=== PATIENT | male | born 1950 | race Caucasian/White ===

== ENCOUNTER → 2016-09-13 | Outpatient (CLI) | payer BC, OTHER ==
[~2016-09-13] MED LIST: AMLO10TA2 PO; ASPI-461 PO; HMLI SC; HYDR25TA4 PO; INSUINJ12 SQ; LEVO88TA PO; LISI20TA3 PO; OXYC-57 PO; PRAV10TA39 PO; VALA500T60 PO
[2016-09-13 13:59] LABS: ESTIMATED AVERAGE GLUCOSE 206 mg/dl; HA1C FLAG Normal (Normal)
== END | disposition home or self-care (01) ==
LOC: C.LABMFLN 07:28
PROVIDERS: ATTEND Nurse Practitioner Adult Health
DX: E10.9 Type 1 diabetes mellitus without complications (principal)

== ENCOUNTER 2024-08-29 11:37 | Inpatient (IN) ==
--- NOTE | 2024-08-29 11:53 | Emergency Department Note ---
Impression & Plan Atrial fibrillation with RVR, Chest pain ED Provider Note NAME: CHRISTINA MENDEZ AGE: 74 SEX: M : 1950 ARRIVES VIA: Ambulance INFORMANT: Patient ED PROVIDER(S): Francisco Barnett DO CHIEF COMPLAINT: Bilateral arm pain, chest and back tightness HPI: Patient is a 74-year-old male with a past medical history of syncope who presents to the ER as he was at the PCPs office and started having tightness in his arms chest and back. Denies any headache or change in vision. No belly pain. Does have some shortness of breath. No dysuria, urgency, or frequency. Did receive aspirin prior to arrival. No history of A-fib. Does have a history of several previous strokes. ADDITIONAL HISTORY OBTAINED: Per HPI Chronic Medical/Social Conditions Affecting Care: Per HPI PAST MEDICAL HISTORY:See Below PAST SURGICAL HISTORY:See Below FAMILY HISTORY:See Below SOCIAL HISTORY:See Below HOME MEDICATIONS:See Below ALLERGIES:See Below VITALS:See Below PHYSICAL EXAMINATION: GENERAL: Sitting up in bed, alert, well appearing, well nourished, no distress, non-toxic EYE EXAM: normal conjunctiva. OROPHARYNX: mucous membranes are moist NECK: supple, no nuchal rigidity, no adenopathy, non-tender LUNGS: Clear to auscultation. Normal chest wall mechanics HEART: no murmurs, S1 normal and S2 normal ABDOMEN: abdomen soft, non-tender, normo-active bowel sounds, no masses, no rebound or guarding. BACK: Back is symmetrical on inspection and there is no deformity, no midline tenderness, no CVA tenderness. UPPER EXTREMITIES: upper extremities are grossly normal. Radial pulses are equal bilaterally LOWER EXTREMITIES: No pitting edema. Calves are equal bilaterally NEURO EXAM: Normal sensorium, cranial nerves II-XII grossly intact, normal speech, no gross weakness of arms, no gross weakness of legs. MEDICAL DECISION MAKING: Patient is a 74-year-old male who presents ER for the below stated complaint. IV was established and blood work was obtained. Upon arrival he is found to be in A-fib with RVR. Labs show no significant leukocytosis or anemia. BMP with mild hyponatremia at 132. Glucose was elevated at 375. He was given 5 units of insulin. Troponin was negative. Lipase normal. CT angio of the chest for dissection was negative. He was given bolus of IV Cardizem and placed on Cardizem drip. Drip was titrated up to 10. Heart rate was controlled from 140s down to 100. Patient was discussed with the hospitalist for further evaluation management treatment. Consults/Care Managements Discussions: Per [facility] Triage Nursing notes reviewed. Limited review of prior medical records performed Vital Signs: reviewed and remarkable for no significant abnormalities Differential diagnosis: Cardiac ischemia, aortic dissection, pulmonary embolism, pneumothorax, pneumonia, pericarditis, myocarditis, esophageal rupture, GERD, cholecystitis, pancreatitis, musculoskeletal, as well as other pathologies. ER treatment provided: See below Diagnostics interpreted by me include EKG and cardiac monitoring as listed below: -Cardiac Monitoring: An order was placed for continuous cardiac monitoring. The monitor shows a rate of 140 with AFIB rhythm. -ECG: A-fib RVR rate of 137 Normal axis No PVCs QTc 465 -Laboratory studies:Interpreted by me as stated above in MDM and shown below. Imaging studies: Xrays: As interpreted by me: Portable AP upright 1 view of the chest shows no focal infiltrate CTs show: CT angio of the chest was negative per radiology Procedures:none Critical Care: None Past Med/Surg History Problem List Atrial fibrillation with RVR Syncope Chest pain (Acute) Herpes zoster (Acute) Social History Smoking Status: Former smoker Preferred Language: Pakistani Feels Safe at Home: Yes Allergies Allergies Allergy/AdvReac Type Severity Reaction Status Date / Time oyster extract Allergy Severe ANAPHYLAXIS Verified 08/29/24 14:11 Penicillins Allergy Mild Hives Verified 08/29/24 14:11 Home Meds Home Medications Medication Instructions Recorded Confirmed aspirin 81 mg tablet,delayed 81 mg PO DAILY ##0 12/23/14 08/29/24 release levothyroxine 88 mcg tablet 88 mcg PO DAILY #0 tabs 12/23/14 08/29/24 atorvastatin 80 mg tablet 80 mg PO DAILY 08/29/24 08/29/24 cholecalciferol (vitamin D3) 25 25 mcg PO DAILY 08/29/24 08/29/24 mcg (1,000 unit) tablet (Vitamin D3) clopidogrel 75 mg tablet 75 mg PO DAILY 08/29/24 08/29/24 ezetimibe 10 mg tablet 5 mg PO DAILY 08/29/24 08/29/24 insulin aspart U-100 100 unit/mL 1 sliding scale dose subcut 08/29/24 08/29/24 (3 mL) subcutaneous pen (Novolog USEASDIRECTD FlexPen U-100 Insulin aspart) insulin glargine U-300 conc 300 9 unit subcut QPM 08/29/24 08/29/24 unit/mL (1.5 mL) subcutaneous pen (Toujeo SoloStar U-300 Insulin) losartan 50 mg tablet 50 mg PO DAILY 08/29/24 08/29/24 vit C 250 mg-vit E 90 mg-zinc 40 1 tab PO BID 08/29/24 08/29/24 mg-copper 1 [id number] capsule (PreserVision AREDS-2) vitamin B complex 1 tab PO DAILY 08/29/24 08/29/24 Results & Data (ED) Vital Signs Vital Signs - 24 hr 08/29/24 11:35 08/29/24 11:50 08/29/24 11:57 Temperature 36.3 C L Temperature Source Oral Pulse Rate 132 H Pulse Rate [Apical] Respiratory Rate 18 Respiratory Effort / Characteristics Non-Labored Spontaneous Respiratory Depth Normal Respiratory Pattern Regular Blood Pressure 140/97 Blood Pressure [Left Arm] Blood Pressure Mean 111 Blood Pressure Mean [Left Arm] Pulse Oximetry 99 99 100 Oxygen Delivery Method Room Air Room Air Room Air Sepsis Recent Fever Within 48 Hours No Sepsis New/Unexplained Change in Mental Status N/A Sepsis Action Taken by Nursing No Action Required 08/29/24 12:02 08/29/24 12:24 08/29/24 13:00 Temperature Temperature Source Pulse Rate 123 H Pulse Rate [Apical] 95 H 115 H Respiratory Rate 18 18 Respiratory Effort / Characteristics Non-Labored Spontaneous Non-Labored Spontaneous Respiratory Depth Normal Normal Respiratory Pattern Regular Regular Blood Pressure Blood Pressure [Left Arm] 106/65 118/72 Blood Pressure Mean Blood Pressure Mean [Left Arm] 78 87 Pulse Oximetry 99 99 Oxygen Delivery Method Room Air Room Air Sepsis Recent Fever Within 48 Hours Sepsis New/Unexplained Change in Mental Status Sepsis Action Taken by Nursing 08/29/24 13:45 08/29/24 14:00 08/29/24 15:03 Temperature Temperature Source Pulse Rate 86 Pulse Rate [Apical] 114 H 93 H Respiratory Rate 18 18 16 Respiratory Effort / Characteristics Non-Labored Spontaneous Non-Labored Spontaneous Respiratory Depth Normal Normal Respiratory Pattern Regular Regular Blood Pressure Blood Pressure [Left Arm] 135/71 122/76 Blood Pressure Mean Blood Pressure Mean [Left Arm] 92 91 Pulse Oximetry 99 100 97 Oxygen Delivery Method Room Air Room Air Room Air Sepsis Recent Fever Within 48 Hours Sepsis New/Unexplained Change in Mental Status Sepsis Action Taken by Nursing 08/29/24 15:03 Temperature Temperature Source Pulse Rate Pulse Rate [Apical] 75 Respiratory Rate 16 Respiratory Effort / Characteristics Respiratory Depth Respiratory Pattern Blood Pressure Blood Pressure [Left Arm] 113/61 Blood Pressure Mean Blood Pressure Mean [Left Arm] 78 Pulse Oximetry 97 Oxygen Delivery Method Room Air Sepsis Recent Fever Within 48 Hours Sepsis New/Unexplained Change in Mental Status Sepsis Action Taken by Nursing Laboratory Data 08/29/24 11:51 08/29/24 11:51 Lab Results 08/29/24 Range/Units 11:51 WBC 5.61 (4.8-10.8) K/ul RBC 4.64 L (4.70-6.10) M/uL Hgb 14.1 (14.0-18.0) g/dl Hct 42.1 (42.0-52.0) % MCV 90.7 (80.0-100.0) fL MCH 30.4 (25.0-34.0) pg MCHC 33.5 (32.0-36.0) g/dL RDW Std Deviation 44.1 (36.4-46.3) fL RDW Coeff of Landy 13.2 (11.5-14.5) % Plt Count 213 (130-400) K/uL MPV 12.1 (9.4-12.4) fL Immature Gran % (Auto) 0.4 % Neut % (Auto) 72.6 % Lymph % (Auto) 16.0 % [place] % (Auto) 6.1 % Eos % (Auto) 3.7 % Baso % (Auto) 1.2 % Neut # (Auto) 4.07 (1.40-6.50) K/uL Lymph # (Auto) 0.90 L (1.20-3.40) K/uL [place] # (Auto) 0.34 (0.11-0.59) K/uL Eos # (Auto) 0.21 (0.00-0.50) K/uL Baso # (Auto) 0.07 (0.00-0.20) K/uL Immature Gran # (Auto) 0.02 (0.01-0.20) K/uL Sodium 132 L (136-145) mmol/L Potassium 5.0 (3.5-5.1) mmol/L Chloride 98 (98-107) mmol/L Carbon Dioxide 23 (21-32) mmol/L Anion Gap 11 (3-11) BUN 25 H (6-23) mg/dl Creatinine 1.07 (0.6-1.4) mg/dl Est Cr Clr Drug Dosing 50.7 ml/min eGFR 72.37 BUN/Creatinine Ratio 23.4 H (10-20) Glucose 375 H* (70-99(Fasting)) mg/dl Calcium 9.1 (8.6-10.3) mg/dl Total Bilirubin 1.1 H (0.2-1.0) mg/dl AST 25 (13-39) U/L ALT 39 (7-52) U/L Alkaline Phosphatase 79 (34-104) U/L Troponin I High Sens 6.8 (0-20) pg/ml Total Protein 6.9 (6.0-8.3) gm/dl Albumin 4.1 (3.4-5.0) gm/dl Globulin 2.8 (2.5-4.0) gm/dl Albumin/Globulin Ratio 1.5 (0.9-2) Lipase 9 L (11-82) U/L Administered Medications Diltiazem HCl 125 mg/ Dextrose 125 mls @ 10 mls/hr IV .[id number] FOR[facility]LY [facility], [facility]; Protocol Stop: 09/28/24 11:59 Last Titration: 08/29/24 12:43 Dose: 10 mg/hr, 10 mls/hr Documented By: GREGORY Co-signed By: KHADAR Admin: 08/29/24 12:23 Dose: 5 mg/hr, 5 mls/hr Documented By: KHADAR Co-signed By: GREGORY Discontinued Medications Diltiazem HCl (Diltiazem Hcl 5 Mg/Ml 5 Ml Vial) 10 mg IV NOW STA Stop: 08/29/24 11:54 Last Admin: 08/29/24 12:04 Dose: 10 mg Documented By: KHADAR Co-signed By: GREGORY Insulin Human Regular (Novolin-R Insulin Per Unit Charge) 5 units IV NOW STA Stop: 08/29/24 13:52 Last Admin: 08/29/24 14:07 Dose: 5 units Documented By: KHADAR Co-signed By: BRIANNA Ioversol (Optiray 320 125ml) 120 ml IV ONCE ONE Stop: 08/29/24 13:33 Last Admin: 08/29/24 13:32 Dose: 120 ml Documented By: LETI Miscellaneous (Stat Iv Infusion Titration Per Protocol) 1 each N/A NOW STA Stop: 08/29/24 11:54 Last Admin: 08/29/24 12:54 Dose: 1 each Documented By: GREGORY Imaging Data Radiologist's Impression: Chest X-Ray 08/29/24 11:51 XR chest 1V portable CLINICAL HISTORY: Chest pain, nonspecific COMPARISON STUDY: None FINDINGS: Heart size and pulmonary vasculature are normal. Lungs are hyperexpanded. No effusion, consolidation, or pneumothorax. IMPRESSION: No acute findings. ACT 112: Negative or not required by law. Electronically signed by: Salomón Leonard M.D. 08/29/2024 12:17 PM Chest CTA 08/29/24 12:22 CT angio chest dissec wo/w con CT DOSE: 837.6 mGy.cm HISTORY: 74 years-old Male with cp/back pain. Acute chest and mid back pain TECHNIQUE: Multiple CTA images of the chest were obtained with and without the intravenous administration of 120 ml Optiray. Coronal and sagittal MIPS were obtained from the axial data set and were submitted for review. All measurements were obtained according to NASCET criteria. A dose lowering technique was utilized adhering to the principles of ALARA. COMPARISON: Chest radiograph of same day FINDINGS: CTA: Heart is upper limits of normal in size. No pericardial effusion. Extensive coronary artery calcifications. Atherosclerosis of the aorta without aneurysm or dissection. Ascending thoracic aorta measures 3.7 cm transversely. Noncontrast study demonstrates no intramural or mediastinal hematoma. Unremarkable pulmonary artery. CT CHEST: No thyroid nodule or lymphadenopathy. Trace pleural effusions. No pneumothorax. Moderate emphysema with bronchial wall thickening suggestive of bronchitis. No suspicious pulmonary nodules or masses. Central airways are generally patent. Prominent atherosclerotic plaque of the upper abdominal aorta and branch vessels. Mild generalized body wall edema. Paraspinal tissues are within normal limits. Mild diffuse wall thickening of the esophagus. 6 mm right tracheoesophageal recess lymph node on image 48 series 7 is within normal limits in size. No acute fracture. IMPRESSION: 1. Atherosclerosis of the thoracic aorta without aneurysm or dissection. 2. No pulmonary emboli. 3. Emphysema without acute process of the chest. 4. Mild nonspecific diffuse esophageal wall thickening should be correlated clinically to exclude a nonspecific esophagitis. ACT 112: Negative or not required by law. The above report was generated using voice recognition software. It may contain grammatical, syntax or spelling errors. Electronically signed by: Dez Christian M.D. 08/29/2024 2:03 PM Discharge Plan Visit Data Chief Complaint: Cardiac Assessment Stated Complaint: HEAVINESS IN ARM & BACK ED Provider: Francisco Barnett Discharge Problem: Atrial fibrillation with RVR, Chest pain Forms Stand Alone Forms: [facility] [employer] Prescriptions Prescriptions: No Action aspirin 81 mg Tablet,Delayed Release (Dr/Ec) 81 mg PO DAILY Qty: 0 levothyroxine 88 mcg Tablet 88 mcg PO DAILY Qty: 0 losartan 50 mg Tablet 50 mg PO DAILY atorvastatin 80 mg Tablet 80 mg PO DAILY clopidogrel 75 mg Tablet 75 mg PO DAILY vitamin B complex Tablet 1 tab PO DAILY ezetimibe 10 mg Tablet 5 mg PO DAILY insulin aspart U-100 [Novolog FlexPen U-100 Insulin] 100 unit/mL (3 mL) Insulin Pen 1 sliding scale dose SUBCUT USEASDIRECTD Rx Instructions: Inject 1 unit per 8 gram of carb at breakfast and 1 unit per 9 gram of carb for all other meals + 1 additional unit for every 50 above 180. cholecalciferol (vitamin D3) [Vitamin D3] 25 mcg (1,000 unit) Tablet 25 mcg PO DAILY PreserVision AREDS-2 250-90-40-1 mg Capsule 1 tab PO BID insulin glargine U-300 conc [Toujeo SoloStar U-300 Insulin] 300 unit/mL (1.5 mL) Insulin Pen 9 unit subcut QPM Rx Instructions: With supper Referrals Referrals: Apollo Gutiérrez [employer] [Primary Care Provider] - Discharge Problem: Chest pain Qualifiers: Chest pain type: unspecified Qualified Code(s): R07.9 - Chest pain, unspecified
[2024-08-29] MEDS: dilTIAZem HCl 5 MG/ML 5 ML VIAL IV STA (12:04)
--- NOTE | 2024-08-29 12:18 | XRay Report ---
XR chest 1V portable CLINICAL HISTORY: Chest pain, nonspecific COMPARISON STUDY: None FINDINGS: Heart size and pulmonary vasculature are normal. Lungs are hyperexpanded. No effusion, cons olidation, or pneumothorax. IMPRESSION: No acute findings. ACT 112: Negative or not required by law. Electronically signed by: Salomón Leonard M.D. 08/29/2024 12:17 PM
[2024-08-29 12:22] LABS: Basophils # (auto) 0.07 K/uL (0.00-0.20); Basophils % (auto) 1.2 %; Eosinophils # (auto) 0.21 K/uL (0.00-0.50); Eosinophils % (auto) 3.7 %; Hematocrit (blood only) 42.1 % (42.0-52.0); Hemoglobin 14.1 g/dl (14.0-18.0); Immature Granulocytes # (auto) 0.02 K/uL (0.01-0.20); Immature Granulocytes % (auto) 0.4 %; Mean Corpuscular Hemoglobin 30.4 pg (25.0-34.0); Mean Corpuscular Hgb Conc 33.5 g/dL (32.0-36.0); Mean Corpuscular Volume 90.7 fL (80.0-100.0); Mean Platelet Volume 12.1 fL (9.4-12.4); Monocytes # (auto) 0.34 K/uL (0.11-0.59); Monocytes % (auto) 6.1 %; Neutrophils # (auto) 4.07 K/uL (1.40-6.50); Neutrophils % (auto) 72.6 %; Platelet Count 213 K/uL (130-400); RDW Coefficient of Variation 13.2 % (11.5-14.5); RDW Standard Deviation 44.1 fL (36.4-46.3); Red Blood Count 4.64 M/uL (4.70-6.10); White Blood Count 5.61 K/ul (4.8-10.8)
[2024-08-29] MEDS: dilTIAZem HCL 125 MG in DEXTROSE 5% 100 ML IV SCH (12:23)
[2024-08-29 12:40] LABS: Albumin Globulin Ratio 1.5 (0.9-2); Albumin Level 4.1 gm/dl (3.4-5.0); BUN Creatinine Ratio 23.4 (10-20); Bilirubin,Total 1.1 mg/dl (0.2-1.0); Calcium 9.1 mg/dl (8.6-10.3); Creatinine Clr Calc Pharmacy 50.7 ml/min; Globulin 2.8 gm/dl (2.5-4.0); Total Protein 6.9 gm/dl (6.0-8.3)
[2024-08-29 12:45] LABS: Troponin I High Sensitivity 6.8 pg/ml (0-20)
[2024-08-29] MEDS: STAT IV Infusion **Titration per Protocol STA (12:54)
[2024-08-29] MEDS: OPTIRAY 320 125ml IV ONE (13:32)
--- NOTE | 2024-08-29 14:06 | CT Scan Report ---
CT angio chest dissec wo/w con CT DOSE: 837.6 mGy.cm HISTORY: 74 years-old Male with cp/back pain. Acute chest and mid back pain TECHNIQUE: Multiple CTA images of the chest were obtained with and without the intravenous administra tion of 120 ml Optiray. Coronal and sagittal MIPS were obtained from the axial data set and were sub mitted for review. All measurements were obtained according to NASCET criteria. A dose lowering tech nique was utilized adhering to the principles of ALARA. COMPARISON: Chest radiograph of same day FINDINGS: CTA: Heart is upper limits of normal in size. No pericardial effusion. Extensive coronary artery calcifica tions. Atherosclerosis of the aorta without aneurysm or dissection. Ascending thoracic aorta measures 3.7 cm transversely. Noncontrast study demonstrates no intramural or mediastinal hematoma. Unremarka ble pulmonary artery. CT CHEST: No thyroid nodule or lymphadenopathy. Trace pleural effusions. No pneumothorax. Moderate emphysema wi th bronchial wall thickening suggestive of bronchitis. No suspicious pulmonary nodules or masses. Radha tral airways are generally patent. Prominent atherosclerotic plaque of the upper abdominal aorta and branch vessels. Mild generalized anisa dy wall edema. Paraspinal tissues are within normal limits. Mild diffuse wall thickening of the esoph lesli. 6 mm right tracheoesophageal recess lymph node on image 48 series 7 is within normal limits in size. No acute fracture. IMPRESSION: 1. Atherosclerosis of the thoracic aorta without aneurysm or dissection. 2. No pulmonary emboli. 3. Emphysema without acute process of the chest. 4. Mild nonspecific diffuse esophageal wall thickening should be correlated clinically to exclude a n onspecific esophagitis. ACT 112: Negative or not required by law. The above report was generated using voice recognition software. It may contain grammatical, syntax o r spelling errors. Electronically signed by: Dez Christian M.D. 08/29/2024 2:03 PM
[2024-08-29] MEDS: NovoLIN-R INSULIN PER UNIT CHARGE IV STA (14:07)
[2024-08-29] MEDS ORDERED: GLUCAGON FOR INJ 1 MG VIAL SQ PRN (14:55)
[2024-08-29] MEDS ORDERED: GLUCOSE 40% GEL 15 GM TUBE PO PRN (14:55)
[2024-08-29] MEDS ORDERED: DEXTROSE 50% 50 ML SYRINGE IV PRN (14:55)
[2024-08-29] MEDS ORDERED: ALUMINUM/MAGNESIUM SUSP 30 ML UDC PO PRN (14:55)
[2024-08-29] MEDS ORDERED: GLUCOSE 10 TAB/TUBE PO PRN (14:55)
[2024-08-29] MEDS ORDERED: ACETAMINOPHEN 325 MG TAB PO PRN (14:55)
[2024-08-29] MEDS ORDERED: PHARMACY GLYCEMIC MGMT CONSULT PRN (14:55)
[2024-08-29] MEDS ORDERED: MAGNESIUM HYDROXIDE SUSP 30 ML UDC PO PRN (14:55)
[2024-08-29] MEDS ORDERED: NITROGLYCERIN SL 0.4 MG/TAB TAB SL PRN (14:55)
--- NOTE | 2024-08-29 14:56 | Electrocardiogram Report ---
Test Reason : Blood Pressure : */* mmHG Vent. Rate : 137 BPM Atrial Rate : * BPM P-R Int : * ms QRS Dur : 90 ms QT Int : 308 ms P-R-T Axes : * 81 -41 degrees QTcB Int : 465 ms Atrial fibrillation with rapid ventricular response Abnormal ECG When compared with ECG of 23-Dec-2014 11:57, Atrial fibrillation now present HR has increased by 70 bpm Confirmed by Galo Cameron ([id number]) on 08/29/2024 2:55:56 PM Referred By: Confirmed By: Galo Cameron
--- NOTE | 2024-08-29 14:57 | History & Physical Report ---
Date of Service August 29, 2024 Assessment & Plan (1) Atrial fibrillation with RVR: Plan Atrial fibrillation with RVR, New onset Patient presented with tightness/pain of his both arms/upper back/shoulders associated with nausea/vomiting/pressure at the back of his head. Patient noted to be in A-fib with RVR at presentation, EKG reviewed. Patient denies history of A-fib, get TSH. Admitting troponin 6.8, trend troponins. Get echo, telemetry monitoring Monitor and replete electrolytes Patient started on Cardizem drip, heart rate getting better controlled. c/w w/ drip Cardiology consult, communicated via TT. [id number] score of 6 [age, HTN, prior stroke, diabetes mellitus]. Consider Heparin drip after CT head is out/hold one of dapt ? plavix; will f/u w/ cards recs. Rule out stroke: Patient reports that he has had 4 strokes in the past, last one in February 2024. He likens the presenting symptoms to the event of stroke in the past. Will get CT head, and follow-up with MRI brain. Hyperglycemia/ in the setting of T2DM: Sliding scale insulin while in hospital, A1c in a.m., glycemic pharmacy consult. Other chronic medical conditions: HTN, HLD, hypothyroidism--- continue/resume home meds as able. DVT prophylaxis: Plan to put on heparin drip after CT Head result. Full code History of Present Illness Chief Complaint: Tightness in the arms and shoulder Primary Care Provider: BRAD Padron 74-year-old male with PMH of T2DM, HLD, hypothyroidism, stroke [4 times per patient, last one February 2024], HTN, colon polyps presented to the ED after he started feeling tightness/pain of both arms and shoulders and upper back followed by nausea, sweating, vomiting. The symptoms worsened and hence he presented to the ED. Patient was at his PCP office when the symptoms started. Patient denied chest pain or chest tightness. Patient reported pressure at the back of his head. Patient reports he has had 4 strokes, last one in February 2024. He feels like he had similar symptoms during prior strokes with pain/tightness of both arms/upper back along with pressure at the back of the head. Patient noted to be in A-fib RVR at presentation in the ED. Patient denies any fever/sore throat/cough/chest pain/chest tightness/belly pain/pain or burning while passing urine/diarrhea/constipation/weakness. Patient reports quitting smoking 8 to 9 years ago, denies alcohol/recreational drug use. Full code Medications reviewed with the patient at bedside in detail. Plan of care discussed with the patient in detail, he was understanding and was agreeable. Allergies Allergy/AdvReac Type Severity Reaction Status Date / Time oyster extract Allergy Severe ANAPHYLAXIS Verified 08/29/24 14:11 Penicillins Allergy Mild Hives Verified 08/29/24 14:11 Home Medications Medication Instructions Recorded Confirmed Type aspirin 81 mg tablet,delayed 81 mg PO DAILY ##0 12/23/14 08/29/24 History release levothyroxine 88 mcg tablet 88 mcg PO DAILY #0 tabs 12/23/14 08/29/24 History atorvastatin 80 mg tablet 80 mg PO DAILY 08/29/24 08/29/24 History cholecalciferol (vitamin D3) 25 25 mcg PO DAILY 08/29/24 08/29/24 History mcg (1,000 unit) tablet (Vitamin D3) clopidogrel 75 mg tablet 75 mg PO DAILY 08/29/24 08/29/24 History ezetimibe 10 mg tablet 5 mg PO DAILY 08/29/24 08/29/24 History insulin aspart U-100 100 unit/mL 1 sliding scale dose subcut 08/29/24 08/29/24 History (3 mL) subcutaneous pen (Novolog USEASDIRECTD FlexPen U-100 Insulin aspart) insulin glargine U-300 conc 300 9 unit subcut QPM 08/29/24 08/29/24 History unit/mL (1.5 mL) subcutaneous pen (Toujeo SoloStar U-300 Insulin) losartan 50 mg tablet 50 mg PO DAILY 08/29/24 08/29/24 History vit C 250 mg-vit E 90 mg-zinc 40 1 tab PO BID 08/29/24 08/29/24 History mg-copper 1 mu-xfardo-csxqiz capsule (PreserVision AREDS-2) vitamin B complex 1 tab PO DAILY 08/29/24 08/29/24 History Past Med/Surg History Problem List (Updated 08/29/24 @ 15:01 by Kari Stiles MD) Atrial fibrillation with RVR Syncope Chest pain (Acute) Herpes zoster (Acute) Social History Smoking Status: Former smoker Preferred Language: Liberian Feels Safe at Home: Yes Review of Systems Review of Systems: Negative otherwise mentioned in HPI. Physical Exam Physical Exam: GENERAL: Alert and oriented x3. NAD, on RA. HEENT: No pallor, no icterus. Pupils equal, round and reactive to light. Oral mucosa moist. NECK: No JVD, no neck masses. HEART: S1 and S2 heard. irregular rate and rhythm. HR in 100s. No murmur, no gallop. RESPIRATORY SYSTEM: Normal AP diameter. No accessory muscle use. No wheezing, no crackles. ABDOMEN: Soft, bowel sounds present, nontender, no distention. CENTRAL NERVOUS SYSTEM: No facial droop. Speech is clear. Obeys simple commands. Moves extremities. power 5/5 all extremities. EXTREMITIES: No edema, no erythema seen. Results & Data Results & Data Vital Signs (Past 12 Hours) Vital Signs Temp Pulse Pulse Resp BP BP Pulse Ox 08/29/24 14:00 93 H 18 122/76 100 08/29/24 13:45 114 H 18 135/71 99 08/29/24 13:00 115 H 18 118/72 99 08/29/24 12:24 95 H 18 106/65 99 08/29/24 12:02 123 H 08/29/24 11:57 100 08/29/24 11:50 99 08/29/24 11:35 36.3 C L 132 H 18 140/97 99 O2 Del Method 08/29/24 14:00 Room Air 08/29/24 13:45 Room Air 08/29/24 13:00 Room Air 08/29/24 12:24 Room Air 08/29/24 12:02 08/29/24 11:57 Room Air 08/29/24 11:50 Room Air 08/29/24 11:35 Room Air
--- NOTE | 2024-08-29 15:34 | Cardiology Consultation ---
Date of Consultation August 29, 2024 Assessment & Plan (1) Atrial fibrillation with RVR: Plan Patient is a 74-year-old male presents with newly observed atrial fibrillation with rapid response possible acute onset this afternoon. Initially associated with symptoms of chest pain and arm weakness. Symptoms now resolved with heart rate control With IV diltiazem Echocardiogram demonstrates normal to hyperdynamic LV function with only borderline left atrial enlargement. Mild sclerotic changes of the aortic and mitral valves. CT of the chest unremarkable revealing other than vascular and coronary calcification 1. Atrial fibrillation with rapid response. Has controlled with IV diltiazem. Will transition to oral metoprolol Tartrate 25 mg p.o. now and 3 times daily. Patient with significantly elevated [id number] 2 score, 6. CT scan head pending but would anticoagulate with IV heparin with transition ultimately to Eliquis at discharge. Would likely continue with Plavix discontinue aspirin at that time Prior history of borderline bradycardia, abnormal tilt table testing. Will need to watch closely for tachybradycardia syndrome. Discussed with patient and may ultimately require pacemaker for management. Would not initiate Eliquis until discharge 2. Cardiovascular risk factors continue Atorvastatin, ezetimibe, losartan History of Present Illness Reason for Consultation: Atrial fibrillation with rapid ventricular response Requesting Physician: Dr. Stiles/Nathaniel hospitalist History of Present Illness Patient is a 74-year-old male referred for newly observed atrial fibrillation with rapid response. Underlying medical issues include 1. Recurrent stroke most recent event February 2024 with mild left leg weakness residual. On dual antiplatelet therapy. 2. Type 1 diabetes, insulin-dependent since age 39 3. Peripheral neuropathy 4. Orthostatic hypotension with past positive tilt table testing 5. Hyperlipidemia on therapy Patient routinely followed at [facility]. No prior history of atrial fibrillation with past event monitors demonstrating short runs of supraventricular tachycardia only. Today at routine visit at the [facility] was walking across the parking lot afterwards and developed sudden onset arm pain shoulder pain and acute weakness. Patient concerned regarding symptoms with prior stroke. Return to clinic or is found to be in atrial fibrillation with rapid response. Transported via ambulance to the emergency room. Begun on IV diltiazem with prompt slowing of atrial fibrillation rate. Currently comfortable without complaint. He denies prior history of myocardial infarction angina or congestive heart failure no history of cardiomyopathy. No recent fevers chills or infections. No bleeding issues. Does bruise easily on dual antiplatelet therapy. Appetite and weight are stable. No sleep disruption Does trend low heart rate at baseline Family history of diabetes and vascular disease Allergies Allergy/AdvReac Type Severity Reaction Status Date / Time oyster extract Allergy Severe ANAPHYLAXIS Verified 08/29/24 14:11 Penicillins Allergy Mild Hives Verified 08/29/24 14:11 Home Medications Medication Instructions Recorded Confirmed Type aspirin 81 mg tablet,delayed 81 mg PO DAILY ##0 12/23/14 08/29/24 History release levothyroxine 88 mcg tablet 88 mcg PO DAILY #0 tabs 12/23/14 08/29/24 History atorvastatin 80 mg tablet 80 mg PO DAILY 08/29/24 08/29/24 History cholecalciferol (vitamin D3) 25 25 mcg PO DAILY 08/29/24 08/29/24 History mcg (1,000 unit) tablet (Vitamin D3) clopidogrel 75 mg tablet 75 mg PO DAILY 08/29/24 08/29/24 History ezetimibe 10 mg tablet 5 mg PO DAILY 08/29/24 08/29/24 History insulin aspart U-100 100 unit/mL 1 sliding scale dose subcut 08/29/24 08/29/24 History (3 mL) subcutaneous pen (Novolog USEASDIRECTD FlexPen U-100 Insulin aspart) insulin glargine U-300 conc 300 9 unit subcut QPM 08/29/24 08/29/24 History unit/mL (1.5 mL) subcutaneous pen (Toujeo SoloStar U-300 Insulin) losartan 50 mg tablet 50 mg PO DAILY 08/29/24 08/29/24 History vit C 250 mg-vit E 90 mg-zinc 40 1 tab PO BID 08/29/24 08/29/24 History mg-copper 1 [id number] capsule (PreserVision AREDS-2) vitamin B complex 1 tab PO DAILY 08/29/24 08/29/24 History Patient History Social History Smoking Status: Former smoker Preferred Language: Ghanaian Feels Safe at Home: Yes Review of Systems Review of Systems: All systems reviewed & are unremarkable except as noted in HPI & below Physical Exam Constitutional: WD/WN, vitals as above no acute distress ENMT: external ear and nose normal, oropharynx normal Neck: trachea midline, no thyromegaly Respiratory: normal respiratory effort, lungs clear to auscultation Cardiovascular: Rate/Rhythm: + irregularly irregular Heart Sounds: normal S1 and normal S2; no murmur Vessels: no JVD Extremities: no edema Gastrointestinal (Abdomen): normal bowel sounds, soft, nontender, no hepatosplenomegaly Musculoskeletal: no cyanosis or clubbing, extremities motor strength 5/5 Results & Data Vital Signs (Past 12 Hours) Vital Signs Temp Pulse Pulse Resp BP BP Pulse Ox 08/29/24 15:03 75 16 113/61 97 08/29/24 15:03 86 16 97 08/29/24 14:00 93 H 18 122/76 100 08/29/24 13:45 114 H 18 135/71 99 08/29/24 13:00 115 H 18 118/72 99 08/29/24 12:24 95 H 18 106/65 99 08/29/24 12:02 123 H 08/29/24 11:57 100 08/29/24 11:50 99 08/29/24 11:35 36.3 C L 132 H 18 140/97 99 O2 Del Method 08/29/24 15:03 Room Air 08/29/24 15:03 Room Air 08/29/24 14:00 Room Air 08/29/24 13:45 Room Air 08/29/24 13:00 Room Air 08/29/24 12:24 Room Air 08/29/24 12:02 08/29/24 11:57 Room Air 08/29/24 11:50 Room Air 08/29/24 11:35 Room Air Laboratory Results Laboratory Results - last 24 hr 08/29/24 11:51 WBC 5.61 RBC 4.64 L Hgb 14.1 Hct 42.1 MCV 90.7 MCH 30.4 MCHC 33.5 RDW Std Deviation 44.1 RDW Coeff of Landy 13.2 Plt Count 213 MPV 12.1 Immature Gran % (Auto) 0.4 Neut % (Auto) 72.6 Lymph % (Auto) 16.0 [place] % (Auto) 6.1 Eos % (Auto) 3.7 Baso % (Auto) 1.2 Neut # (Auto) 4.07 Lymph # (Auto) 0.90 L [place] # (Auto) 0.34 Eos # (Auto) 0.21 Baso # (Auto) 0.07 Immature Gran # (Auto) 0.02 Sodium 132 L Potassium 5.0 Chloride 98 Carbon Dioxide 23 Anion Gap 11 BUN 25 H Creatinine 1.07 Est Cr Clr Drug Dosing 50.7 eGFR 72.37 BUN/Creatinine Ratio 23.4 H Glucose 375 H* Calcium 9.1 Total Bilirubin 1.1 H AST 25 ALT 39 Alkaline Phosphatase 79 Troponin I High Sens 6.8 Total Protein 6.9 Albumin 4.1 Globulin 2.8 Albumin/Globulin Ratio 1.5 Lipase 9 L
--- NOTE | 2024-08-29 16:17 | CT Scan Report ---
EXAM: CT Head Without Intravenous Contrast INDICATION: Head pressure. TECHNIQUE: Axial computed tomography images of the head/brain without intravenous contrast. Sagittal and/or coronal reformats are provided. Sagittal and coronal reformatted images were created and reviewed. This CT exam was performed using one or more of the following dose reduction techniques: automated exposure control, adjustment of the mA and/or kV according to patient size, and/or use of iterative reconstruction technique. COMPARISON: No relevant prior studies available. FINDINGS: Limitations: None. Brain and extra-axial spaces: There is age appropriate cortical atrophy and chronic ischemic periventricular white matter hypodensity. No acute infarct, hemorrhage or mass noted. Bones/joints: No acute changes. Soft tissues: No significant abnormality noted. Vasculature: Dense atherosclerotic calcification noted in the vertebral and carotid arteries. Sinuses: There is mild chronic bilateral ethmoid and left frontal sinus thickening. No fluid. Mastoid air cells: No mastoid effusion. Orbits: No significant abnormality noted. IMPRESSION: 1. Cerebral atrophy. No acute changes. 2. Chronic ethmoid and left frontal sinusitis. ACT 112: Negative or not required by law. Electronically signed by Karina Borrego 08-29-2024 4:16 PM
[2024-08-29] MEDS: METOPROLOL TARTRATE 25 MG TAB PO ONE (17:28)
[2024-08-29] MEDS: Heparin IV Adult Wt-Based Low-Dose *NO* INITIAL Bolus Protocol IV STA (17:46)
[2024-08-29] MEDS: HEPARIN 25000 UNIT/500 ML D5W 25,000 UNITS/500 ML BAG IV SCH (18:09)
[2024-08-29] MEDS: ONDANSETRON INJ 2 MG/ML 2 ML VIAL IV PRN (18:29)
[2024-08-29] MEDS: INSULIN ASPART PER UNIT CHARGE SC SCH (18:36)
[2024-08-29] MEDS: METOPROLOL TARTRATE 25 MG TAB PO SCH (19:34)
--- OUTSIDE RECORDS SUMMARY | 2024-08-29 20:31 | External Medical Summary ---
Author Name Unknown Address Unknown Organization : Laboratory Report Ordering Provider Test Date Status MARIELLE MARTINEZ 07/10/2024 07:17:27 Final Observation Date Value Abnormality Reference (Units ) Status Glucose Point of Care 07/10/2024 07:17:27 178 Above high normal 70-120 (mg/dL) Final Performing Location
--- OUTSIDE RECORDS SUMMARY | 2024-08-29 20:31 | External Medical Summary | Summary of Care ---
Author Name Unknown Organization [facility] Address [address] [facility] [place] [address] Phone [phone] Care Team Providers Care Policyholder Information Clerk Name Role Phone Jatin Mejia Primary Care Provider [phone] Reason for Visit * Auth/Cert Specialty Diagnoses / Procedures Referred By José guzman Referred To Contact Diagnoses Cataract Cataract [H26.9] Procedures REMOVE CATARACT, INSERT LENS PROSTH LEFT EXTRACAPSULAR CATARACT REMOVAL WITH INTRAOCULAR LENS Juan Malcolm DO [address] [address] Phone: tel: fax: [facility], Operating Room, [facility] - 4th Floor [address] [place] [address] Phone: tel: Referral ID Status Reason Start Date Expiration Date Visits Re quested Visits Authorized [id number] Encounter Details Date Type Department Care Team (Late st Contact Info) Description 07/10/2024 6:36 AM EST - 07/10/2024 8:52 AM EST Hospital Encounter [facility], Operating Room, [facility] - 4th Floor [address] [place] [address] Juan Malcolm DO [address] [address] Discharge Disposition: Home - Self Care Allergies Active Allergy Reactions Criticality Noted Date Comments Penicillins Edema face/lips/tongue High 12/17/2014 documented as of this encounter (statuses as of 07/10/2024) Medications aspirin 81 MG chewable tablet Take 1 Tablet by mouth in the morning. Active CYANOCOBALAMIN (VITAMIN B-12) 500 MCG Sublingual Tablet Take 2 Tablets by mouth in the morning. Active Cholecalciferol (VITAMIN D3) 3000 UNITS Tablet Take 1,000 Units by mouth daily. Active Ezetimibe 10 MG Oral Tablet (Zetia) Take 0.5 Tablets by mouth in the morning. 09/15/19 24 Active Insulin Glargine (1 Unit Dial) 300 UNIT/ML Subcutaneous Solution Pen-injector Inject 9 Units under the skin at bedtime. 10 units 06/19/20 23 Active Insulin Aspart 100 UNIT/ML Injection Solution (NovoLOG) INJECT INSULIN SUBCUTANEOUSLY 3 TIMES A DAY WITH MEALS FOR DIABETES USE CARB RATIO PLUS SCALE 1:50 GREATER THAN 180.CARB RATIOS: 1:15 WITH BREAKFAST. 1:15 WITH LUNCH. 1:15 WITH SUPPER. 1:20 WITH SNACKS. FOR DIABETES USE CARB RATIO PLUS SCALE 1:50 GREATER THAN 180.CARB RATIOS: 1:15 WITH BREAKFAST. 1:15 WITH LUNCH. 1:15 WITH SUPPER. 1:20 WITH SNACKS. 02/18/20 23 Active Clopidogrel Bisulfate 75 MG Oral Tablet (pLAVix) 1 Tablet. 01/08/20 23 Active Atorvastatin Calcium 80 MG Oral Tablet (Lipitor) Take 1 Tablet by mouth in the morning. 05/30/20 23 Active PreserVision AREDS 2 Oral Capsule Take 1 Capsule by mouth in the morning. 01/18/20 23 Active Levothyroxine Sodium 88 MCG Oral Tablet (Levoxyl) Take 1 Tablet by mouth daily first thing in the morning. (at least 30 min prior to breakfast or other meds) Active hydroCHLOROthiaz vonnie 12.5 MG Oral CapsuleIndicatio ns:Essential hypertension Take 1 Capsule by mouth in the morning. 30 Capsule 5 03/19/20 24 Active Additional Information Patient not taking.Reported on 07/10/2024 Losartan Potassium 50 MG Oral Tablet (Cozaar) Take 1 Tablet by mouth in the morning. Active prednisoLONE Acetate 1 % Ophthalmic Suspension (Pred Forte) Instill 1 Drop into both eyes in the morning and 1 Drop at noon and 1 Drop in the evening and 1 Drop before bedtime. 10 mL 06/20/20 24 Active documented as of this encounter (statuses as of 07/10/2024) Active Problems Problem Noted Date Diagnosed Date Stroke-like symptoms 03/15/2024 Stroke with cerebral ischemia 03/15/2024 Cataract 12/01/2023 Combined forms of age-related cataract of both e yes 11/09/2023 Weakness 04/20/2018 Diaphoresis 04/19/2018 Type 2 diabetes mellitus wit h kidney complication, with long-term current use of insulin 04/19/2018 Essential hypertension 04/19/2018 Hyperlipidemia 04/19/2018 Hypothyroidism Colon polyps documented as of this encounter (statuses as of 07/10/2024) Resolved Problems Problem Noted Date Diagnosed Date Resolved Date Near syncope 04/19/2018 03/19/2024 documented as of this encounter (statuses as of 07/10/2024) Immunizations Name Administration Dates Next Due Covid-19, Mrna, Lnp-s, Pf, B ivalent, 50 Mcg, IM, 12 yrs and above (Moderna) 07/06/2021,09/22/2020,08/25/2020 Pneumococcal Conjugate Vacc, 13 Valent (Prevnar) 11/03/2015 Pneumococcal Polysaccharide PPV23 (Pneumovax) 07/28/2017,05/25/2003 Season Influenza, Quad, PF, Adjuvanted, 65+ Yrs, IM (FLUAD) 05/17/2016 Seasonal Influenza Vac., MDV , IM, 0.5 mL (Fluzone) 04/23/2019,04/18/2017 Seasonal Influenza, High Dos e, Trivalent, PF, IM (Fluzone HD) 03/30/2024 TD - Tetanus/Diptheria (ADULT) 06/28/2011 Varicella Zoster Vaccine (Adult) 10/27/2016 Zoster Vaccine Recombinant (Shingrix) 07/23/2019 ,04/23/2019 documented as of this encounter Social History Tobacco Use Types Packs/Day Years Used Date Smoking Tobacco: Former Cigarettes Q uit: 10/23/2014 Passive Smoke Exposure: Past Smokeless Tobacco: Never Alcohol Use Standard Drinks/Week Comments Not Currently 0 (1 standard drink = 0.6 oz pur e alcohol) PHQ-2 Answer Date Recorded PHQ Adult Total Score 0 09/26/2023 Hunger Vital Sign Answer Date Recorded Within the past 12 months, y ou worried that your food would run out before you got the money to buy more. Never true 09/15/19 24 Within the past 12 months, t he food you bought just didn't last and you didn't have money to get more. Never true 09/15/2023 Childcare Answer Date Recorded Do you feel overwhelmed with taking care of a child, family member or friend? No 09/15/2023 Does your family need help f inding childcare? (Household - for ages 0-17 years) Not on file 09/15/2023 Clothing Answer Date Recorded Have you been unable to get clothing when it was really needed? No 09/15/2023 Is your family able to get c lothes or diapers when needed? (Household - for ages 0-17 years) Not on file 09/15/2023 Personal Safety Answer Date Recorded Do you feel unsafe or have concerns for your saf ety? No 09/15/2023 Do you have concerns for you r family's safety? (Household - for ages 0-17 years) Not on file 09/15/2023 Utilities Answer Date Recorded Do you have trouble paying y our heating, water, or electric bill? No 09/15/2023 Is your family able to pay t he heat, water, or electric bill? (Household - for ages 0-17 years) Not on file 09/15/2023 Does your family have access to good internet? (Household - for ages 0-17 years) Not on file 09/15/2023 Employment Status Answer Date Recorded Are you unemployed or without regular income? No 09/15/2023 [facility] the [facility] have a [facility] income? (Household - for ages 0-17 years) Not on file 09/15/2023 Social Connections Answer Date Recorded How often do you feel lonely or isolated from th ose around you? Never 09/15/2023 Financial Resource Strain Answer Date R ecorded Do you have any trouble payi ng for your medications, or do you think you might in the future? No 09/15/2023 Does your family have troubl e paying for medicine? (Household - for ages 0-17 years) Not on file 09/15/2023 Transportation Needs Answer Date Record ed READ ONLY Do you have troubl e getting a ride to medical visits or work? Never True 09/15/2023 Does your family have a hard time getting a ride to doctors visits? (Household - for ages 0-17 years) Not on file 09/15/2023 Has lack of transportation k ept you from medical appointments, meetings, work, or from getting things needed for daily living? Check all that apply. (Adult - for ages 18 years and over) Not on file 09/15/2023 Do you (or your family) have trouble finding or paying for a ride (transportation)? (Household - for ages 0-17 years) Not on file 09/15/2023 Housing Stability Answer Date Recorded Do you currently live in a s helter or have no steady place to sleep at night? No 09/15/2023 READ ONLY Do you think you a re at risk of becoming homeless? No 09/15/2023 Does your family worry about paying for your home or becoming homeless? (Household - for ages 0-17 years) Not on file 0 09/15/2023 Are you homeless or worried that you might be in the future? (Adult - for ages 18 years and over) Not on file Are you (or your family) christopher eless or worried that you might be in the future? (Household - for ages 0-17 years) Not on file Food Insecurity Answer Date Recorded Do you need food for this week? No 09/15/2023 Are you able to get enough f ood for your family? (Household - for ages 0-17 years) Not on file 09/15/2023 Does your family need food t his week? (Household - for ages 0-17 years) Not on file 09/15/2023 Do you always have enough fo od for your family? (Household - for ages 0-17 years) Not on file 09/15/2023 Sex and Gender Information Value Date Recorded Sex Assigned at Male 09/15/2023 1:23 PM EST Legal Sex Male 5:07 AM EST Gender Identity Male 09/15/2023 1:23 PM EST Sexual Orientation Straight 09/15/2023 1: 23 PM EST documented as of this encounter Last Filed Vital Signs Vital Sign Reading Time Taken Comments Blood Pressure 175/86 07/10/2024 8:49 AM EST Pulse 54 07/10/2024 8:49 AM EST Temperature 36.3 C (97.3 F) 07/10/2024 8:49 AM ES T Respiratory Rate 16 07/10/2024 8:49 AM EST Oxygen Saturation 98% 07/10/2024 8:49 AM EST Inhaled Oxygen Concentration - - Weight 64.3 kg (141 lb 12.1 oz) 07/10/2024 6:47 AM EST Height 172.7 cm (5' 8") 07/10/2024 6:47 AM EST Body Mass Index 21.55 07/10/2024 6:47 AM EST documented in this encounter Functional Status * Are you deaf or do you have serious difficulty hearing? Answer Date of Assessment Author No 04/19/2018 7:43 PM Ashlyn Robles RN * Are you blind or do you have serious difficulty seeing, even when wearing glasses? Answer Date of Assessment Author Yes 04/19/2018 7:43 PM Ashlyn Robles RN * Do you have serious difficulty walking or climbing stairs? (5 years old or older) Answer Date of Assessment Author No 04/19/2018 7:43 PM Ashlyn Robles RN * Do you have difficulty dressing or bathing? (5 years old or older) Answer Date of Assessment Author No 04/19/2018 7:43 PM Ashlyn Robles RN * Because of a physical, mental, or emotional condition, do you have difficulty doing errands alone such as visiting a doctors office or shopping? (15 years old or older) Answer Date of Assessment Author No 04/19/2018 7:43 PM Ashlyn Robles RN documented as of this encounter Mental Status * Because of a physical, mental, or emotional condition, do you have serious difficulty concentrating, remembering, or making decisions? (5 years old or older) Answer Entry Date Author No 04/19/2018 7:43 PM Ashlyn Robles RN documented in this encounter Discharge Instructions * Discharge Instr - AVS* Juan Malcolm, - 07/10/2024 8:16 AM EST Discharge Date: 07/10/24 Check your Patient Education Brochure for further information. If you have any further questions orconcerns after discharge and before 4:00 p.m. please contact your surgeons office at [phone]. This is our office phone number. After 4:00 p.m. or on the weekend, please call our on-call phone number at [phone]. Ask for the tree trimming line technician motivational speaker. Please let the doctor on-call know you had surgery with Dr. Malcolm. The on-call doctor will get in touch with Dr. Malcolm on your behalf. Go to the Emergency Room if you feel the situation is an emergency. If you present to another facility's emergency room, please call and inform your surgeon's office at the phone number provided above. The information below provides you with the instructions and the list of medications you need to betaking following discharge from the hospital. If you have any questions, please ask before leaving.Please carry this letter with you when you see your doctor in the clinic. If you have questions, you can reach us at the numbers above. Diet: Start with clear liquids (jello, tea, apple juice), avoid dairy products (milk, cheese, pudding, ice cream) and fried, greasy foods. Progress to prescribed diet as tolerated. If nausea should occur, have clear liquids only until soft foods can be tolerated. Activity: A responsible adult must be with the patient for 24 hours after surgery. Rest today and tomorrow, and then increase activity as tolerated. DO NOT drive, operate any appliances and/or machinery or sign legal documents for 24 hours. DO NOT touch or rub the operative eye. Keep shield in place except to place eyedrops. Sleep with eyeshield in place. Eye Drops: Begin eyedrops when arrive home Ofloxacin One Drop to left eye 4 times per day Prednisolone acetate (shake well) One Drop to left eye 4 times per day Erythromycin ophthalmic ointment - Instill at bedtime or as needed for pain/discomfort left eye Please use the Ofloxacin drop first followed by the prednisolone drop. Shake the prednisolone 10-15 times prior to use. Wait at least 5 minutes between eyedrops. Please use your eyedrops first thing in morning prior to postoperative day 1 visit. Pain Contol: Tylenol extra-strength 1 tablet every 4 hours as needed for pain. Warnings: Call your surgeon promptly in case of: A. Pain that is not relieved by the medicine you were told to take (surface irritation and burning is common and not a concern) B. Swelling or pus-like drainage C. Persistent nausea and vomiting D. Other Questions or concerns Special Instructions: A. Do not lift heavy objects or bend until appointment tomorrow. B. If you have burning or scratchy sensation, it is okay to use the ointment In the blue kit - apply 1/4 inch into the gutter created by pulling lower eyelid down. Other Instructions: A. Please Bring the blue bag with both eyedrops with you to post-op visit tomorrow. documented in this encounter Progress Notes * Juan Malcolm DO - 07/10/2024 8:16 AM EST [address] [address] OUTPATIENT SURGERY DISCHARGE SUMMARY NOTE Name: Christina Cuevas II Location: [place] [facility]/[place] Date: 07/10/2024 Time: 8:16 AM Surgery Date: 07/10/2024 Procedure: LEFT EXTRACAPSULAR CATARACT REMOVAL WITH INTRAOCULAR LENS Left Surgeon: Juan Malcolm DO Discharge Diagnosis: same After examination of this patient, I have determined he is ready for discharge to home when the patient meets criteria. Discharge instructions were given to the patient. documented in this encounter H&P Notes * Juan Malcolm DO - 07/10/2024 7:35 AM EST HISTORY & PHYSICAL INTERVAL NOTE [address] [address] History and Physical Update: Name: Christina Cuevas II Location: [place] [facility]/[place] Date: 07/10/2024 Time: 7:35 AM DATE OF HISTORY AND PHYSICAL: 07/10/24 BP: 224 mmHg/103 mmHg (07/10/24 0700) Pulse: 78 (07/10/24 0647) Resp: 18 (07/10/24 0647) Temp: 35.89 C (07/10/24646) Temp Summary: Temp Min: 35.9 C (96.6 F) Max: 35.9 C (96.6 F) SpO2: 99 % (07/10/24646) O2 flow rate: Supplemental O2 Delivery: Room Air, None (07/10/24646) Heart Exam: regular rate and rhythm Lung Exam: clear to auscultation bilaterally Other Pertinent Physical Exam: no eye changes I have reviewed the H&P previously performed and examined the patient today. There are no new findings noted. * Juan Malcolm DO - 07/10/2024 7:35 AM EST HISTORY & PHYSICAL EXAMINATION - Ophthalmology [facility]-[address] [address] Name: Christina Cuevas II Location: [facility]/[place] Date: 07/10/2024 Time: 7:35 AM PRESENTING PROBLEM: Cataract, left HISTORY OF PRESENT ILLNESS: Christina is a 74 year old male who presents for cataract extraction with implant, left. PAST MEDICAL HISTORY: Past Medical History: Diagnosis Date Colon polyps DM (diabetes mellitus) type II controlled with renal manifestation (HCC) HLD (hyperlipidemia) HTN (hypertension) Hypothyroidism Stroke (HCC) PAST SURGICAL HISTORY: Past Surgical History: Procedure Laterality Date COLONOSCOPY, DIAGNOSTIC (RECTUM) 11/19/2016 adenomatous polyps, diverticulosis, repeat 3 yrs/COLONOSCOPY FLEXIBLE PROXIMAL DIAGNOSTIC performedby Chapo Henriquez MD at ENDOSCOPY [facility] COLONOSCOPY, DIAGNOSTIC (RECTUM) N/A 09/10/2020 poor prep/diverticulosis sigmoid colon/tortuous colon with restricted mobility/biopsies show adenomatous polyps/recall 2 years/COLONOSCOPY FLEXIBLE PROXIMAL DIAGNOSTIC performed by Danielle King ENDOSCOPY [facility] INFORMATION partial thyroidectomy [place] UNLISTED PROCEDURE SPINE lumbar disketomy REMOVE CATARACT, INSERT LENS PROSTH Right 06/12/2024 RIGHT EXTRACAPSULAR CATARACT REMOVAL WITH INTRAOCULAR LENS performed by Juan Malcolm DO at OR [facility] FAMILY HISTORY: Family History Problem Relation Name Age of Onset Heart disease Mother Hypertension Mother Diabetes Father Heart disease Grandmother (Maternal) SOCIAL HISTORY: Social History Tobacco Use Smoking status: Former Current packs/day: 0.00 Types: Cigarettes Quit date: 10/23/2014 Years since quittin.7 Passive exposure: Past Smokeless tobacco: Never Vaping Use Vaping status: Never Used Substance Use Topics Alcohol use: Not Currently Drug use: No CURRENT HOSPITAL MEDICATIONS: Note that completed medications (per the MAR) continue to display for 24 hours. Ordered medicationsto be given in the future also display. Current Facility-Administered Medications Medication Dose Route Frequency Provider Isolyte-S pH 7.4 infusion Intravenous Continuous Juan Malcolm DO ALLERGIES: Penicillins REVIEW OF SYSTEMS: no recent significant change in vision, no eye pain, redness, discharge, and no diplopia PHYSICAL EXAMINATION: Head: normocephalic / atraumatic Ears: hearing intact to voice Nose: nares clear Throat: throat normal Respiratory: CTA Neck: clear Cardiovascular: normal S1 S2 Abdomen: soft Extremities: negative edema Neurologic: grossly intact Mental Status/Communication: within range of normal variation Physical Disabilities: none IMPRESSION: Cataract, left eye PLAN: 1. Cataract extraction with implant, left eye 2. IN & OUT surgery 3. F/u 1 day post operatively in office 4. Instructions to be given in post op recovery area This H&P is intended for pre-operative clearance. documented in this encounter Nursing Notes * Arlene Castro, RN - 07/10/2024 8:51 AM EST [address] [address] SameDay Surgery Discharge Note Name: Christina Cuevas II Date: 07/10/2024 Time: 8:51 AM Discharge Disposition: Home Responsible adult as escort home: Transport Mode: Ambulatory Accompanied by: SB RN To: Car Belongings with patient: Yes Patient meets criteria to be transferred or discharged. * Devika Sanders RN - 06/26/2024 9:33 AM EST Patient identified by: name/birthdate Person taught: Patient Optime case procedure confirmed with patient/parent/guardian - no consent signed. Laterality confirmed as Left Surgery date at time of Pre-Surgery Center Encounter: 07/10/2024 What procedure is patient having? Procedure: LEFT EXTRACAPSULAR CATARACT REMOVAL WITH INTRAOCULAR LENS ([id number]) In an emergency, is patient willing to accept blood products or blood transfusion? Unknown Do you need to place a blood bank order? No Anesthesia consent pool notified? N/A Anesthesia evaluation requested per case documentation? No Preop Evaluation Requested? Yes, follow-up will be documented on Anesthesia note - [facility] PCP per surgeon has been scanned. PATIENT EDUCATION SCREENING Person taught: Patient Motivation Level: Asks Questions and Eager to Learn Language Barrier: No Physical Barrier: N/A METHOD: Lecture-telephone interview Patient Preferred Learning Methods: Lecture-Telephone interview Health History interview completed, questions answered, and the following patient instructions provided via telephone interview: Preoperative bathing instructions General preoperative instructions Medication instructions NPO instructions - If your normal morning routine take Zetia, levothyroxine and atorvastatin the morning of surgery. OUTCOME: State / Describe / Explain, Needs Reinforcement, and Verbalizes understanding of education documented in this encounter OR Notes * OR Surgeon - Juan Malcolm DO - 07/10/2024 8:16 AM EST [facility]-[address] [address] OPERATIVE REPORT Name: Christina Cuevas II Date: 07/10/2024 Time: 8:16 AM Service: Ophthalmology Date of Operation: 07/10/2024 Pre-op Diagnosis: Nuclear age related Cataract Left eye Post-op Diagnosis: Nuclear age related Cataract Left eye Surgeon: Juan Malcolm DO Assistants: None Anesthesia: Monitored Local Anesthesia with Sedation Operation: Cataract extraction to the Left eye with implantation of posterior intraocular lens. Findings: None Estimated Blood Loss: minimal IV Intake:<100 ml Urine output: 0 ml Drains: 0 INDICATIONS AND PERTINENT HISTORY: The patient has a visually significant cataract of the Left eye.The proposed procedure was discussed in detail with the patient. All feasible options were reviewedwith the appropriate indications and expected outcomes. Specimens and Disposition: None Complications: none Condition: Stable Description of Operation: The patient was identified with two identifiers and the procedure verified. Proper consent was verified. Antibiotic and dilating drops were instilled in the Left eye pre-operatively in the Pre-operative holding area. Fifteen minutes prior to transfer to the Operating Room, topical proparacaine drops and topical 2% lidocaine jelly were placed over the Left eye. The patient was then taken back to the Operating Room. Ophthalmic Betadine 5% was placed in the superior and inferior cul-de-sacs of theLeft eye. The Left eye was then prepped with 10% povidone-iodine and draped in the usual sterile fashion. After the lid speculum was inserted, a paracentesis incision was made at the 5 o'clock position with a sharp blade. MPF lidocaine was instilled. The anterior chamber was then refilled with Viscoat. The main wound was then created at 3' using the 2.4mm phacokeratome blade. A continuous curvilinear capsulorrhexis was then performed initially with a cystotome, then completed with Utrada forceps. Hydrodissection and hydrodelineation were achieved with balanced salt solution through a 27G cannula. The phacoemulsification handpiece was utilized to remove the lens nucleus with a [id number] technique. Residual cortical material was removed with the irrigating and aspirating device. The capsular bag was re- formed with viscoelastic. An CCA0T0 21.50 diopters in power (selected after rev iew and interpretation of IOL measurements), acrylic foldable lens was placed into the capsular baguneventfully and rotated into position with a Sinskey hook. It was noted to be in a central and stable position. The residual viscoelastic was irrigated and aspirated from the anterior chamber. Stromal hydration was applied to the wound. The anterior chamber was re-formed with balanced salt solution. The wounds were checked with Weck-cels and found to be watertight. The lid speculum was then removed. Brimonidine, prednisolone, ocuflox drops and erythromycin oph ointment were instilled in the eye. The patient tolerated the procedure well. There were no complications I performed the procedure Juan Malcolm DO 07/10/2024 8:16 AM documented in this encounter Plan of Treatment Upcoming Encounters Date Type Department Care Team (Late st Contact Info) Description 07/11/2024 7:30 AM EST [facility] [address] [place] [address] Juan Malcolm DO [address] [place] [address] 07/20/2024 2:30 PM EST Office Visit [place] [address] [place] [address] Juan Malcolm DO [address] [place] [address] 09/18/2024 11:45 AM EST Hospital Encounter [facility] Endoscopy [address], [place] [id number] Theodore Arboleda DO [address] [place] [address] 09/18/2024 11:45 AM EST - 09/18/2024 12:15 PM EST Surgery [facility] [address] [id number] Theodore Arboleda DO [address] [place] [address] COLONOSCOPY FLEXIBLE PROXIMAL DIAGNOSTIC 09/28/2024 11:20 AM EST Office Visit [facility] [address] [place] [phone] Jatin Mejia CRNP [address] [place] [address] Scheduled Procedures Name Priority Associated Diagnoses Date/Ti me EXTRACAPSULAR CATARACT REMOVAL WITH INTRAOCULAR LENS Cataract 07/10/2024 7:25 AM EST COLONOSCOPY FLEXIBLE PROXIMAL DIAGNOSTIC Recall History of colonic polyps Screen for colon cancer 09/18/2024 11:45 AM EST Health Maintenance Due Date Last Done Comments Hepatitis C Screening 1968 DTap/Tdap Vaccines (1 - Tdap) 06/29/2011 06/28/2011 Colonoscopy 09/10/2022 09/10/2020, 08/25, 11/19/2016, Additional history exists COVID-19 Vaccine ( season) 2024 05/16/2023, 07/06/2021, 09/22/2020, Additional history exists HbA1c 09/16/2024 03/16/2024, 03/0 10/2023, 04/20/2018, Additional history exists Albumin/Creatinine Ratio 09/25/2024 09/26/2023 Depression Screening 09/25/2024 09/26/2023 Diabetic Eye Exam 11/08/2024 11/09/2023, , 11/09/2023, Additional history exists TSH 03/15/2025 03/15/2024, 03/0 10/2023, 04/20/2018 GFR 03/16/2025 03/16/2024, 08/2 08/2023, 09/26/2023, Additional history exists Diabetic Foot Exam 03/19/2025 03/19/2024 Adult Wellness Visit 03/30/2025 03/30/2024 Pneumococcal Vaccine: 65+ Years Completed 07/28/2017, 11/03/2015, 05/25/2003 Zoster Vaccines Completed 07/23/2019, 03/27, 10/27/2016 RETIRED - COLONOSCOPY-EVERY 2 YRS AGES 18-100 Discontinued 09/10/2020, 09/10/2020, 11/19/2016, Additional history exists Influenza Vaccine (FLU shot) Completed 03/30/2024, 04/23/2019, 04/18/2017, Additional history exists HPV (Gardasil) Vaccine Aged Out No lo nger eligible based on patient's age to complete this topic Hepatitis B Vaccine Aged Out No longe r eligible based on patient's age to complete this topic MENINGOCOCCAL (MENACTRA/MENVEO) Aged Out No longer eligible based on patient's age to complete this topic documented as of this encounter Medical Devices Implanted Type Area Scouring Machine Operator Device Identifier Shelf Expiration Date Model / Serial / Lot Lens 21.5 [facility] - [id number] - [id number] Implanted:Qty: 1 on 07/10/2024 by Juan Malcolm DO at OR [facility] Lens Left: Eye [employer] 06/05/2027 [id number] / [id number] / Lens 21.5 [facility] - [id number] - [id number] Implanted:Qty: 1 on 06/12/2024 by Juan Malcolm DO at OR [facility] Right: Eye [employer] 06/05/2027 CCA0T0.215 / [id number] / documented as of this encounter Procedures Procedure Name Priority Date/Time Associated Diagnosis Comments GLUCOSE METER, POINT OF CARE EVY 07/10/2024 7:17 AM EST documented in this encounter Results * (ABNORMAL) GLUCOSE METER, POINT OF CARE (07/10/2024 7:17 AM EST) GLUCOSE - POCT 178(H) 70 - 120 mg/dL 07/10/2024 7:19 AM EST [facility] Blood Whole blood specimen / Unknown 07/10/2024 7:17 AM EST 07/10/2024 7:19 AM EST Juan Malcolm DO LAB POINT OF CARE TE ST DOCKED DEVICE UNSOLICITED RESULTS Final Result [facility] [address] [place] [address] documented in this encounter Visit Diagnoses Diagnosis Combined forms of age-related cataract of both eyes- Primary Other and combined forms of senile cataract Pseudophakia- Primary Lens replaced by other means History of colonic polyps Personal history of colonic polyps Screen for colon cancer Special screening for malignant neoplasms, colon documented in this encounter Administered Medications Inactive Administered Medications - up to 3 most recent administrations Medication Order MAR Action Action Date Dose Rate Site Diclofenac Sodium (Voltaren) 0.1 % ophthalmic solution 1 Drop 1 Drop, Left eye, Q5 MINUTES, First dose on Tue07/10/24 at 0715, Last dose on Tue07/10/24 at 0725, For 3 doses, PRE-OP: One drop to left eye every 5 minutes for 3 doses, Pre-OpIndications:Combined forms of age-related cataract of both eyes Given 07/10/2024 7:06 AM EST 1 Drop Given 07/10/2024 7:00 AM EST 1 Drop Given 07/10/2024 6:55 AM EST 1 Drop Isolyte-S pH 7.4 infusion Intravenous, at 10 mL/hr, Plasma-LYTE 148, isolyte-S, and isolyte-S pH 7.4 are considered equivalent - including for MAR barcode scanning., CONTINUOUS, Starting on Tue07/10/24 at 0715, Until Tue07/10/24 at 1252, Pre-OpIndications:Combined forms of age-related cataract of both eyes Restarted 07/10/2024 7:48 AM EST Continue from Pre-Op 07/10/2024 7:42 AM EST 10 mL/hr New Bag 07/10/2024 7:20 AM EST 10 mL/hr Lidocaine urethral/mucosal 2 % gel 2 mL Topical, ONCE, 1 dose, On Tue07/10/24 at 0715, 15 minutes prior to scheduled surgery time, apply 2 ml to superior and inferior fornices left eye & tape eyes shut., Pre-OpIndications:Combined forms of age-related cataract of both eyes Given 07/10/2024 7:34 AM EST 2 mL Ofloxacin (Ocuflox) 0.3 % ophthalmic solution 1 Drop 1 Drop, Left eye, Q5 MINUTES, First dose on Tue07/10/24 at 0715, Last dose on Tue07/10/24 at 0725, For 3 doses, PRE-OP: One drop to left eye every 5 minutes for 3 doses, Pre-OpIndications:Combined forms of age-related cataract of both eyes Given 07/10/2024 7:06 AM EST 1 Drop Given 07/10/2024 7:01 AM EST 1 Drop Given 07/10/2024 6:55 AM EST 1 Drop prednisoLONE Acetate (Pred Forte) 1 % ophthalmic suspension 1 Drop 1 Drop, Left eye, Q5 MINUTES, First dose on Tue07/10/24 at 0715, Last dose on Tue07/10/24 at 0725, For 3 doses, PRE-OP: One drop to left eye every 5 minutes for 3 doses., Pre-OpIndications:Combined forms of age-related cataract of both eyes Given 07/10/2024 7:06 AM EST 1 Drop Given 07/10/2024 7:01 AM EST 1 Drop Given 07/10/2024 6:54 AM EST 1 Drop proparacaine (Alcaine) 0.5 % ophthalmic solution 1 Drop 1 Drop, Left eye, ONCE, On Tue07/10/24 at 0715, For 1 dose, PRE-OP: 15 minutes prior to scheduled surgery time for 1 dose, Pre-OpIndications:Combined forms of age-related cataract of both eyes Given 07/10/2024 6:54 AM EST 1 Drop tropicamide 1%-cyclopentolate 1%-phenylephrine 2.5% ophthalmic solution 1 Drop 1 Drop, Left eye, Q5 MINUTES, First dose on Tue07/10/24 at 0715, Last dose on Tue07/10/24 at 0725, For 3 dosesIndications:Combined forms of age-related cataract of both eyes Given 07/10/2024 7:06 AM EST 1 Drop Given 07/10/2024 7:01 AM EST 1 Drop Given 07/10/2024 6:55 AM EST 1 Drop documented in this encounter Active and Recently Administered Medications Times are shown in EST. Scheduled Medication Order 07/08/2024 07/09/2024 07/10/2024 Diclofenac Sodium (Voltaren) 0.1 % ophthalmic solution 1 Drop (COMPLETED) 1 Drop, Left eye, Q5 MINUTES, First dose on Tue07/10/24 at 0715, Last dose on Tue07/10/24 at 0725, For 3 doses, PRE-OP: One drop to left eye every 5 minutes for 3 doses, Pre-Op 0655 (Given - Provid er: Carmel Giraldo RN)0700 (Given - Provider: Carmel Giraldo RN)0706 (Given - Provider: Carmel Giraldo RN) Lidocaine urethral/mucosal 2 % gel 2 mL (COMPLETED) Topical, ONCE, 1 dose, On Tue07/10/24 at 0715, 15 minutes prior to scheduled surgery time, apply 2 ml to superior and inferior fornices left eye & tape eyes shut., Pre-Op 0734 (Given - Provid er: Carmel Giraldo RN) Ofloxacin (Ocuflox) 0.3 % ophthalmic solution 1 Drop (COMPLETED) 1 Drop, Left eye, Q5 MINUTES, First dose on Tue07/10/24 at 0715, Last dose on Tue07/10/24 at 0725, For 3 doses, PRE-OP: One drop to left eye every 5 minutes for 3 doses, Pre-Op 0655 (Given - Provid er: Carmel Giraldo RN)0701 (Given - Provider: Carmel Giraldo RN)0706 (Given - Provider: Carmel Giraldo RN) prednisoLONE Acetate (Pred Forte) 1 % ophthalmic suspension 1 Drop (COMPLETED) 1 Drop, Left eye, Q5 MINUTES, First dose on Tue07/10/24 at 0715, Last dose on Tue07/10/24 at 0725, For 3 doses, PRE-OP: One drop to left eye every 5 minutes for 3 doses., Pre-Op 0654 (Given - Provid er: Carmel Giraldo RN)0701 (Given - Provider: Carmel Giraldo RN)0706 (Given - Provider: Carmel Giraldo RN) proparacaine (Alcaine) 0.5 % ophthalmic solution 1 Drop (COMPLETED) 1 Drop, Left eye, ONCE, On Tue07/10/24 at 0715, For 1 dose, PRE-OP: 15 minutes prior to scheduled surgery time for 1 dose, Pre-Op 0654 (Given - Provid er: Carmel Giraldo RN) tropicamide 1%-cyclopentolate 1%-phenylephrine 2.5% ophthalmic solution 1 Drop (COMPLETED) 1 Drop, Left eye, Q5 MINUTES, First dose on Tue07/10/24 at 0715, Last dose on Tue07/10/24 at 0725, For 3 doses 0655 (Given - Provid er: Carmel Giraldo RN)0701 (Given - Provider: Carmel Giraldo RN)0706 (Given - Provider: Carmel Giraldo RN) Continuous Medication Order 07/08/2024 07/09/2024 07/10/2024 Isolyte-S pH 7.4 infusion Intravenous, at 10 mL/hr, Plasma-LYTE 148, isolyte-S, and isolyte-S pH 7.4 are considered equivalent - including for MAR barcode scanning., CONTINUOUS, Starting on Tue07/10/24 at 0715, Until Tue07/10/24 at 1252, Pre-Op 0720 (New Bag - Prov ider: Carmel Giraldo RN)0742 (Continue from Pre-Op - Provider: Salomón Abdalla CRNA)0747 (Paused - Provider: Salomón Abdalla CRNA - Comment: Switch to gravity)0748 (Restarted - Provider: Salomón Abdalla CRNA)0813 (Stopped - Provider: Salomón Abdalla CRNA) PRN Medication Order 07/08/2024 07/09/2024 07/10/2024 balanced salt solution (Bss) ophthalmic solution (CANCELED) ONCE PRN INTRA PROCEDURE, Starting on Tue07/10/24 at 0757, Until Tue07/10/24 at 0811, Intra-Op 0757 (Given - Provid er: Juan Malcolm DO) briMONidine tartrate (Alphagan) 0.2 % ophthalmic solution (CANCELED) ONCE PRN INTRA PROCEDURE, Starting on Tue07/10/24 at 0758, Until Tue07/10/24 at 0811, Intra-Op 0758 (Given - Provid er: Juan Malcolm DO) DUOVISC inj KIT (CANCELED) ONCE PRN INTRA PROCEDURE, Starting on Tue07/10/24 at 0758, Until Tue07/10/24 at 0811, Intra-Op 0758 (Given - Provid er: Juan Malcolm DO) EPINEPHrine 0.5 mg in balanced salt solution 500 mL inj (CANCELED) ONCE PRN INTRA PROCEDURE, Starting on Tue07/10/24 at 0812, Until Tue07/10/24 at 0812, Intra-Op 0812 (Given - Provid er: Juan Malcolm DO) Erythromycin ophthalmic ointment (CANCELED) ONCE PRN INTRA PROCEDURE, Starting on Tue07/10/24 at 0758, Until Tue07/10/24 at 0811, Intra-Op 0758 (Given - Provid er: Juan Malcolm DO) hydroxypropyl methylcellulose (Ocucoat) 2 % intraocular inj (CANCELED) ONCE PRN INTRA PROCEDURE, Starting on Tue07/10/24 at 0800, Until Tue07/10/24 at 0811, Intra-Op 0800 (Given - Provid er: Juan Malcolm DO) Lidocaine 1 % (PF) inj (CANCELED) ONCE PRN INTRA PROCEDURE, Starting on Tue07/10/24 at 0758, Until Tue07/10/24 at 0811, Intra-Op 0758 (Given - Provid er: Juan Malcolm DO) Ofloxacin (Ocuflox) 0.3 % ophthalmic solution (CANCELED) ONCE PRN INTRA PROCEDURE, Starting on Tue07/10/24 at 0759, Until Tue07/10/24 at 0811, Intra-Op 0759 (Given - Provid er: Juan Malcolm DO) prednisoLONE Acetate (Pred Forte) 1 % ophthalmic suspension (CANCELED) ONCE PRN INTRA PROCEDURE, Starting on Tue07/10/24 at 0758, Until Tue07/10/24 at 0811, Intra-Op 0758 (Given - Provid er: Juan Malcolm DO) Tetracaine (Pontocaine) 0.5 % ophthalmic solution (CANCELED) ONCE PRN INTRA PROCEDURE, Starting on Tue07/10/24 at 0758, Until Tue07/10/24 at 0811, Intra-Op 0758 (Given - Provid er: Juan Malcolm DO) documented in this encounter Advance Directives * Full Code (Latest Code Status on File) Date Activated Date Inactivated Comments 07/10/2024 6:38 AM 07/10/2024 12:52 PM Question Answer Comments Discussion of Advance Direct gail occurred with: Not Discussed due to patient's condition * Full Code Date Activated Date Inactivated Comments 06/12/2024 6:36 AM 06/12/2024 1:26 PM Question Answer Comments Discussion of Advance Direct gail occurred with: Not Discussed due to patient's condition * Full Code Date Activated Date Inactivated Comments 03/15/2024 6:05 PM 03/16/2024 7:44 PM This order r eflects the patients wishes and were consensually agreed upon. Question Answer Comments Discussion of Advance Directives occurred with: Patient * Full Code Date Activated Date Inactivated Comments 04/19/2018 6:28 PM 04/20/2018 8:52 PM This order r eflects the patients wishes and were consensually agreed upon. Question Answer Comments Discussion of Advance Directives occurred with: Patient Does the patient have a Living Will? No Does the patient have Health Care Power of Attor vandana? No Care Teams Policyholder Information Clerk Relationship Specialty Start Date End Date Jatin Mejia CRNP [address] [place] [address] PCP - General Nurse Practitioner 03/19/24 documented as of this encounter
--- OUTSIDE RECORDS SUMMARY | 2024-08-29 20:31 | External Medical Summary | Summary of Care ---
Author Name Unknown Organization [facility] Address [address] [place] [address] Phone [phone] Care Team Providers Care Auto Polisher Name Role Phone Jatin Mejia Primary Care Provider [phone] Reason for Visit * Evaluate & Treat - Unlimited Visits (Within 30 days (routine)) - Closed Specialty Diagnoses / Procedures Referred By José t Referred To Contact Radiology Diagnoses Other specified disorders of bone density and structure, other site Procedures DEXA SCAN/BONE MINERAL AXIAL Chyna Pena CRNP [address] [place] [address] Phone: tel: fax: Referral ID Status Reason Start Date Expiration Date V isits Requested Visits Authorized [id number] Closed Specialty Services Required 05/28/2024 07/27/2024 1 1 Encounter Details Date Type Department Care Team (Latest Contact Info) Description 07/03/2024 10:25 AM EST - 07/03/2024 11:59 PM EST Hospital Encounter Radiology, [address] [address] Arrived Discharge Disposition: Home - Self Care Allergies Active Allergy Reactions Criticality Noted Date Comments Penicillins Edema face/lips/tongue High 12/17/2014 documented as of this encounter (statuses as of 07/04/2024) Medications aspirin 81 MG chewable tablet Take [...] morning. 30 Capsule 5 03/19/20 24 Active Losartan Potassium 50 MG Oral Tablet (Cozaar) Take 1 Tablet by mouth in the morning. Active prednisoLONE Acetate 1 % Ophthalmic Suspension (Pred Forte) Instill 1 Drop into both eyes in the morning and 1 Drop at noon and 1 Drop in the evening and 1 Drop before bedtime. 10 mL 06/20/20 24 Active documented as of this encounter (statuses as of 07/04/2024) Active Problems Problem Noted Date Diagnosed Date Stroke-like symptoms 03/15/2024 Stroke with cerebral ischemia 03/15/2024 Cataract 12/01/2023 Combined forms of age-related cataract of both e yes 11/09/2023 Weakness 04/20/2018 Diaphoresis 04/19/2018 Type 2 diabetes mellitus wit h kidney complication, with long-term current use of insulin 04/19/2018 Essential hypertension 04/19/2018 Hyperlipidemia 04/19/2018 Hypothyroidism Colon polyps documented as of this encounter (statuses as of 07/04/2024) Resolved Problems Problem Noted Date Diagnosed Date Resolved Date Near syncope 04/19/2018 03/19/2024 documented as of this encounter (statuses as of 07/04/2024) Immunizations Name Administration Dates Next Due Covid-19, [...] No 09/15/2023 Does the household have a [facility] source of income? (Household - [...] PM EST documented as of this encounter Functional Status * Are you deaf or do you have serious difficulty hearing? Answer Date of Assessment Author No 03/15/2024 6:37 PM Shanda Alba RN * Are you blind or do you have serious difficulty seeing, even when wearing glasses? Answer Date of Assessment Author No 03/15/2024 6:37 PM Shanda Alba RN * Do you have serious difficulty walking or climbing stairs? (5 years old or older) Answer Date of Assessment Author No 03/15/2024 6:37 PM Shanda Alba RN * Do you have difficulty dressing or bathing? (5 years old or older) Answer Date of Assessment Author No 03/15/2024 6:37 PM Shanda Alba RN * Because of a physical, mental, or emotional condition, do you have difficulty doing errands alone such as visiting a doctors office or shopping? (15 years old or older) Answer Date of Assessment Author No 03/15/2024 6:37 PM Shanda Alba RN documented as of this encounter Mental Status * Because of a physical, mental, or emotional condition, do you have serious difficulty concentrating, remembering, or making decisions? (5 years old or older) Answer Entry Date Author No 03/15/2024 6:37 PM Shanda Alba RN documented in this encounter Plan of Treatment Upcoming Encounters Date Type Department Care Team (Late st Contact Info) Description 07/10/2024 7:40 AM EST Hospital Encounter OR [facility], Operating Room, [facility] - 4th Floor [address] [place] [address] Juan Malcolm, [place] [address] 07/10/2024 7:40 AM EST - 07/10/2024 8:27 AM EST Surgery OR [facility], Operating Room, [facility] - 4th Floor [address] [place] [address] Juan Malcolm, [address] [place] [address] LEFT EXTRACAPSULAR CATARACT REMOVAL WITH INTRAOCULAR LENS 07/11/2024 7:30 AM EST [facility] [address] [place] [address] Juan Malcolm, [address] [place] [address] 07/20/2024 2:30 PM EST Office Visit Ophthalmology, [place] [address] [place], [place] [address] Juan Malcolm, DO [address] [place] [address] 08/10/2024 3:45 PM EST Office Visit Ophthalmology, [place] [address] [place] [address] Juan Malcolm, DO [address] [place] [address] 09/18/2024 11:45 AM EST Hospital Encounter [facility], Endoscopy [address] [place] [phone] Theodore Arboleda, DO [address] [place] [address] 09/18/2024 11:45 AM EST - 09/18/2024 12:15 PM EST Surgery [facility], Endoscopy [address] [place] [phone] Theodore Arboleda, DO [address] [place], [place] [address] COLONOSCOPY FLEXIBLE PROXIMAL DIAGNOSTIC 09/28/2024 11:20 AM EST Office Visit [facility] [address] [place] [address] Jatin Mejia CRNP [address] [place] [id number] Scheduled Procedures Name Priority Associated Diagnoses Date/Ti me EXTRACAPSULAR CATARACT REMOVAL WITH INTRAOCULAR LENS Cataract 07/10/2024 7:40 AM EST COLONOSCOPY FLEXIBLE PROXIMAL DIAGNOSTIC Recall History of colonic polyps Screen for colon cancer 09/18/2024 11:45 AM EST Health Maintenance Due Date Last Done Comments Hepatitis C Screening 1968 DTap/Tdap Vaccines (1 - Tdap) 06/29/2011 06/28/2011 Colonoscopy 09/10/2022 09/10/2020, 08/25, 11/19/2016, Additional history exists COVID-19 Vaccine ( - season) 2024 05/16/2023, 07/06/2021, 09/22/2020, Additional history exists HbA1c 09/16/2024 03/16/2024, 03/0 10/2023, 04/20/2018, Additional history exists Albumin/Creatinine Ratio 09/25/2024 09/26/2023 Depression Screening 09/25/2024 09/26/2023 Diabetic Eye Exam 11/08/2024 11/09/2023, , 11/09/2023, Additional history exists TSH 03/15/2025 03/15/2024, 03/0 10/2023, 04/20/2018 GFR 03/16/2025 03/16/2024, 0808/2023, 09/26/2023, Additional history exists Diabetic Foot Exam [...] this encounter Medical Devices Implanted Type Area Solutions Developer Device Identifier Shelf Expiration Date Model / Serial / Lot Lens 21.5 [facility] - [id number] - [id number] Implanted:Qty: 1 on 06/12/2024 by Juan Malcolm DO at OR [facility] Right: [employer] 06/05/2027 CCA0T0.215 / [id number] / documented as of this encounter Procedures Procedure Name Priority Date/Time Associated Diagnosis Comments DEXA SCAN/BONE MINERAL AXIAL Routine 07/03/2024 10:38 AM EST Other specified disorders of bone density and structure, other site documented in this encounter Results * DEXA SCAN/BONE MINERAL AXIAL (07/03/2024 10:38 AM EST) Anatomical Region Laterality Modality Dexa, Vertebra, Spine, Hip, Pelvis Nuclear Medicine Impressions 07/04/2024 7:32 AM EST S: Fracture risk is based on current National Osteoporosis Foundation (www.nof.org) Clinicians Guide and [place] Association of Clinical Endocrinology (AACE) Guidelines (www.aace.com) and the application of current WHO FRAX tool (https://www.avelino.ac.uk/FRAX/) as well as the 2017 [place] [employer] Glucocorticoid Induced Osteoporosis (GIOP) Guidelines (rheumatology.org/Practice-Quality/Clinical-Support/Tgftnwoz-Htkxrgok-Wujle lines) using Bone mineral density derived T-scores and clinical risk factors obtained from the patient questionnaire. 1. The fracture risk is LOW/MODERATE (does not meet NOF criteria for treatment) 2. The quality of the examination is GOOD. L3 and L4 has been deleted because of the significant variation in bone density from the rest of the lumbar spine. 3. No previous study for comparison. SUGGESTIONS: Information concerning the evaluation and treatment of osteoporosis can be found at the National Osteoporosis Foundation website (www.nof.org) and [place] [employer]ocrin[employer] (AACE-www.aace.com). Osteoporosis prevention and treatment begins by modifying risk factors (such as smoking cessation and avoiding alcohol excess) and by participating in weight-bearing activities and exercise. Issues related to fall prevention and home safety should be addressed. Current NOF guidelines suggest 1200 to 1500 mg of calcium from diet and or supplemental sources. It is generally felt best to get calcium from one s diet. Calcium carbonate and calcium citrate are common calcium supplement choices in most local pharmacies. If the patient is taking a proton pump inhibitor, then calcium citrate should be the preferred supplement, if that is necessary. NOF guidelines for vitamin D are 800 to 1000 units of vitamin D3 daily. However, this may best be guided by measurement of 25-OH vitamin-D level, aiming for a level between 30 to 50 units (ng/ml). Additional information can be found at the FRAX website (https://www.avelino.ac.uk/FRAX/), and the [place] [employer] website (https://www.rheumatology.org/Practice-Quality/Clinical-Support/Clinical-Pr actice-Guidelines). 1. No specific prescription therapy is needed at this point in time. 2. A repeat study should be considered in 2 years NOBLE BATISTA M.D. ISCD Certified Clinical Development Architect Department of Rheumatology [facility] [place], [facility] Narrative 07/04/2024 7:32 AM EST Radiology, [facility] DXA Performed: 07/03/24 DXA Resulted: 07/04/2024 Mir Cuevas II Reason for testing: Age-appropriate screening Osteoporosis treatment (per questionnaire): A. Previous treatment: NONE B. Current treatment: NONE Major risk factors: none Using a [employer] [facility] images of the lumbar spine, left hip were obtained using DXA.. The bone mineral density and T scores [standard, young, normal, male population] are as follows: RESULTS: Lumbar spine: 0.818 gms/cm2 T-score: -2.1 Left femoral neck: 0.701 gms/cm2 T-score: -1.7 Using the NOF/WHO FRAX calculator, the 10 year absolute risk for any major osteoporotic fracture is 6.3 % and the risk for hip fracture is 2 %. [facility] ([facility]) Final Result documented in this encounter Advance Directives * Full Code (Latest Code Status on File) Date Activated Date Inactivated Comments 06/12/2024 6:36 [...] Power of Attor vandana? No Care Teams Auto Polisher Relationship Specialty Start Date End Date Jatin Mejia CRNP [address] [place] [address] PCP - General Nurse Practitioner 03/19/24 documented as of this encounter
--- OUTSIDE RECORDS SUMMARY | 2024-08-29 20:31 | External Medical Summary | Summary of Care ---
Author Name Unknown Organization [facility] Address [address] [facility] [place] [address] Phone [phone] Care Team Providers Care Air Motor Repairer Name Role Phone Jatin Mejia Primary Care Provider [phone] Reason for Visit * Reason Comments Post-Op 1 day Post OP OS Encounter Details Date Type Department Care Team (Late st Contact Info) Description 07/11/2024 7:30 AM EST Office Visit Ophthalmology, [place] [address] Juan Malcolm DO [facility] [place] [address] Pseudophakia* Allergies Active Allergy Reactions Criticality Noted Date Comments Penicillins Edema face/lips/tongue High 12/17/2014 documented as of this encounter (statuses as of 07/11/2024) Medications aspirin 81 MG chewable tablet Take [...] the skin at bedtime. 10 units 06/19/20 Active Insulin Aspart 100 UNIT/ML Injection Solution [...] 1:15 WITH SUPPER. 1:20 WITH SNACKS. 02/18/20 Active Clopidogrel Bisulfate 75 MG Oral Tablet (pLAVix) 1 Tablet. 01/08/20 Active Atorvastatin Calcium 80 MG Oral Tablet (Lipitor) Take 1 Tablet by mouth in the morning. 05/30/20 Active PreserVision AREDS 2 Oral Capsule Take 1 Capsule by mouth in the morning. 01/18/20 Active Levothyroxine Sodium 88 MCG Oral Tablet (Levoxyl) Take 1 Tablet by mouth daily first thing in the morning. (at least 30 min prior to breakfast or other meds) Active hydroCHLOROthiaz vonnie 12.5 MG Oral CapsuleIndicatio ns:Essential hypertension Take 1 Capsule by mouth in the morning. 30 Capsule 5 03/19/20 Active Additional Information Patient not taking.Reported on 07/10/2024 Losartan Potassium 50 MG Oral Tablet (Cozaar) Take 1 Tablet by mouth in the morning. Active prednisoLONE Acetate 1 % Ophthalmic Suspension (Pred Forte) Instill 1 Drop into both eyes in the morning and 1 Drop at noon and 1 Drop in the evening and 1 Drop before bedtime. 10 mL 06/20/20 Active documented as of this encounter (statuses as of 07/11/2024) Active Problems Problem Noted Date Diagnosed Date Stroke-like symptoms 03/15/2024 Stroke with cerebral ischemia 03/15/2024 Cataract 12/01/2023 Combined forms of age-related cataract of both e yes 11/09/2023 Weakness 04/20/2018 Diaphoresis 04/19/2018 Type 2 diabetes mellitus wit h kidney complication, with long-term current use of insulin 04/19/2018 Essential hypertension 04/19/2018 Hyperlipidemia 04/19/2018 Hypothyroidism Colon polyps documented as of this encounter (statuses as of 07/11/2024) Resolved Problems Problem Noted Date Diagnosed Date Resolved Date Near syncope 04/19/2018 03/19/2024 documented as of this encounter (statuses as of 07/11/2024) Immunizations Name Administration Dates Next Due Covid-19, [...] No 09/15/2023 Does the household have a re gular source of income? 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 Wear eye shield at bedtime. Call with flashes, floaters, dec vision eye pain. Advised of sap payroll consultant coverage for after hours/weekend emergencies. RTC 1 week or sooner prn. Juan Malcolm DO 07/11/24 CC: Dr. Amber Estrada documented in this encounter Nursing Notes * Mari Sanford COA - 07/11/2024 7:43 AM EST 1 day S/P cataract extraction OS VA PH 20/25-1 Pt states "OS is good, feels better today then yesterday" documented in this encounter Plan of Treatment Upcoming Encounters Date Type Department Care Team (Late st Contact Info) Description 07/20/2024 2:30 PM EST Office Visit Ophthalmology, [place] [address] [address] Juan Malcolm DO [address] [place] [address] 09/18/2024 11:45 AM EST Hospital Encounter ENDO GECL, Endoscopy [address] [place] [phone] Theodore Arboleda, DO [address] [place] [address] 09/18/2024 11:45 AM EST - 09/18/2024 12:15 PM EST Surgery ENDO GECL, Endoscopy [address] [place] [phone] Theodore Arboleda, DO [address] [place] [address] COLONOSCOPY FLEXIBLE PROXIMAL DIAGNOSTIC 09/28/2024 11:20 AM EST Office Visit [facility] [address] [place] [address] Jatin Mejia CRNP [address] [place] [address] Scheduled Procedures Name Priority Associated Diagnoses Date/Ti me COLONOSCOPY FLEXIBLE PROXIMAL DIAGNOSTIC Recall History of [...] this encounter Medical Devices Implanted Type Area Blacksmith Hammer Operator Device Identifier Shelf Expiration Date Model / Serial / Lot Lens 21.5 Kev [facility] - [id number] - [id number] Implanted:Qty: 1 on 07/10/2024 by Juan Malcolm DO at OR [facility] Lens Left: Eye [employer] 06/05/2027 CCA0T0.215 / [id number] / Lens 21.5 Kev [facility] [id number] - [id number] Implanted:Qty: 1 on 06/12/2024 by Juan Malcolm, DO at OR [facility] Right: Eye [employer] 06/05/2027 CCA0T0.215 / [id number] / documented as of this encounter Visit Diagnoses Diagnosis Pseudophakia- Primary Lens replaced by other means History of colonic polyps Personal history of colonic polyps Screen for colon cancer Special screening for malignant neoplasms, colon documented in this encounter Advance Directives * [...] Power of Attor vandana? No Care Teams Air Motor Repairer Relationship Specialty Start Date End Date Jatin Mejia CRNP [address] [place] [phone] PCP - General Nurse Practitioner 03/19/24 documented as of this encounter
--- OUTSIDE RECORDS SUMMARY | 2024-08-29 20:31 | External Medical Summary | Summary of Care ---
Author Name Unknown Organization [facility] Address [address] [facility] [place] [address] Phone [phone] Care Team Providers Care Ranch Hand Supervisor Name Role Phone Jatin Mejia Primary Care Provider [phone] Reason for Visit * Reason Comments Post Op Cataract Surgery 1 week cat po l eft eye Encounter Details Date Type Department Care Team (Late st Contact Info) Description 07/20/2024 2:30 PM EST Office Visit Ophthalmology, [place] [address] [place] [address] Juan Malcolm DO [address] [facility] [place] [address] Pseudophakia* Allergies Active Allergy Reactions Criticality Noted Date Comments Penicillins Edema face/lips/tongue High 12/17/2014 documented as of this encounter (statuses as of 07/20/2024) Medications aspirin 81 MG chewable tablet Take [...] as of this encounter (statuses as of 07/20/2024) Active Problems Problem Noted Date Diagnosed Date Stroke-like symptoms 03/15/2024 Stroke with cerebral ischemia 03/15/2024 Cataract 12/01/2023 Combined forms of age-related cataract of both e yes 11/09/2023 Weakness 04/20/2018 Diaphoresis 04/19/2018 Type 2 diabetes mellitus wit h kidney complication, with long-term current use of insulin 04/19/2018 Essential hypertension 04/19/2018 Hyperlipidemia 04/19/2018 Hypothyroidism Colon polyps documented as of this encounter (statuses as of 07/20/2024) Resolved Problems Problem Noted Date Diagnosed Date Resolved Date Near syncope 04/19/2018 03/19/2024 documented as of this encounter (statuses as of 07/20/2024) Immunizations Name Administration Dates Next Due Covid-19, [...] 09/15/2023 Does the household have a re lar source of income? (Household - for ages [...] Progress Notes * Juan Malcolm DO - 07/20/2024 2:30 PM EST 07/20/2024 [facility] Ophthalmology Post-operative Clinic Note HPI: Christina Cuevas II is a 74 year old pt who presents to the eye clinic today for 1 week post-op CE PCIOL OS (Ensor TCC CCA0T0 21.50 07/10/2024) Past Ocular History: NE ARMD OU T1DM without hx of retinopathy JAMIE VA: 20/25 IOP: 15 mmHg LL: Normal Conjunctiva: Normal Cornea: CCI and paracentesis camilla negative AC: 1+ c/f Iris: dilation Lens: PCIOL centered Vitreous: PVD Optic nerve: Normal Macula: Drusen/RPE changes Vessels: Normal Periphery: No break/tear A/P: 1 week post op CE PCIOL OS (Ensor TCC CCA0T0 21.50 07/10/2024) Stable DFE Taper prednisolone as directed by one drop weekly May stop ocuflox D/c eye shield Gradual return to normal activity levels Call with flashes, floaters, dec vision eye pain. Advised of production control expediter coverage for after hours/weekend emergencies. RTC optometry, 4 weeks or sooner prn. Juan Malcolm DO 07/20/24 CC: Dr. Amber Estrada documented in this encounter Nursing Notes * Sade Menendez TECH - 07/20/2024 2:31 PM EST Christina Cuevas II presents for p/o check. 1 week post-op ECCE w/IOL insertion Surgical eye LEFT EYE Patient denies complaints Current Ophthalmic Medications: Pred Forte and Ofloxacin 1gtt 4 times daily in surgical eye Are you taking the drops as directed? Yes documented in this encounter Plan of Treatment Upcoming Encounters Date Type Department Care Team (Late st Contact Info) Description 08/16/2024 11:00 AM EST Office Visit [facility], [place] [address] [facility] [place] [address] Juan Malcolm DO [address] [place] [address] 09/18/2024 11:45 AM EST Hospital Encounter ENDO [facility]CL, Endoscopy [address] [phone] Theodore Arboleda, DO [address] [place] [address] 09/18/2024 11:45 AM EST - 09/18/2024 12:15 PM EST Surgery ENDO [facility], Endoscopy [address] [phone] Theodore Arboleda, DO [address] [place] [address] COLONOSCOPY FLEXIBLE PROXIMAL DIAGNOSTIC 09/28/2024 11:20 AM EST Office Visit [facility] [address] [place] [address] Jatin Mejia CRNP [address] [place] [phone] Scheduled Procedures Name Priority Associated Diagnoses Date/Ti [...] Adult Wellness Visit 03/30/2025 03/30/2024 Pneumococcal Vaccine: 50+ Years Completed 07/28/2017, 11/03/2015, 05/25/2003 Zoster Vaccines [...] this encounter Medical Devices Implanted Type Area Drainlayer Device Identifier Shelf Expiration Date Model / Serial / Lot Lens 21.5 [facility] [id number] - [id number] Implanted:Qty: 1 on 07/10/2024 by Juan Malcolm, DO at OR [facility] Lens Left: Eye [employer] 06/05/2027 CCA0T0.215 / [id number] / Lens 21.5 Kev [facility] [id number] - [id number] Implanted:Qty: 1 on 06/12/2024 by Juan Malcolm, DO at OR [facility] Right: Eye [employer] 06/05/2027 CCA0T0.215 / [id number] / documented as of this encounter [...] Power of Attor vandana? No Care Teams Ranch Hand Supervisor Relationship Specialty Start Date End Date Jatin Mejia CRNP [address] [place] [address] PCP - General Nurse Practitioner 03/19/24 documented as of this encounter
--- OUTSIDE RECORDS SUMMARY | 2024-08-29 20:32 | External Medical Summary | Summary of Care ---
Author Name Unknown Organization [facility] Address [address] [facility] [place] [address] Phone [phone] Care Team Providers Care Salvage Winder And Inspector Name Role Phone Jatin Mejia Primary Care Provider [phone] Reason for Visit * Auth/Cert Specialty Diagnoses / Procedures Referred By José guzman Referred To Contact Diagnoses Cataract Cataract [H26.9] Procedures REMOVE CATARACT, INSERT LENS PROSTH RIGHT EXTRACAPSULAR CATARACT REMOVAL WITH INTRAOCULAR LENS Juan Malcolm DO [address] [place] [address] [address] Phone: tel: fax: OR [facility], Operating Room, [facility] - 4th Floor [address] [place] [address] Phone: tel: Referral ID Status Reason Start Date Expiration Date Visits Re quested Visits Authorized [id number] Encounter Details Date Type Department Care Team (Late st Contact Info) Description 06/12/2024 6:33 AM EST - 06/12/2024 9:24 AM EST Hospital Encounter OR [facility], Operating Room, [facility] - 4th Floor [address] [place] [address] Juan Malcolm DO [address] [address] Discharge Disposition: Home - Self Care Allergies Active Allergy Reactions Criticality Noted Date Comments Penicillins Edema face/lips/tongue High 12/17/2014 documented as of this encounter (statuses as of 06/12/2024) Medications aspirin 81 MG chewable tablet Take [...] Active Additional Information Patient not taking.Reported on 06/04/2024 Losartan Potassium 50 MG Oral Tablet (Cozaar) Take 1 Tablet by mouth in the morning. Active documented as of this encounter (statuses as of 06/12/2024) Active Problems Problem Noted Date Diagnosed Date Stroke-like symptoms 03/15/2024 Stroke with cerebral ischemia 03/15/2024 Cataract 12/01/2023 Combined forms of age-related cataract of both e yes 11/09/2023 Weakness 04/20/2018 Diaphoresis 04/19/2018 Type 2 diabetes mellitus wit h kidney complication, with long-term current use of insulin 04/19/2018 Essential hypertension 04/19/2018 Hyperlipidemia 04/19/2018 Hypothyroidism Colon polyps documented as of this encounter (statuses as of 06/12/2024) Resolved Problems Problem Noted Date Diagnosed Date Resolved Date Near syncope 04/19/2018 03/19/2024 documented as of this encounter (statuses as of 06/12/2024) Immunizations Name Administration Dates Next Due Covid-19, [...] Sign Reading Time Taken Comments Blood Pressure 145/73 06/12/2024 9:11 AM EST Pulse 66 06/12/2024 9:11 AM EST Temperature 36 C (96.8 F) 06/12/2024 9:11 AM EST Respiratory Rate 18 06/12/2024 9:11 AM EST Oxygen Saturation 97% 06/12/2024 9:11 AM EST Inhaled Oxygen Concentration - - Weight 64.3 kg (141 lb 12.1 oz) 06/12/2024 6:41 AM EST Height 172.7 cm (5' 8") 06/12/2024 6:41 AM EST Body Mass Index 21.55 06/12/2024 6:41 AM EST documented in this encounter Functional [...] Instructions * Discharge Instr - AVS* Juan Malcolm DO - 06/12/2024 8:19 AM EST Discharge Date: 06/12/24 Check your Patient Education Brochure for further information. If you have any further questions orconcerns after discharge and before 4:00 p.m. please contact your surgeons office at [phone]. This is our office phone number. After 4:00 p.m. or on the weekend, please call our on-call phone number at [phone]. Ask for the client project coordinator children's institution attendant. Please let the doctor on-call know you [...] when arrive home Ofloxacin One Drop to right eye 4 times per day Prednisolone acetate (shake well) One Drop to right eye 4 times per day Erythromycin ophthalmic ointment - Instill at bedtime or as needed for pain/discomfort right eye Please use the Ofloxacin drop first [...] Progress Notes * Juan Malcolm DO - 06/12/2024 8:19 AM EST [address] [address] OUTPATIENT SURGERY DISCHARGE SUMMARY NOTE Name: Christina Cuevas II Location: [place] [facility]/[place] Date: 06/12/2024 Time: 8:19 AM Surgery Date: 06/12/2024 Procedure: RIGHT EXTRACAPSULAR CATARACT REMOVAL WITH INTRAOCULAR LENS Right Surgeon: Juan Malcolm DO Discharge Diagnosis: same After examination of this patient, I have determined he is ready for discharge to home when the patient meets criteria. Discharge instructions were given to the patient. documented in this encounter H&P Notes * Juan Malcolm DO - 06/12/2024 7:33 AM EST HISTORY & PHYSICAL INTERVAL NOTE [address] [address] History and Physical Update: Name: Christina Cuevas II Location: [place] [facility]/[place] Date: 06/12/2024 Time: 7:33 AM DATE OF HISTORY AND PHYSICAL: 05/30/24 BP: 216 mmHg/103 mmHg (06/12/24640) Pulse: 88 (06/12/24640) Resp: 16 (06/12/24640) Temp: 36 C (06/12/24640) Temp Summary: Temp Min: 36 C (96.8 F) Max: 36 C (96.8 F) SpO2: 96 % (06/12/24640) O2 flow rate: Supplemental O2 Delivery: Room Air, None (06/12/24 0641) Heart Exam: regular rate and rhythm Lung Exam: clear to auscultation bilaterally Other Pertinent Physical Exam: No eye changes. I have reviewed the H&P previously performed and examined the patient today. There are no new findings noted. * Juan Malcolm DO - 06/05/2024 12:33 PM EST See PCP clearance under media section of EPIC performed 05/30/24. documented in this encounter Nursing Notes * Devika Sanders RN - 06/04/2024 2:47 PM EST Spoke with Dr. Nicole who stated he spoke with Dr. Garcia and at this point they both agree that the patient may proceed with surgery. * Devika Sanders RN - 06/04/2024 11:04 AM EST Patient identified by: name/birthdate Person taught: Patient Optime case procedure confirmed with patient/parent/guardian - no consent signed. Laterality confirmed as Right Surgery date at time of Pre-Surgery Center Encounter: 06/12/2024 What procedure is patient having? Procedure: RIGHT EXTRACAPSULAR CATARACT REMOVAL WITH INTRAOCULAR LENS (55711) In an emergency, is patient willing to accept blood products or blood transfusion? Unknown Do you need to place a blood bank order? No Anesthesia consent pool notified? N/A Anesthesia evaluation requested per case documentation? No Spoke with Dr. Nicole re: CVA in 02/2024. He states he will follow up. Preop Evaluation Requested? Yes, follow-up will be documented on Anesthesia note - PCP per surgeon has been scanned. PATIENT [...] - If your normal morning routine take levothyroxine, Zetia and atorvastatin the morning of surgery. OUTCOME: State / Describe / Explain, Needs Reinforcement, and Verbalizes understanding of education * Devika Sanders RN - 05/28/2024 3:05 PM EST Left message on mobile phone for return call @ [phone] by Patient prior to surgery date or to leave a number where they can be reached . Instructed clinic open hours are M-F 8:00a- 4:00p. documented in this encounter OR Notes * OR Surgeon - Juan Malcolm DO - 06/12/2024 8:19 AM EST [address] [address] OPERATIVE REPORT Name: Christina Cuevas II Date: 06/12/2024 Time: 8:19 AM Service: Ophthalmology Date of Operation: 06/12/2024 Pre-op Diagnosis: Nuclear age related Cataract Right eye Post-op Diagnosis: Nuclear age related Cataract Right eye Surgeon: Juan Malcolm DO Assistants: None Anesthesia: Monitored Local Anesthesia with Sedation Operation: Cataract extraction to the Right eye with implantation of posterior intraocular lens. Findings: None Estimated Blood Loss: minimal IV Intake:<100 ml Urine output: 0 ml Drains: 0 INDICATIONS AND PERTINENT HISTORY: The patient has a visually significant cataract of the Right eye. The proposed procedure was discussed in detail with the patient. All feasible options were reviewed with the appropriate indications and expected outcomes. Specimens and Disposition: None Complications: none Condition: Stable Description of Operation: The patient was identified with two identifiers and the procedure verified. Proper consent was verified. Antibiotic and dilating drops were instilled in the right eye pre-operatively in the Pre-operative holding area. Fifteen minutes prior to transfer to the Operating Room, topical proparacaine drops and topical 2% lidocaine jelly were placed over the right eye. The patient was then taken back tothe Operating Room. Ophthalmic Betadine 5% was placed in the superior and inferior cul-de-sacs of the right eye. The right eye was then prepped with 10% povidone-iodine and draped in the usual sterile fashion. After the lid speculum was inserted, a paracentesis incision was made at the 11 o'clock position with a sharp blade. MPF lidocaine was instilled. The anterior chamber was then refilled withViscoat. The main wound was then created at 9' using the 2.4mm phacokeratome blade. A continuous curvilinear capsulorrhexis was then performed initially with a cystotome, then completed with Utrada forceps. Hydrodissection and hydrodelineation were achieved with balanced salt solution through a 27G cannula. The phacoemulsification handpiece was utilized to remove the lens nucleus with a [id number] technique. Residual cortical material was removed with the irrigating and aspirating device. The capsular bag was re- formed with viscoelastic. An CCA0T0 21.50 diopters in power (selected after review and interpretation of IOL measurements), acrylic foldable lens was placed into the capsular bag uneventfully and rotated into position with a Sinskey hook. It was noted to be in a central and stable position. The residual viscoelastic was irrigated and aspirated from the anterior chamber. Stromal hydration was applied to the wound. The anterior chamber was re-formed with balanced salt solution. The wounds were checked with Weck-cels and found to be watertight. The lid speculum was thenremoved. Brimonidine, prednisolone acetate, ocuflox drops and erythromycin oph ointment were instilled in the eye. The patient tolerated the procedure well. There were no complications I performed the procedure Juan Malcolm DO 06/12/2024 8:19 AM documented in this encounter Plan of Treatment Upcoming Encounters Date Type Department Care Team (Late st Contact Info) Description 06/13/2024 7:30 AM EST Office [facility] [place] [address] Juan Malcolm DO [address] [address] 06/20/2024 9:00 AM EST Office Visit [facility] [place] [address] Juan Malcolm DO [address] [place] [address] 07/10/2024 11:03 AM EST Hospital Encounter OR [facility], Operating Room, [facility] - 4th Floor [address] [place] [address] Juan Malcolm DO [address] [address] 07/10/2024 11:03 AM EST - 07/10/2024 11:50 AM EST Surgery OR [facility], Operating Room, [facility] - 4th Floor [address] [place] [address] Juan Malcolm DO [address] [address] LEFT EXTRACAPSULAR CATARACT REMOVAL WITH INTRAOCULAR LENS 07/11/2024 7:30 [place] [address] Juan Malcolm DO [address] [place] [address] 07/20/2024 2:30 PM [place] [address] Juan Malcolm, DO [address] [place] [address] 08/10/2024 3:45 PM EST Office Visit [place], [place] [address] [place] [address] Juan Malcolm, DO [address] [place], [place] [address] 09/18/2024 11:45 AM EST Hospital Encounter [facility], Endoscopy [address], [place] [phone] Theodore Arboleda, DO [address] [place] [address] 09/18/2024 11:45 AM EST - 09/18/2024 12:15 PM EST Surgery [facility], Endoscopy [address], [place] [address] Theodore Arboleda, DO [address] [place] [address] COLONOSCOPY FLEXIBLE PROXIMAL DIAGNOSTIC 09/28/2024 11:20 AM EST Office Visit [facility] [address] [place] [address] Jatin Mejia CRNP [address] [place] [address] Scheduled Procedures Name Priority Associated Diagnoses Date/Ti me EXTRACAPSULAR CATARACT REMOVAL WITH INTRAOCULAR LENS Cataract 06/12/2024 7:00 AM EST EXTRACAPSULAR CATARACT REMOVAL WITH INTRAOCULAR LENS Cataract 07/10/2024 11:03 AM EST COLONOSCOPY FLEXIBLE PROXIMAL DIAGNOSTIC Recall History of colonic polyps Screen for colon cancer 09/18/2024 11:45 AM EST Health Maintenance Due Date Last Done Comments Hepatitis C Screening 1968 DTap/Tdap Vaccines (1 - Tdap) 06/29/2011 06/28/2011 Colonoscopy 09/10/2022 09/10/2020, 08/25, 11/19/2016, Additional history exists COVID-19 Vaccine ( season) 2024 05/16/2023, 07/06/2021, 09/22/2020, Additional history exists *NEPHROLOGY REFERRAL DUE TO RESISTANT HTN 06/06/2024 HbA1c 09/16/2024 03/16/2024, 03/0 10/2023, 04/20/2018, Additional history exists Albumin/Creatinine Ratio 09/25/2024 09/26/2023 Depression Screening 09/25/2024 09/26/2023 Diabetic Eye Exam 11/08/2024 11/09/2023, , 11/09/2023, Additional history exists TSH 03/15/2025 03/15/2024, 03/0 10/2023, 04/20/2018 GFR 03/16/2025 03/16/2024, 02/23, 09/26/2023, Additional history exists Diabetic Foot Exam [...] this encounter Medical Devices Implanted Type Area Head Golf Coach Device Identifier Shelf Expiration Date Model / Serial / Lot Lens 21.5 [employer] - [id number] - [id number] Implanted:Qty: 1 on 06/12/2024 by Juan Malcolm DO at OR [facility] Right: Eye [employer] 06/05/2027 CCA0T0.215 / [id number] / documented as of this encounter Procedures Procedure Name Priority Date/Time Associated Diagnosis Comments GLUCOSE METER, POINT OF CARE EVY 06/12/2024 7:07 AM EST documented in this encounter Results * (ABNORMAL) GLUCOSE METER, POINT OF CARE (06/12/2024 7:07 AM EST) Pathologist [facility] GLUCOSE - POCT 278(H) 70 - 120 mg/dL 06/12/2024 7:11 AM EST [facility] Blood Whole blood specimen / Unknown 06/12/2024 7:07 AM EST 06/12/2024 7:11 AM EST Juan Malcolm DO LAB POINT OF CARE TE ST DOCKED DEVICE UNSOLICITED RESULTS Final Result [facility] [address] [place] [address] documented in this encounter Visit Diagnoses Diagnosis Combined forms of age-related cataract of both eyes- Primary Other and combined forms of senile cataract Combined forms of age-related cataract of both eyes Other and combined forms of senile cataract Cataract Unspecified cataract Cataract Unspecified cataract History of colonic polyps Personal history of colonic polyps Screen for colon cancer Special screening for malignant neoplasms, colon documented in this encounter Administered Medications Inactive Administered Medications - up to 3 most recent administrations Medication Order MAR Action Action Date Dose Rate Site Diclofenac Sodium (Voltaren) 0.1 % ophthalmic solution 1 Drop 1 Drop, Right eye, Q5 MINUTES, First dose on Tue06/12/24 at 0715, Last dose on Tue06/12/24 at 0725, For 3 doses, PRE-OP: One drop to right eye every 5 minutes for 3 doses, Pre-OpIndications:Combined forms of age-related cataract of both eyes Given 06/12/2024 7:11 AM EST 1 Drop Given 06/12/2024 6:59 AM EST 1 Drop Given 06/12/2024 6:52 AM EST 1 Drop Isolyte-S pH 7.4 infusion Intravenous, at 10 mL/hr, Plasma-LYTE 148, isolyte-S, and isolyte-S pH 7.4 are considered equivalent - including for MAR barcode scanning., CONTINUOUS, Starting on Tue06/12/24 at 0715, Until Tue06/12/24 at 1326, Pre-OpIndications:Combined forms of age-related cataract of both eyes Restarted 06/12/2024 7:47 AM EST Continue from Pre-Op 06/12/2024 7:41 AM EST 10 mL/hr New Bag 06/12/2024 7:10 AM EST 10 mL/hr Lidocaine urethral/mucosal 2 % gel 2 mL Topical, ONCE, 1 dose, On Tue06/12/24 at 0715, 15 minutes prior to scheduled surgery time, apply 2 ml to superior and inferior fornices right eye & tape eyes shut., Pre-OpIndications:Combined forms of age-related cataract of both eyes Given 06/12/2024 7:27 AM EST 2 mL Ofloxacin (Ocuflox) 0.3 % ophthalmic solution 1 Drop 1 Drop, Right eye, Q5 MINUTES, First dose on Tue06/12/24 at 0715, Last dose on Tue06/12/24 at 0725, For 3 doses, PRE-OP: One drop to right eye every 5 minutes for 3 doses, Pre-OpIndications:Combined forms of age-related cataract of both eyes Given 06/12/2024 7:11 AM EST 1 Drop Given 06/12/2024 6:59 AM EST 1 Drop Given 06/12/2024 6:52 AM EST 1 Drop prednisoLONE Acetate (Pred Forte) 1 % ophthalmic suspension 1 Drop 1 Drop, Right eye, Q5 MINUTES, First dose on Tue06/12/24 at 0715, Last dose on Tue06/12/24 at 0725, For 3 doses, PRE-OP: One drop to right eye every 5 minutes for 3 doses., Pre-OpIndications:Combined forms of age-related cataract of both eyes Given 06/12/2024 7:11 AM EST 1 Drop Given 06/12/2024 6:59 AM EST 1 Drop Given 06/12/2024 6:52 AM EST 1 Drop proparacaine (Alcaine) 0.5 % ophthalmic solution 1 Drop 1 Drop, Right eye, ONCE, On Tue06/12/24 at 0715, For 1 dose, PRE-OP: 15 minutes prior to scheduled surgery time for 1 dose, Pre-OpIndications:Combined forms of age-related cataract of both eyes Given 06/12/2024 6:52 AM EST 1 Drop tropicamide 1%-cyclopentolate 1%-phenylephrine 2.5% ophthalmic solution 1 Drop 1 Drop, Right eye, Q5 MINUTES, First dose on Tue06/12/24 at 0715, Last dose on Tue06/12/24 at 0725, For 3 dosesIndications:Combined forms of age-related cataract of both eyes Given 06/12/2024 7:11 AM EST 1 Drop Given 06/12/2024 6:59 AM EST 1 Drop Given 06/12/2024 6:52 AM EST 1 Drop documented in this encounter Active and Recently Administered Medications Times are shown in EST. Scheduled Medication Order 06/10/2024 06/11/2024 06/12/2024 Diclofenac Sodium (Voltaren) 0.1 % ophthalmic solution 1 Drop (COMPLETED) 1 Drop, Right eye, Q5 MINUTES, First dose on Tue06/12/24 at 0715, Last dose on Tue06/12/24 at 0725, For 3 doses, PRE-OP: One drop to right eye every 5 minutes for 3 doses, Pre-Op 0652 (Given - Provid er: Kamar Almanza RN)0659 (Given - Provider: Kamar Almanza RN)0711 (Given - Provider: Kamar Almanza RN) Lidocaine urethral/mucosal 2 % gel 2 mL (COMPLETED) Topical, ONCE, 1 dose, On Tue06/12/24 at 0715, 15 minutes prior to scheduled surgery time, apply 2 ml to superior and inferior fornices right eye & tape eyes shut., Pre-Op 0727 (Given - Provid er: Kamar Almanza RN) Ofloxacin (Ocuflox) 0.3 % ophthalmic solution 1 Drop (COMPLETED) 1 Drop, Right eye, Q5 MINUTES, First dose on Tue06/12/24 at 0715, Last dose on Tue06/12/24 at 0725, For 3 doses, PRE-OP: One drop to right eye every 5 minutes for 3 doses, Pre-Op 0652 (Given - Provid er: Kamar Almanza RN)0659 (Given - Provider: Kamar Almanza RN)0711 (Given - Provider: Kamar Almanza RN) prednisoLONE Acetate (Pred Forte) 1 % ophthalmic suspension 1 Drop (COMPLETED) 1 Drop, Right eye, Q5 MINUTES, First dose on Tue06/12/24 at 0715, Last dose on Tue06/12/24 at 0725, For 3 doses, PRE-OP: One drop to right eye every 5 minutes for 3 doses., Pre-Op 0652 (Given - Provid er: Kamar Almanza RN)0659 (Given - Provider: Kamar Almanza RN)0711 (Given - Provider: Kamar Almanza RN) proparacaine (Alcaine) 0.5 % ophthalmic solution 1 Drop (COMPLETED) 1 Drop, Right eye, ONCE, On Tue06/12/24 at 0715, For 1 dose, PRE-OP: 15 minutes prior to scheduled surgery time for 1 dose, Pre-Op 0652 (Given - Provid er: Kamar Almanza RN) tropicamide 1%-cyclopentolate 1%-phenylephrine 2.5% ophthalmic solution 1 Drop (COMPLETED) 1 Drop, Right eye, Q5 MINUTES, First dose on Tue06/12/24 at 0715, Last dose on Tue06/12/24 at 0725, For 3 doses 0652 (Given - Provid er: Kamar Almanza RN)0659 (Given - Provider: Kamar Almanza RN)0711 (Given - Provider: Kamar Almanza RN) Continuous Medication Order 06/10/2024 06/11/2024 06/12/2024 Isolyte-S pH 7.4 infusion Intravenous, at 10 mL/hr, Plasma-LYTE 148, isolyte-S, and isolyte-S pH 7.4 are considered equivalent - including for MAR barcode scanning., CONTINUOUS, Starting on Tue06/12/24 at 0715, Until Tue06/12/24 at 1326, Pre-Op 0710 (New Bag - Prov ider: Kamar Almanza RN)0741 (Continue from Pre-Op - Provider: Salomón Abdalla CRNA)0746 (Paused - Provider: Salomón Abdalla CRNA - Comment: Switch to gravity)0747 (Restarted - Provider: Salomón Abdalla CRNA)0814 (Stopped - Provider: Salomón Abdalla CRNA) PRN Medication Order 06/10/2024 06/11/2024 06/12/2024 balanced salt solution (Bss) ophthalmic solution (CANCELED) ONCE PRN INTRA PROCEDURE, Starting on Tue06/12/24 at 0801, Until Tue06/12/24 at 0818, Intra-Op 0801 (Given - Provid er: Juan Malcolm DO) briMONidine tartrate (Alphagan) 0.2 % ophthalmic solution (CANCELED) ONCE PRN INTRA PROCEDURE, Starting on Tue06/12/24 at 0804, Until Tue06/12/24 at 0818, Intra-Op 0804 (Given - Provid er: Juan Malcolm DO) DUOVISC inj KIT (CANCELED) ONCE PRN INTRA PROCEDURE, Starting on Tue06/12/24 at 0802, Until Tue06/12/24 at 0818, Intra-Op 0802 (Given - Provid er: Juan Malcolm DO) EPINEPHrine 0.5 mg in BSS Plus 500 mL inj (CANCELED) ONCE PRN INTRA PROCEDURE, Starting on Tue06/12/24 at 0806, Until Tue06/12/24 at 0818, Intra-Op 0806 (Given - Provid er: Juan Malcolm DO) Erythromycin ophthalmic ointment (CANCELED) ONCE PRN INTRA PROCEDURE, Starting on Tue06/12/24 at 0802, Until Tue06/12/24 at 0818, Intra-Op 0802 (Given - Provid er: Juan Malcolm DO) hydroxypropyl methylcellulose (Ocucoat) 2 % intraocular inj (CANCELED) ONCE PRN INTRA PROCEDURE, Starting on Tue06/12/24 at 0804, Until Tue06/12/24 at 0818, Intra-Op 0804 (Given - Provid er: Juan Malcolm DO) Lidocaine 1 % (PF) inj (CANCELED) ONCE PRN INTRA PROCEDURE, Starting on Tue06/12/24 at 0806, Until Tue06/12/24 at 0818, Intra-Op 0806 (Given - Provid er: Juan Malcolm DO) Ofloxacin (Ocuflox) 0.3 % ophthalmic solution (CANCELED) ONCE PRN INTRA PROCEDURE, Starting on Tue06/12/24 at 0805, Until Tue06/12/24 at 0818, Intra-Op 0805 (Given - Provid er: Juan Malcolm DO) Povidone-Iodine (Betadine) 5 % 2 mL syringe ophthalmic solution (CANCELED) ONCE PRN INTRA PROCEDURE, Starting on Tue06/12/24 at 0802, Until Tue06/12/24 at 0818, Intra-Op 0802 (Given - Provid er: Juan Malcolm DO) prednisoLONE Acetate (Pred Forte) 1 % ophthalmic suspension (CANCELED) ONCE PRN INTRA PROCEDURE, Starting on Tue06/12/24 at 0805, Until Tue06/12/24 at 0818, Intra-Op 0805 (Given - Provid er: Juan Malcolm DO) Tetracaine (Pontocaine) 0.5 % ophthalmic solution (CANCELED) ONCE PRN INTRA PROCEDURE, Starting on Tue06/12/24 at 0803, Until Tue06/12/24 at 0818, Intra-Op 0803 (Given - Provid er: Juan Malcolm DO) [...] Power of Attor vandana? No Care Teams Salvage Winder And Inspector Relationship Specialty Start Date End Date Jatin Mejia CRNP [address] [place] [id number] PCP - General Nurse Practitioner 03/19/24 documented as of this encounter
--- OUTSIDE RECORDS SUMMARY | 2024-08-29 20:32 | External Medical Summary | Summary of Care ---
Author Name Unknown Organization [facility] Address [address] [facility] [place] [address] Phone [phone] Care Team Providers Care Pest Control Worker Helper Name Role Phone Jatin Mejia Primary Care Provider [phone] Reason for Visit * Reason Onset Date Comments FYI 07/03/2024 Encounter Details Date Type Department Care Team (Late st Contact Info) Description 07/03/2024 Telephone [facility] [place] [address] [place] [address] Jatin Mejia CRNP [address] [place] [address] FYI Allergies Active Allergy Reactions Criticality Noted Date Comments Penicillins Edema face/lips/tongue High 12/17/2014 documented as of this encounter (statuses as of 07/03/2024) Medications aspirin 81 MG chewable tablet Take [...] as of this encounter (statuses as of 07/03/2024) Active Problems Problem Noted Date Diagnosed Date Stroke-like symptoms 03/15/2024 Stroke with cerebral ischemia 03/15/2024 Cataract 12/01/2023 Combined forms of age-related cataract of both e yes 11/09/2023 Weakness 04/20/2018 Diaphoresis 04/19/2018 Type 2 diabetes mellitus wit h kidney complication, with long-term current use of insulin 04/19/2018 Essential hypertension 04/19/2018 Hyperlipidemia 04/19/2018 Hypothyroidism Colon polyps documented as of this encounter (statuses as of 07/03/2024) Resolved Problems Problem Noted Date Diagnosed Date Resolved Date Near syncope 04/19/2018 03/19/2024 documented as of this encounter (statuses as of 07/03/2024) Immunizations Name Administration Dates Next Due Covid-19, [...] No 09/15/2023 Does the household have a [facility] source of income? (Household - for ages [...] of Assessment Author No 03/15/2024 6:37 PM EDT Shanda Hernandez RN documented as of this encounter Mental Status * Because of a physical, mental, or emotional condition, do you have serious difficulty concentrating, remembering, or making decisions? (5 years old or older) Answer Entry Date Author No 03/15/2024 6:37 PM EDT Shanda Hernandez RN documented in this encounter Miscellaneous Notes * Telephone Encounter - Arlene Mason CCMA - 07/03/2024 12:58 PM EST T/C to pts ins and talked to cassy. Was able to confirm for them that Dr. Morales ordered it. * Telephone Encounter - Astrid Hawley OSA - 07/03/2024 12:22 PM EST Cassy from [facility] is calling to see if patient's PCP referred this patient to have an ECG and it was completed on 04/06/2024. She states patient was seen by his PCP on 03/30/2024 and shewants to know if that is when he referred the patient to have this done? I cannot find any referrals in the chart. Can a nurse give her a call in regards to this information? Please refer to case #: [id number] documented in this encounter Plan of Treatment Upcoming Encounters Date Type Department Care Team (Late st Contact Info) Description 07/10/2024 11:03 AM EST Hospital Encounter OR [facility], Operating Room, [facility] - 4th Floor [address] [phone] Juan Malcolm DO [address] [address] 07/10/2024 11:03 AM EST - 07/10/2024 11:50 AM EST Surgery OR [facility], Operating Room, [facility] - 4th Floor [address] [address] Juan Malcolm, DO [address] [place], [place] [address] LEFT EXTRACAPSULAR CATARACT REMOVAL WITH INTRAOCULAR LENS 07/11/2024 7:30 AM EST Office Visit Ophthalmology, [place] [address] [place], [place] [address] Juan Malcolm, DO [address] [place], [place] [address] 07/20/2024 2:30 PM EST Office Visit Ophthalmology, [place] [address] [place] [address] Juan Malcolm, DO [address] [place], [place] [address] 08/10/2024 3:45 PM EST Office Visit Ophthalmology, [place] [address] [place] [address] Juan Malcolm, DO [address] [place], [place] [address] 09/18/2024 11:45 AM EST Hospital Encounter [facility], Endoscopy [address], [place] [address] Theodore Arboleda, DO [address] [place] [address] 09/18/2024 11:45 AM EST - 09/18/2024 12:15 PM EST Surgery [facility], Endoscopy [address] [place] [phone] Theodore Arboleda, DO [address] [place], [place] [address] COLONOSCOPY FLEXIBLE PROXIMAL DIAGNOSTIC 09/28/2024 11:20 AM EST Office Visit [facility] [address] [place] [address] Jatin Mejia CRNP [address] [place] [address] Scheduled Procedures Name Priority Associated Diagnoses Date/Ti [...] this encounter Medical Devices Implanted Type Area Vending Manager Device Identifier Shelf Expiration Date Model / Serial / Lot Lens 21.5 Kev [facility] - [id number] - [id number] Implanted:Qty: 1 on 06/12/2024 by Juan Malcolm DO at OR [facility] Right: Eye [email or web address] 06/05/2027 [id number] / [id number] / documented as of this encounter Advance Directives * Full Code (Latest Code Status on File) Date Activated Date Inactivated Comments 06/12/2024 6:36 AM 06/12/2024 1:26 PM Question Answer Comments Discussion of Advance Direct gail occurred with: Not Discussed due to patient's condition * Full Code Date Activated Date Inactivated Comments 03/15/2024 6:05 PM 03/16/2024 7:44 PM This order reflects the patients wishes and were consensually agreed [...] Power of Attor vandana? No Care Teams Pest Control Worker Helper Relationship Specialty Start Date End Date Jatin Mejia CRNP [address] [place] [address] PCP - General Nurse Practitioner 03/19/24 documented as of this encounter
--- OUTSIDE RECORDS SUMMARY | 2024-08-29 20:32 | External Medical Summary | Summary of Care ---
Author Name Unknown Organization [facility] Address [address] [place] [address] Phone [phone] Care Team Providers Care Kennel Operator Name Role Phone Jatin Mejia Primary Care Provider Reason for Visit * Reason Onset Date Comments Surgery 02/20/2024 Encounter Details Date Type Department Care Team (Late st Contact Info) Description 02/20/2024 Telephone Access Center, [place] [address] [facility] *DO NOT REMOVE THIS DEPARTMENT* [place] [address] Services, Scheduling [address] [place] [address] Surgery Allergies Active Allergy Reactions Criticality Noted Date Comments Penicillins Edema face/lips/tongue High 12/17/2014 documented as of this encounter (statuses as of 04/06/2024) Medications Medication Sig Dispensed Refills Start Date End Date Status aspirin 81 MG chewable tablet Take 1 Tablet by mouth in the morning. Active CYANOCOBALAMIN (VITAMIN B-12) 500 MCG Sublingual Tablet Take 2 Tablets by mouth in the morning. Active Cholecalciferol (VITAMIN D3) 3000 UNITS Tablet Take 1,000 Units by mouth daily. Active Ezetimibe 10 MG Oral Tablet (Zetia) Take 0.5 Tablets by mouth in the morning. 4 Active Insulin Glargine (1 Unit Dial) 300 UNIT/ML Subcutaneous Solution Pen-injector Inject 9 Units under the skin at bedtime. 10 units 3 Active Insulin Aspart 100 UNIT/ML Injection Solution [...] LUNCH. 1:15 WITH SUPPER. 1:20 WITH SNACKS. 3 Active Clopidogrel Bisulfate 75 MG Oral Tablet (pLAVix) 1 Tablet. 3 Active Atorvastatin Calcium 80 MG Oral Tablet (Lipitor) Take 1 Tablet by mouth in the morning. 3 Active PreserVision AREDS 2 Oral Capsule Take 1 Capsule by mouth in the morning. 3 Active Levothyroxine Sodium 88 MCG Oral Tablet (Levoxyl) Take 1 Tablet by mouth daily first thing in the morning. (at least 30 min prior to breakfast or other meds) Active hydroCHLOROthiaz vonnie 25 MG Oral Tablet (Hydrodiuril) Take 1 Tablet by mouth in the morning. 3 03/16/20 24 Discontinued Metoprolol Succinate ER 25 MG Oral Tablet Extended Release 24 Hour (toPROL XL) 0.5 Tablets. 4 03/19/20 24 Discontinued(Pat ient preference/disco ntinuation) Dexcom G7 Sensor Use as directed. 4 03/16/20 24 Discontinued documented as of this encounter (statuses as of 04/06/2024) Active Problems Problem Noted Date Diagnosed Date Stroke-like symptoms 03/15/2024 Stroke with cerebral ischemia 03/15/2024 Cataract 12/01/2023 Combined forms of age-related cataract of both e yes 11/09/2023 Weakness 04/20/2018 Diaphoresis 04/19/2018 Type 2 diabetes mellitus wit h kidney complication, with long-term current use of insulin 04/19/2018 Essential hypertension 04/19/2018 Hyperlipidemia 04/19/2018 Hypothyroidism Colon polyps documented as of this encounter (statuses as of 04/06/2024) Resolved Problems Problem Noted Date Diagnosed Date Resolved Date Near syncope 04/19/2018 03/19/2024 documented as of this encounter (statuses as of 04/06/2024) Immunizations Name Administration Dates Next Due Covid-19, Mrna, Lnp-s, Pf, B ivalent, 50 Mcg, IM, 12 yrs and above (Moderna) 07/06/2021,09/22/2020,08/25/2020 Pneumococcal Conjugate Vacc, 13 Valent (Prevnar) 11/03/2015 Pneumococcal Polysaccharide PPV23 (Pneumovax) 07/28/2017,05/25/2003 Season Influenza, Quad, PF, Adjuvanted, 65+ Yrs, IM (FLUAD) 05/17/2016 Seasonal Influenza, Trivalen t, (IIV3), with Preserv, (Fluzone) 04/23/2019,04/18/2017 TD - Tetanus/Diptheria (ADULT) 06/28/2011 Varicella Zoster Vaccine (Adult) 10/27/2016 Zoster Vaccine Recombinant (Shingrix) 07/23/2019 ,04/23/2019 documented as of this encounter Social History Tobacco Use Types Packs/Day Years Used Date Smoking Tobacco: Former Cigarettes Q uit: 10/23/2014 Smokeless Tobacco: Never Alcohol Use Standard Drinks/Week Comments No 0 (1 standard drink = 0.6 oz [...] Assigned at Male 09/15/2023 1:23 PM EST Gender Identity Male 09/15/2023 1:23 PM EST Sexual Orientation Straight 09/15/2023 1: 23 PM EST Job Start Date Occupation Industry Not on file Not on file Not on file documented as of this encounter Functional Status Functional Status Response Date of Assess ment Are you deaf or do you have serious difficulty h earing? No 04/19/2018 Are you blind or do you have serious difficulty seeing, even when wearing glasses? Yes 04/19/2018 Do you have serious difficul ty walking or climbing stairs? (5 years old or older) No 04/19/2018 Do you have difficulty dress ing or bathing? (5 years old or older) No 04/19/2018 Because of a physical, menta l, or emotional condition, do you have difficulty doing errands alone such as visiting a doctor s office or shopping? (15 years old or older) No 04/19/20 18 Cognitive Status Response Date of Assessm ent Because of a physical, menta l, or emotional condition, do you have serious difficulty concentrating, remembering, or making decisions? (5 years old or older) No 04/19/2018 documented as of this encounter Miscellaneous Notes * Telephone Encounter - Kayce Parker COA - 02/21/2024 10:32 AM EDT Contacted patient to ensure that we do have dates for him saved in May and June and we will get them scheduled once we coordinate with Dr. Mejia. Once everything is scheduled our office will reach out with dates and times for post op appointments. DORA Madden 02/21/2024 10:34 AM * Telephone Encounter - Aga Person OSA - 02/20/2024 8:58 AM EDT Patient said he is scheduled for cataract surgery with in May. Patient has a few questions regarding surgery. Please call patient back to discuss. documented in this encounter Plan of Treatment Upcoming Encounters Date Type Department Care Team (Late st Contact Info) Description 05/03/2024 8:00 AM EDT Office Visit Neurology [address] [place] [phone] Augustine Rizvi MD [address] [facility] [place] [address] 06/12/2024 10:12 AM EST Hospital Encounter [facility], [facility] [address] [facility] [address] Juan Malcolm, [address] [address] 06/12/2024 10:12 AM EST - 06/12/2024 10:59 AM EST Surgery OR [facility], Operating Room, [facility] - 4th Floor [address] [place] [address] Juan Malcolm DO [address] [address] RIGHT EXTRACAPSULAR CATARACT REMOVAL WITH INTRAOCULAR LENS 06/13/2024 7:30 AM EST [facility] [address] [address] Juan Malcolm, [address] [place] [address] 06/20/2024 9:00 AM EST [facility] [address] [place] [address] Juan Malcolm, [address] [place] [address] 07/10/2024 11:55 AM EST Hospital Encounter OR [facility], Operating Room, [facility] - 4th Floor [address] [facility] [place] [address] Juan Malcolm, [address] [place] [address] 07/10/2024 11:55 AM EST - 07/10/2024 12:42 PM EST Surgery OR [facility], Operating Room, [facility] - 4th [facility] [address] [facility] [address] Juan Malcolm, [address] [address] LEFT EXTRACAPSULAR CATARACT REMOVAL WITH INTRAOCULAR LENS 07/11/2024 7:30 AM EST [facility] [place] [address] Juan Malcolm, [address] [place] [address] 07/20/2024 2:30 PM EST [facility] [address] [place] [address] Juan Malcolm, [address] [place] [address] 08/10/2024 3:45 PM EST Office Visit Ophthalmology, [place] [address] [place] [address] Juan Malcolm, DO [address] [place] [address] 09/18/2024 11:45 AM EST Hospital Encounter [facility], Endoscopy [address], [place] [phone] Theodore Arboleda, DO [address] [place] [address] 09/18/2024 11:45 AM EST - 09/18/2024 12:15 PM EST Surgery [facility], Endoscopy [address] [place] [phone] Theodore Arboleda, DO [address] [place] [address] COLONOSCOPY FLEXIBLE PROXIMAL DIAGNOSTIC 09/28/2024 11:20 AM EST Office Visit [facility] [address] [place] [phone] Jatin Mejia CRNP [address] [place] [address] Scheduled Procedures Name Priority Associated Diagnoses Date/Ti me EXTRACAPSULAR CATARACT REMOVAL WITH INTRAOCULAR LENS Cataract 06/12/2024 10:12 AM EST EXTRACAPSULAR CATARACT REMOVAL WITH INTRAOCULAR LENS Cataract 07/10/2024 11:55 AM EST COLONOSCOPY FLEXIBLE PROXIMAL DIAGNOSTIC Recall History of colonic polyps Screen for colon cancer 09/18/2024 11:45 AM EST Health Maintenance Due Date Last Done Comments Hepatitis C Screening 1968 DTap/Tdap Vaccines (1 - Tdap) 06/29/2011 06/28/2011 Colonoscopy 09/10/2022 09/10/2020, 08/25, 11/19/2016, Additional history exists COVID-19 Vaccine ( season) 2024 07/06/2021, 09/22/2020, 08/25/2020 HbA1c 09/16/2024 03/16/2024, 03/0 10/2023, 04/20/2018, Additional [...] documented as of this encounter Medical Devices Not on filedocumented as of this encounter Advance Directives * Full Code (Latest Code Status on File) Date Activated Date Inactivated Comments 03/15/2024 6:05 [...] Power of Attor vandana? No Care Teams Kennel Operator Relationship Specialty Start Date End Date Jatin Mejia CRNP [address] [place] [address] PCP - General Nurse Practitioner 03/19/24 documented as of this encounter
--- OUTSIDE RECORDS SUMMARY | 2024-08-29 20:32 | External Medical Summary | Summary of Care ---
Author Name Unknown Organization [facility] Address [address] [place] [address] Phone [phone] Care Team Providers Care Care Advocate Name Role Phone Jatin Mejia Primary Care Provider [phone] Reason for Referral * Ancillary Services (Within 10 days (routine)) - Pending Review Specialty Diagnoses / Procedures Referred By José guzman Referred To Contact Gastroenterology Diagnoses Screen for colon cancer Jatin Mejia CRNP [address] [place] [address] Referral ID Status Reason Start Date Expiration Date Visits Requested Visits Authorized [id number] Pending Review Ancillary Services Required 03/30/[phone] Question Answer Referral Priority Within 10 days (routine) Where should this appointment be scheduled? [facility] Comments ALERT: Do not order for pediatric patients (18 years or younger). Cancel off screen and order PEDS GASTROENTEROLOGY CONSULT (Type: 1 visit only-Evaluate and Treat) The following Pt. Instructions are available: - Gastro Colonoscopy Prep Instructions [[id number]] - Gastro Colonoscopy Prep Instructions (Ethiopian Version) [[id number]] Go to the Pt. Instructions section within the Visit Navigator to access. Colonoscopy ASGE Guidelines: Average risk screening (begin at age 50, 10 year intervals) and Postadenoma resection: 3-10 adenomas or adenoma with villous features, greater than or equal 1 cm, or with high-grade dysplasia (3 yr intervals) ADDITIONAL INFORMATION 1. Is the patient on Coumadin? No 2. Is the patient on Pradaxa? No Reason for Visit * Reason Onset Date Comments Routine Exam 6 months Medication Administration 03/30/2024 Flu an d/or Pneumo Inj Encounter Details Date Type Department Care Team (Late st Contact Info) Description 03/30/2024 10:00 AM EDT Office Visit [facility] [address] [place] [address] Jatin Mejia CRNP [address] [place] [address] Type 2 diabetes mellitus with other diabetic kidney complication, with long-term current use of insulin (HCC)*; Hypothyroidism, unspecified type; Mixed hyperlipidemia; Essential hypertension; Status post CVA; Need for prophylactic vaccination and inoculation against influenza; Screen for colon cancer Allergies Active Allergy Reactions Criticality Noted Date Comments Penicillins Edema face/lips/tongue High 12/17/2014 documented as of this encounter (statuses as of 03/30/2024) Medications Medication Sig Dispensed Refills Start Date [...] 0.5 Tablets by mouth in the morning. 09/15/2023 Active Insulin Glargine (1 Unit Dial) 300 UNIT/ML Subcutaneous Solution Pen-injector Inject 9 Units under the skin at bedtime. 10 units 06/19/2023 Active Insulin Aspart 100 UNIT/ML Injection Solution [...] LUNCH. 1:15 WITH SUPPER. 1:20 WITH SNACKS. 02/17/2023 Active Clopidogrel Bisulfate 75 MG Oral Tablet (pLAVix) 1 Tablet. 01/07/2023 Active Atorvastatin Calcium 80 MG Oral Tablet (Lipitor) Take 1 Tablet by mouth in the morning. 05/30/2023 Active PreserVision AREDS 2 Oral Capsule Take 1 Capsule by mouth in the morning. 01/17/2023 Active Levothyroxine Sodium 88 MCG Oral Tablet (Levoxyl) Take 1 Tablet by mouth daily first thing in the morning. (at least 30 min prior to breakfast or other meds) Active hydroCHLOROthiazid e 12.5 MG Oral CapsuleIndications :Essential hypertension Take 1 Capsule by mouth in the morning. 30 Capsule 5 03/19/2024 Active documented as of this encounter (statuses as of 03/30/2024) Active Problems Problem Noted Date Diagnosed Date Stroke-like symptoms 03/15/2024 Stroke with cerebral ischemia 03/15/2024 Cataract 12/01/2023 Combined forms of age-related cataract of both e yes 11/09/2023 Weakness 04/20/2018 Diaphoresis 04/19/2018 Type 2 diabetes mellitus wit h kidney complication, with long-term current use of insulin 04/19/2018 Essential hypertension 04/19/2018 Hyperlipidemia 04/19/2018 Hypothyroidism Colon polyps documented as of this encounter (statuses as of 03/30/2024) Resolved Problems Problem Noted Date Diagnosed Date Resolved Date Near syncope 04/19/2018 03/19/2024 documented as of this encounter (statuses as of 03/30/2024) Immunizations Name Administration Dates Next Due Covid-19, Mrna, Lnp-s, Pf, B ivalent, 50 Mcg, IM, 12 yrs and above (Moderna) 07/06/2021,09/22/2020,08/25/2020 Pneumococcal Conjugate Vacc, 13 Valent (Prevnar) 11/03/2015 Pneumococcal Polysaccharide PPV23 (Pneumovax) 07/28/2017,05/25/2003 Season Influenza, Quad, PF, Adjuvanted, 65+ Yrs, IM (FLUAD) 05/17/2016 Seasonal Influenza, High Dos e, Trivalent, PF, IM (Fluzone HD) 03/30/2024 Seasonal Influenza, Trivalen t, (IIV3), with Preserv, (Fluzone) 04/23/2019,04/18/2017 TD - Tetanus/Diptheria (ADULT) 06/28/2011 Varicella Zoster Vaccine (Adult) 10/27/2016 Zoster Vaccine Recombinant (Shingrix) 07/23/2019 ,04/23/2019 documented as of this encounter Social History Tobacco Use Types Packs/Day Years Used Date Smoking Tobacco: Former Cigarettes Q uit: 10/23/2014 Passive Smoke Exposure: Past Smokeless Tobacco: Never Tobacco Cessation:Counseling Given: Not Answered Alcohol Use Standard Drinks/Week Comments Not Currently [...] on file documented as of this encounter Last Filed Vital Signs Vital Sign Reading Time Taken Comments Blood Pressure 158/90 03/30/2024 10:05 AM EDT Pulse 83 03/30/2024 10:05 AM EDT Temperature 36.1 C (97 F) 03/30/2024 10: 05 AM EDT Respiratory Rate 16 03/30/2024 10:0 5 AM EDT Oxygen Saturation 98% 03/30/2024 10: 05 AM EDT Inhaled Oxygen Concentration - - Weight 64.3 kg (141 lb 11.2 oz) 024 10:05 AM EDT Height 172.7 cm (5' 7.99") 03/30/2024 1 0:05 AM EDT Body Mass Index 21.55 03/30/2024 10:05 AM EDT documented in this encounter Functional Status Functional Status Response Date of Assess ment Are you deaf or do you have serious difficulty h earing? No 03/15/2024 Are you blind or do you have serious difficulty seeing, even when wearing glasses? No 03/15/2024 Do you have serious difficul ty walking or climbing stairs? (5 years old or older) No 03/15/2024 Do you have difficulty dress ing or bathing? (5 years old or older) No 03/15/2024 Because of a physical, menta l, or emotional condition, do you have difficulty doing errands alone such as visiting a doctor s office or shopping? (15 years old or older) No 03/15/20 Cognitive Status Response Date of Assessm ent Because of a physical, menta l, or emotional condition, do you have serious difficulty concentrating, remembering, or making decisions? (5 years old or older) No 03/15/2024 documented as of this encounter Progress Notes * Jatin Mejia CRNP - 03/30/2024 10:06 AM EDT Images from the original note were not included. History of Present Illness Chief Complaint Patient presents with Routine Exam 6 months Medication Administration Flu and/or Pneumo Inj Patient presents for 6 month routine office visit of DM, hyperlipidemia, hypothyroidism, s/p stroke, and hypertension. Overall patient has been feeling well and offers no specific complaints or concerns. Diabetes - Type 2 diabetes using oral medications and diet. Taking medication as prescribed, see med list. No medication side effects noted. Glucose Monitoring Patient checking daily. Hypoglycemic Episodes: none.. Patient is aware of hypoglycemic symptoms and knowledgeable about treatment: . Patient is mostly compliant with diet plan. Denies associated neuropathy, polydipsia, polyphagia, poor wound healing, ulcers, change in vision and retinopathy. Last A1C date 03/16/2024; results 8.5. [facility]. Hypothyroidism - the patient continues to take levothyroxine 88 mcg daily as prescribed. Denies anymedication side effects. Last TSH on 03/15/2024 was 3.5 to. Denies any heat or cold intolerance. Nounexpected weight changes. Status post stroke - the patient continues to take Plavix 75 mg and aspirin 81 mg daily. No focal neuro deficits. Hyperlipidemia and hypertension - Taking medication as prescribed, see med list. No medication sideeffects noted. Patient is exercising a tolerated. Denies associated chest discomfort, chest heaviness, chest pressure, chest tightness, edema, palpitations and shortness of breath. BP has been monitored outside of office. Last lipid profile see below. [facility] are [facility] on [facility] him from HCTZ to an ARB. Pt does have white coat hypertension. Has been closely followed with BP home readings. See list below of home readings. BP well controlled. Shows high in the office today but no need to add or increase medication. Reviewed last labs Latest Reference Range & Units 03/16/24 05:57 03/16/24 07:20 03/16/24 11:30 03/16/24 14:24 03/16/24 14:25 Triglycerides <=174 mg/dL 38 Cholesterol <200 mg/dL 85 Non-HDL Cholesterol <=159 mg/dL 44 HDL Cholesterol >39 mg/dL 41 LDL Cholesterol <=129 mg/dL 36 Sodium 135 - 146 mmol/L 135 Potassium 3.5 - 5.1 mmol/L 3.8 Chloride 98 - 107 mmol/L 99 CO2 22 - 32 mmol/L 27 BUN 6 - 20 mg/dL 17 Creatinine 0.6 - 1.2 mg/dL 1.1 Estimated Glomerular Filtration Rate >=60 mL/min 70 Anion Gap 7 - 15 mmol/L 9 Glucose 70 - 120 mg/dL 139 (H) Calcium 8.4 - 10.2 mg/dL 8.3 (L) Magnesium 1.5 - 2.6 mg/dL 2.0 Phosphorus 2.5 - 4.8 mg/dL 2.8 Estimated Average Glucose <126 mg/dL 197 (H) ASPIRIN, VERIFYNOW Rpt ! VerifyNow Aspirin >=550 ARU 410 (L) P2Y12 INHIBITOR REACTIVITY (CLOPIDOGREL), VERIFYNOW Rpt ! VerifyNow P2Y12 182 - 335 PRU 102 (L) Glucose Meter 70 - 120 mg/dL 97 168 (H) Hemoglobin A1C 4.0 - 5.6 % 8.5 (H) CBC Rpt ! WBC 4.00 - 10.80 K/uL 4.52 RBC 4.50 - 5.25 M/uL 4.08 HGB 14.0 - 16.8 g/dL 12.3 (L) HCT 40.0 - 48.4 % 37.0 (L) MCV 82.0 - 99.5 fL 90.7 MCH 27.0 - 34.0 pg 30.1 MCHC 32.0 - 36.0 g/dL 33.2 RDW 11.5 - 15.5 % 14.3 PLT 140 - 400 K/uL 200 MPV 6.6 - 11.1 fL 11.0 (H): Data is abnormally high (L): Data is abnormally low !: Data is abnormal Rpt: View report in Results Review for more information Review of Systems Constitutional: Negative. HENT: Negative. Eyes: Negative. Respiratory: Negative. Cardiovascular: Negative. Gastrointestinal: Negative. Endocrine: Positive for cold intolerance. Genitourinary: Negative. Musculoskeletal: Negative. Skin: Negative. Neurological: Negative. Physical Exam 03/30/24 10:05 BP 158/90 Pulse 83 Resp 16 Temp 36.1 C (97 F) SpO2 98 % Weight 141 lb 11.2 oz Height 1.727 m (5' 7.99") BMI 21.55 Physical Exam Vitals reviewed. Constitutional: Appearance: Normal appearance. He is normal weight. HENT: Head: Normocephalic. Right Ear: Tympanic membrane, ear canal and external ear normal. Left Ear: Tympanic membrane, ear canal and external ear normal. Nose: Nose normal. Mouth/Throat: Pharynx: Oropharynx is clear. Eyes: Extraocular Movements: Extraocular movements intact. Conjunctiva/sclera: Conjunctivae normal. Pupils: Pupils are equal, round, and reactive to light. Cardiovascular: Rate and Rhythm: Normal rate and regular rhythm. Pulses: Normal pulses. Heart sounds: Normal heart sounds. No murmur heard. Pulmonary: Effort: Pulmonary effort is normal. Breath sounds: Normal breath sounds. No wheezing. Abdominal: General: Bowel sounds are normal. Palpations: Abdomen is soft. Skin: General: Skin is warm and dry. Capillary Refill: Capillary refill takes less than 2 seconds. Neurological: General: No focal deficit present. Mental Status: He is alert and oriented to person, place, and time. Mental status is at baseline. Psychiatric: Mood and Affect: Mood normal. Assessment and Plan Type 2 diabetes mellitus with other diabetic kidney complication, with long-term current use of insulin (HCC) (Primary) - Continue taking insulin as prescribed. - Continue to follow with the [place] Hypothyroidism, unspecified type - levothyroxine 88 mcg daily Mixed hyperlipidemia - atorvastatin 80 mg daily - ezetimibe 5 mg daily Essential hypertension - hydrochlorothiazide 12.5 mg daily Status post CVA - Plavix 75 mg daily - aspirin 81 mg daily Need for prophylactic vaccination and inoculation against influenza - INFLUENZA VAC., TRIVALENT, HD, PF, 65 AND ABOVE, 0.5 ML IM (FLUZONE HD) Screen for colon cancer - COLONOSCOPY, GI REFERRAL OP Follow Up: Return in about 6 months (around 09/27/2024). Wrap-Up Pt is to follow up in 6 months. Continue routine follow up with the [place] Pt is to notify us of any concerning or worsening symptoms. Pt expresses understanding and satisfaction with plan. Time: I spent a total of 30-39 minutes (exact time 35 mins) on the date of service in preparation, delivery, and documentation of the care provided to Christina Cuevas II excluding any time spent in the performance of separately billed services. PETER Gordon * Arlene Mason CCMA - 03/30/2024 10:05 AM EDT PRE - ADMINISTRATION DOCUMENTATION Are you experiencing any cold symptoms or fever? No Have you had Guillain-Jordan Syndrome (an illness that causes paralysis) within the last 6 weeks? No Have you had the flu shot in the past? YES Have you ever had a reaction to the flu shot? No HARMEET Archibald, 03/30/2024 10:05 AM Immunization Administration Documentation Time Out Procedure Performed: Yes Patient Identified (Ask Name/Date of ): Yes Does the patient have a fever greater than 101 degrees today? No Patient allergic to latex? No VFC Stock: No Immunization(s) verified: Yes, Immunization Name: Flu, VIS Sheet(s) given: Yes Verified Side and Site: Yes Verified Shot(s) with Parent(s)/Patient: Yes documented in this encounter Nursing Notes * Arlene Mason CCMA - 03/30/2024 10:01 AM EDT Chief Complaint Patient presents with Routine Exam 6 months Pt is here for a regular check up with his . Pt has brought some papers today, one with BP readings and one with his avg glucose for 30 days. Pt declines tetanus today. documented in this encounter Plan of Treatment Upcoming Encounters Date Type Department Care Team (Late st Contact Info) Description 05/03/2024 8:00 AM EDT Office Visit Neurology [address] [place] [phone] Augustine [facility]izvi [facility] [address] [facility] [address] 06/12/2024 10:12 AM EST Hospital Encounter OR [facility], Operating Room, [facility] - 4th Floor [address] [facility] [place] [address] Juan Malcolm, DO [address] [place] [address] 06/12/2024 10:12 AM EST - 06/12/2024 10:59 AM EST Surgery OR GL, Operating Room, [address] [place] [address] Juan Malcolm, DO [address] [place] [address] RIGHT EXTRACAPSULAR CATARACT REMOVAL WITH INTRAOCULAR LENS 06/13/2024 7:30 AM EST Office Visit Ophthalmology, [place] [address] [place] [address] Juan Malcolm, DO [address] [place] [address] 06/20/2024 9:00 AM EST Office Visit Ophthalmology, [place] [address] [place] [address] Juan Malcolm, DO [address] [place] [address] 07/10/2024 11:55 AM EST Hospital Encounter OR [facility], Operating Room, [facility] - [address] [place] [address] [place] [address] Juan Malcolm, DO [address] [place] [address] 07/10/2024 11:55 AM EST - 07/10/2024 12:42 PM EST Surgery OR GL, Operating Room, [facility] - [address] [place] [address] [place] [address] Juan Malcolm, DO [address] [place] [address] LEFT EXTRACAPSULAR CATARACT REMOVAL WITH INTRAOCULAR LENS 07/11/2024 7:30 AM EST Office Visit Ophthalmology, [place] [address] [place], [place] [address] Juan Malcolm, DO [address] [place], [place] [address] 07/20/2024 2:30 PM EST Office Visit Ophthalmology, [place] [address] [place], [place] [address] Juan Malcolm, DO [address] [place], [place] [address] 08/10/2024 3:45 PM EST Office Visit Ophthalmology, [place] [address] [place] [address] Juan Malcolm, DO [address] [place], [place] [address] 09/18/2024 11:45 AM EST Hospital Encounter ENDO [facility], Endoscopy [address], [place] [phone] Theodore Arboleda, DO [address] [place] [address] 09/18/2024 11:45 AM EST - 09/18/2024 12:15 PM EST Surgery [facility]O [facility] [phone] Theodore Arboleda, DO [address] [place] [address] COLONOSCOPY FLEXIBLE PROXIMAL DIAGNOSTIC 09/28/2024 11:20 AM EST Office Visit [facility] [address] [place] [address] Jatin Mejia CRNP [address] [place] [id number] Scheduled Procedures Name Priority Associated Diagnoses Date/Ti me EXTRACAPSULAR CATARACT REMOVAL WITH INTRAOCULAR LENS Cataract 06/12/2024 10:12 AM EST EXTRACAPSULAR CATARACT REMOVAL WITH INTRAOCULAR LENS Cataract 07/10/2024 11:55 AM EST COLONOSCOPY FLEXIBLE PROXIMAL DIAGNOSTIC Recall History of colonic polyps Screen for colon cancer 09/18/2024 11:45 AM EST Scheduled Referrals Name Type Priority Associated Diagnoses Orde r Schedule COLONOSCOPY, GI REFERRAL OP Referral Within 10 days (routine) Screen for colon cancer Ordered: 03/30/2024 Health Maintenance Due Date Last Done Comments [...] Not on filedocumented as of this encounter Visit Diagnoses Diagnosis Combined forms of age-related cataract of both eyes- Primary Other and combined forms of senile cataract Cataract Unspecified cataract Type 2 diabetes mellitus with other diabetic kidney complication, with long-term current use of insulin (HCC)- Primary Hypothyroidism, unspecified type Mixed hyperlipidemia Essential hypertension Unspecified essential hypertension Status post CVA Transient ischemic attack (TIA), and cerebral infarction without residual deficits Need for prophylactic vaccination and inoculation against influenza Screen for colon cancer Special screening for malignant neoplasms, colon Cataract Unspecified cataract Cataract Unspecified cataract History [...] Power of Attor vandana? No Care Teams Care Advocate Relationship Specialty Start Date End Date Jatin Mejia CRNP [address] [place] [address] PCP - General Nurse Practitioner 03/19/24 documented as of this encounter
--- OUTSIDE RECORDS SUMMARY | 2024-08-29 20:32 | External Medical Summary ---
Author Name Unknown Address Unknown Organization : Laboratory Report Ordering Provider Test Date Status MARIELLE MARTINEZ 06/12/2024 07:07:11 Final Observation Date Value Abnormality Reference (Units ) Status Glucose Point of Care 06/12/2024 07:07:11 278 Above high normal 70-120 (mg/dL) Final Performing Location
--- OUTSIDE RECORDS SUMMARY | 2024-08-29 20:32 | External Medical Summary | Summary of Care ---
Author Name Unknown Organization [facility] Address [address] [place] [address] Phone [phone] Care Team Providers Care Multicultural Services Librarian Name Role Phone Jatin Mejia Primary Care Provider [phone] Reason for Visit * Reason Onset Date Comments pre-op exam 03/30/2024 Encounter Details Date Type Department Care Team (Late st Contact Info) Description 03/30/2024 Telephone Ophthalmology, [place] [address] [place] [address] Services, Scheduling [address] [place] [address] pre-op exam Allergies Active Allergy Reactions Criticality Noted Date [...] No 03/15/2024 documented as of this encounter Miscellaneous Notes * Telephone Encounter - Joanna Ritchie OSA - 03/30/2024 10:56 AM EDT INCLUDE THE FOLLOWING INFORMATION IN ALL OTHER TELEPHONE ENCOUNTERS: REASON FOR CALL: [facility] with what is needed for Pre- Op prior to surgery FAX [phone] DOCTOR PERFORMING THE SURGERY NAME: Ensor SURGERY NEEDED IF KNOWN:cataract WHOS CALLING Sarai PHONE NUMBER TO CALL BACK NOTIFY PATIENT: DEPARTMENT WILL BE CALLING YOU SOON THEY REVIEW THE MESSAGE. PLEASE NOTE THIS COULD BE UP TO A WEEK [place]- ROUTE TO [id number] . [facility]- ROUTE TO [id number] [facility]- ROUTE TO [phone] [facility]- ROUTE TO [id number] documented in this encounter Plan of Treatment Upcoming Encounters Date Type Department Care Team (Late st Contact Info) Description 05/03/2024 8:00 AM EDT Office Visit Neurology [address] [place] [phone] Augustine Rizvi MD [address] [facility] [place] [address] 06/12/2024 10:12 AM EST Hospital Encounter OR GL, Operating Room, [facility] - 4th Floor [address] [facility] [place] [address] Juan Malcolm, DO [address] [place] [address] 06/12/2024 10:12 AM EST - 06/12/2024 10:59 AM EST Surgery OR [facility], Operating Room, [facility] Floor [address] [place] [address] Juan Malcolm, [address] [place] [address] RIGHT EXTRACAPSULAR CATARACT REMOVAL WITH INTRAOCULAR LENS 06/13/2024 7:30 AM EST Office Visit [place] [address] [place] [address] Juan Malcolm, [address] [place] [address] 06/20/2024 9:00 AM EST Office [facility] [address] [place] [address] Juan Malcolm, [address] [place] [address] 07/10/2024 11:55 AM EST Hospital Encounter OR [facility], Operating Room, [facility] - 4th Floor [address] [place] [address] Juan Malcolm, DO [address] [place] [address] 07/10/2024 11:55 AM EST - 07/10/2024 12:42 PM EST Surgery OR [facility], Operating Room, [facility] - 4th Floor [address] [place] [address] Juan Malcolm, [address] [place] [address] LEFT EXTRACAPSULAR CATARACT REMOVAL WITH INTRAOCULAR LENS 07/11/2024 7:30 AM EST Office Visit Ophthalmology, [place] [address] [place] [address] Juan Malcolm, [address] [place] [address] 07/20/2024 2:30 PM EST Office Visit Ophthalmology, [place] [address] Juan Malcolm, [address] [place] [address] 08/10/2024 3:45 PM EST Office Visit Ophthalmology, [place] [address] [place] [address] Juan Malcolm, [address] [place] [address] 09/18/2024 11:45 AM EST Hospital Encounter ENDO [facility], Endoscopy [address] [place] [phone] Theodore Arboleda, DO [address] [place] [address] 09/18/2024 11:45 AM EST - 09/18/2024 12:15 PM EST Surgery ENDO [facility], Endoscopy [address] [place] [phone] Theodore Arboleda, DO [address] [place] [address] COLONOSCOPY FLEXIBLE PROXIMAL DIAGNOSTIC 09/28/2024 11:20 AM EST Office Visit [facility] [address] [place] [address] Jatin Mejia CRNP [address] [place] [address] Scheduled Procedures Name Priority Associated Diagnoses Date/Ti [...] 2024 07/06/2021, 09/22/2020, 08/25/2020 HbA1c 09/16/2024 03/16/2024, 03/10/2023, 04/20/2018, Additional history exists Albumin/Creatinine Ratio 09/25/2024 [...] Power of Attor vandana? No Care Teams Multicultural Services Librarian Relationship Specialty Start Date End Date Jatin Mejia CRNP [address] [place] [address] PCP - General Nurse Practitioner 03/19/24 documented as of this encounter
--- OUTSIDE RECORDS SUMMARY | 2024-08-29 20:32 | External Medical Summary | Summary of Care ---
Author Name Unknown Organization [facility] Address [address] [address] Phone [phone] Care Team Providers Care Recruitment Consultant Name Role Phone Jatin Mejia Primary Care Provider [phone] Reason for Visit * Reason Onset Date Comments Hospital Follow-Up [facility] 03/15-03/16 Stroke with cerebral ischemia Hospital Follow-Up 03/19/2024 Encounter Details Date Type Department Care Team (Late st Contact Info) Description 03/19/2024 12:00 PM EDT Office Visit [facility] [address] [place] [address] Daly Morales MD [address] [place] [address] Hospital discharge follow-up*; Type 2 diabetes mellitus with chronic kidney disease, with long-term current use of insulin, unspecified CKD stage (HCC); Essential hypertension; Cerebrovascular accident (CVA), unspecified mechanism (HCC) Allergies Active Allergy Reactions Criticality Noted Date Comments Penicillins Edema face/lips/tongue High 12/17/2014 documented as of this encounter (statuses as of 03/19/2024) Medications Medication Sig Dispensed Refills Start Date [...] prior to breakfast or other meds) Active hydroCHLOROthiazi de 12.5 MG Oral CapsuleIndication s:Essential hypertension Take 1 Capsule by mouth in the morning. 30 Capsule 5 03/19/2024 Active Metoprolol Succinate ER 25 MG Oral Tablet Extended Release 24 Hour (toPROL XL) 0.5 Tablets. 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 11/09/2023 Weakness 04/20/2018 Diaphoresis 04/19/2018 Type 2 diabetes mellitus wit h kidney complication, with long-term current use of insulin 04/19/2018 Essential hypertension 04/19/2018 Hyperlipidemia 04/19/2018 Hypothyroidism Colon polyps documented as of this encounter (statuses as of 03/19/2024) Resolved Problems Problem Noted Date Diagnosed Date Resolved Date Near syncope 04/19/2018 03/19/2024 documented as of this encounter (statuses as of 03/19/2024) Immunizations Name Administration Dates Next Due Covid-19, Mrna, Lnp-s, Pf, B ivalent, 50 Mcg, IM, 12 yrs and above (Moderna) 07/06/2021,09/22/2020,08/25/2020 Pneumococcal Conjugate Vacc, 13 Valent (Prevnar) 11/03/2015 Pneumococcal Polysaccharide PPV23 (Pneumovax) 07/28/2017,05/25/2003 Season Influenza, Quad, PF, Adjuvanted, 65+ Yrs, IM (FLUAD) 05/17/2016 Seasonal Influenza, Split, I IV3, With Preserve, Inj 04/23/2019,04/18/2017 TD - Tetanus/Diptheria (ADULT) 06/28/2011 Varicella [...] Sign Reading Time Taken Comments Blood Pressure 132/66 03/19/2024 12:08 PM EDT Pulse 74 03/19/2024 12:08 PM EDT Temperature 36.3 C (97.3 F) 03/19/2024 12:08 PM E DT Respiratory Rate 16 03/19/2024 12:08 PM EDT Oxygen Saturation 99% 03/19/2024 12:08 PM EDT Inhaled Oxygen Concentration - - Weight 63.1 kg (139 lb 1.6 oz) 03/19/2024 12:08 PM EDT Height - - Body Mass Index 21.15 03/15/2024 6:37 PM EDT documented in this encounter Functional Status [...] No 03/15/2024 documented as of this encounter Patient Instructions * Patient Instructions* Sheri Hansen LPN - 03/19/2024 12:16 PM EDT Diabetes: Keeping Feet Healthy Inspect your feet every day for signs of a problem. Diabetes can damage nerves in your feet and cause neuropathy. This condition makes it hard for you to feel injuries or sore spots. Diabetes can also change blood flow, making it harder for small problems, like a blister, to heal properly. In fact, minor injuries can quickly become serious infections that send you to the hospital. Practice self-care to protect your feet and keep them healthy. Take Special Care Inspect your feet daily for problems such as redness, blisters, cracks, dry skin, or numbness. Use a mirror to see the bottoms of your feet. Or, ask for help. Manage your diabetes. Monitor and control your blood sugar. Take all your medications as prescribed. Avoid walking barefoot, even indoors. Wash your feet with warm water and mild soap. Dry well, especially between toes. Dont treat corns or calluses yourself. Talk to your doctor or devops developer (a doctor who specializes in foot care) if you need assistance trimming your toenails. Use moisturizing cream or lotion if you have dry skin, but dont use it between toes. Dont use heating pads on your feet. If you have neuropathy, you could get a burn and not feel it. Stop smoking. Smoking restricts blood flow and can make it harder for wounds to heal. Have Regular Checkups Foot problems can develop quickly. So be sure to follow your healthcare teams schedule for regular checkups. During office visits, take off your shoes and socks as soon as you get in the exam room. Ask your healthcare provider to examine your feet for problems. This will make it easier to find and treat small skin irritations before they get worse. Regular checkups can also help keep track of the blood flow and feeling in your feet. If you have neuropathy, you may need to have checkups more often. Wear Proper Footwear Wearing proper footwear is very important. If areas of your feet have been damaged by too much pressure, your healthcare provider may recommend changing your footwear. In some cases, avoiding high heels or tight work boots may be all thats needed. Or, your healthcare provider may recommend special shoes or custom inserts. These help protect your feet and keep existing irritations from getting worse. If you need special footwear, ask your healthcare provider if you qualify for [employer] diabetic shoe program. Make Sure Shoes and Socks Fit Any pair of shoes--new or old--should feel comfortable as soon as you put them on. There shouldnt be any rubbing when you walk. Wear the right shoe for any activity. For instance, a running shoe is designed to keep your feet injury-free while jogging. Buy shoes at the end of the day, when your feet are larger. Make sure they provide support without feeling too loose. Make sure your socks fit, t oo. Wear soft, seamless, well-padded socks for activity. Cotton or microfiber socks are best to help to absorb sweat. To protect your feet, avoid shoes that are open-toed or open-heeled. If you have questions about what kinds of shoes and socks are best, talk to your healthcare team. Get Regular Exercise Regular exercise improves blood flow in your feet. It also increases foot strength and flexibility.Gentle exercises, like walking or riding a stationary bicycle, are best. You can also do special foot exercises. Just be sure to talk with your healthcare provider before starting any exercise program. Also mention if any exercise causes pain, redness, or other signs of foot problems. Note: If you have any kind of break in the skin of your foot or ankle, keep the area clean. Then call your doctor--especially if the area doesnt appear to be healing. [id number] [employer], [address] [place] [address], [place] [address]. All rights reserved. This information is not intended as a substitute for professional medical care. Always follow your healthcare professional's instructions. documented in this encounter Progress Notes * Sheri Hansen LPN - 03/19/2024 12:13 PM EDT Socks and Shoes Removed for Annual Diabetic Foot Screening RIGHT FOOT: No Reddened, Cracking, Or Open Areas Noted. RIGHT Dorsalis Pedis Pulse: Palpable RIGHT Posterior Tibial Pulse: Palpable RIGHT Monofilament:Patient reports difficulty feeling monofilament at Great toe- plantar surface LEFT FOOT: Area of Concern abrasion along lateral great toe-bandage applied LEFT Dorsalis Pedis Pulse: Palpable LEFT Posterior Tibial Pulse: Palpable LEFT Monofilament:Patient reports difficulty feeling monofilament at Ball of Foot-base of great toeand Ball of Foot-base of 3rd toe Do you need diabetic shoes: N/A DM Foot Exam completed today. Provider aware. Sheri Hansen LPN * Daly Morales MD - 03/19/2024 12:00 PM EDT Images from the original note were not included. History of Present Illness Christina Cuevas II is a 74 year old male that presents for Hospital Follow-Up ([facility] 03/15-03/16 Stroke with cerebral ischemia) and Hospital Follow-Up Brief Clinical History Mr. Cuevas is a 74 year old male last seen in [facility] on 12/13/2023 by Jatin Mejia He has a h/o the following chronic conditions indicated on the problem list: Chronic Conditions Stroke with cerebral ischemia (HCC) Type 2 diabetes mellitus with kidney complication, with long-term current use of insulin (HCC) Patient is here for hospital discharge follow up. Admitted on 03/15/24 and discharged on 03/16/24. Presented to the ED with worsening bilat arm weakness with a h/o CVA. Acute infarct was noted on the MRI. Neuro suggested admission for CVA work up. Medications were adjusted during the hospital admission. They planned for follow up zio patch. Once stabilized discharged home with close follow up with PCP. Patient presents with . Overall doing better. Did not discontinue the hctz. BP running between 90-110 systolic. Asymptomatic but we discussed cutting the hctz in half. All systems reviewed and pertinent positives noted above Medications added/ changed: none Medications stopped: HCTZ 25 mg daily Current Medication list: Current Outpatient Medications Medication Sig Dispense Refill aspirin 81 MG chewable tablet Take 1 Tablet by mouth in the morning. Atorvastatin Calcium 80 MG Oral Tablet (Lipitor) Take 1 Tablet by mouth in the morning. Cholecalciferol (VITAMIN D3) 3000 UNITS Tablet Take 1,000 Units by mouth daily. Clopidogrel Bisulfate 75 MG Oral Tablet (pLAVix) 1 Tablet. CYANOCOBALAMIN (VITAMIN B-12) 500 MCG Sublingual Tablet Take 2 Tablets by mouth in the morning. Ezetimibe 10 MG Oral Tablet (Zetia) Take 0.5 Tablets by mouth in the morning. hydroCHLOROthiazide 12.5 MG Oral Capsule Take 1 Capsule by mouth in the morning. 30 Capsule 5 Insulin Aspart 100 UNIT/ML Injection Solution (NovoLOG) INJECT INSULIN SUBCUTANEOUSLY 3 TIMES A DAYWITH MEALS FOR DIABETES USE CARB RATIO PLUS SCALE 1:50 GREATER THAN 180.CARB RATIOS: 1:15 WITH BREAKFAST. 1:15 WITH LUNCH. 1:15 WITH SUPPER. 1:20 WITH SNACKS. FOR DIABETES USE CARB RATIO PLUS SCALE 1:50 GREATER THAN 180.CARB RATIOS: 1:15 WITH BREAKFAST. 1:15 WITH LUNCH. 1:15 WITH SUPPER. 1:20 WITH SNACKS. Insulin Glargine (1 Unit Dial) 300 UNIT/ML Subcutaneous Solution Pen-injector Inject 9 Units under the skin at bedtime. 10 units Levothyroxine Sodium 88 MCG Oral Tablet (Levoxyl) Take 1 Tablet by mouth daily first thing in the morning. (at least 30 min prior to breakfast or other meds) PreserVision AREDS 2 Oral Capsule Take 1 Capsule by mouth in the morning. No current facility-administered medications for this visit. All labs and imaging that occurred during this hospital admission were discussed during this officevisit including those noted below MRI BRAIN WITHOUT CONTRAST Final Result EXAM MRI BRAIN WITHOUT CONTRAST-03/15/2024 5:02 pm HISTORY 74 y/o M, left leg heaviness; Headache; Neurologic deficit, non-traumatic; Altered mental status; Neurologic deficit onset <= 24 hours; No known/automatically detected potential contraindications to iodinated contrast COMPARISON MR brain 12/20/2023, CT head 03/15/2024. TECHNIQUE Multiplanar multisequence MR imaging of the brain performed without intravenous contrast. FINDINGS Focus of restricted diffusion at the right centrum semiovale, directly subjacent to the central sulcus, compatible with acute infarct. No associated mass effect or midline shift. No evidence of acute intracranial hemorrhage or extra-axial fluid collections. Multiple chronic lacunar infarcts, including in the bilateral centrum semiovale, right baker radiata, and dorsal cem, as before. Foci of susceptibility artifact related to hemosiderin deposition, associated with a few chronic lacunar infarcts. Other patchy T2/FLAIR signal hyperintensity in the periventricular and subcortical white matter, nonspecific but most suggestive of chronic microvascular ischemic changes. Global cerebral volume loss. The ventricular system is normal in size and configuration for age. Basal cisterns are patent. Flow voids at the skull base are maintained. The orbits are unremarkable. Scattered mucosal thickening and fluid in the paranasal sinuses. Mastoid air cells are clear. The calvarium and scalp soft tissues are unremarkable. 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 IMPRESSION IMPRESSION 1. Small acute infarct at the right centrum semiovale. No associated hemorrhage or mass effect. 2. Multiple chronic lacunar infarcts and findings suggesting chronic microvascular ischemic changes, as before. CT HEAD/BRAIN WO CONTRAST Final Result EXAM SCAN OF THE HEAD AND CTA OF THE CERVICAL AND INTRACRANIAL VESSELS WITH INTRAVENOUS CONTRAST - 03/15/2024. HISTORY 74 years old male complaining of headache. TECHNIQUE Multiple contiguous axial sections of the head were obtained from the vertex to the base of the skull without contrast; axial and reformatted sagittal and coronal images were reviewed in bone, soft tissue, and brain windows. Following uneventful intravenous bolus administration of nonionic contrast timed for optimal opacification of arterial vessels, spiral axial acquisition was performed from the aortic arch to the vertex as per standard CTA protocol. Axial and reformatted sagittal and coronal images were reviewed in bone, soft tissue, and pulmonary windows. 3D, MIP, and planar curved reformatted were reconstructed in multiple planes on the dedicated workstation and were also reviewed. COMPARISON MRI scan of the brain dated 12/12/[address] scan of the head dated 04/19/2018. FINDINGS NONCONTRAST CT SCAN OF THE HEAD: Accounting for differences in imaging modalities, no significant interval changes are identified compared to MRI scan from 3 months ago. A elif cisterna magna is seen. Mild to moderate generalized age-related cerebral parenchymal atrophy is appreciated with compensatory dilatation of the ventricles, sulci, and basal cisterns. Chronic lacunar infarcts are seen in the right basal ganglia and central dorsal thalamus. Small patchy areas of hypodensity in the bilateral cerebral white matter likely represent mild to moderate chronic small vessel ischemic changes. There is no evidence of intracranial space-occupying lesion, edema, hemorrhage, mass effect, midline shift, hydrocephalus, or extraaxial fluid collection. The wynne/white matter differentiation is maintained. No calvarial abnormalities are detected. The intraorbital contents are within normal limits. There is moderate fluid opacification of the left frontal sinus and bilateral ethmoid air cells. Mild mucosal thickening is seen in other paranasal sinuses. The mastoid air cells are clear and well aerated. 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 No additional abnormalities are detected in the soft tissue structures of the neck. Emphysematous changes are suspected in the imaged upper lung flynn. Mild to moderate degenerative changes are present in the cervical spine. CTA: Conventional branching of the aortic arch is appreciated. Calcific and noncalcific atherosclerotic changes are present in aortic arch and cervical vessels with mild stenosis in the right carotid bulb secondary to a large predominantly soft atherosclerotic plaque and mild stenosis in the left carotid bulb secondary to a heavily calcified atherosclerotic plaque. Otherwise, all main cervical arterial vessels, including the brachiocephalic trunk, bilateral subclavian, common carotid, internal carotid, external carotid, and vertebral arteries demonstrate normal course, caliber, outline, and branching pattern without additional stenosis, dilatation, or signs of dissection. Atherosclerotic calcifications are present in the intracranial ICAs without evidence of stenosis. Otherwise, all intracranial arterial vessels in the carotid and vertebrobasilar circulation demonstrate normal course, caliber, outline, and branching pattern without significant atherosclerotic disease, stenosis, dilatation, aneurysm, or obvious arteriovenous shunting. The cervical and intracranial venous structures appear normal. IMPRESSION IMPRESSION 1. No new or acute intracranial abnormality identified to explain patient's symptoms. Stable chronic predominantly age-related findings as detailed above. Please note, that CT scan is not sensitive for detection of many pathologies causing headache. 2. Atherosclerotic disease as detailed above with mild stenosis in the bilateral carotid bulbs. No additional abnormalities identified in the cervical and intracranial vessels. 3. Chronic nonvascular findings as detailed above. CTA HEAD/CTA NECK Final Result EXAM SCAN OF THE HEAD AND CTA OF THE CERVICAL AND INTRACRANIAL VESSELS WITH INTRAVENOUS CONTRAST - 03/15/2024. HISTORY 74 years old male complaining of headache. TECHNIQUE Multiple contiguous axial sections of the head were obtained from the vertex to the base of the skull without contrast; axial and reformatted sagittal and coronal images were reviewed in bone, soft tissue, and brain windows. Following uneventful intravenous bolus administration of nonionic contrast timed for optimal opacification of arterial vessels, spiral axial acquisition was performed from the aortic arch to the vertex as per standard CTA protocol. Axial and reformatted sagittal and coronal images were reviewed in bone, soft tissue, and pulmonary windows. 3D, MIP, and planar curved reformatted were reconstructed in multiple planes on the dedicated workstation and were also reviewed. COMPARISON MRI scan of the brain dated 12/12/[address] scan of the head dated 04/19/2018. FINDINGS NONCONTRAST CT SCAN OF THE HEAD: Accounting for differences in imaging modalities, no significant interval changes are identified compared to MRI scan from 3 months ago. A elif cisterna magna is seen. Mild to moderate generalized age-related cerebral parenchymal atrophy is appreciated with compensatory dilatation of the ventricles, sulci, and basal cisterns. Chronic lacunar infarcts are seen in the right basal ganglia and central dorsal thalamus. Small patchy areas of hypodensity in the bilateral cerebral white matter likely represent mild to moderate chronic small vessel ischemic changes. There is no evidence of intracranial space-occupying lesion, edema, hemorrhage, mass effect, midline shift, hydrocephalus, or extraaxial fluid collection. The wynne/white matter differentiation is maintained. No calvarial abnormalities are detected. The intraorbital contents are within normal limits. There is moderate fluid opacification of the left frontal sinus and bilateral ethmoid air cells. Mild mucosal thickening is seen in other paranasal sinuses. The mastoid air cells are clear and well aerated. 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 No additional abnormalities are detected in the soft tissue structures of the neck. Emphysematous changes are suspected in the imaged upper lung flynn. Mild to moderate degenerative changes are present in the cervical spine. CTA: Conventional branching of the aortic arch is appreciated. Calcific and noncalcific atherosclerotic changes are present in aortic arch and cervical vessels with mild stenosis in the right carotid bulb secondary to a large predominantly soft atherosclerotic plaque and mild stenosis in the left carotid bulb secondary to a heavily calcified atherosclerotic plaque. Otherwise, all main cervical arterial vessels, including the brachiocephalic trunk, bilateral subclavian, common carotid, internal carotid, external carotid, and vertebral arteries demonstrate normal course, caliber, outline, and branching pattern without additional stenosis, dilatation, or signs of dissection. Atherosclerotic calcifications are present in the intracranial ICAs without evidence of stenosis. Otherwise, all intracranial arterial vessels in the carotid and vertebrobasilar circulation demonstrate normal course, caliber, outline, and branching pattern without significant atherosclerotic disease, stenosis, dilatation, aneurysm, or obvious arteriovenous shunting. The cervical and intracranial venous structures appear normal. IMPRESSION IMPRESSION 1. No new or acute intracranial abnormality identified to explain patient's symptoms. Stable chronic predominantly age-related findings as detailed above. Please note, that CT scan is not sensitive for detection of many pathologies causing headache. 2. Atherosclerotic disease as detailed above with mild stenosis in the bilateral carotid bulbs. No additional abnormalities identified in the cervical and intracranial vessels. 3. Chronic nonvascular findings as detailed above. CTA CHEST NON-CORONARY W CONTRAST Final Result EXAM EXAM: CTA CHEST NON-CORONARY W CONTRAST DATE and TIME: 03/15/2024 3:32 pm HISTORY chest pain + SOB + neuro sx; rule out dissection; Pulmonary embolism; Wells score < 2; D-Dimer not done; PERC positive (score >= 1) TECHNIQUE No oral contrast was administered. High resolution helical ct of the thorax, abdomen, and pelvis was performed before and during the intravenous administration of contrast. Advanced 3D reconstructions of the aorta and its branch vessels were performed for optimal vascular evaluation on a separate work station. COMPARISON 09/26/2023 x-ray. FINDINGS ANGIOGRAPHIC FINDINGS: Atherosclerotic vascular calcification. No aneurysmal dilation or dissection flap in the thoracic aorta. Atherosclerotic changes at the origin of the right brachiocephalic artery, left common carotid artery and left subclavian artery. Atherosclerotic changes at the origin of the celiac artery. 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 Significant atherosclerotic changes in the proximal superior mesenteric artery. Significant atherosclerotic changes at the origin of the right renal artery. NON ANGIOGRAPHIC FINDINGS: LINES AND DEVICES: None CHEST: LUNGS: Emphysema. Bronchial wall thickening suggesting chronic inflammation. LARGE AIRWAYS: Within normal limits. PLEURA: No pleural effusions. VESSELS: Atherosclerotic changes. HEART: Normal in size. No pericardial effusion. MEDIASTINUM AND YRUIDIA: Within normal limits. CHEST WALL/SOFT TISSUES: Fat attenuation density in the right posterior chest wall on image 153 of series 16 is probably normal subcutaneous fat versus a discrete lipoma. BONES: Within normal limits. 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 IMPRESSION IMPRESSION 1. No aneurysmal dilation or dissection flap of the thoracic aorta. 2. Additional findings are described above. Recent Results (from the past 336 hour(s)) GLUCOSE METER, POINT OF CARE Collection Time: 03/15/24 2:16 PM Result Value Ref Range Glucose Meter 288 (H) 70 - 120 mg/dL Device Comment Notified Provider BASIC METABOLIC PANEL Collection Time: 03/15/24 3:00 PM Result Value Ref Range BUN 21 (H) 6 - 20 mg/dL Creatinine 1.2 0.6 - 1.2 mg/dL Estimated Glomerular Filtration Rate 66 >=60 mL/min Sodium 128 (L) 135 - 146 mmol/L Potassium 5.0 3.5 - 5.1 mmol/L Chloride 92 (L) 98 - 107 mmol/L CO2 21 (L) 22 - 32 mmol/L Anion Gap 15 7 - 15 mmol/L Glucose 284 (H) 70 - 120 mg/dL Calcium 8.7 8.4 - 10.2 mg/dL BNP, NT-PRO Collection Time: 03/15/24 3:00 PM Result Value Ref Range BNP, NT-Pro 314 (H) <300 pg/mL HEPATIC FUNCTION PANEL Collection Time: 03/15/24 3:00 PM Result Value Ref Range Albumin 3.9 3.8 - 5.0 g/dL AST 34 10 - 50 U/L Alkaline Phosphatase 70 35 - 130 U/L ALT 25 10 - 50 U/L Bilirubin, Total 0.8 <=1.2 mg/dL Bilirubin, Direct 0.3 0.0 - 0.3 mg/dL Protein 6.2 6.0 - 8.3 g/dL LACTATE WITH REFLEX IF ABNORMAL Collection Time: 03/15/24 3:00 PM Result Value Ref Range Lactate 1.4 0.4 - 2.0 mmol/L LIPASE Collection Time: 03/15/24 3:00 PM Result Value Ref Range Lipase 16 13 - 60 U/L TROPONIN T, HIGH SENSITIVITY Collection Time: 03/15/24 3:00 PM Result Value Ref Range Troponin T, High Sensitivity 26 (H) <=22 ng/L TSH Collection Time: 03/15/24 3:00 PM Result Value Ref Range TSH 3.52 0.27 - 4.20 uIU/mL CBC Collection Time: 03/15/24 3:00 PM Result Value Ref Range WBC 8.05 4.00 - 10.80 K/uL RBC 4.23 4.50 - 5.25 M/uL HGB 12.9 (L) 14.0 - 16.8 g/dL HCT 38.1 (L) 40.0 - 48.4 % MCV 90.1 82.0 - 99.5 fL MCH 30.5 27.0 - 34.0 pg MCHC 33.9 32.0 - 36.0 g/dL RDW 14.1 11.5 - 15.5 % PLT 199 140 - 400 K/uL MPV 11.0 6.6 - 11.1 fL nRBCs 0 <=0 /100 WBCs DIFFERENTIAL, AUTOMATED Collection Time: 03/15/24 3:00 PM Result Value Ref Range WBC 8.05 4.00 - 10.80 K/uL Neutrophils % 81.9 (H) 40.0 - 75.0 % Lymphocytes % 9.2 (L) 18.0 - 42.0 % Monocytes % 5.6 1.0 - 11.0 % Eosinophils % 1.2 0.0 - 6.0 % Basophils % 0.9 0.0 - 2.0 % Immature Granulocytes % 1.2 0.0 - 2.0 % Absolute Neutrophils 6.59 1.80 - 7.70 K/uL Absolute Lymphocytes 0.74 (L) 1.00 - 4.80 K/ul Absolute Monocytes 0.45 0.00 - 1.10 K/uL Absolute Eosinophils 0.10 0.00 - 0.70 K/uL Absolute Basophils 0.07 0.00 - 0.20 K/uL Absolute Immature Granulocytes 0.10 0.00 - 0.20 K/uL PT INR Collection Time: 03/15/24 3:00 PM Result Value Ref Range Prothrombin Time 14.1 11.6 - 15.2 seconds INR 1.1 0.8 - 1.2 URINALYSIS, REFLEX TO CULTURE (CUP ONLY) Collection Time: 03/15/24 3:47 PM Result Value Ref Range Urinalysis, Reflex to Culture Specimen Specimen collected and received URINALYSIS, REFLEX TO CULTURE Collection Time: 03/15/24 3:47 PM Result Value Ref Range Color, Urine Yellow Light Yellow, Yellow, Dark Yellow Clarity, Urine Clear Clear Glucose, Urine 500 (A) Negative mg/dL Bilirubin, Urine Negative Negative Ketone, Urine 15 (A) Negative mg/dL Specific Sparks, Urine 1.014 1.003 - 1.030 Blood, Urine Negative Negative pH, Urine 7.0 5.0 - 7.5 Units Protein, Urine Negative Negative mg/dL Urobilinogen, Urine 1.0 0.2, 1.0 mg/dL Nitrite, Urine Negative Negative Esterase, Urine Negative Negative RBC, Urine 0-2 0 - 2 /HPF WBC, Urine 0-2 0 - 2 /HPF Bacteria, Urine 0-25 0 - 25 /HPF Culture, Urine GLUCOSE METER, POINT OF CARE Collection Time: 03/15/24 10:28 PM Result Value Ref Range Glucose Meter 217 (H) 70 - 120 mg/dL HEMOGLOBIN A1C Collection Time: 03/16/24 5:57 AM Result Value Ref Range Hemoglobin A1C 8.5 (H) 4.0 - 5.6 % Estimated Average Glucose 197 (H) <126 mg/dL LIPID PANEL WITH DIRECT LDL IF TG IS HIGH Collection Time: 03/16/24 5:57 AM Result Value Ref Range Triglycerides 38 <=174 mg/dL Cholesterol 85 <200 mg/dL HDL Cholesterol 41 >39 mg/dL Non-HDL Cholesterol 44 <=159 mg/dL LDL Cholesterol 36 <=129 mg/dL BASIC METABOLIC PANEL Collection Time: 03/16/24 5:57 AM Result Value Ref Range BUN 17 6 - 20 mg/dL Creatinine 1.1 0.6 - 1.2 mg/dL Estimated Glomerular Filtration Rate 70 >=60 mL/min Sodium 135 135 - 146 mmol/L Potassium 3.8 3.5 - 5.1 mmol/L Chloride 99 98 - 107 mmol/L CO2 27 22 - 32 mmol/L Anion Gap 9 7 - 15 mmol/L Glucose 139 (H) 70 - 120 mg/dL Calcium 8.3 (L) 8.4 - 10.2 mg/dL CBC Collection Time: 03/16/24 5:57 AM Result Value Ref Range WBC 4.52 4.00 - 10.80 K/uL RBC 4.08 4.50 - 5.25 M/uL HGB 12.3 (L) 14.0 - 16.8 g/dL HCT 37.0 (L) 40.0 - 48.4 % MCV 90.7 82.0 - 99.5 fL MCH 30.1 27.0 - 34.0 pg MCHC 33.2 32.0 - 36.0 g/dL RDW 14.3 11.5 - 15.5 % PLT 200 140 - 400 K/uL MPV 11.0 6.6 - 11.1 fL nRBCs 0 <=0 /100 WBCs MAGNESIUM Collection Time: 03/16/24 5:57 AM Result Value Ref Range Magnesium 2.0 1.5 - 2.6 mg/dL PHOSPHORUS Collection Time: 03/16/24 5:57 AM Result Value Ref Range Phosphorus 2.8 2.5 - 4.8 mg/dL GLUCOSE METER, POINT OF CARE Collection Time: 03/16/24 7:20 AM Result Value Ref Range Glucose Meter 97 70 - 120 mg/dL ECHO, COMPLETE (2D), TRANS-THORACIC Collection Time: 03/16/24 7:55 AM Result Value Ref Range LEFT VENTRICULAR EJECTION FRACTION 60 % GLUCOSE METER, POINT OF CARE Collection Time: 03/16/24 11:30 AM Result Value Ref Range Glucose Meter 168 (H) 70 - 120 mg/dL ASPIRIN, VERIFYNOW Collection Time: 03/16/24 2:24 PM Result Value Ref Range VerifyNow Aspirin 410 (L) >=550 ARU P2Y12 INHIBITOR REACTIVITY (CLOPIDOGREL), VERIFYNOW Collection Time: 03/16/24 2:25 PM Result Value Ref Range VerifyNow P2Y12 102 (L) 182 - 335 PRU ] Physical Exam Vitals: 03/19/24 1208 Temp: 36.3 C (97.3 F) Pulse: 74 Resp: 16 SpO2: 99% BP: 142/66 BP Readings from Last 3 Encounters: 03/19/24 142/66 03/16/24 120/53 12/21/23 144/74 BP 142/66 | Pulse 74 | Temp 36.3 C (97.3 F) (Tympanic) | Resp 16 | Wt 63.1 kg (139 lb 1.6 oz) |SpO2 99% | BMI 21.15 kg/m | BSA 1.74 m General: alert, healthy, and no distress Heart: regular rate & rhythm, no murmur, S-1 normal, and S-2 normal Lungs: chest symmetric with normal AP diameter, no chest deformities noted, normal respiratory rateand rhythm, lungs clear to auscultation Assessment and Plan Hospital discharge follow-up (Primary) - DISCH MED RECON CUR MED LIS Type 2 diabetes mellitus with chronic kidney disease, with long-term current use of insulin, unspecified CKD stage (HCC) - DIABETES FOOT EXAM Essential hypertension - hydroCHLOROthiazide 12.5 MG Oral Capsule; Take 1 Capsule by mouth in the morning. Cerebrovascular accident (CVA), unspecified mechanism (HCC) - EXTERNAL EKG 8 TO 15 DAYS; Future; Expected date: 03/20/2024 - EXTERNAL EKG 8 TO 15 DAYS Check-out note: Can we fax hospital discharge and imaging to his neuro Time: I spent a total of 30-39 minutes (exact time 35 mins) on the date of service in preparation, delivery, and documentation of the care provided to Christina Cuevas II excluding any time spent in the performance of separately billed services. documented in this encounter Nursing Notes * Sheri Hansen LPN - 03/19/2024 1:48 PM EDT 03/19/24 1:48 PM Date to Remove: 04/02/24 Serial Number: [id number] Ordering Provider: Andrew Hansen LPN Zio patch applied in clinic, as per provider orders. * Sheri Hansen LPN - 03/19/2024 12:05 PM EDT Chief Complaint Patient presents with Hospital Follow-Up [facility] 03/15-03/16 Stroke with cerebral ischemia Will have tetanus updated at [place]. documented in this encounter Plan of Treatment Upcoming Encounters Date Type Department Care Team (Late st Contact Info) Description 03/30/2024 10:00 AM EDT Office Visit [facility] [address] [place] [address] Jatin Mejia CRNP [address] [place] [address] 05/03/2024 8:00 AM EDT Office Visit Neurology [address] [place] [phone] Augustine Rizvi MD [address] [place] [facility] [place] [address] 06/12/2024 10:12 AM EST Hospital Encounter OR [facility], Operating Room, [facility] - 4th [facility] [address] Juan Malcolm, DO [address] [place] [address] 06/12/2024 10:12 AM EST - 06/12/2024 10:59 AM EST Surgery OR [facility], Operating Room, [facility] - 4th Floor [address] [place] [phone] Juan Malcolm, [address] [place] [address] RIGHT EXTRACAPSULAR CATARACT REMOVAL WITH INTRAOCULAR LENS 06/13/2024 7:30 AM EST Office Visit Ophthalmology, [place] [address] [place] [address] Juan Malcolm, [address] [place] [address] 06/20/2024 9:00 AM EST Office Visit Ophthalmology, [place] [address] [place] [address] Juan Malcolm, [address] [place] [address] 07/10/2024 11:55 AM EST Hospital Encounter OR [facility], Operating Room, [facility] - 4th Floor [address] [place] [address] Juan Malcolm, [address] [place] [address] 07/10/2024 11:55 AM EST - 07/10/2024 12:42 PM EST Surgery OR [facility], Operating Room, [facility] - 4th Floor [address] [place] [address] Juan Malcolm, [address] [place] [address] LEFT EXTRACAPSULAR CATARACT REMOVAL WITH INTRAOCULAR LENS 07/11/2024 7:30 AM EST Office Visit Ophthalmology, [place] [address] [place] [address] Juan Malcolm, [address] [place] [address] 07/20/2024 2:30 PM EST Office Visit Ophthalmology, [place] [address] [place] [address] Juan Malcolm, [address] [place] [address] 08/10/2024 3:45 PM EST Office Visit Ophthalmology, [place] [address] [place] [address] [address] Juan Malcolm DO [address] [place] [address] Scheduled Orders Name Type Priority Associated Diagnoses Orde r Schedule EXTERNAL EKG 8 TO 15 DAYS Holter Routine Cerebrovascular accident (CVA), unspecified mechanism (HCC) Expected: 03/20/2024 (Approximate), Expires: 03/19/2025 Scheduled Procedures Name Priority Associated Diagnoses Date/Ti me EXTRACAPSULAR CATARACT REMOVAL WITH INTRAOCULAR LENS Cataract 06/12/2024 10:12 AM EST EXTRACAPSULAR CATARACT REMOVAL WITH INTRAOCULAR LENS Cataract 07/10/2024 11:55 AM EST COLONOSCOPY FLEXIBLE PROXIMAL DIAGNOSTIC Recall History of colonic polyps Health Maintenance Due Date Last Done Comments Hepatitis C Screening 1968 DTaP,Tdap,and Td Vaccines (1 - Tdap) 06/29/2011 06/28/2011 Adult Wellness Visit 2015 Colonoscopy 09/10/2022 09/10/2020, 08/25, 11/19/2016, Additional history exists COVID-19 Vaccine ( season) 2023 07/06/2021, 09/22/2020, 08/25/2020 Influenza Vaccine (FLU shot) (#1) 2024 04/23/2019, 04/18/2017, 05/17/2016 HbA1c 09/16/2024 03/16/2024, 03/0 10/2023, 04/20/2018, Additional history exists Albumin/Creatinine Ratio 09/25/2024 09/26/2023 Depression Screening 09/25/2024 09/26/2023 Diabetic Eye Exam 11/08/2024 11/09/2023, , 11/09/2023, Additional history exists TSH 03/15/2025 03/15/2024, 03/0 10/2023, 04/20/2018 GFR 03/16/2025 03/16/2024, 08/2 08/2023, 09/26/2023, Additional history exists Diabetic Foot Exam 03/19/2025 03/19/2024 Pneumococcal Vaccine: 65+ Years Completed 07/28/2017, 11/03/2015, 05/25/2003 Zoster Vaccines Completed 07/23/2019, 03/27, 10/27/2016 RETIRED - COLONOSCOPY-EVERY 2 YRS AGES 18-100 Discontinued 09/10/2020, 09/10/2020, 11/19/2016, Additional history exists HPV (Gardasil) Vaccine Aged [...] forms of senile cataract Cataract Unspecified cataract Hospital discharge follow-up- Primary Other follow-up examination Type 2 diabetes mellitus with chronic kidney disease, with long-term current use of insulin, unspecified CKD stage (HCC) Essential hypertension Unspecified essential hypertension Cerebrovascular accident (CVA), unspecified mechanism (HCC) Cataract Unspecified cataract Cataract Unspecified cataract documented in this encounter Advance Directives * [...] Power of Attor vandana? No Care Teams Recruitment Consultant Relationship Specialty Start Date End Date Jatin Mejia CRNP [address] [place] [address] PCP - General Nurse Practitioner 03/19/24 documented as of this encounter"
--- OUTSIDE RECORDS SUMMARY | 2024-08-29 20:32 | External Medical Summary | Summary of Care ---
Author Name Unknown Organization [facility] Address [address] [place] [address] Phone [phone] Care Team Providers Care Opthalmic Tech Name Role Phone Apollo Gutiérrez Primary Care Provide r Reason for Visit * Auth/Cert Specialty Diagnoses / Procedures Referred By Contac t Referred To Contact [place] [address] [place] [address] Phone: [phone] Emergency Medicine [facility] [address] [place] [address] Referral ID Status Reason Start Date Expiration Date Visits Re quested Visits Authorized [id number] Encounter Details Date Type Department Care Team (Latest Contact Info) Description 03/16/2024 6:46 AM EDT - 03/16/2024 11:59 PM EDT Hospital Encounter Cardiac Studies, [facility] [address] [place] [address] Discharge Disposition: Home - Self Care Allergies Active Allergy Reactions Criticality Noted Date Comments Penicillins Edema face/lips/tongue High 12/17/2014 documented as of this encounter (statuses as of 03/17/2024) Medications Medication Sig Dispensed Refills Start Date [...] Unit Dial) 300 UNIT/ML Subcutaneous Solution Pen-injector 10 units 06/19/2023 Active Metoprolol Succinate ER 25 MG Oral Tablet Extended Release 24 Hour (toPROL XL) 0.5 Tablets. 09/20/2023 Active Insulin Aspart 100 UNIT/ML Injection Solution [...] prior to breakfast or other meds) Active documented as of this encounter (statuses as of 03/17/2024) Active Problems Problem Noted Date Diagnosed Date Stroke-like symptoms 03/15/2024 Stroke with cerebral ischemia 03/15/2024 Cataract 12/01/2023 Combined forms of age-related cataract of both e yes 11/09/2023 Weakness 04/20/2018 Near syncope 04/19/2018 Diaphoresis 04/19/2018 Type 2 diabetes mellitus wit h kidney complication, with long-term current use of insulin 04/19/2018 Essential hypertension 04/19/2018 Hyperlipidemia 04/19/2018 Hypothyroidism Colon polyps documented as of this encounter (statuses as of 03/17/2024) Immunizations Name Administration Dates Next Due Covid-19, [...] as of this encounter Miscellaneous Notes * Ancillary Progress Note - Parul Joseph TECH - 03/16/2024 6:50 AM EDT Echo completed at bedside. documented in this encounter Plan of Treatment Upcoming Encounters Date Type Department Care Team (Late st Contact Info) Description 03/19/2024 12:00 PM EDT Office Visit [facility] [address] [place] [phone] Daly Morales MD [address] [place] [phone] 03/30/2024 10:00 AM EDT Office Visit [facility] [address] [place] [address] Jatin Mejia CRNP [address] [place] [phone] 05/03/2024 8:00 AM EDT Office Visit Neurology [address] [place] [phone] Augustine iRzvi MD [address] [facility] [place] [phone] 06/12/2024 10:12 AM EST Hospital Encounter OR [facility], Operating Room, [facility] Floor [address] [facility] [place] [address] Juan Malcolm, DO [address] [place] [address] 06/12/2024 10:12 AM EST - 06/12/2024 10:59 AM EST Surgery OR [facility], Operating Room, [facility] - 4th Floor [address] [place] [address] Juan Malcolm, DO [address] [place] [address] [address] RIGHT EXTRACAPSULAR CATARACT REMOVAL WITH INTRAOCULAR LENS 06/13/2024 7:30 AM EST [place] [facility] [address] [place] [address] Juan Malcolm, [address] [place] [address] 06/20/2024 9:00 AM EST Office Visit Ophthalmology, [place] [address] [place] [address] Juan Malcolm, [address] [place] [address] 07/10/2024 11:55 AM EST Hospital Encounter [facility], Operating Room, [facility] - 4th Floor [address] [place] [address] Juan Malcolm, [address] [place] [address] 07/10/2024 11:55 AM EST - 07/10/2024 12:42 PM EST Surgery OR [facility], Operating Room, [facility] - 4th Floor [address] [place] [address] Juan Malcolm, [address] [place] [address] LEFT EXTRACAPSULAR CATARACT REMOVAL WITH INTRAOCULAR LENS 07/11/2024 7:30 AM EST Office Visit Ophthalmology, [place] [address] [place] [address] Juan Malcolm, [address] [place] [address] 07/20/2024 2:30 PM EST Office Visit Ophthalmology, [place] [address] [place] [address] Juan Malcolm, [address] [place] [address] 08/10/2024 3:45 PM EST Office Visit Ophthalmology, [place] [address] [place] [address] Juan Malcolm, [address] [place] [address] Scheduled Procedures Name Priority Associated Diagnoses Date/Ti me EXTRACAPSULAR CATARACT REMOVAL WITH INTRAOCULAR LENS Cataract 06/12/2024 10:12 AM EST EXTRACAPSULAR CATARACT REMOVAL WITH INTRAOCULAR LENS Cataract 07/10/2024 11:55 AM EST COLONOSCOPY FLEXIBLE PROXIMAL DIAGNOSTIC Recall History of colonic polyps Health Maintenance Due Date Last Done Comments Diabetic Foot Exam 1968 Hepatitis C Screening 1968 DTaP,Tdap,and Td Vaccines (1 - Tdap) 06/29/2011 06/28/2011 Colonoscopy [...] 03/16/2025 03/16/2024, 02/23, 09/26/2023, Additional history exists Pneumococcal Vaccine: 65+ Years Completed 07/28/2017, 11/03/2015, [...] Not on filedocumented as of this encounter Procedures Procedure Name Priority Date/Time Associated Diagnosis Comments ECHO, COMPLETE (2D), TRANS-THORACIC Routine 03/16/2024 7:55 AM EDT Stroke (HCC) documented in this encounter Results * ECHO, COMPLETE (2D), TRANS-THORACIC (03/16/2024 7:55 AM EDT) LEFT VENTRICULAR EJECTION FRACTION 60 % [facility] 03/16/2024 7:27 AM EDT Lencho Elvis Thapa MD ECHOCARDIOLOGY [facility] documented in this encounter Advance Directives * [...] Power of Attor vandana? No Care Teams Opthalmic Tech Relationship Specialty Start Date End Date Apollo Gutiérrez CRNP [address] [facility], [place] [address] PCP - General Nurse Practitioner 09/04/21 documented as of this encounter
--- OUTSIDE RECORDS SUMMARY | 2024-08-29 20:32 | External Medical Summary | Summary of Care ---
Author Name Unknown Organization [facility] Address [address] [facility] [place] [address] Phone [phone] Care Team Providers Care Cellular Tower Climber Name Role Phone Jatin Mejia Primary Care Provider [phone] Reason for Visit * Reason Comments Post-Op 1 week Encounter Details Date Type Department Care Team (Late st Contact Info) Description 06/20/2024 9:00 AM EST Office [facility] [address] [place] [address] Juan Malcolm DO [place] [address] After cataract not obscuring vision, right* Allergies Active Allergy Reactions Criticality Noted Date Comments Penicillins Edema face/lips/tongue High 12/17/2014 documented as of this encounter (statuses as of 06/20/2024) Medications aspirin 81 MG chewable tablet Take [...] the morning. 30 Capsule 5 03/19/20 Active Losartan Potassium 50 MG Oral Tablet (Cozaar) Take 1 Tablet by mouth in the morning. Active prednisoLONE Acetate 1 % Ophthalmic Suspension (Pred Forte) Instill 1 Drop into both eyes in the morning and 1 Drop at noon and 1 Drop in the evening and 1 Drop before bedtime. 10 mL 06/20/20 24 Active documented as of this encounter (statuses as of 06/20/2024) Active Problems Problem Noted Date Diagnosed Date Stroke-like symptoms 03/15/2024 Stroke with cerebral ischemia 03/15/2024 Cataract 12/01/2023 Combined forms of age-related cataract of both e yes 11/09/2023 Weakness 04/20/2018 Diaphoresis 04/19/2018 Type 2 diabetes mellitus wit h kidney complication, with long-term current use of insulin 04/19/2018 Essential hypertension 04/19/2018 Hyperlipidemia 04/19/2018 Hypothyroidism Colon polyps documented as of this encounter (statuses as of 06/20/2024) Resolved Problems Problem Noted Date Diagnosed Date Resolved Date Near syncope 04/19/2018 03/19/2024 documented as of this encounter (statuses as of 06/20/2024) Immunizations Name Administration Dates Next Due Covid-19, [...] Progress Notes * Juan Malcolm DO - 06/20/2024 9:00 AM EST 06/20/2024 [facility] Ophthalmology Post-operative Clinic Note HPI: Christina Cuevas II is a 74 year old pt who presents to the eye clinic today for 1 week post-op CE PCIOL OD (Ensor TCC CCA0T0 21.50 06/12/2024) Past Ocular History: NE ARMD OU T1DM without hx of retinopathy JAMIE VA: 20/25 IOP: 16 mmHg LL: Normal Conjunctiva: Normal Cornea: CCI and paracentesis camilla negative AC: 1+ c/f Iris: dilation Lens: PCIOL centered Vitreous: PVD Optic nerve: Normal Macula: Drusen Vessels: Normal Periphery: No break/tear A/P: 1 week post op CE PCIOL OD (Ensor TCC CCA0T0 21.50 06/12/2024) Stable DFE Taper prednisolone as directed by one drop weekly May stop ocuflox D/c eye shield Gradual return to normal activity levels Call with flashes, floaters, dec vision eye pain. Advised of assistant controller coverage for after hours/weekend emergencies. RTC DOS - 07/10 or sooner prn. Juan Malcolm DO 06/20/24 CC: Amber Estrada, ALISSA documented in this encounter Nursing Notes * Daniela Almaraz RN - 06/20/2024 9:04 AM EST Christina Cuevas II presents for p/o check. 1 week post-op ECCE w/IOL insertion Surgical eye RIGHT EYE Patient denies complaints Current Ophthalmic Medications: Pred Forte and Ofloxacin 1gtt 4 times daily in surgical eye Are you taking the drops as directed? Yes documented in this encounter Plan of Treatment Upcoming Encounters Date Type Department Care Team (Latest Contact Info) Description 07/03/2024 10:30 AM EST [address] [address] 07/10/2024 11:03 AM EST Hospital Encounter OR [facility], Operating Room, [facility] - 4th Floor [address] [facility] [place] [address] Juan Malcolm DO [address] [place] [address] 07/10/2024 11:03 AM EST - 07/10/2024 11:50 AM EST Surgery OR [facility], Operating Room, [facility] - 4th Floor [address] [place] [address] Juan Malcolm DO [address] [place] [address] LEFT EXTRACAPSULAR CATARACT REMOVAL WITH INTRAOCULAR LENS 07/11/2024 7:30 [place] [address] Juan Malcolm DO [address] [place] [address] 07/20/2024 2:30 PM [place] [address] Juan Malcolm DO [address] [place] [address] 08/10/2024 3:45 PM [place] [address] Juan Malcolm, DO [address] [place] [address] 09/18/2024 11:45 AM EST Hospital Encounter [facility], Endoscopy [address], [place] [phone] Theodore Arboleda, DO [address] [place] [address] 09/18/2024 11:45 AM EST - 09/18/2024 12:15 PM EST Surgery [facility], Endoscopy [address] [place], [place] [phone] Theodore Arboleda, DO [address] [place] [address] COLONOSCOPY FLEXIBLE PROXIMAL DIAGNOSTIC 09/28/2024 11:20 AM EST Office Visit [facility] [address] [place] [phone] Jatin Mejia CRNP [address] [place] [phone] Scheduled Procedures Name Priority Associated Diagnoses Date/Ti [...] this encounter Medical Devices Implanted Type Area Electronic System Engineer Device Identifier Shelf Expiration Date Model / Serial / Lot Lens 21.5 Kev [facility] - [id number] - [id number] Implanted:Qty: 1 on 06/12/2024 by Juan Malcolm DO at OR [facility] Right: Eye [employer] 06/05/2027 CCA0T0.215 / [id number] / documented as of this encounter Visit Diagnoses Diagnosis After cataract not obscuring vision, right- Primary Cataract Unspecified cataract History of colonic polyps [...] Power of Attor vandana? No Care Teams Cellular Tower Climber Relationship Specialty Start Date End Date Jatin Mejia CRNP [address] [place] [phone] PCP - General Nurse Practitioner 03/19/24 documented as of this encounter
--- OUTSIDE RECORDS SUMMARY | 2024-08-29 20:32 | External Medical Summary | Summary of Care ---
Author Name Unknown Organization [facility] [address] [place] [address] Phone [phone] Care Team Providers Care Global President Name Role Phone Jatin Mejia Primary Care Provider [phone] Encounter Details Date Type Department Care Team (Late st Contact Info) Description 06/09/2024 Orders Only Radiology, [facility] [address] [place] [address] Requisition, External Radiology [address] [place] [address] Other specified disorders of bone density and structure, other site* Allergies Active Allergy Reactions Criticality Noted Date Comments Penicillins Edema face/lips/tongue High 12/17/2014 documented as of this encounter (statuses as of 06/09/2024) Medications aspirin 81 MG chewable tablet Take [...] Additional Information Patient not taking.Reported on 06/04/2024 documented as of this encounter (statuses as of 06/09/2024) Active Problems Problem Noted Date Diagnosed Date Stroke-like symptoms 03/15/2024 Stroke with cerebral ischemia 03/15/2024 Cataract 12/01/2023 Combined forms of age-related cataract of both e yes 11/09/2023 Weakness 04/20/2018 Diaphoresis 04/19/2018 Type 2 diabetes mellitus wit h kidney complication, with long-term current use of insulin 04/19/2018 Essential hypertension 04/19/2018 Hyperlipidemia 04/19/2018 Hypothyroidism Colon polyps documented as of this encounter (statuses as of 06/09/2024) Resolved Problems Problem Noted Date Diagnosed Date Resolved Date Near syncope 04/19/2018 03/19/2024 documented as of this encounter (statuses as of 06/09/2024) Immunizations Name Administration Dates Next Due Covid-19, [...] Entry Date Author No 03/15/2024 6:37 PM LATRICET Shanda Hernandez RN documented in this encounter Plan of Treatment Upcoming Encounters Date Type Department Care Team (Late st Contact Info) Description 06/12/2024 7:40 AM EST Hospital Encounter OR [facility], Operating Room, [facility] Floor [address] [place] [address] Juan Malcolm, [address] [place] [address] 06/12/2024 7:40 AM EST - 06/12/2024 8:27 AM EST Surgery OR [facility], Operating Room, [facility] - [address] [place] [address] [address] [place] [address] Juan Malcolm, [address] [place] [address] RIGHT EXTRACAPSULAR CATARACT REMOVAL WITH INTRAOCULAR LENS 06/13/2024 7:30 AM EST Office Visit [place] [address] [place] [address] Juan Malcolm, [address] [address] 06/20/2024 9:00 [place] [address] Juan Malcolm, [address] [address] 07/10/2024 11:03 AM EST Hospital Encounter OR [facility], Operating Room, [facility] Floor [address] [place] [address] Juan Malcolm, [address] [address] 07/10/2024 11:03 AM EST - 07/10/2024 11:50 AM EST Surgery OR [facility], Operating Room, [facility] - 4th Floor 400 [facility] [place] [address] Juan Malcolm, DO [address] [place] [address] LEFT EXTRACAPSULAR CATARACT REMOVAL WITH INTRAOCULAR LENS 07/11/2024 7:30 AM EST Office Visit Ophthalmology, [place] [address] [place] [address] Juan Malcolm, DO [address] [place] [address] 07/20/2024 2:30 PM EST Office Visit Ophthalmology, [place] [address] [place] [address] Juan Malcolm, DO [address] [place] [address] 08/10/2024 3:45 PM EST Office Visit Ophthalmology, [place] [address] [place] [address] Juan Malcolm, DO [address] [place] [address] 09/18/2024 11:45 AM EST Hospital Encounter ENDO [facility], Endoscopy [address] [place] [phone] Theodore Arboleda, DO [address] [place] [address] 09/18/2024 11:45 AM EST - 09/18/2024 12:15 PM EST Surgery ENDO [facility], Endoscopy [address] [place] [phone] Theodore Arboleda, DO [address] [place] [address] COLONOSCOPY FLEXIBLE PROXIMAL DIAGNOSTIC 09/28/2024 11:20 AM EST Office Visit [facility] [address] [place] [address] Jatin Mejia CRNP [address] [place] [address] Scheduled Orders Name Type Priority Associated Diagnoses Orde r Schedule DEXA SCAN/BONE MINERAL AXIAL Medical Imaging Routine Other specified disorders of bone density and structure, other site Ordered: 06/09/2024 Scheduled Procedures Name Priority Associated Diagnoses Date/Ti me EXTRACAPSULAR CATARACT REMOVAL WITH INTRAOCULAR LENS Cataract 06/12/2024 7:40 AM EST EXTRACAPSULAR CATARACT REMOVAL WITH INTRAOCULAR [...] forms of senile cataract Cataract Unspecified cataract Other specified disorders of bone density and structure, other site- Primary Cataract Unspecified cataract Cataract Unspecified cataract History [...] Power of Attor vandana? No Care Teams Global President Relationship Specialty Start Date End Date Jatin Mejia CRNP [address] [place] [address] PCP - General Nurse Practitioner 03/19/24 documented as of this encounter
--- OUTSIDE RECORDS SUMMARY | 2024-08-29 20:32 | External Medical Summary | Summary of Care ---
Author Name Unknown Organization [facility] Address [address] [facility] [address] Phone [phone] Care Team Providers Care Rotogravure Press Operator Name Role Phone Jatin Mejia Primary Care Provider [phone] Reason for Visit * Reason Comments Post Op Cataract Surgery OD 1 day Encounter Details Date Type Department Care Team (Late st Contact Info) Description 06/13/2024 7:30 AM EST Office Visit Ophthalmology, [place] [address] Juan Malcolm DO [facility] [place] [address] After cataract not obscuring vision, right* Allergies Active Allergy Reactions Criticality Noted Date Comments Penicillins Edema face/lips/tongue High 12/17/2014 documented as of this encounter (statuses as of 06/13/2024) Medications aspirin 81 MG chewable tablet Take [...] as of this encounter (statuses as of 06/13/2024) Active Problems Problem Noted Date Diagnosed Date Stroke-like symptoms 03/15/2024 Stroke with cerebral ischemia 03/15/2024 Cataract 12/01/2023 Combined forms of age-related cataract of both e yes 11/09/2023 Weakness 04/20/2018 Diaphoresis 04/19/2018 Type 2 diabetes mellitus wit h kidney complication, with long-term current use of insulin 04/19/2018 Essential hypertension 04/19/2018 Hyperlipidemia 04/19/2018 Hypothyroidism Colon polyps documented as of this encounter (statuses as of 06/13/2024) Resolved Problems Problem Noted Date Diagnosed Date Resolved Date Near syncope 04/19/2018 03/19/2024 documented as of this encounter (statuses as of 06/13/2024) Immunizations Name Administration Dates Next Due Covid-19, [...] Author No 03/15/2024 6:37 PM Shanda Alba SARAHI documented as of this encounter Mental Status * Because of a physical, mental, or emotional condition, do you have serious difficulty concentrating, remembering, or making decisions? (5 years old or older) Answer Entry Date Author No 03/15/2024 6:37 PM Shanda Alba RN documented in this encounter Progress Notes * Juan Malcolm DO - 06/13/2024 7:30 AM EST 06/13/2024 [facility] Ophthalmology Post-operative Clinic Note HPI: Christina Cuevas II is a 74 year old pt who presents to the eye clinic today for 1 day post-opCE PCIOL OD (Ensor TCC CCA0T0 21.50 06/12/2024) Past Ocular History: NE ARMD OU T1DM without hx of retinopathy JAMIE VAsc: 20/60 PH 20/30 IOP: 18 mmHg LL: Normal Conjunctiva: Normal Cornea: CCI and paracentesis camilla negative, linear epi defect paracentral inferior, PEK AC: 2+ c/f Iris: residual dilation Lens: PCIOL centered A/P: 1 day post op CE PCIOL OD (Ensor TCC CCA0T0 21.50 06/12/2024) Doing well today Camilla negative wounds Normal IOP Expected post operative inflammation is seen Reviewed eye drops: Ocuflox QID Prednisolone QID Erythromycin ophth ointment QID or as needed QHS Artificial tears as needed Reviewed activity restrictions - no bending or lifting, no strenuous activity. Wear eye shield at bedtime. Call with flashes, floaters, dec vision eye pain. Advised of rental salesperson coverage for after hours/weekend emergencies. RTC 1 week or sooner prn. Juan Malcolm DO 06/13/2024 CC: Amber Estrada, ALISSA documented in this encounter Nursing Notes * Henny Alatorre TECH - 06/13/2024 7:34 AM EST Christina Cuevas II presents for p/o check. Post operative day 1 procedure: ECCE w/IOL insertion Operative eye: RIGHT EYE Patient denies complaints Dressing removed, negative amount of drainage. Eye cleansed with normal saline solution. Instructions regarding wearing of eye shield reinforced. No drops used, eye was patched. Pred Forte and Ofloxacin 1gtt 4 times daily in surgical eye Did you wear eye shield to bed, slept on unaffected side and avoid bending over and heavy lifting? Yes Va will be found in the ophth exam documented in this encounter Plan of Treatment Upcoming Encounters Date Type Department Care Team (Late st Contact Info) Description 06/20/2024 9:00 AM EST Office Visit [place] [address] [place] [address] Juan Malcolm DO [address] [place] [address] 07/10/2024 11:03 AM EST Hospital Encounter OR [facility], Operating Room, [facility] - 4th Floor [address] [place] [address] Juan Malcolm DO [address] [place] [address] 07/10/2024 11:03 AM EST - 07/10/2024 11:50 AM EST Surgery OR [facility], Operating Room, [facility] - 4th Floor [address] [place] [address] Juan Malcolm DO [address] [place] [address] LEFT EXTRACAPSULAR CATARACT REMOVAL WITH INTRAOCULAR LENS 07/11/2024 7:30 [place] [address] Juan Malcolm DO [address] [place] [address] 07/20/2024 2:30 PM EST [place] [address] Juan Malcolm, DO [address] [place] [address] 08/10/2024 3:45 PM EST Office Visit Ophthalmology, [place] [address] [place] [address] Juan Malcolm, DO [address] [place] [address] 09/18/2024 11:45 AM EST Hospital Encounter [facility], [address] [phone] Theodore Arboleda, DO [address] [place], [place] [address] 09/18/2024 11:45 AM EST - 09/18/2024 12:15 PM EST Surgery ENDO [facility], [address] [phone] Theodore Arboleda, DO [address] [place], [place] [address] COLONOSCOPY FLEXIBLE PROXIMAL DIAGNOSTIC 09/28/2024 11:20 AM EST Office Visit [facility] [address] [place] [address] Jatin Mejia CRNP [address] [place] [address] Scheduled Procedures Name Priority Associated Diagnoses Date/Ti [...] this encounter Medical Devices Implanted Type Area Sprinkler Repair Technician Device Identifier Shelf Expiration Date Model / Serial / Lot Lens 21.5 [facility] - [id number] - [id number] Implanted:Qty: 1 on 06/12/2024 by Juan Malcolm DO at OR [facility] Right: Eye [employer] 06/05/2027 CCA0T0.215 / [id number] / documented as of this encounter [...] Power of Attor vandana? No Care Teams Rotogravure Press Operator Relationship Specialty Start Date End Date Jatin Mejia CRNP [address] [place] [address] PCP - General Nurse Practitioner 03/19/24 documented as of this encounter
--- OUTSIDE RECORDS SUMMARY | 2024-08-29 20:32 | External Medical Summary | Summary of Care ---
Author Name Unknown Organization [facility] Address [address] [facility] [address] Phone [phone] Care Team Providers Care Environmental Educator Name Role Phone Jatin Mejia Primary Care Provider [phone] Reason for Visit * Reason Onset Date Comments Hospital Follow-Up [facility] 03/15-03/16 Stroke with cerebral ischemia Hospital Follow-Up 03/19/2024 Encounter Details Date Type Department Care Team (Late st Contact Info) Description 03/19/2024 12:00 PM EDT Office Visit [facility] [address] [place] [address] Daly Morales MD [address] [place] [address] Hospital discharge follow-up*; Type 2 [...] calluses yourself. Talk to your doctor or physician industrial (a doctor who specializes in foot care) [...] the area doesnt appear to be healing. [phone] [employer], [address] [place] [address], [place] [address]. All rights reserved. This information is not [...] today. Provider aware. Sheri Hansen LPN * Dayl Morales MD - 03/19/2024 12:00 PM EDT Images from the original note were not included. History of Present Illness Christina Cuevas II is a 74 year old male that presents for Hospital Follow-Up ([facility] 03/15-03/16 Stroke with cerebral ischemia) and Hospital Follow-Up Brief Clinical History Mr. Cuevas is a 74 year old male last seen in [facility] on 12/13/2023 by Jatin Mejia He [...] in size. No pericardial effusion. MEDIASTINUM AND YURIDIA: Within normal limits. CHEST WALL/SOFT TISSUES: Fat [...] Ketone, Urine 15 (A) Negative mg/dL Specific [place], Urine 1.014 1.003 - 1.030 Blood, Urine [...] PM Date to Remove: 04/02/24 Serial Number: [id number] Ordering Provider: Andrew Hansen LPN Zio patch applied in clinic, as per provider orders. * Sheri Hansen LPN - 03/19/2024 12:05 PM EDT Chief Complaint Patient presents with Hospital Follow-Up [facility] 03/15-03/16 Stroke with cerebral ischemia Will have tetanus updated at [place]. documented in this encounter Plan of Treatment Upcoming Encounters Date Type Department Care Team (Late st Contact Info) Description 03/30/2024 10:00 AM EDT Office Visit [facility] [address] [place] [address] Jatin Mejia CRNP [address] [place] [address] 05/03/2024 8:00 AM EDT Office Visit Neurology [address] [place] [phone] Augustine Rizvi MD [address] [place] [facility] [place] [address] 06/12/2024 10:12 AM EST Hospital Encounter OR [facility], Operating Room, [facility] - 4th Floor [address] [facility] [address] Juan Malcolm, DO [address] [place] [address] 06/12/2024 10:12 AM EST - 06/12/2024 10:59 AM EST Surgery OR [facility], Operating Room, [facility] - 4th Floor [address] [place] [phone] Juan Malcolm, [address] [place] [address] RIGHT EXTRACAPSULAR CATARACT REMOVAL WITH INTRAOCULAR LENS 06/13/2024 7:30 AM EST Office Visit Ophthalmology, [place] [address] [place] [address] Juan Malcolm, [address] [place] [address] 06/20/2024 9:00 AM EST Office Visit Ophthalmology, [place] [address] [place] [address] Juan Malcolm, [address] [place] [address] 07/10/2024 11:55 AM EST Hospital Encounter OR [facility], Operating Room, [facility] - 4th Floor [address] [place] [address] Juan Malcolm, [address] [place] [address] 07/10/2024 11:55 AM EST - 07/10/2024 12:42 PM EST Surgery OR [facility], Operating Room, [facility] - 4th Floor [address] [place] [address] Juan Malcolm, [address] [place] [address] LEFT EXTRACAPSULAR CATARACT REMOVAL WITH INTRAOCULAR LENS 07/11/2024 7:30 AM EST Office Visit Ophthalmology, [place] [address] [place] [address] Juan Malcolm, [address] [place] [address] 07/20/2024 2:30 PM EST Office Visit Ophthalmology, [place] [address] [place] [address] Juan Malcolm, [address] [place] [address] 08/10/2024 3:45 PM EST Office Visit Ophthalmology, [place] [address] [place] [address] Juan Malcolm DO [address] [place] [place] [address] Scheduled Orders Name Type Priority Associated Diagnoses [...] Power of Attor vandana? No Care Teams Environmental Educator Relationship Specialty Start Date End Date Jatin Mejia CRNP [address] [place] [address] PCP - General Nurse Practitioner 03/19/24 documented as of this encounter"
--- OUTSIDE RECORDS SUMMARY | 2024-08-29 20:33 | External Medical Summary ---
Author Name Unknown Address Unknown Organization K1F:LABORATORY [facility] - [address] [place] [address] Laboratory Report Ordering Provider Test Date Status BELTRAN MEYER 03/15/2024 15:00:00 Final Exclude Heart Failure: <300 pg/mL
Diagnose Heart Failure:
Age <50 yr: >450 pg/mL
50-75 yr: >900 pg/mL
>75 yr: >1800 pg/mL
GFR is 30-59 mL/min: >1200 pg/mL or Age- adjusted values
GFR <30 mL/min: do not use, not reliable

Prognostic threshold: 1000 pg/mL Observation Date Value Abnormality Reference (Units ) Status BNP, Pro-hormone 03/15/2024 15:00:00 314 Above high no rmal <300 (pg/mL) Final Performing Location LABORATORY [facility] - [address] [place] [address]
--- OUTSIDE RECORDS SUMMARY | 2024-08-29 20:33 | External Medical Summary ---
Author Name Unknown Address Unknown Organization K1F:LABORATORY [facility] - [address] [place] [address] Laboratory Report Ordering Provider Test Date Status BELTRAN MEYER 03/15/2024 15:00:00 Final Observation Date Value Abnormality Reference (Units ) Status Lipase 03/15/2024 15:00:00 16 13-60 (U/L ) Final Performing Location LABORATORY [facility] - [address] [place] [address]
--- OUTSIDE RECORDS SUMMARY | 2024-08-29 20:33 | External Medical Summary ---
Author Name Unknown Address Unknown Organization : Laboratory Report Ordering Provider Test Date Status TRISTAN GUTIÉRREZ 03/16/2024 07:20:12 Final Observation Date Value Abnormality Reference (Units ) Status Glucose Point of Care 03/16/2024 07:20:12 97 70-120 (mg/dL) Final Performing Location
--- OUTSIDE RECORDS SUMMARY | 2024-08-29 20:33 | External Medical Summary ---
Author Name Unknown Address Unknown Organization K01:[facility] [place] [address] [facility] [address] Laboratory Report Ordering Provider Test Date Status JAYNE JACOBSARCHANA 03/16/2024 05:57:00 Final Observation Date Value Abnormality Reference (Units ) Status HbA1C 03/16/2024 05:57:00 8.5 Above high normal 4. 0-5.6 (%) Final The use of HbA1c to monitor glycemic status is based on normal hemoglobin and HbA composition. This test should not be used in patients with abnormal hemoglobin that affects the half life of the red blood cell or the in vivo glycation rates. Glucose, estimated average 03/16/2024 05:57:00 197 Above high normal <126 (mg/dL) Moiz ventura Performing Location [facility] - [address] [facility] [address]
--- OUTSIDE RECORDS SUMMARY | 2024-08-29 20:33 | External Medical Summary ---
Author Name Unknown Address Unknown Organization K1F:LABORATORY [facility] - [address] [place] [address] Laboratory Report Ordering Provider Test Date Status BELTRAN MEYER 03/15/2024 15:00:00 Final Observation Date Value Abnormality Reference (Units ) Status TSH 03/15/2024 15:00:00 3.52 0.27-4.20 (uIU/mL) Final Performing Location LABORATORY [facility] - [address] [place] [address]
--- OUTSIDE RECORDS SUMMARY | 2024-08-29 20:33 | External Medical Summary ---
Author Name Unknown Address Unknown Organization K1F:LABORATORY [facility] - [address] [place] [address] Laboratory Report Ordering Provider Test Date Status FLORINA JACOBS 03/16/2024 05:57:00 Final Observation Date Value Abnormality Reference (Units ) Status BUN 03/16/2024 05:57:00 17 6-20 (mg/dL) Final Creatinine 03/16/2024 05:57:00 1.1 0.6-1.2 (mg/dL) Final Glomerular filtration rate/1.73 sq M.predicted [Volume Rate/Area] in Serum, Plasma or Blood by Creatinine-based formula (CKD-EPI) 03/16/2024 05:57:00 70 >=60 (mL/min) Final eGFR is calculated based on the CKD-EPI 2020 equation. Sodium 03/16/2024 05:57:00 135 135-146 (m mol/L) Final Results rechecked Potassium 03/16/2024 05:57:00 3.8 3.5-5.1 (m mol/L) Final Results rechecked Cl 03/16/2024 05:57:00 99 98-107 (mm ol/L) Final CO2 03/16/2024 05:57:00 27 22-32 (mmo l/L) Final Anion gap 03/16/2024 05:57:00 9 7-15 (mmol /L) Final Glucose 03/16/2024 05:57:00 139 Above high normal 70 -120 (mg/dL) Final Calcium 03/16/2024 05:57:00 8.3 Below low normal 8.4 -10.2 (mg/dL) Final Performing Location LABORATORY [facility] - [address] [place] [address]
--- OUTSIDE RECORDS SUMMARY | 2024-08-29 20:33 | External Medical Summary ---
Author Name Unknown Address Unknown Organization K1F:[facility]ATORY [facility] - [address] [place] [address] Laboratory Report Ordering Provider Test Date Status LENNY MELGAR 03/16/2024 14:24:00 Final Assay designed to measure th e effect of aspirin and it should not be used to detect other platelet functional disorders.

>=550 ARU - Aspirin not detected
< 550 ARU - Aspirin detected

Interfering substances/Test limitations: Do not test patients if on the following medications until platelet function has recovered (timeframe), as they may result in low ARU values; clopidogrel -5 days, ticlopidine- 5 days, prasugrel - 10 days, dipyridamole - 12 hours, cilostazol - 12 hours, Aggrenox (aspirin/dipyridamole) - 10 days, ibuprofen - 8 hours, naproxen - 24 hours, diclofenac - 24 hours, indocin - 24 hours, feldene - 50 hours, tirofiban - 2 days, eptifibatide - 2 days, abciximab - 2 week. Samples may also be affected by low hematocrit (<29%), high hematocrit (>56%), or low platelet counts (<92,000/cmm). Patients on ticagrelor or with inherited platelet disorders have not been studied using this assay and the ability of the assay to detect aspirin usage in these patients is unknown.
null Observation Date Value Abnormality Reference (Units ) Status Platelet aggregation arachidonate induced [Units/volume] in Platelet rich plasma 03/16/2024 14:24:00 410 Below low normal >=550 (ARU) Final Performing Location LABORATORY [facility] - [address] [place] [address]
--- OUTSIDE RECORDS SUMMARY | 2024-08-29 20:33 | External Medical Summary ---
Author Name Unknown Address Unknown Organization K1F:LABORATORY [facility] - [address] [place] [address] Laboratory Report Ordering Provider Test Date Status BELTRAN MEYER 03/15/2024 15:00:00 Final Observation Date Value Abnormality Reference (Units ) Status Lactic Acid 03/15/2024 15:00:00 1.4 0.4-2.0 (mmol/L) Final Performing Location LABORATORY [facility] - [address] [place] [address]
--- OUTSIDE RECORDS SUMMARY | 2024-08-29 20:33 | External Medical Summary ---
Author Name Unknown Address Unknown Organization K01:[facility] [place] [address] [facility] [address] [place] [address] Laboratory Report Ordering Provider Test Date Status FLORINA JACOBS 03/16/2024 05:57:00 Final Observation Date Value Abnormality Reference (Units ) Status Triglyceride 03/16/2024 05:57:00 38 <=174 ( mg/dL) Final Triglyceride Reference Range s (mg/dL):
<150 Acceptable
150-174 Borderline high
175-499 High
>=500 Very high Cholesterol 03/16/2024 05:57:00 85 <200 (mg /dL) Final Total Cholesterol Reference Ranges (mg/dL):
<200 Desirable
200-239 Borderline high
>=240 High HDL 03/16/2024 05:57:00 41 >39 (mg/dL ) Final HDL Cholesterol Reference Ra nges (mg/dL):
>=60 High (Desirable)
<50 Low (Undesirable) For Females
<40 Low (Undesirable) For Males NON-HDL CHOLESTEROL 03/16/2024 05:57:00 44 <=159 (mg/dL) Final Non-HDL Cholesterol Referenc e Range (mg/dL):
<100 Target level for high risk ASCVD patient
<130 Optimal for general population
130-159 Near optimal for general population
160-189 Borderline High
190-219 High
>=220 Very High LDL, (calculated) 03/16/2024 05:57:00 36 <= 129 (mg/dL) Final LDL Cholesterol Reference Ra nges (mg/dL):
<70 Target level for high risk ASCVD patient
<100 Optimal for general population
100-129 Near optimal for general population
130-159 Borderline high
160-189 High
>=190 Very high Performing Location [facility] [place] [address] [facility] [address]
--- OUTSIDE RECORDS SUMMARY | 2024-08-29 20:33 | External Medical Summary ---
Author Name Unknown Address Unknown Organization K1F:[facility] - [address] [place] [address] Laboratory Report Ordering Provider Test Date Status JAYNE JACOBSARCHANA 03/16/2024 05:57:00 Final Observation Date Value Abnormality Reference (Units ) Status Magnesium 03/16/2024 05:57:00 2.0 1.5-2.6 (m g/dL) Final Performing Location [facility] - [address] [place] [address]
--- OUTSIDE RECORDS SUMMARY | 2024-08-29 20:33 | External Medical Summary ---
Author Name Unknown Address Unknown Organization K1F:[facility] - [address] [place] [address] Laboratory Report Ordering Provider Test Date Status PRERNA MEYERDHEERAJ 03/15/2024 15:00:00 Final Observation Date Value Abnormality Reference (Units ) Status Albumin 03/15/2024 15:00:00 3.9 3.8-5.0 (g/dL) Final AST (Aspartate aminotransferase) 03/15/2024 15:00:00 34 10-50 (U/L) Final Results may be falsely eleva amairani due to hemolysis. Alk Phos 03/15/2024 15:00:00 70 35-130 (U/ L) Final ALT (Alanine aminotransferase) 03/15/2024 15:00:00 25 10-50 (U/L) Final Bilirubin, Total 03/15/2024 15:00:00 0.8 <=1 .2 (mg/dL) Final Bilirubin, Direct 03/15/2024 15:00:00 0.3 0. 0-0.3 (mg/dL) Final Result may be falsely decrea sed due to hemolysis. Protein 03/15/2024 15:00:00 6.2 6.0-8.3 (g /dL) Final Performing Location [facility] - [address] [place] [address]
--- OUTSIDE RECORDS SUMMARY | 2024-08-29 20:33 | External Medical Summary ---
Author Name Unknown Address Unknown Organization K1F:[facility]ATORY [facility] - [address] [place] [address] Laboratory Report Ordering Provider Test Date Status BELTRAN MEYER 03/15/2024 15:00:00 Final Observation Date Value Abnormality Reference (Units ) Status Troponin T 03/15/2024 15:00:00 26 Above high normal < =22 (ng/L) Final Performing Location LAB[facility]ATORY [facility] - [address] [place] [address]
--- OUTSIDE RECORDS SUMMARY | 2024-08-29 20:33 | External Medical Summary ---
Author Name Unknown Address Unknown Organization K1F:[facility]ORY [facility] - [address] [place] [address] Laboratory Report Ordering Provider Test Date Status FLORINA JACOBS 03/16/2024 05:57:00 Final Observation Date Value Abnormality Reference (Units ) Status WBC, Total 03/16/2024 05:57:00 4.52 4.00-10.80 (K/uL) Final RBC 03/16/2024 05:57:00 4.08 4.50-5.25 (M/uL) Final Hemoglobin 03/16/2024 05:57:00 12.3 Below low normal 14.0-16.8 (g/dL) Final HCT 03/16/2024 05:57:00 37.0 Below low normal 40.0-48.4 (%) Final MCV 03/16/2024 05:57:00 90.7 82.0-99.5 (fL) Final MCH 03/16/2024 05:57:00 30.1 27.0-34.0 (pg) Final MCHC 03/16/2024 05:57:00 33.2 32.0-36.0 (g/dL) Final RDW 03/16/2024 05:57:00 14.3 11.5-15.5 (%) Final Platelets 03/16/2024 05:57:00 200 140-400 (K/uL) Final MPV 03/16/2024 05:57:00 11.0 6.6-11.1 (fL) Final Nucleated erythrocytes/100 leukocytes [Ratio] in Blood by Automated count 03/16/2024 05:57:00 0 <=0 (/100 WBCs) Final Performing Location LABORATORY [facility] - [address] [place] [address]
--- OUTSIDE RECORDS SUMMARY | 2024-08-29 20:33 | External Medical Summary ---
Author Name Unknown Address Unknown Organization K1F:[facility] - [address] [place] [address] Laboratory Report Ordering Provider Test Date Status ARLEENJAYNEARCHANA 03/16/2024 05:57:00 Final Observation Date Value Abnormality Reference (Units ) Status Phosphate 03/16/2024 05:57:00 2.8 2.5-4.8 (m g/dL) Final Performing Location [facility] - [address] [place] [address]
--- OUTSIDE RECORDS SUMMARY | 2024-08-29 20:33 | External Medical Summary ---
Author Name Unknown Address Unknown Organization [facility] [address] [place] [address] Laboratory Report Ordering Provider Test Date Status BELTRAN MEYER 03/15/2024 15:00:00 Final Observation Date Value Abnormality Reference (Units ) Status BUN 03/15/2024 15:00:00 21 Above high normal 6-20 (mg/dL) Final Creatinine 03/15/2024 15:00:00 1.2 0.6-1.2 (mg/dL) Final Glomerular filtration rate/1.73 sq M.predicted [Volume Rate/Area] in Serum, Plasma or Blood by Creatinine-based formula (CKD-EPI) 03/15/2024 15:00:00 66 >=60 (mL/min) Final eGFR is calculated based on the CKD-EPI 2020 equation. Sodium 03/15/2024 15:00:00 128 Below low normal 135 -146 (mmol/L) Final Potassium 03/15/2024 15:00:00 5.0 3.5-5.1 (m mol/L) Final Cl 03/15/2024 15:00:00 92 Below low normal 98- 107 (mmol/L) Final CO2 03/15/2024 15:00:00 21 Below low normal 22- 32 (mmol/L) Final Anion gap 03/15/2024 15:00:00 15 7-15 (mmol /L) Final Glucose 03/15/2024 15:00:00 284 Above high normal 70 -120 (mg/dL) Final Calcium 03/15/2024 15:00:00 8.7 8.4-10.2 ( mg/dL) Final Performing Location [facility] - [address] [place] [address]
--- OUTSIDE RECORDS SUMMARY | 2024-08-29 20:33 | External Medical Summary | Summary of Care ---
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 Role Phone Apollo Gutiérrez Primary Care Provide r Reason for Referral * Evaluate & Treat - Unlimited Visits (Within 10 days (routine)) - Pending Review Specialty Diagnoses / Procedures Referred By José guzman Referred To Contact Neurology Diagnoses Stroke with cerebral ischemia (HCC) Nathan Marshall DO [address] [place] [address] Referral ID Status Reason Start Date Expiration Date Visits Requested Visits Authorized [id number] Pending Review Specialty Services Required 03/16/[phone] Question Answer Referral Priority Within 10 days (routine) Where should this appointment be scheduled? External Is this referral being placed for insurance purposes ONLY No, patient needs appointment [facility] NEUROLOGY REFERRAL QUESTIONS Stroke Comments Discharge Order Reason for Visit * Reason Comments Short of Breath Weakness, Generalized * Auth/Cert Specialty Diagnoses / Procedures Referred By José guzman Referred To Contact [facility] [address] [place] [address] Phone: [phone] Emergency Medicine [facility] [address] [place] [address] Referral ID Status Reason Start Date Expiration Date Visits Re quested Visits Authorized [id number] Encounter Details Date Type Department Care Team (Latest Contact Info) Description 03/15/2024 2:13 PM EDT - 03/16/2024 3:44 PM EDT Hospital Encounter 5A [facility], [facility] 5th Floor [address] [place] [address] Kristan Miller MD [address] [place], [place] [id number] Lencho Thapa MD [address] [facility] [place], [place] [id number] Nathan Marshall DO [address] [facility] [place], [place] [id number] Various: EKG,KRAVS Discharge Disposition: Home - Self Care Allergies [...] breakfast or other meds) Active hydroCHLOROthiazi de 25 MG Oral Tablet (Hydrodiuril) Take 1 Tablet by mouth in the morning. 01/13/2023 03/16/20 24 Discontinued Dexcom G7 Sensor Use as directed. 09/26/2023 0 24 Discontinued documented as of this encounter [...] Sign Reading Time Taken Comments Blood Pressure 120/53 03/16/2024 2:39 PM EDT Pulse 72 03/16/2024 2:39 PM EDT Temperature 36 C (96.8 F) 03/16/2024 2:39 PM EDT Respiratory Rate 16 03/16/2024 2:39 PM EDT Oxygen Saturation 90% 03/16/2024 2:39 PM EDT Inhaled Oxygen Concentration - - Weight 60.9 kg (134 lb 3.2 oz) 03/15/2024 6:49 P M EDT Height 172.7 cm (5' 8") 03/15/2024 6:37 PM EDT Body Mass Index 20.41 03/15/2024 6:37 PM EDT documented in this [...] No 03/15/2024 documented as of this encounter Discharge Summaries * Nathan Marshall, - 03/16/2024 2:52 PM EDT [facility]-[address] [address] Admission Date: 03/15/2024 Discharge Date: 03/16/2024 RECOMMENDED TO DO FOR NEXT PROVIDER(S): Please place a Zio patch REASON(S) FOR MEDICATION CHANGE(S): No changes DISPOSITION ON DISCHARGE: home Active Hospital Problems Diagnosis *Principal Diagnosis - Stroke with cerebral ischemia (HCC) Stroke-like symptoms Type 2 diabetes mellitus with kidney complication, with long-term current use of insulin (HCC) Essential hypertension Hyperlipidemia Hypothyroidism Resolved Hospital Problems No resolved problems to display. ADMISSION HISTORY & PHYSICAL EXAM (focused): Per Lencho Thapa MD 74 yo M patient with hx of Hypothyroidism, DM type 2, HLD, HTN, Previous stroke presented to the ERwith bilateral arm heaviness and weakness. Patient stated that his symptoms started when he was working outside with his chainsaw- he had a sudden onset of nausea, heaviness in both arms. Patient's spouse noticed that patient was slow to respond, looked pale like he was going to pass out. Patient was unable to ambulate due to extreme weakness in his lower extremities- left more than right which prompted him to come to the emergency room. He had stroke 1 year back and is currently taking Plavix 75 mg daily Spoke to ED provider, ER course briefly : Vitals- noted to be hypertensive blood pressure 185/71. Patient was noted to have left lower extremity weakness in the emergency room hence stroke alert was called. Neurology was consulted- patient declined to [facility]; MRI brain was ordered. MRI showed small acute infarct at the centrum semiovale. Labs showed hyponatremia - 128. Neuro recommends admission for stroke workup - echo, pt/ot evals, aspirin, plavix ,permissive HTN Patient's symptoms has gotten better however he still has some trouble ambulation. I personally reviewed old medical records; EKG shows normal sinus rhythm HOSPITAL COURSE (focused): Pt was admitted to the 5th floor telemetry unit at [facility]. Stroke protocol was initiated. He was continued on aspirin, Plavix and a high-intensity statin. Neurology consult was obtained. Serial lab studies were completed. MRI confirmed a small acute infarct of the right centrum semiovale. Echocardiogram was reviewed and shows EF of 60% moderate aortic valve regurgitation normal-sized atrium. PT, OT,CM and speech were consulted. His symptoms largely resolved. Pt told me he may have had atrial fibrillation on a prior Zio patch done through the [place] cardiology department. I was able to [facility] and the Zio patch did not show atrial fibrillation but a few runs of SVT. This was discussed with neurology. It was decided to keep him on the aspirin, Plavix and a high- intensity statin. A zio patch will be repeated as an outpatient. At the time of discharge the vital signs were stable and pt was afebrile. BP 120/53 | Pulse 72 | Temp 36 C (96.8 F) (Temporal Artery) | Resp 16 | Ht 1.727 m (5' 8") | Wt 60.9 kg (134 lb 3.2 oz) | SpO2 90% | BMI 20.41 kg/m | BSA 1.71 m The patient denied CP, SOB, JAVED, dizziness, vomiting or diarrhea. The physical exam on the day of discharge wasstable. The patient was seen with the nurse rounding team. At the time of discharge the patient wasambulating and his functional status was at baseline. he was tolerating oral nourishment without difficulty. Discharge medications and discharge planning discussed with the patient in detail. Operations & Procedures: none Complications: none applicable Significant Lab and Imaging Results: Results for orders placed or performed during the hospital encounter of 03/15/24 BASIC METABOLIC PANEL Result Value Ref Range BUN 21 (H) [...] 8.7 8.4 - 10.2 mg/dL BNP, NT-PRO Result Value Ref Range BNP, NT-Pro 314 (H) <300 pg/mL HEPATIC FUNCTION PANEL Result Value Ref Range Albumin 3.9 3.8 - 5.0 g/dL AST 34 10 - 50 U/L Alkaline Phosphatase 70 35 - 130 U/L ALT 25 10 - 50 U/L Bilirubin, Total 0.8 <=1.2 mg/dL Bilirubin, Direct 0.3 0.0 - 0.3 mg/dL Protein 6.2 6.0 - 8.3 g/dL LACTATE WITH REFLEX IF ABNORMAL Result Value Ref Range Lactate 1.4 0.4 - 2.0 mmol/L LIPASE Result Value Ref Range Lipase 16 13 - 60 U/L TROPONIN T, HIGH SENSITIVITY Result Value Ref Range Troponin T, High Sensitivity 26 (H) <=22 ng/L TSH Result Value Ref Range TSH 3.52 0.27 - 4.20 uIU/mL CBC Result Value Ref Range WBC 8.05 4.00 [...] nRBCs 0 <=0 /100 WBCs DIFFERENTIAL, AUTOMATED Result Value Ref Range WBC 8.05 4.00 [...] Immature Granulocytes 0.10 0.00 - 0.20 K/uL URINALYSIS, REFLEX TO CULTURE (CUP ONLY) Result Value Ref Range Urinalysis, Reflex to Culture Specimen Specimen collected and received URINALYSIS, REFLEX TO CULTURE Result Value Ref Range Color, Urine Yellow Light Yellow, Yellow, Dark Yellow Clarity, Urine Clear Clear Glucose, Urine 500 (A) Negative mg/dL Bilirubin, Urine Negative Negative Ketone, Urine 15 (A) Negative mg/dL Specific Cres[place], Urine 1.014 1.003 - 1.030 Blood, Urine Negative Negative pH, Urine 7.0 5.0 - 7.5 Units Protein, Urine Negative Negative mg/dL Urobilinogen, Urine 1.0 0.2, 1.0 mg/dL Nitrite, Urine Negative Negative Esterase, Urine Negative Negative RBC, Urine 0-2 0 - 2 /HPF WBC, Urine 0-2 0 - 2 /HPF Bacteria, Urine 0-25 0 - 25 /HPF Culture, Urine PT INR Result Value Ref Range Prothrombin Time 14.1 11.6 - 15.2 seconds INR 1.1 0.8 - 1.2 HEMOGLOBIN A1C Result Value Ref Range Hemoglobin A1C 8.5 (H) 4.0 - 5.6 % Estimated Average Glucose 197 (H) <126 mg/dL LIPID PANEL WITH DIRECT LDL IF TG IS HIGH Result Value Ref Range Triglycerides 38 <=174 mg/dL Cholesterol 85 <200 mg/dL HDL Cholesterol 41 >39 mg/dL Non-HDL Cholesterol 44 <=159 mg/dL LDL Cholesterol 36 <=129 mg/dL BASIC METABOLIC PANEL Result Value Ref Range BUN 17 6 [...] 8.3 (L) 8.4 - 10.2 mg/dL CBC Result Value Ref Range WBC 4.52 4.00 [...] fL nRBCs 0 <=0 /100 WBCs MAGNESIUM Result Value Ref Range Magnesium 2.0 1.5 - 2.6 mg/dL PHOSPHORUS Result Value Ref Range Phosphorus 2.8 2.5 - 4.8 mg/dL ECHO, COMPLETE (2D), TRANS-THORACIC Result Value Ref Range LEFT VENTRICULAR EJECTION FRACTION 60 % GLUCOSE METER, POINT OF CARE Result Value Ref Range Glucose Meter 288 (H) 70 - 120 mg/dL Device Comment Notified Provider GLUCOSE METER, POINT OF CARE Result Value Ref Range Glucose Meter 217 (H) 70 - 120 mg/dL GLUCOSE METER, POINT OF CARE Result Value Ref Range Glucose Meter 97 70 - 120 mg/dL GLUCOSE METER, POINT OF CARE Result Value Ref Range Glucose Meter 168 (H) 70 - 120 mg/dL MRI BRAIN WITHOUT CONTRAST Final Result EXAM [...] are suspected in the imaged upper lung pagan. Mild to moderate degenerative changes are present [...] are suspected in the imaged upper lung pagan. Mild to moderate degenerative changes are present [...] aorta. 2. Additional findings are described above. Results Pending at Discharge: Lab Results Pending at Discharge: EXTRA TUBES Routine EXTRA LAVENDER TOP Routine P2Y12 INHIBITOR REACTIVITY (CLOPIDOGREL), VERIFYNOW Routine ASPIRIN, VERIFYNOW Routine MEDICATION UPDATES AT DISCHARGE CONTINUE taking these medications INSTRUCTIONS aspirin 81 MG chewable tablet Take 1 Tablet by mouth in the morning. atorvaSTATin 80 MG Tablet Commonly known as: Lipitor Take 1 Tablet by mouth in the morning. clopidogrel 75 MG Tablet Commonly known as: pLAVix 1 Tablet. CYANOCOBALAMIN 500 MCG Tablet Commonly known as: vitamin B-12 Take 2 Tablets by mouth in the morning. Ezetimibe 10 MG Tablet Commonly known as: Zetia Take 0.5 Tablets by mouth in the morning. insulin aspart 100 UNIT/ML injection Commonly known as: NovoLOG INJECT INSULIN SUBCUTANEOUSLY 3 TIMES A DAY [...] Insulin Glargine (1 Unit Dial) 300 UNIT/ML Sopn 10 units levothyroxine 88 MCG Tablet Commonly known as: Levoxyl Take 1 Tablet by mouth daily first thing in the morning. (at least 30 min prior to breakfast or other meds) metoprolol succinate XL 25 MG Tb24 Commonly known as: toPROL XL 0.5 Tablets. PreserVision AREDS 2 Capsule Take 1 Capsule by mouth in the morning. Vitamin D3 75 MCG (3000 UT) Tablet Take 1,000 Units by mouth daily. STOP taking these medications Dexcom G7 Sensor Misc hydroCHLOROthiazide 25 MG Tablet Commonly known as: Hydrodiuril SCHEDULED FOLLOW-UP: Future Appointments Appt Date/Time Provider Department 03/30/2024 10:00 AM Jatin Mejia CRNP [facility] 06/13/2024 7:30 AM Juan Malcolm DO Ophthalmology, [place] 06/20/2024 9:00 AM Juan Malcolm DO Ophthalmology, [place] 07/11/2024 7:30 AM Juan Malcolm DO Ophthalmology, [place] 07/20/2024 2:30 PM Juan Malcolm DO Ophthalmology, [place] 08/10/2024 3:45 PM Juan Malcolm DO Ophthalmology, [place] Outpatient Follow Up Adult Neurology Referral OP Other Information Indwelling Devices: LINES ALL Duration Peripheral Line Left Antecubital 18 Gauge 1 day Vital Signs (last recorded): Most Recent Systolic BP: 120 mmHg (03/16/24 1439) Most Recent Diastolic BP: 53 mmHg (03/16/24 1439) Pulse: 72 (03/16/24 1439) Resp: 16 (03/16/24 143) Most Recent Temperature: 36 C (03/16/24 1439) Weight: 60.9 kg (134 lb 3.2 oz) (03/15/24 1849) SpO2: 90 % (03/16/24 1439) Allergies: Penicillins Activity: as tolerated Diet: Orders Placed This Encounter Procedures Heart Healthy Consistent Carbohydrate Diet : Sodium: 2 gm --- Number of Choices: 4 (60 grams) --- Fluid Restriction (ml): None Code Status: Full Code Condition on Discharge: stable Isolation status: None Cognition: normal HOSPITAL CONSULTS ORDERED: ADULT OCCUPATIONAL THERAPY CONSULT IP ADULT PHYSICAL THERAPY CONSULT IP ADULT SPEECH THERAPY CONSULT IP (ACUTE CARE REHAB) CARE MANAGEMENT CONSULT IP NEUROLOGY CONSULT IP REFERRING PHYSICIAN: REF: SELF NO STRE[address] ADDRESS AVAILABLE PRIMARY CARE PROVIDER: PCP: PETER Padron [phone] / [facility] [phone] (office) [phone] (fax) Note: To contact a physician responsible for this patients hospital care, please call [facility] [phone]. I spent a total of 60 minutes coordinating, documenting, and providing care for this patient excluding time spent in the performance of separately billed services. documented in this encounter Discharge Instructions * Discharge Instr - AVS* Nathan Marshall DO - 03/16/2024 2:52 PM EDT Discharge Date: 03/16/24 The information below provides you with the instructions and the list of medications you need to betaking following discharge from the hospital. If you have any questions, please ask before leaving. If you have questions after leaving, you can reach us at the numbers below. YOUR HOSPITAL PROVIDERS: Discharging Provider: Nathan Marshall DO Provider Department: Hospital Medicine To reach this Provider Tuesday through Tuesday (8:00 AM to 4:30 PM) for any questions or test results: Call [phone] For after-hours concerns: Call [phone] and have your provider paged, or the provider technology education instructor for the Department of Hospital Medicine paged. Please note, the discharging provider will not be able to provide you with any medications refills.Please discuss these with your primary care provider. Worsening Symptoms: If you have new symptoms, or your symptoms get worse, please contact your Discharge Provider or Primary Care Provider (PCP). If these providers are not available, you can go to your local [facility] or Urgent Care Clinic during their business hours. In an EMERGENCY situation: Call 911 or go to the nearest emergency room. A BRIEF SUMMARY OF YOUR HOSPITAL STAY: You came to the hospital with: complaint of dizziness Your main diagnosis at discharge was: Acute Stroke Operations & Procedures performed: none Complications: none applicable Inpatient test results that are pending at discharge: none Advance Directive Documented: Advance Directive Does the Patient have an Advance Directive? Not Addressed YOUR FOLLOW UP APPOINTMENTS: Primary Care Provider Information: PCP: PETER Padron [address] [facility] / [facility] [address] (office) [phone] (fax) An appointment was requested with your PCP (PETER Padron) within 7 days. (Please take this form to this visit with your primary care physician.) You need the following studies in the future: Have your PCP PETER Mcarthur order a Zio cardiac patch at your follow up appoitment INSTRUCTIONS: Diet: Previous diet Activity: As tolerated Additional Instructions: - Use caution when standing or walking since you are at an increased risk for falls We are glad you are feeling better. It has been our privilege to help care for you. Please call me with any additional questions you may have after discharge. [phone] Nathan Marshall DO, CHEMO, [facility] documented in this encounter Progress Notes * Johnny Cao SN - 03/16/2024 10:48 AM EDT [address]- patient was educated on after stroke and verbalize understanding. documented in this encounter H&P Notes * Lencho Thapa MD - 03/15/2024 6:11 PM EDT HISTORY AND PHYSICAL EXAMINATION -HOSPITALIST [facility] Name:Christina Cuevas II SEX: male AGE: [age] year old Date: 03/15/2024 Date and Time Patient was Seen: 03/15/2024 at 5:45PM PRESENTING PROBLEM: b/l lower extremity weakness, arm heaviness History obtained from Patient and his HPI: 74 yo M patient with hx of Hypothyroidism, DM type 2, HLD, HTN, Previous stroke presented to the ERwith bilateral arm heaviness and weakness. Patient stated that his symptoms started when he was working outside with his chainsaw- he had a sudden onset of nausea, heaviness in both arms. Patient's spouse noticed that patient was slow to respond, looked pale like he was going to pass out. Patient was unable to ambulate due to extreme weakness in his lower extremities- left more than right which prompted him to come to the emergency room. He had stroke 1 year back and is currently taking Plavix 75 mg daily Spoke to ED provider, ER course briefly : Vitals- noted to be hypertensive blood pressure 185/71. Patient was noted to have left lower extremity weakness in the emergency room hence stroke alert was called. Neurology was consulted- patient declined to [facility]; MRI brain was ordered. MRI showed small acute infarct at the centrum semiovale. Labs showed hyponatremia - 128. Neuro recommends admission for stroke workup - echo, pt/ot evals, aspirin, plavix ,permissive HTN Patient's symptoms has gotten better however he still has some trouble ambulation. I personally reviewed old medical records; EKG shows normal sinus rhythm Past Medical History: Diagnosis Date Colon polyps DM (diabetes mellitus) type II controlled with renal manifestation (HCC) HLD (hyperlipidemia) HTN (hypertension) Hypothyroidism Stroke (HCC) Past Surgical History: Procedure Laterality Date COLONOSCOPY, DIAGNOSTIC (RECTUM) 11/19/2016 adenomatous polyps, diverticulosis, repeat 3 yrs/COLONOSCOPY FLEXIBLE PROXIMAL DIAGNOSTIC performedby Chapo Henriquez MD at [facility] COLONOSCOPY, DIAGNOSTIC (RECTUM) N/A 09/10/2020 poor prep/diverticulosis sigmoid colon/tortuous colon with restricted mobility/biopsies show adenomatous polyps/recall 2 years/COLONOSCOPY FLEXIBLE PROXIMAL DIAGNOSTIC performed by Danielle King ENDOSCOPY [facility] UNLISTED PROCEDURE SPINE Family History Problem Relation Name Age of Onset Heart disease Mother Hypertension Mother Diabetes Father Heart disease Grandmother (Maternal) Social History Tobacco Use Smoking status: Former Current packs/day: 0.00 Types: Cigarettes Quit date: 10/23/2014 Years since quittin.4 Smokeless tobacco: Never Vaping Use Vaping status: Never Used Substance Use Topics Alcohol use: No Drug use: No Penicillins Current Facility-Administered Medications Medication Dose Route Frequency Provider Acetaminophen (Tylenol) tab 650 mg 650 mg Oral Q6H PRN Lencho Thapa MD [START ON 03/16/2024] aspirin enteric coated tab 81 mg 81 mg Oral Daily(AM) Lencho Thapa MD atorvaSTATin (Lipitor) tab 80 mg 80 mg Oral Q 1700 Lencho Thapa MD [START ON 03/16/2024] clopidogrel (pLAVix) tab 75 mg 75 mg Oral Daily(AM) Lencho Thapa MD dextrose 50% inj 25 mL 25 mL IV Push PRN Lencho Thapa MD dextrose 50% inj 50 mL 50 mL IV Push PRN Lencho Thapa MD [START ON 03/16/2024] Enoxaparin (Lovenox) inj 40 mg 40 mg Subcutaneous Daily(AM) Lencho Thapa MD [START ON 03/16/2024] Ezetimibe (Zetia) tab 5 mg 5 mg Oral Daily(AM) Lencho Thapa MD glucagon (Glucagen) inj 1 mg 1 mg Intramuscular PRN Lencho Thapa MD Glucose (Glutose 15) 40 % gel 15 g of glucose 15 g of glucose Oral PRN Lencho Thapa MD Glucose (Glutose 15) 40 % gel 30 g of glucose 30 g of glucose Oral PRN Lencho Thapa MD glucose chew tab 16 g 16 g Oral PRN Lencho Thapa MD insulin aspart (NovoLOG) inj Subcutaneous With Meals and HS Lencho Thapa MD Insulin Glargine (Lantus) inj 10 Units 10 Units Subcutaneous HS insulin Lencho Thapa MD [START ON 03/16/2024] levothyroxine (Levoxyl) tab 88 mcg 88 mcg Oral Daily 0630 Lencho Thapa MD NSS infusion 75 mL/hr Intravenous Continuous Kristan Miller MD oxygen GAS Inhalation Oxygen Kristan Miller MD oxygen GAS Inhalation Oxygen Lencho Thapa MD sodium chloride 0.9 % flush peripheral cam 3 mL 3 mL IV Push Q Shift Kristan Miller MD sodium chloride 0.9 % flush/inj 3 mL 3 mL IV Push PRN Lencho Thapa MD Current Outpatient Medications Medication Levothyroxine Sodium 88 MCG Oral Tablet (Levoxyl) PreserVision AREDS 2 Oral Capsule Atorvastatin Calcium 80 MG Oral Tablet (Lipitor) Clopidogrel Bisulfate 75 MG Oral Tablet (pLAVix) Dexcom G7 Sensor Ezetimibe 10 MG Oral Tablet (Zetia) hydroCHLOROthiazide 25 MG Oral Tablet (Hydrodiuril) Insulin Aspart 100 UNIT/ML Injection Solution (NovoLOG) Insulin Glargine (1 Unit Dial) 300 UNIT/ML Subcutaneous Solution Pen-injector Metoprolol Succinate ER 25 MG Oral Tablet Extended Release 24 Hour (toPROL XL) Cholecalciferol (VITAMIN D3) 3000 UNITS Tablet CYANOCOBALAMIN (VITAMIN B-12) 500 MCG Sublingual Tablet aspirin 81 MG chewable tablet PHYSICAL EXAMINATION: BP: 181 mmHg/76 mmHg (03/15/24 1800) Pulse: 76 (03/15/24 1800) Resp: 16 (03/15/24 1800) Temp: 36.28 C (03/15/24 1418) Temp Summary: Temp Min: 36.3 C (97.3 F) Max: 36.3 C (97.3 F) SpO2: 100 % (03/15/24 1800) O2 flow rate: Supplemental O2 Delivery: Room Air, None (03/15/241417) Constitutional:old, frail HEENT: normal: normocephalic, atraumatic; CV: normal rate and rhythm, no murmur, gallops or rub Chest: normal respiratory effort, lungs clear to auscultation and percussion Abdomen: normal: soft, bowel sounds normal Extremities: no edema, Skin: warm, dry, intact: Neuro: alert, oriented to person, place, and time ;EOMI ; Sensory intact; Motor strength 4/5 in allextremities Psych: normal mood and affect, LABS: Results for orders placed or performed during the hospital encounter of 03/15/24 BASIC METABOLIC PANEL Result Value Ref Range BUN 21 (H) [...] 8.7 8.4 - 10.2 mg/dL BNP, NT-PRO Result Value Ref Range BNP, NT-Pro 314 (H) <300 pg/mL HEPATIC FUNCTION PANEL Result Value Ref Range Albumin 3.9 3.8 - 5.0 g/dL AST 34 10 - 50 U/L Alkaline Phosphatase 70 35 - 130 U/L ALT 25 10 - 50 U/L Bilirubin, Total 0.8 <=1.2 mg/dL Bilirubin, Direct 0.3 0.0 - 0.3 mg/dL Protein 6.2 6.0 - 8.3 g/dL LACTATE WITH REFLEX IF ABNORMAL Result Value Ref Range Lactate 1.4 0.4 - 2.0 mmol/L LIPASE Result Value Ref Range Lipase 16 13 - 60 U/L TROPONIN T, HIGH SENSITIVITY Result Value Ref Range Troponin T, High Sensitivity 26 (H) <=22 ng/L TSH Result Value Ref Range TSH 3.52 0.27 - 4.20 uIU/mL CBC Result Value Ref Range WBC 8.05 4.00 [...] nRBCs 0 <=0 /100 WBCs DIFFERENTIAL, AUTOMATED Result Value Ref Range WBC 8.05 4.00 [...] Immature Granulocytes 0.10 0.00 - 0.20 K/uL URINALYSIS, REFLEX TO CULTURE (CUP ONLY) Result Value Ref Range Urinalysis, Reflex to Culture Specimen Specimen collected and received URINALYSIS, REFLEX TO CULTURE Result Value Ref Range Color, Urine Yellow Light Yellow, Yellow, Dark Yellow Clarity, Urine Clear Clear Glucose, Urine 500 (A) Negative mg/dL Bilirubin, Urine Negative Negative Ketone, Urine 15 (A) Negative mg/dL Specific [place], Urine 1.014 1.003 - 1.030 Blood, Urine Negative Negative pH, Urine 7.0 5.0 - 7.5 Units Protein, Urine Negative Negative mg/dL Urobilinogen, Urine 1.0 0.2, 1.0 mg/dL Nitrite, Urine Negative Negative Esterase, Urine Negative Negative RBC, Urine 0-2 0 - 2 /HPF WBC, Urine 0-2 0 - 2 /HPF Bacteria, Urine 0-25 0 - 25 /HPF Culture, Urine PT INR Result Value Ref Range Prothrombin Time 14.1 11.6 - 15.2 seconds INR 1.1 0.8 - 1.2 GLUCOSE METER, POINT OF CARE Result Value Ref Range Glucose Meter 288 (H) 70 - 120 mg/dL Device Comment Notified Provider Radiology: ASSESSMENT AND PLAN: Principal Problem: Stroke with cerebral ischemia (HCC) Active Problems: Type 2 diabetes mellitus with kidney complication, with long-term current use of insulin (HCC) Essential hypertension Hyperlipidemia Hypothyroidism Stroke-like symptoms Resolved Problems: * No resolved hospital problems. * Plan: - continue aspirin, Plavix, high-intensity statin - Neurology consultation appreciated; MRI brain CT head and CTA reviewed- no large vessel occlusion - permissive hypertension for 24 hours- resume antihypertensive tomorrow - IV fluids to help with hyponatremia - Echocardiogram (as part of stroke workup; patient also complained of shortness of breath in the ER; probnp mildly high) - PT/OT consult, speech therapy - telemetry monitoring - Management discussed with ER provider and Neurology Discussed initial history of present illness/workup with emergency room physician. Medical decision makin minutes were spent in the care of this patient. More than half of my time was spent counseling the patient or family and coordinating care for the patient on the floor. This chart was completed in part utilizing [employer] Speech Voice Recognition Software. Grammatical errors, random word insertions, prounoun erros, and incomplete sentences are an occasional consequence of this system due to software limitations, ambient noise, and hardware issues. Any formal questions or concerns about the content, text, or information contained within the body of this dictation should be directly addressed to the provider for clarification. Note: To contact a physician responsible for this patients hospital care, please call [facility] [phone]. documented in this encounter Procedure Notes * José Oneill DO - 03/15/2024 2:14 PM EDTAssociated Order(s): EKG REASON FOR STUDY: WEAKNESS CONCLUSIONS: Normal sinus rhythm Normal ECG When compared with ECG of 20-Apr-2018 07:02, Vent. rate has increased by 33 bpm Ventricular Rate: 84 Atrial Rate: 84 W[place] Interval: 178 QRS Duration: 82 QT/QTc: 390/460 ms P-R-T [place]: 89 : 75 : 75 degrees documented in this encounter Consult Notes * Corby Nixon, MATTHIAS - 03/16/2024 12:15 PM EDTAssociated Order(s): ADULT SPEECH THERAPY CONSULT IP (ACUTE CARE REHAB) COGNITIVE COMMUNICATION ASSESSMENT - Speech-Language Pathology [facility]-[address] [place] [place] [address] Name: Christina Cuevas II Location: [facility] [id number] Date: 03/16/2024 Time: 12:15 PM Patient Status: Inpatient Insurance: Payor: [facility] MEDICARE ADVANTAGE / Plan: [employer] HMO / Product Type: *No Product type* / Patient Age: [age] year old Referring Physician: Dr. Marshall Admission Date: 03/15/2024 History: Per Epic: 4 yo M patient with hx of Hypothyroidism, DM type 2, HLD, HTN, Previous stroke presented to the ER with bilateral arm heaviness and weakness. Patient stated that his symptoms started when he was working outside with his chainsaw- he had a sudden onset of nausea, heaviness in botharms. Patient's spouse noticed that patient was slow to respond, looked pale like he was going to pass out. Patient was unable to ambulate due to extreme weakness in his lower extremities- left more than right which prompted him to come to the emergency room. He had stroke 1 year back and is currently taking Plavix 75 mg daily Spoke to ED provider, ER course briefly : Vitals- noted to be hypertensive blood pressure 185/71. Patient was noted to have left lower extremity weakness in the emergency room hence stroke alert was called. Neurology was consulted- patient declined to TNK; MRI brain was ordered. MRI showed small acute infarct at the centrum semiovale. Labs showed hyponatremia - 128. Neuro recommends admission for stroke workup - echo, pt/ot evals, aspirin, plavix ,permissive HTN Patient's symptoms has gotten better however he still has some trouble ambulation. Past Medical History: Diagnosis Date Colon polyps DM (diabetes mellitus) type II controlled with renal manifestation (HCC) HLD (hyperlipidemia) HTN (hypertension) Hypothyroidism Stroke (HCC) Past Surgical History: Past Surgical History[]Expand by Default Past Surgical History: Procedure Laterality Date COLONOSCOPY, DIAGNOSTIC (RECTUM) 11/19/2016 adenomatous polyps, diverticulosis, repeat 3 yrs/COLONOSCOPY FLEXIBLE PROXIMAL DIAGNOSTIC performedby Chapo Henriquez MD at [facility] COLONOSCOPY, DIAGNOSTIC (RECTUM) N/A 09/10/2020 poor prep/diverticulosis sigmoid colon/tortuous colon with restricted mobility/biopsies show adenomatous polyps/recall 2 years/COLONOSCOPY FLEXIBLE PROXIMAL DIAGNOSTIC performed by Danielle King [facility] [place] UNLISTED PROCEDURE SPINE Educational History: High School Prior Functional Level: Reported by Patient Money Management is done by: Patient Checkbook and [employer] Homemaking: not tested Shopping: Yes Occupation: Retired Barriers to Learning: None Known and Medical Status Hearing Acuity: Within normal limits Best Learning Method: Visual and Auditory Patient/Family Goal(s): To return home Pain: No Complaints of Pain RLA Level: X Assessment / Diagnosis: Patient appears to be at baseline. He notes no changes in communication or cognitive skills, Family member present also notes patient appears to be at baseline. He did not OT observed some "double vision" per patient which he stated he never noticed until it was pointed out. Cognitive-Communication Rehab Potential: Good RECOMMENDATIONS / TREATMENT PLAN: Wllwwu-Fdhqspyk-Elhrsuyod-Communication Therapy: Not Indicated Communication Goals: n/a ANTICIPATED FREQUENCY (ON EVAL): n/a PATIENT/FAMILY EDUCATION: Topic(s): N/A Method of Education: Verbal discussion and explanation provided to patient and family member: verbalized understanding and or agreement of this information Additional Recommendations: n/a Evaluations Results: Speech-Language Skills AUDITORY COMPREHENSION: Yes/No Questions Within normal limits Body Part Identification Within normal limits Right/Left Discrimination: Within normal limits Commands Simple Within normal limits Complex Within normal limits Comprehension Words Within normal limits Sentences Within normal limits Paragraphs Within normal limits Conversation Within normal limits VERBAL EXPRESSION: Naming Responsive Within normal limits Confrontation Within normal limits Repetition Within normal limits Automatic Speech Within normal limits Spontaneous Utterances Words Within normal limits Sentences Within normal limits Conversation Within normal limits Paraphasias/Jargon not present Gestures/Augmentative Within normal limits Perseveration not present READING COMPREHENSION: Oral: Words Did not test Sentences Did not test Paragraphs Did not test Comprehension Words Did not test Sentences Within normal limits Paragraphs Within normal limits WRITTEN EXPRESSION: Biographical Information Within normal limits Copying Within normal limits Spontaneous: Words Within normal limits Sentences Within normal limits Narrative Within normal limits SPEECH MECHANISM: Oral Motor Within normal limits Speech Intelligibility Within normal limits Dysarthria not present Apraxia Oral not present Verbal not present LEVEL OF ALERTNESS: alert/focused COGNITIVE-COMMUNICATION SKILLS: ATTENTION/CONCENTRATION: Sustained (1:1 environment) Within normal limits Selective with distractions Within normal limits Alternating between tasks Within normal limits Divided between tasks Within normal limits MEMORY: Immediate Memory Within normal limits Short Term Memory: Daily Events/Activities Within normal limits Novel Information Did not test Delayed memory Within normal limits Long-Term Memory Within normal limits PROBLEM SOLVING/REASONING: Verbal Problem Solving Within normal limits Functional Problem Solving: Simple Within normal limits Complex Within normal limits Functional Math: Math Calculations Did not test Time Management Did not test Money Management Did not test Abstract Reasoning Did not test Deficit Reasoning Did not test Safety Awareness Did not test VISUAL PERCEPTION: Spatial Organization Did not test Distribution of Attention Did not test Written Organization Did not test ORIENTATION: Person Within normal limits Place Within normal limits Time Within normal limits Situation Within normal limits EXECUTIVE FUNCTIONS: Initiation Within normal limits Organization Within normal limits Planning/Decision Making Within normal limits Self Monitoring Within normal limits Self Correction Within normal limits BEHAVIORAL OBSERVATIONS NOTED: WNL Patient/Family Goals: Return back home EVY Speech Communication Goals: N/A Corby Nixon M.S. [facility]ICE PRESIDENT [employer] * Sarahy Quintanilla RN - 03/16/2024 10:18 AM EDTAssociated Order(s): CARE MANAGEMENT CONSULT IP See ancillary assessment note. * Breanna Alberts PT - 03/16/2024 10:10 AM EDTAssociated Order(s): ADULT PHYSICAL THERAPY CONSULT IP GENERAL EVALUATION - Physical Therapy [address] [address] Name: Christina Cuevas II Location: [facility] [id number] Date: 03/16/2024 Time: 1010 Christina Cuevas II is a/an 74 year old male. Patient Status: Inpatient Insurance: Payor: [place] - [place]AGE [facility] Product Type: *No Product type* Payor: [facility] Plan: [facility] Product Type: *No Product type* Patient Seen: at bedside. Patient Identified By: Name, ID Band and Date Diagnosis: weakness, acute CVA (03/16/24 1010) Status of treatment: OOB evaluation completed (03/16/24 1010) Orders: PT evaluation and treatment (03/16/24 1010) Weight Bearing Status: Weight bearing as tolerated (03/16/24 1010) Precautions: Falls;Safety (03/16/24 1010) Total Treatment Time--free text: 39 (03/16/24 1010) As per H&P: "74 yo M patient with hx of Hypothyroidism, DM type 2, HLD, HTN, Previous stroke presented to the ER with bilateral arm heaviness and weakness. Patient stated that his symptoms started when he was working outside with his chainsaw- he had a sudden onset of nausea, heaviness in both arms. Patient's spouse noticed that patient was slow to respond, looked pale like he was going to pass out. Patient was unable to ambulate due to extreme weakness in his lower extremities- left more than right which prompted him to come to the emergency room. He had stroke 1 year back and is currently taking Plavix 75 mg daily Spoke to ED provider, ER course briefly : Vitals- noted to be hypertensive blood pressure 185/71. Patient was noted to have left lower extremity weakness in the emergency room hence stroke alert was called. Neurology was consulted- patient declined to TNK; MRI brain was ordered. MRI showed small acute infarct at the centrum semiovale. Labs showed hyponatremia - 128. Neuro recommends admission for stroke workup - echo, pt/ot evals, aspirin, plavix ,permissive HTN Patient's symptoms has gotten better however he still has some trouble ambulation. I personally reviewed old medical records; EKG shows normal sinus rhythm" Brain MRI: IMPRESSION 1. Small acute infarct at the right centrum semiovale. No associated hemorrhage or mass effect. 2. Multiple chronic lacunar infarcts and findings suggesting chronic microvascular ischemic changes, as before. Past Medical History: Past Medical History: Diagnosis Date Colon polyps DM (diabetes mellitus) type II controlled with renal manifestation (HCC) HLD (hyperlipidemia) HTN (hypertension) Hypothyroidism Stroke (HCC) Past Surgical History: Past Surgical History: Procedure Laterality Date COLONOSCOPY, DIAGNOSTIC (RECTUM) 11/19/2016 adenomatous polyps, diverticulosis, repeat 3 yrs/COLONOSCOPY FLEXIBLE PROXIMAL DIAGNOSTIC performedby Chapo Henriquez MD at [facility]COPY [facility] COLONOSCOPY, DIAGNOSTIC (RECTUM) N/A 09/10/2020 poor prep/diverticulosis sigmoid colon/tortuous colon with restricted mobility/biopsies show adenomatous polyps/recall 2 years/COLONOSCOPY FLEXIBLE PROXIMAL DIAGNOSTIC performed by Danielle King [facility] [place] UNLISTED PROCEDURE SPINE Subjective: "I feel pretty good today." Social History/Disposition Lives with: Spouse (03/16/241009) Assistance available: Yes (03/16/241009) Dwelling type: Multi-story home (with 1st floor set up) (03/16/24 1010) Entry steps: 1 (via garage, 3 RODRIGO via front door) (03/16/24 1010) Inside steps: 10 - 15 (with HR to 2nd floor, pt can stay on 1st floor) (03/16/24 1010) Bedroom location: 1st floor (03/16/241009) Bath location: 1st floor full bath (03/16/241009) Prior Level of Function Reported by: Patient;Chart review (03/16/241009) Ambulation: Ambulatory without device (03/16/241009) Devices at home: No device (03/16/241009) Observations Consciousness: Alert (03/16/241009) Orientation: Oriented times 4 (03/16/241009) Psychosocial: Patient can communicate basic needs;Patient can converse in a social setting (03/16/241009) Other Findings: Yes (03/16/241009) Findings: Light touch sensation;Coordination;Edema;Tone (03/16/241009) Light Touch Sensation Results: LLE;RLE;Impaired (chronic B LE neuropathy, L >R) (03/16/241009) Coordination Results: Intact;LLE;RLE (03/16/240) Edema Results: Absent;LLE;RLE (03/16/241009) Tone Results: Intact;LLE;RLE (03/16/241009) Sitting Posture: Forward head;Rounded shoulders (03/16/241009) Standing Posture: Forward head;Rounded shoulders (03/16/241009) Pain: No complaints of pain Range of Motion Range of Motion: WNL (03/16/240) Strength Assessment Strength Assessment: WNL (03/16/240) P.T. Bed Mobility Supine-Sit: Independent (03/16/241009) Transfers Sit-Stand: Independent (03/16/240) Stand-Sit: Independent (03/16/241009) W/C-Bed/Mat: Supervision (03/16/241009) Ambulation: Distance ambulated (feet): 200 ft Assistive Device: No device Assist: Supervision Stair Training: Number of stairs: 6 Number of handrails: 1 Level of Assistance: Supervision Balance Sit (Static): Good (03/16/241009) Sit (Dynamic): Good (03/16/241009) Stand (Static): (Fair+) (03/16/241009) Stand (Dynamic): Fair (03/16/241009) Patient and or Family Goal(s): to get well and to return home. Pt denies any recent falls. Pt has no services in place [employer] Patient Education Review of Precautions: Safety;Fall (use of call hernández for assistance, pt verbalizes understanding) (03/16/241009) Safety Awareness: Patient verbalizes insight of current deficits;Patient demonstrates carryover of insight during functional tasks;Patient can communicate basic needs (03/16/241009) Preferred learning method: Combination (03/16/241009) Barriers to learning: Medical Status (03/16/241009) Method of Education: Verbalized to patient;Patient demonstrated task (03/16/241009) Topic of Education: Safety with mobility, Goals/plan of care, Fall prevention, and discharge planning. Method of Education: Verbal discussion and explanation provided to pt regarding goals for PT consult, safety and fall prevention strategies, discharge planning: verbalized understanding and or agreement of this information and demonstrated the exercise and or task Treatment Provided: Therapeutic Activities 15 minutes: bed mobility training transfer training Standing tolerance Gait Training 13 minutes: gait training with no device Evaluation Low Complexity 11 minutes - 72740: Patient was cooperative, pleasant, motivated, alert, and willing to participate during treatment session. Low complexity evaluation performed with indication of no personal factors or comorbidities that impact plan of care. Patient presents with limitations in transfers, gait, elevations, and endurance, which will impact plan of care. These limitations will be addressed by the goals set for this patient. Alarm Status Patient positioned in: Bed (03/16/241009) With: Call hernández in reach (08/23/24 1010) Treatment Status: Treatment at bedside (03/16/24 1010) Goals(within 5 sessions): Demonstrate Transfers with: Bed <> chair: independent (pt does 100%) Demonstrate Ambulation: level of assistance on level surface: independent (pt does 100%) >300 ft Demonstrate Stairclimbing: Number of steps: 10-15 with 1 HR and independence for access to home setting Increase Safety: with use of assistance as needed for fall prevention strategies Assessment: PT consult completed with pt demonstrating independence for supine to sit EOB and good sitting balance. Independent with STS x 3 reps and supervision for pivot transfers. Amb in hallway with no AD 200 ft with supervision and slow, steady pacing, mild trunk sway, no LOB. Pt ascends/descen ds 6 steps with 1 HR and step over step gt pattern. No deficits noted with turning 360 degrees, B sidestepping and backing up. B LE ROM and strength are WNL and = B. Would consider home with post-acute care services which may include outpatient therapy or home health. The level of care will be determined in collaboration with the patient, family/caregiver, and care team members. [facility] of 21 Deficits requiring P.T. treatment needs: Balance (03/16/24 1010) Equipment Needs: Treatment Plan: Transfer training, Gait training, Elevation training, and Educate on safety with use of assistance as needed for fall prevention strategies. Anticipated Frequency (on eval): 1 to 3 times per week (03/16/24 1010) AM PAC Score with Stairs: 21 * Adali Gaston, OT - 03/16/2024 8:38 AM EDTAssociated Order(s): ADULT OCCUPATIONAL THERAPY CONSULT IP GENERAL EVALUATION - Occupational Therapy [facility]-[address] [address] Name: Christina Cuevas II Location: [facility] [id number]/W Date: 03/16/2024 Time: 837 Christina Cuevas II is a 74 year old male. Per H&P "74 yo M patient with hx of Hypothyroidism, DM type 2, HLD, HTN, Previous stroke presented to the ER with bilateral arm heaviness and weakness. Patient stated that his symptoms started when he was working outside with his chainsaw- he had a sudden onset of nausea, heaviness in both arms. Patient's spouse noticed that patient was slow to respond, looked pale like he was going to pass out. Patient was unable to ambulate due to extreme weakness in his lower extremities- left more than right which prompted him to come to the emergency room. He had stroke 1 year back and is currently taking Plavix 75 mg daily Spoke to ED provider, ER course briefly : Vitals- noted to be hypertensive blood pressure 185/71. Patient was noted to have left lower extremity weakness in the emergency room hence stroke alert was called. Neurology was consulted- patient declined to [facility]; MRI brain was ordered. MRI showed small acute infarct at the centrum semiovale. Labs showed hyponatremia - 128. Neuro recommends admission for stroke workup - echo, pt/ot evals, aspirin, plavix ,permissive HTN Patient's symptoms has gotten better however he still has some trouble ambulation. I personally reviewed old medical records; EKG shows normal sinus rhythm" Patient Status: Inpatient Insurance: Payor[place] Plan: [employer] [facility] Product Type: *No Product type* Payor: [facility] Plan: [facility] Product Type: *No Product type* Patient Seen: at bedside, nursing cleared patient for therapy Patient Identified By: Name, ID Band and Date Diagnosis: CVA (03/16/24837) Status of treatment: Evaluation completed (03/16/24930) Orders: OT evaluation and treatment (03/16/24837) Weight Bearing Status: Weight bearing as tolerated (03/16/24837) Precautions: Alarms;Falls;Safety (03/16/24837) Total Treatment Time: 53 (03/16/24930) Past Medical History: Past Medical History: Diagnosis Date Colon polyps DM (diabetes mellitus) type II controlled with renal manifestation (HCC) HLD (hyperlipidemia) HTN (hypertension) Hypothyroidism Stroke (HCC) Past Surgical History: Past Surgical History: Procedure Laterality Date COLONOSCOPY, DIAGNOSTIC (RECTUM) 11/19/2016 adenomatous polyps, diverticulosis, repeat 3 yrs/COLONOSCOPY FLEXIBLE PROXIMAL DIAGNOSTIC performedby Chapo Henriquez MD at [facility]COPY [facility] COLONOSCOPY, DIAGNOSTIC (RECTUM) N/A 09/10/2020 poor prep/diverticulosis sigmoid colon/tortuous colon with restricted mobility/biopsies show adenomatous polyps/recall 2 years/COLONOSCOPY FLEXIBLE PROXIMAL DIAGNOSTIC performed by Danielle King [facility] UNLISTED PROCEDURE SPINE Social History/Disposition Lives with: Spouse (03/16/24837) Assistance available: Yes (03/16/24837) Dwelling type: Multi-story home (1st floor setup) (03/16/24837) Entry steps: 1 (via garage) (03/16/24837) Inside steps: 10 - 15 (pt does not have to access) (03/16/24837) Bedroom location: 1st floor (03/16/24837) Bath location: 1st floor full bath (03/16/24837) Prior Level of Function Reported by: Patient (03/16/24837) Ambulation: Ambulatory without device (03/16/24837) Grooming: Independent (03/16/24837) Bathing: Independent (03/16/24837) Dressing: Independent (03/16/24837) Feeding: Independent (03/16/24837) Toileting: Independent (03/16/24837) Meal Prep: Independent (03/16/24837) Homemaking: Independent (03/16/24837) Shopping: Independent (03/16/24837) Medication Management: Independent (03/16/24837) Money Management: Independent (03/16/24837) Occupation/Leisure Skills: Outdoor activities (gardening, hunting, fishing) (03/16/24837) Driving: Yes (03/16/24837) Durable Medical Equipment at home: (built in shower seat) (03/16/24837) Subjective: "When I had my other stroke, I was using a chainsaw too." Pain: No complaints of pain Observations Consciousness: Alert (03/16/24837) Orientation: Oriented times 4 (03/16/24837) Cognitive Limitations: (none noted on OT eval) (03/16/24837) Psychosocial: Patient can communicate basic needs;Patient can converse in a social setting (03/16/24837) Visual Deficits: (glasses, see assessment) (03/16/24837) Sitting posture: Forward head;Rounded shoulders (03/16/24837) Standing posture: Forward head;Rounded shoulders (03/16/24837) Safety awareness: The Patient verbalizes insight of current deficits.;The Patient demonstrates carryover of insight during functional tasks.;The Patient can communicate basic needs. (03/16/24837) Other Findings Light touch sensation: LUE;RUE;Intact (03/16/24837) Coordination: LUE;RUE;Gross motor;Fine motor;Intact (03/16/24837) Current Functional Status: Bilateral Upper Extremity Hand Dominance: Right (03/16/24837) Range of Motion: WFL (03/16/24837) Strength Assessment: WNL (03/16/24837) Self Care Able to provide self care: Yes (03/16/24837) Feeding: Independent (03/16/24837) Grooming: Independent (03/16/24837) Toileting: Independent (03/16/24837) Dressing Upper Body: Independent (03/16/24837) Lower Body: Independent (03/16/24837) Bathing Upper Body: Supervision (Please comment) (03/16/24837) Lower Body: Supervision (Please comment) (03/16/24837) Functional Ambulation Assistive Device: No device (03/16/24837) Distance in feet:: 100 (03/16/24837) Level of Assistance: Independent (03/16/24837) Bed Mobility Supine-Sit: Independent (03/16/24837) Sit-Supine: Independent (03/16/24837) OT Transfers Sit-Stand: Independent (03/16/24837) Stand-Sit: Independent (03/16/24837) Bed-Chair: Independent (03/16/24837) Toilet: Independent (03/16/24837) Balance Sit (Static): Normal (03/16/24837) Sit (Dynamic): Normal (03/16/24837) Stand (Static): Normal (03/16/24837) Stand (Dynamic): Normal (03/16/24837) Alarm Status Patient positioned in: Bed (03/16/24837) With: Call hernández in reach (03/16/24837) Patient and Family Goals: to get well and to return home Patient Education Education Topic: Role of OT;Plan of care goals (03/16/24837) Review of Precautions: Safety;Fall (03/16/24837) Method of Education: Verbalized to patient (03/16/24837) Education Provided to: Patient (03/16/24837) Response to Education: Receptive and agreeable to education (03/16/24837) Barriers to learning: Medical status (03/16/24837) Treatment Provided: Therapeutic Activity: 40 minutes Evaluation Low Complexity 13 minutes - [id number]: Patient was cooperative and pleasant during treatmentsession. Low complexity evaluation performed and Mild visual deficits were identified that result in activity limitation. The patient does not have any comorbidities that affect occupational performance. There were no modifications necessary to complete the evaluation. Deficits Requiring O.T. Treatment: Deficits requiring O.T. treatment needs: ADL/self-care;Endurance;Balance;Fine motor coordination;Functional mobility;IADL;Upper extremity strength;Upper extremity range of motion;Safety;Weakness (03/16/24837) Goals: N/A Goal Time Frame: N/A Assessment: Pt tolerated OT session well. Pt was A&Ox4 and able to answer all prior functional level questions without assist. Vision screen performed with the following results: Acuity: WNL Saccades: WNL Pagan: WNL Convergence: abnormal- double vision at ~9" from the nose (WNL less than or equal to 6). R eye shifts out after 9" from the nose. Pt reports no difficulty with reading fine print or with balance. Tracking: WFL Line Bisection: 1 miss Lower R quadrant [place] Cancellation: organized scanning pattern, 3:47 to complete, 1 miss L upper quadrant. The patient was screened with the Short Blessed Test. Ths screening is designed to identify early cognitive impairment. Scores in the impaired range indicate a need for further assessment. Scores in the normal range suggest that a dementing disorder is unlikely, but a very early disease process cannot be ruled out. More advanced assessment may be warranted in cases where other objective evidence of impairment exists. Patients Score: 4 pt within normal range for cognition per short blessed test. Pt required second set of directions for completing months of year backwards as pt initially statedDecember then proceeded to state months of year forward. Pt independent with toilet transfers, toileting, and grooming (washing hands at the sink). To further assess visual pagan pt ambulated in hallway. Able to read signs/see all visual pagan on eval. OT AM-PAC: 23 Pt requires assist with bathing. As such, Would consider home with post-acute care services which may include outpatient therapy or home health. The level of care will be determined in collaboration with the patient, family/caregiver, and care team members. Anticipate pt requires assist with bathing d/t environmental limitations of hospital setting. Pt appears to be functioning at their previous baseline and has no OT concerns at this time. As such, discontinue OT services at this time. Treatment Plan: Discontinue Occupational Therapy services Anticipated Frequency (on eval): 1 to 3 times per week (03/16/24837) AM-PAC Help From Another Person Eating Meals: None (03/16/24837) Help From Another Person Taking Care of Personal Grooming: None (03/16/24837) Help From Another Person To Put On/Take Off Upper Body Clothing: None (03/16/24837) Help From Another Person To Put On/Take Off Lower Body Clothing: None (03/16/24837) Help From Another Person Toileting: None (03/16/24837) Help From Another Person Bathing: A little (03/16/24837) OT AM-PAC Score: 23 (03/16/24837) OT AM-PAC t-Scale Score: 51.12 (03/16/24837) HLM (Highest Level of Mobility) Goal: Level 8 walk 250 feet or more (03/16/24851) * Booker Schuler MD - 03/15/2024 3:20 PM EDT TELESTROKE CONSULT - Neurology [facility] [id number] Name: Christina Cuevas II Location: Date: 03/15/2024 Time: 3:20 PM Gender: male : 1950 Patient location: ED. I was not in a hospital or clinic location. After connecting through televideo, patient was identified by name and date of and/or wristband checked. Patient (or authorizedlegal manufacturers service representative) was then informed that this was a Telemedicine visit and being conducted confidentially over secure lines. My office door was closed. No one else was in the room with me. Patient acknowledged consent and understanding of privacy and security of the Telemedicine visit, and gavepermission to have a telemedicine presenter stay in the room in order to assist with the history and to conduct the exam as needed. I informed the patient that I have reviewed their record in [place] and presented the opportunity for them to ask any questions regarding the visit today. The patient agreed to participate. I communicated with the patient for 30 minutes via televideo. Referring Site Information Telestroke Site: [facility] Requesting Provider: Kristan Celestin Neurological Assessment Telestroke Received: Time: 1457 Initial Response: Time: 145 Tele-Video Initiated: Time: 1517 Last Known Well (LKW): Time: 1230 Date: 03/15/2024 Antithrombotics: Aspirin and Clopidogrel (Plavix) Last Dose Taken: Within 24 hours HPI: Christina Cuevas II is a 74 year old right handed male with stroke risk factors as outlined below, who presents with symptoms including weakness and dizziness 74-year-old male patient with PMH of HTN, DM, prior history of stroke, known atherosclerotic disease. The patient presented to the emergency room today reporting acute onset of dizziness associated with generalized weakness after working on his chainsaw for a while today. He noticed that he was unable to walk he needed support. Initially weakness and numbness was generalized however noticed later that his left leg clumsy. He denies any changes of his vision , denies any changes . Ischemic Stroke Risk Factors Hypertension Dyslipidemia Diabetes Hemorrhagic Stroke Risk Factors Hypertension Stroke Mimic Risk Factors None CURRENT MEDICATIONS: Note that completed medications (per the MAR) continue to display for 24 hours. Ordered medicationsto be given in the future also display. Current Facility-Administered Medications Medication Dose Route Frequency Provider NSS infusion 75 mL/hr Intravenous Continuous Kristan Miller MD oxygen GAS Inhalation Oxygen Kristan Miller MD sodium chloride 0.9 % flush peripheral cam 3 mL 3 mL IV Push Q Shift Kristan Miller MD Current Outpatient Medications Medication Levothyroxine Sodium 88 MCG Oral Tablet (Levoxyl) PreserVision AREDS 2 Oral Capsule Atorvastatin Calcium 80 MG Oral Tablet (Lipitor) Clopidogrel Bisulfate 75 MG Oral Tablet (pLAVix) Dexcom G7 Sensor Ezetimibe 10 MG Oral Tablet (Zetia) hydroCHLOROthiazide 25 MG Oral Tablet (Hydrodiuril) Insulin Aspart 100 UNIT/ML Injection Solution (NovoLOG) Insulin Glargine (1 Unit Dial) 300 UNIT/ML Subcutaneous Solution Pen-injector Metoprolol Succinate ER 25 MG Oral Tablet Extended Release 24 Hour (toPROL XL) Cholecalciferol (VITAMIN D3) 3000 UNITS Tablet CYANOCOBALAMIN (VITAMIN B-12) 500 MCG Sublingual Tablet aspirin 81 MG chewable tablet ALLERGIES: Penicillins PAST MEDICAL HISTORY: Past Medical History: Diagnosis Date Colon polyps DM (diabetes mellitus) type II controlled with renal manifestation (HCC) HLD (hyperlipidemia) HTN (hypertension) Hypothyroidism Stroke (HCC) PAST SURGICAL HISTORY: Past Surgical History: Procedure Laterality Date COLONOSCOPY, DIAGNOSTIC (RECTUM) 11/19/2016 adenomatous polyps, diverticulosis, repeat 3 yrs/COLONOSCOPY FLEXIBLE PROXIMAL DIAGNOSTIC performedby Chapo Henriquez MD at [facility] COLONOSCOPY, DIAGNOSTIC (RECTUM) N/A 09/10/2020 poor prep/diverticulosis sigmoid colon/tortuous colon with restricted mobility/biopsies show adenomatous polyps/recall 2 years/COLONOSCOPY FLEXIBLE PROXIMAL DIAGNOSTIC performed by Danielle King [facility]OSCOPY [facility] [place] UNLISTED PROCEDURE SPINE FAMILY HISTORY: Family History Problem Relation Name Age of Onset Heart disease Mother Hypertension Mother Diabetes Father Heart disease Grandmother (Maternal) Family History: see above SOCIAL HISTORY: Social History Tobacco Use Smoking status: Former Current packs/day: 0.00 Types: Cigarettes Quit date: 10/23/2014 Years since quittin.4 Smokeless tobacco: Never Vaping Use Vaping status: Never Used Substance Use Topics Alcohol use: No Drug use: No see above ROS: All negative other than as noted in HPI Physical Examination: (indirectly performed by observation via teleconference) Most Recent Vital Signs: BP: 185 mmHg/71 mmHg (03/15/241417) Pulse: 86 (03/15/241417) Resp: 18 (03/15/241417) Temp: 36.28 C (03/15/241417) Temp Summary: Temp Min: 36.3 C (97.3 F) Max: 36.3 C (97.3 F) SpO2: 100 % (03/15/241417) O2 flow rate: Supplemental O2 Delivery: Room Air, None (03/15/241417) Vital Signs Last 24 Hours: Systolic BP: Most Recent Systolic BP Av mmHg Min: 185 mmHg Max: 185 mmHg Temperature: Most Recent Temperature Av.28 C Min: 36.28 C Max: 36.28 C Pulse: Pulse Av Min: 86 Max: 86 Respirations: Resp Av Min: 18 Max: 18 SpO2: SpO2 Av % Min: 100 % Max: 100 % Weight: Weight Av.5 kg (140 lb) Min: 63.5 kg (140 lb) Max: 63.5 kg (140 lb) Constitutional: Appearance normally developed Head and face: normocephalic and atraumatic Eyes: no ptosis, no anisocoria, and no dysconjugate gaze Respiratory: normal effort Cardiovascular: regular rhythm and regular rate Abdomen: non distended Skin: no rashes, lesions, or ulcers noted Psychiatric: normal judgement and insight, normal mood, and normal affect SEVERITY SCORES: National [place] of Health Stroke Scale: 1A. LOC: 0 1B. Question: 0 1C. Commands: 0 2. Gaze: 0 3. Visual Pagan: 0 4. Facial Palsy: 0 5A. Arm Left: 0 5B. Arm Right: 0 6A. Leg Left: 0 6B. Leg Right: 0 7. Ataxia: 1 8. Sensory: 1 9. Aphasia: 0 10. Dysarthria: 0 11. Extinction: 0 Total: 2 Baseline / Pre-morbid Level of Function by Modified [place] Scale: 1 - No significant disability. Able to carry out all usual activities, despite some symptoms. ABCD2 (Age, BP, Clinical Features of TIA, Duration, Diabetes) Score: N/A Intracerebral Hemorrhage (ICH) Score: N/A Personal Review of Neuroimaging, my interpretations are as follows: CT Head without contrast (reviewed at 1524 03/15/2024): Unremarkable. ASPECTS N/A. CT Angiogram: intra and extracranial athero. ASPECTS N/A. Review of Labs: Hemoglobin - 12.9 Hematocrit - 38.1 Platelet Count - 199 INR - 1.1 aPTT - . Heparin/LMWH Xa Assay - . Glucose - 199 Creatinine - 1 CONSIDERATION OF ACUTE STROKE THERAPIES: IV Thrombolysis Exclusion Criteria: - Patient or family/surrogate refuses treatment after discussing the low NIHSS IV Thrombolysis Relative Exclusion Criteria: - Nondisabling stroke symptoms (severity too mild) - Symptoms are attributable to a condition other than acute ischemic stroke, specifically autonomicphenomena IV Thrombolytic Therapy Considerations and Discussion: Patient is not eligible for IV thrombolytic therapy due to having the exclusion criteria above, andrisk to benefit is considered unfavorable. IV Thrombolysis Administration Recommendation: Do not administer IV thrombolytic agent. See any additional recommendations below for acute stroke care. Reason for delay in thrombolytic initiated > 30 minutes after hospital arrival: None. Endovascular Therapy Exclusion Criteria: - No evidence of a causative large vessel occlusion on vascular imaging Endovascular Therapy Relative Exclusion Criteria: - NIH Stroke Scale score less than 6 Endovascular Therapy Assessment: - Patient is not a candidate for endovascular acute stroke therapy due to the above exclusion criteria, and risk to benefit is considered unfavorable. Reason for delay in endovascular therapy: None. Patient Has Decision Making Capacity: yes Recommended Disposition of Patient: Remain at current hospital. IMPRESSION: Christina Cuevas II is a 74-year-old male patient with PMH of HTN, DM, prior history of stroke, known atherosclerotic disease. History of diaphoresis. Presenting with an episode of dizziness and generalized weakness improving. Current NIH is 2. Scan of the head with no acute changes. CTA with LVO. Discussed with the patient risks and benefits of TNK, and opted not to give TNK given the low NIH and improving symptoms The patient is already on aspirin and Plavix. Continue. Recommend to continue atorvastatin 80 mg. Take it from there check for underlying infections Obtain MRI of the brain without contrast Further Instructions: - Consult medicine service for further evaluation and management Additional Stroke Care (or Document Contraindication) as Follows: Bedside dysphagia screen; if patient does not pass, maintain NPO and order formal speech evaluation Antithrombotic therapy (ensure appropriate route, eg. PO, NGT, PEG, or [place]) Lab work including CBC, CMP, PT/INR, aPTT Markers of cardiac ischemia (eg. Troponin) and obtain EKG Lipid panel and initiate high intensity statin therapy for LDL goal less than 70 Control blood sugar for goal less than 180, and preferably less than 140, and check HbA1c DVT prophylaxis P.T./O.T./Speech/Rehabilitation consultations Stroke education (contact stroke nurse if necessary) I discussed the results of my evaluation of the patient, the pertinent imaging findings, and the above recommendations with the above named requesting provider. Stroke Telemedicine (Telestroke): Emergency Department Telemedicine (Telestroke): Pre-service diagnostic interpretation including radiologic images. Pre-service communicating with other health professionals and/or family members. Intra-service comprehensive history. Intra-service comprehensive examination. Intra-service high complexity medical decision making. Post-service completing medical records and other documentation. Patient interaction performed via interactive audio and video telecommunication system. documented in this encounter Nursing Notes * Drea Lora RN - 03/16/2024 3:15 PM EDT Appointments: 03/19/2024 at 12:00 PM Daly Morales MD [facility] [phone] 05/03/2024 at 8:00 AM Augustine Rizvi MD Neurology [facility] [phone] [facility] will call you if they can get you in sooner * Gil Leon RN - 03/16/2024 9:06 AM EDT 0845 Pt sitting up in bed with family at bedside. Pt has no complaints voices that symptoms have passed and feels to be at baseline. NIH at this time is 0. Pt informed of plan of care and voices understanding. No further needs at this time, call hernández within reach. * Shanda Hernandez RN - 03/15/2024 6:48 PM EDT Dual Licensed Skin Assessment completed by Grover Hernandez RN and Terrence Solano RN. The patient is/has a N/A Skin Breakdown (includes non blanchable erythema): No * Shanda Hernandez RN - 03/15/2024 6:46 PM EDT 1845: Pt arrived to floor via wheelchair. Ambulated independently to the bathroom. Alert and oriented x4. Bed at low level, call hernández within reach. documented in this encounter ED Notes * Kristan Miller MD - 03/15/2024 2:58 PM EDT HISTORY OF PRESENT ILLNESS: Patient is a 74 year old male presenting with weakness. Patient reports that 1 hour prior to arrival, he was outside using a chainsaw when he developed sudden onset of headache and bilateral arm heaviness. Reports he felt like his "arms were heavy" and he had numbness in the tips of his fingers bilaterally. States that he also developed sudden onset nausea. Denies any chest pain or back pain withthe episode. He is on plavix for a history of CVA, but states he has no deficits from previous strokes. Patient states that his symptoms seemed to improve when EMS arrived, other than persistent nausea and numbness in his bilateral fingers. On arrival to the ER, patient reports he is now having some difficulties moving his left lower extremity. Also complaining of shortness of breath. FSBG on arrival 288. Patient denies any history of DVT or PE. Denies any history of cardiac stents. ROS: as above The patient's allergies, past history, and medications were reviewed. PHYSICAL EXAM: ED Vitals: 03/15/24 1418 03/15/24 1500 03/15/24 1515 03/15/24 1530 BP: 185/71 184/78 158/61 213/102 Pulse: 86 77 87 86 Resp: 18 18 18 18 Temp: 36.3 C (97.3 F) TempSrc: Temporal Artery SpO2: 100% 99% 99% Weight: 63.5 kg (140 lb) Height: 1.753 m (5' 9") 03/15/24 1545 03/15/24 1600 03/15/24 1700 BP: 146/80 177/74 169/69 Pulse: 90 86 78 Resp: Temp: TempSrc: SpO2: 100% 100% Weight: Height: Constitutional: Patient appears in no acute distress. HENT: Head: Normocephalic and atraumatic. Eyes: EOMI, PERRL Mouth/Throat: Mucous membranes moist. Neck: Trachea midline. Neck supple. Cardiovascular: RRR, No murmurs, rubs or gallops. Intact distal pulses. Pulmonary/Chest: No respiratory distress. Breath sounds clear and equal bilaterally. No wheezes or rales. Abdominal: Abdomen soft, no tenderness, rebound or guarding. Musculoskeletal: No edema, tenderness or deformity noted. Skin: Warm and dry. No rash, erythema, pallor or cyanosis Psychiatric: Appropriate mood and affect for situation. Neurological: Facies symmetric. Able to raise eyebrows, close eyes, smile, puff mouth, stick out tongue, move tongue left and right and raise palate symmetrically. Able to shrug shoulders. PERRLA. SILT to forehead below eye and at jawline. Can hear soft nose bilaterally. Good finger to nose. Strength 5/5 in bilateral upper extremities. Strength 3/5 in LLE. SILT throughout bilateral upper and lower extremities. PROCEDURES AND TREATMENTS ED Orders | ED Results MDM: ED Course as of 03/15/24 1754 Olive Mar 15, 2024 1456 Patient presenting with LLE weakness starting 1 hour prior to arrival (1.5 hours in at this point). On plavix for previous CVA. He is within window for TNK, so stroke alert called. Has appreciable weakness in LLE on exam [RP] 1544 Troponin T, High Sensitivity(!): 26 [RP] 1553 CTA Head/CTA Neck Negative for acute pathology [RP] [address] Guille Viveros. She discussed TNK with patient, but patient declined. She ordered MRI brain. Recommends obtaining MRI and then admit for further workup. If MRI is ok, work on BP control. [RP] 1704 BNP, NT-Pro(!): 314 [RP] 1731 MRI Brain without IV contrast IMPRESSION 1. Small acute infarct at the right centrum semiovale. No associated hemorrhage or mass effect. 2. Multiple chronic lacunar infarcts and findings suggesting chronic microvascular ischemic changes, as before. [RP] 1732 Reached back out to neurostroke, Dr. Guille Viveros. She recommends admission for further stroke workup with continuation of the patient's aspirin and Plavix. Recommend permissive hypertension. [RP] ED Course User Index [RP] Kristan Miller MD - Vitals signs showed hypertension - History obtained via patient. History as above. - Chronic conditions affecting care: HTN; HLD; DM-2; CVA; hypothyroidism - Differential diagnoses include, but are not limited to: aortic dissection; CVA; intracranial hemorrhage; ACS; dysrhythmia; electrolyte abnormality; TIA - Order placed for continuous cardiac monitoring. At this time, monitor showed rate of 86 bpm with normal sinus rhythm, per my interpretation. - External medical records reviewed. Family practice office visit note dated 12/13/2023 was reviewed. Patient was seen in their clinic for a perioperative medical examination. He was noted to be hypertensive during his doctor's visit. - EKG reviewed by myself showed normal sinus rhythm. Rate 84 bpm. QT 390. No acute ischemic changes. - Laboratory workup interpreted by myself showed normal WBC; hyponatremia (Na 128); hyperglycemia (glucose 284); elevated troponin (26); normal PT/INR; normal lactate; normal hepatic function; normallipase; normal TSH; elevated BNP (314) - UA negative for infection - CT head wo contrast negative for acute intracranial hemorrhage, per my interpretation. - CTA head/neck negative for acute pathology, per Radiology. - Discussed case with tele stroke physician, Dr. Guille Viveros. Given that the patient was in the T andK window and has focal symptoms concerning for stroke despite his negative imaging, she did discussadministering T and K with the patient. However, he after a discussion of the risks and benefits the patient declined. She recommended obtaining an MRI of the brain. - MRI brain showed a small acute infarct at the right centrum semiovale. - Again discussed patient's case with tele stroke physician. She recommended continuation of the patient's aspirin and Plavix. Recommended admission for further stroke workup, including echocardiogram. Instructed that patient should be allowed to remain permissively hypertensive. - Hospitalist, Dr. Thapa, consulted for admission - Patient admitted to [facility] service for further evaluation and management. ASSESSMENT AND PLAN: Diagnosis: ICD-10-CM 1. Acute CVA (cerebrovascular accident) (HCC) I63.9 2. SOB (shortness of breath) R06.02 3. Left leg weakness R29.898 4. Elevated brain natriuretic peptide (BNP) level R79.89 5. Elevated troponin R79.89 Disposition: admit Kristan Miller MD * Claribel Razo RN - 03/15/2024 2:17 PM EDT Patient states that he was outside using a chainsaw when he developed a headache and bilateral arm heaviness. When EMS arrived his symptoms went away. Patient states that he is now SOB and has right wrist pain. Patient is on Plavix and does have hx of a CVA. Patient BSBS was 288. NIH 0. Patient is Aox4. 18 gauge placed in LAC documented in this encounter Miscellaneous Notes * Ancillary Progress Note - Sarahy Quintanilla RN - 03/16/2024 3:44 PM EDT CARE MANAGEMENT - ADULT DISCHARGE NOTE [facility] [id number] Name: Christina Cuevas II Location: [facility] [id number] Date: 03/16/2024 Time: 4:05 PM The following coordination of care and discharge plan has been coordinated with the care team, patient, family and/or caregiver according to the patients needs and preferences. Discharge Final Discharge Plan (Complete only at time of Discharge): Home - Self Care (03/16/24 1603) Destination - Discharged on 03/16/2024 Admission date: 03/15/2024 - Discharge disposition: Home - Self Care No services have been selected for the patient. Narrative: discharge home with family transport. Patient declines needs/services/HH at discharge atthis time. * Pt Handout (on AVS) - Drea Lora RN - 03/16/2024 2:58 PM EDT [id number] Clopidogrel Brand Name(s): Plavix; also available generically IMPORTANT WARNING: Clopidogrel must be changed to an active form in your body so that it can treat your condition. Some people do not change clopidogrel to its active form in the body as well as other people. Because the medication does not work as well in these people, they may be at a higher risk of having a heart attack or stroke. There are tests available to identify people who have trouble changing clopidogrelto an active form. Talk to your doctor about whether you should be tested. If you are found to havedifficulty converting clopidogrel to its active form, your doctor may change your dose of clopidogrel or tell you not to take clopidogrel. Your doctor or pharmacist will give you the crude tester's patient information sheet (Medication Guide) when you begin treatment with clopidogrel and each time you refill your prescription. Read the information carefully and ask your doctor or pharmacist if you have any questions. You can also visit the Food and Drug Administration (FDA) website (https://www.fda.gov/Drugs/DrugSafety/fhi622744.htm) or the crude tester's website to obtain the Medication Guide. Talk to your doctor about the risks of taking clopidogrel. WHY is this medicine prescribed? Clopidogrel is used alone or with aspirin to prevent serious or life-threatening problems with the heart and blood vessels in people who have had a stroke, heart attack, or severe chest pain. This includes people who have percutaneous coronary intervention (PCI; angioplasty; a type of heart surgery) that may involve inserting coronary stents (metal tubes surgically placed in clogged blood vesselsto improve blood flow) or who have coronary artery bypass grafting (CABG; a type of heart surgery).Clopidogrel is also used to prevent serious or life-threatening problems with the heart and blood vessels in people who have peripheral arterial disease (poor circulation in the blood vessels that supply blood to the legs). Clopidogrel is in a class of medications called antiplatelet medications. It works by preventing platelets (a type of blood cell) from collecting and forming clots that may cause a heart attack or stroke. HOW should this medicine be used? Clopidogrel comes as a tablet to take by mouth. It is usually taken once a day with or without food. Take clopidogrel at around the same time every day. Follow the directions on your prescription label carefully, and ask your doctor or pharmacist to explain any part you do not understand. Take clopidogrel exactly as directed. Do not take more or less of it or take it more often than prescribed byyour doctor. Clopidogrel will help prevent serious problems with your heart and blood vessels only as long as you take the medication. Continue to take clopidogrel even if you feel well. Do not stop taking clopidogrel without talking to your doctor. If you stop taking clopidogrel, there is a higher risk that you may have a heart attack or stroke. If you have a stent, there is also a higher risk that you coulddevelop a blood clot in the stent if you stop taking clopidogrel too soon. Are there OTHER USES for this medicine? Clopidogrel is also sometimes used to prevent blood clots in people with atrial fibrillation (a condition in which the heart beats irregularly). Talk to your doctor about the possible risks of using this medication for your condition. This medication may be prescribed for other uses; ask your doctor or pharmacist for more information. What SPECIAL PRECAUTIONS should I follow? Before taking clopidogrel, tell your doctor and pharmacist if you are allergic to clopidogrel, prasugrel (Effient), ticlopidine, any other medications, or any ingredient in clopidogrel tablets. Ask your pharmacist or check the Medication Guide for a list of the ingredients. tell your doctor and pharmacist what other prescription and nonprescription medications, vitamins, nutritional supplements, and herbal products you are taking or plan to take while taking clopidogrel. Your doctor may need to change the doses of your medications or monitor you carefully for side effects. . The following nonprescription products may interact with clopidogrel: omeprazole (Prilosec, Prilosec OTC, Zegerid); esomeprazole (Nexium); aspirin and other nonsteroidal anti-inflammatory drugs (NSAIDs) such as ibuprofen (Advil, Motrin) and naproxen (Aleve, Naprosyn). Be sure to let your doctor and pharmacist know that you are taking these medications before you start taking clopidogrel. Do not start any of these medications while taking clopidogrel without discussing with your healthcare provider. tell your doctor if you have bleeding ulcers (sores in the lining of the stomach or small intestine that are bleeding), bleeding in the brain, or any other condition that causes severe bleeding. Your doctor may tell you that you should not take clopidogrel. tell your doctor if you have recently been injured and if you have or have ever had liver or kidney disease or any condition that may cause bleeding, including stomach problems such as ulcers. tell your doctor if you are , plan to become , or are breast- feeding. If you become while taking clopidogrel, call your doctor. if you are having surgery, including dental surgery, tell the doctor or dentist that you are taking clopidogrel. Your doctor may tell you to stop taking clopidogrel at least 5 days prior to your surgery to avoid excessive bleeding during surgery. Your doctor will tell you when to start taking clopidogrel again after your surgery. you should know that you may bleed more easily or for a longer time than usual while you are taking clopidogrel. Be careful not to cut or hurt yourself while you are taking clopidogrel. What SPECIAL DIETARY instructions should I follow? Unless your doctor tells you otherwise, continue your normal diet. What should I do IF I FORGET to take a dose? Take the missed dose as soon as you remember it. However, if it is almost time for the next dose, skip the missed dose and continue your regular dosing schedule. Do not take a double dose to make up for a missed one. What SIDE EFFECTS can this medicine cause? Clopidogrel may cause side effects. Tell your doctor if any of these symptoms are severe or do not go away: excessive tiredness headache dizziness nausea vomiting stomach pain diarrhea nosebleed Some side effects can be serious. If you experience any of the following symptoms, call your doctor immediately: hives rash itching difficulty breathing or swallowing swelling of the face, throat, tongue, lips, eyes, hands, feet, ankles, or lower legs hoarseness black and tarry stools red blood in stools bloody vomit vomit that looks like coffee grounds unusual bleeding or bruising pink or brown urine slow or difficult speech weakness or numbness of an arm or a leg changes in vision fever shortness of breath fast heartbeat pale skin purple patches or bleeding under the skin confusion yellowing of the skin or eyes seizures Clopidogrel may cause other side effects. Call your doctor if you have any unusual problems while taking this medication. If you experience a serious side effect, you or your doctor may send a report to the Food and Drug Administration's (FDA) MedWatch Adverse Event Reporting program online (http://www.fda.gov/Safety/MedWatch) or by phone ( ). What should I know about STORAGE and DISPOSAL of this medication? Keep this medication in the container it came in, tightly closed, and out of reach of children. Store it at room temperature and away from excess heat and moisture (not in the bathroom). Unneeded medications should be disposed of in special ways to ensure that pets, children, and otherpeople cannot consume them. However, you should not flush this medication down the toilet. Instead,the best way to dispose of your medication is through a medicine take-back program. Talk to your pharmacist or contact your local garbage/recycling department to learn about take-back programs in your community. See the FDA's Safe Disposal of Medicines website (http://goo.gl/c4Rm4p) for more information if you do not have access to a take- back program. It is important to keep all medication out of sight and reach of children as many containers (such as weekly pill minders and those for eye drops, creams, patches, and inhalers) are not child-resistant and young children can open them easily. To protect young children from poisoning, always lock safety caps and immediately place the medication in a safe location - one that is up and away and out of their sight and reach. http://www.upandaway.org What should I do in case of OVERDOSE? In case of overdose, call the poison control helpline at . Information is also available online at https://www.poisonhelp.org/help. If the victim has collapsed, had a seizure, has trouble breathing, or can't be awakened, immediately call emergency services at 021. Symptoms of overdose may include the following: unusual bruising or bleeding What OTHER INFORMATION should I know? Keep all appointments with your doctor. Do not let anyone else take your medication. Ask your pharmacist any questions you have about refilling your prescription. It is important for you to keep a written list of all of the prescription and nonprescription (agcl-stb-zgrmfos) medicines you are taking, as well as any products such as vitamins, minerals, or otherdietary supplements. You should bring this list with you each time you visit a doctor or if you areadmitted to a hospital. It is also important information to carry with you in case of emergencies. This report on medications is for your information only, and is not considered individual patient advice. Because of the changing nature of drug information, please consult your physician or pharmacist about specific clinical use. [employer] represents that the information provided hereunder was formulated with a reasonable standard of care, and in conformity with professional standards in the field. [employer] makes no representations or warranties, express or implied, including, but not limited to, any implied warranty of merchantability and/or fitness for a particular purpose, with respect to such information and specifically disclaims all such warranties. Users are advised that decisions regarding drug therapy are complex medical decisions requiring the independent, informed decision of an appropriate health hearing care practitioner, and the information is provided for informational purposes only. The entire monograph for a drug should be reviewed for a thorough understanding of the drug's actions, uses and side effects. [employer] does not endorse or recommend the use of any drug.The information is not a substitute for medical care. [facility] Patient Medication Information?. Copyright, 2023. [employer], [facility], [address], [place], [place]. All Rights Reserved. Duplication for commercial use must be authorized by [facility]. Selected Revisions: January 12, 2024. [facility] Patient Medication Information?. Copyright, 2023 * Pt Handout (on AVS) - Drea Lora RN - 03/16/2024 2:58 PM EDT [id number] Atorvastatin Brand Name(s): Atorvaliq, Lipitor, Caduet (as a combination product containing Amlodipine, Atorvastatin), Lipqozet (as a combination product containing Atorvastatin, Ezetimibe), Liptruzet (as a combination product containing Atorvastatin, Ezetimibe); also available generically WHY is this medicine prescribed? Atorvastatin is used together with diet, weight loss, and exercise to reduce the risk of heart attack and stroke and to decrease the chance that heart surgery will be needed in people who have heart disease or who are at risk of developing heart disease. Atorvastatin is also used to decrease the amount of fatty substances such as low-density lipoprotein (LDL) cholesterol ('bad cholesterol') and triglycerides in the blood and to increase the amount of high-density lipoprotein (HDL) cholesterol ('good cholesterol') in the blood. Atorvastatin may also be used to decrease the amount of cholesterol and other fatty substances in the blood in children and teenagers 10 to 17 years of age who have familial heterozygous hypercholesterolemia (an inherited condition in which cholesterol cannot be removed from the body normally). Atorvastatin is in a class of medications called HMG-CoA reductase inhibitors (statins). It works by slowing the production of cholesterol in the body to decrease the amount of cholesterol that may build up on the lynn of the arteries and block blood flow to the heart,brain, and other parts of the body. Accumulation of cholesterol and fats along the lynn of your arteries (a process known as atherosclerosis) decreases blood flow and, therefore, the oxygen supply to your heart, brain, and other partsof your body. Lowering your blood level of cholesterol and fats with atorvastatin has been shown toprevent heart disease, angina (chest pain), strokes, and heart attacks. HOW should this medicine be used? Atorvastatin comes as a tablet and suspension (liquid) to take by mouth. The tablet is usually taken once a day with or without food. The suspension is usually taken once a day on an empty stomach (at least 1 hour before or 2 hours after a meal).Take atorvastatin at around the same time every day. Follow the directions on your prescription label carefully, and ask your doctor or pharmacist to explain any part you do not understand. Take atorvastatin exactly as directed. Do not take more or lessof it or take it more often than prescribed by your doctor. Your doctor may start you on a low dose of atorvastatin and gradually increase your dose, not more than once every 2 to 4 weeks. If you are taking the suspension, do not use a household spoon to measure your dose. Use a properlymarked measuring device such as a medicine spoon or oral syringe. Ask your doctor or pharmacist if you need help getting or using a measuring device. Continue to take atorvastatin even if you feel well. Do not stop taking atorvastatin without talking to your doctor. Are there OTHER USES for this medicine? This medication may be prescribed for other uses; ask your doctor or pharmacist for more information. What SPECIAL PRECAUTIONS should I follow? Before taking atorvastatin, tell your doctor and pharmacist if you are allergic to atorvastatin, any other medications, or any of the ingredients in atorvastatin tablets and suspension. Ask your pharmacist for a list of the ingredients. Tell your doctor and pharmacist what prescription and nonprescription medications, vitamins, nutritional supplements, and herbal products you are taking or plan to take while taking atorvastatin. Your doctor may need to change the doses of your medications or monitor you carefully for side effects. The following nonprescription products may interact with atorvastatin: cimetidine (Tagamet), andniacin. Be sure to let your doctor and pharmacist know that you are taking these medications beforeyou start taking atorvastatin. Do not start any of these medications while taking atorvastatin without discussing with your healthcare provider. tell your doctor if you have or ever had liver disease. Your doctor will order laboratory tests to see how well your liver is working even if you do not think you have liver disease. Your doctor will probably tell you not to take atorvastatin if you have liver disease or if the tests show you may be developing liver disease. tell your doctor if you drink more than 2 alcoholic beverages daily, if you are 65 years of age or older, and if you have or have ever had muscle aches or weakness, diabetes, seizures, low blood pressure, or thyroid or kidney disease. tell your doctor if you are or plan to become . If you become while taking atorvastatin, stop taking atorvastatin and call your doctor immediately. Atorvastatin may harm the fetus. tell your doctor if you are or plan to breastfeed. You should not breastfeed whileyou are taking this medication. if you are having surgery, including dental surgery, tell the doctor or dentist that you are taking atorvastatin. If you are hospitalized due to serious injury or infection, tell the doctor who treats you that you are taking atorvastatin. ask your doctor about the safe use of alcoholic beverages while you are taking atorvastatin. Alcohol can increase the risk of serious side effects. What SPECIAL DIETARY instructions should I follow? Eat a low-fat, low-cholesterol diet. Be sure to follow all exercise and dietary recommendations made by your doctor or dietitian. You can also visit the National Cholesterol Education Program (NCEP) website for additional dietary information at http://www.nhlbi.nih.gov/health/public/heart/chol/chol_tlc.pdf. Avoid drinking large amounts [more than 1.2 liter (approximately 1 quart) per day] of grapefruit juice while taking atorvastatin. What should I do IF I FORGET to take a dose? If you miss a dose of the tablet, skip the missed dose and continue your regular dosing schedule. Do not take a double dose to make up for a missed one. If you miss a dose of the suspension, take the missed dose as soon as you remember it. However, if it is less than 12 hours until your next scheduled dose, skip the missed dose and continue your regular dosing schedule. Do not take a double dose to make up for a missed one. What SIDE EFFECTS can this medicine cause? Atorvastatin may cause side effects. Tell your doctor if any of these symptoms are severe or do notgo away: diarrhea heartburn gas joint pain forgetfulness or memory loss confusion Some side effects can be serious. The following symptoms are uncommon, but if you experience anyof them, call your doctor or get emergency medical help immediately: muscle pain, tenderness, or weakness lack of energy fever chest pain nausea extreme tiredness weakness unusual bleeding or bruising loss of appetite pain in the upper right part of the stomach flu-like symptoms dark colored urine yellowing of the skin or eyes rash hives itching difficulty breathing or swallowing swelling of the face, throat, tongue, lips, eyes, hands, feet, ankles, or lower legs hoarseness Atorvastatin may cause other side effects. Call your doctor if you have any unusual problems while taking this medication. If you experience a serious side effect, you or your doctor may send a report to the Food and Drug Administration's (FDA) MedWatch Adverse Event Reporting program online (http://www.fda.gov/Safety/MedWatch) or by phone ( ). What should I know about STORAGE and DISPOSAL of this medication? Keep this medication in the container it came in, tightly closed, and out of reach of children. Store it at room temperature and away from excess heat and moisture (not in the bathroom). Unneeded medications should be disposed of in special ways to ensure that pets, children, and otherpeople cannot consume them. However, you should not flush this medication down the toilet. Instead,the best way to dispose of your medication is through a medicine take-back program. Talk to your pharmacist or contact your local garbage/recycling department to learn about take-back programs in your community. See the FDA's Safe Disposal of Medicines website (http://goo.gl/c4Rm4p) for more information if you do not have access to a take- back program. It is important to keep all medication out of sight and reach of children as many containers (such as weekly pill minders and those for eye drops, creams, patches, and inhalers) are not child-resistant and young children can open them easily. To protect young children from poisoning, always lock safety caps and immediately place the medication in a safe location - one that is up and away and out of their sight and reach. http://www.upandaway.org What should I do in case of OVERDOSE? In case of overdose, call the poison control helpline at . Information is also available online at https://www.poisonhelp.org/help. If the victim has collapsed, had a seizure, has trouble breathing, or can't be awakened, immediately call emergency services at 299. What OTHER INFORMATION should I know? Keep all appointments with your doctor and the laboratory. Your doctor may order certain lab tests during your treatment , especially if you develop symptoms of liver damage. Before having any laboratory test, tell your doctor and the laboratory personnel that you are taking atorvastatin. Do not let anyone else take your medication. Ask your pharmacist any questions you have about refilling your prescription. It is important for you to keep a written list of all of the prescription and nonprescription (ygmu-hjc-vazihmd) medicines you are taking, as well as any products such as vitamins, minerals, or otherdietary supplements. You should bring this list with you each time you visit a doctor or if you areadmitted to a hospital. It is also important information to carry with you in case of emergencies. This report on medications is for your information only, and is not considered individual patient advice. Because of the changing nature of drug information, please consult your physician or pharmacist about specific clinical use. [employer] represents that the information provided hereunder was formulated with a reasonable standard of care, and in conformity with professional standards in the field. [employer] makes no representations or warranties, express or implied, including, but not limited to, any implied warranty of merchantability and/or fitness for a particular purpose, with respect to such information and specifically disclaims all such warranties. Users are advised that decisions regarding drug therapy are complex medical decisions requiring the independent, informed decision of an appropriate health hearing care practitioner, and the information is provided for informational purposes only. The entire monograph for a drug should be reviewed for a thorough understanding of the drug's actions, uses and side effects. [employer] does not endorse or recommend the use of any drug.The information is not a substitute for medical care. [facility] Patient Medication Information?. Copyright, 2023. [employer], [facility], [address], [place], [place]. All Rights Reserved. Duplication for commercial use must be authorized by [facility]. Selected Revisions: February 11, 2024. [facility] Patient Medication Information?. Copyright, 2023 * Pt Handout (on AVS) - Drea Lora RN - 03/16/2024 2:58 PM EDT [id number] Aspirin Brand Name(s): Acuprin, Anacin Aspirin Regimen, Ascriptin, Aspergum, Aspidrox, Aspir-Mox, Aspirtab, Aspir-sondra, Aleshia Aspirin, Bufferin, Buffex, Easprin, Ecotrin, Empirin,Entaprin, Entercote, Fasprin, Genacote, Gennin-FC, Genprin, Halfprin, Magnaprin, Miniprin, Minitabs, Ridiprin, Sloprin, Uni-Buff, Uni-Tren, Valomag, Zorprin, Tammie-Mcgraw (as a combination product containing Aspirin, Citric Acid, Sodium Bicarbonate), Tammie-SeltzerExtra Strength (as a combination product containing Aspirin, Citric Acid, Sodium Bicarbonate), Tammie-Mcgraw Morning Relief (as a combination product containing Aspirin, Caffeine), Tammie-Mcgraw Plus Flu (as a combination product containing Aspirin, Chlorpheniramine, Dextromethorphan), Tammie-Mcgraw PM (as a combination product containing Aspirin, Diphenhydramine), Alor (as a combination product containing Aspirin, Hydrocodone), Anacin (as a combination product containing Aspirin, Caffeine), Anacin Advanced Headache Formula (as a combination product containing Acetaminophen, Aspirin,Caffeine), Aspircaf (as a combination product containing Aspirin, Caffeine), Axotal (as a combination product containing Aspirin, Butalbital), Azdone (as a combination product containing Aspirin, Hydrocodone), [employer] Aspirin Plus Calcium (as a combination product containing Aspirin, Calcium Carbonate), [employer] Aspirin PM (as a combination product containing Aspirin, Diphenhydramine), [employer] Back and Body Pain (as a combination product containing Aspirin, Caffeine), BC Headache (as a combination product containing Aspirin, Caffeine, Salicylamide), BC Powder (as a combination product containing Aspirin, Caffeine, Salicylamide), Damason-P (as a combination product containing Aspirin,Hydrocodone), Emagrin (as a combination product containing Aspirin, Caffeine, Salicylamide), Endodan (as a combination product containing Aspirin, Oxycodone), Equagesic (as a combination product containing Aspirin, Meprobamate), Excedrin (as a combination product containing Acetaminophen, Aspirin, Caffeine), Excedrin Back & Body (as a combination product containing Acetaminophen, Aspirin), Goody's Body Pain (as a combination product containing Acetaminophen, Aspirin), Levacet (as a combination product containing Acetaminophen, Aspirin, Caffeine, Salicylamide), Lortab ASA (as a combination product containing Aspirin, Hydrocodone), Micrainin (as a combination product containing Aspirin, Meprobamate), Momentum (as a combination product containing Aspirin, Phenyltoloxamine), Norgesic (as a combination product containing Aspirin, Caffeine, Orphenadrine), Orphengesic (as a combination product containing Aspirin, Caffeine, Orphenadrine), Panasal (as a combination product containing Aspirin, Hydrocodone), Percodan (as a combination product containing Aspirin, Oxycodone), Robaxisal (as a combination product containing Aspirin, Methocarbamol), Roxiprin (as a combination product containing Aspirin, Oxycodone), Saleto (as a combination product containing Acetaminophen, Aspirin, Caffeine, Salicylamide), Soma Compound (as a combination product containing Aspirin, Carisoprodol), Soma Compound with Codeine (as a combination product containing Aspirin, Carisoprodol, Codeine), Supac (as a combination product containing Acetaminophen, Aspirin, Caffeine), Synalgos-DC (as a combination product containing Aspirin, Caffeine, Dihydrocodeine), Talwin Compound (as a combination product containing Aspirin, Pentazocine), Vanquish (as a combinationproduct containing Acetaminophen, Aspirin, Caffeine); also available generically WHY is this medicine prescribed? Prescription aspirin is used to relieve the symptoms of rheumatoid arthritis (arthritis caused by swelling of the lining of the joints), osteoarthritis (arthritis caused by breakdown of the lining ofthe joints), systemic lupus erythematosus (condition in which the immune system attacks the joints and organs and causes pain and swelling) and certain other rheumatologic conditions (conditions in which the immune system attacks parts of the body). Nonprescription aspirin is used to reduce fever and to relieve mild to moderate pain from headaches, menstrual periods, arthritis, toothaches, and muscle aches. Nonprescription aspirin is also used to prevent heart attacks in people who have had a heart attack in the past or who have angina (chest pain that occurs when the heart does not get enough oxygen). Nonprescription aspirin is also used to reduce the risk of in people who are experiencing or who have recently experienced a heart attack. Nonprescription aspirin is also used to prevent ischemic strokes (strokes that occur when a blood clot blocks the flow of blood to the brain) ormini-strokes (strokes that occur when the flow of blood to the brain is blocked for a short time) in people who have had this type of stroke or mini-stroke in the past. Aspirin will not prevent hemorrhagic strokes (strokes caused by bleeding in the brain). Aspirin is in a group of medications called salicylates. It works by stopping the production of certain natural substances that cause fever, pain, swelling, and blood clots. Aspirin is also available in combination with other medications such as antacids, pain relievers, and cough and cold medications. This monograph only includes information about the use of aspirin alone. If you are taking a combination product, read the information on the package or prescription label or ask your doctor or pharmacist for more information. HOW should this medicine be used? Prescription aspirin comes as an extended-release (long-acting) tablet. Nonprescription aspirin comes as a regular tablet, a delayed-release (releases the medication in the intestine to prevent damage to the stomach) tablet, a chewable tablet, powder, and a gum to take by mouth. Prescription aspirin is usually taken two or more times a day. Nonprescription aspirin is usually taken once a day to lower the risk of a heart attack or stroke. Nonprescription aspirin is usually taken every 4 to 6 hours as needed to treat fever or pain. Follow the directions on the package or prescription label carefully, and ask your doctor or pharmacist to explain any part you do not understand. Take aspirin exactly as directed. Do not take more or less of it or take it more often than directed by the package label or prescribed by your doctor. Swallow the extended-release tablets whole with a full glass of water. Do not break, crush, or chewthem. Swallow the delayed-release tablets with a full glass of water. Chewable aspirin tablets may be chewed, crushed, or swallowed whole. Drink a full glass of water, immediately after taking these tablets. Ask a doctor before you give aspirin to your child or teenager. Aspirin may cause Linus's syndrome (a serious condition in which fat builds up on the brain, liver, and other body organs) in children and teenagers, especially if they have a virus such as chicken pox or the flu. If you have had oral surgery or surgery to remove your tonsils in the last 7 days, talk to your doctor about which types of aspirin are safe for you. Delayed-release tablets begin to work some time after they are taken. Do not take delayed-release tablets for fever or pain that must be relieved quickly. Stop taking aspirin and call your doctor if your fever lasts longer than 3 days, if your pain lastslonger than 10 days, or if the part of your body that was painful becomes red or swollen. You may have a condition that must be treated by a doctor. Are there OTHER USES for this medicine? Aspirin is also sometimes used to treat rheumatic fever (a serious condition that may develop aftera strep throat infection and may cause swelling of the heart valves) and Kawasaki disease (an illness that may cause heart problems in children). Aspirin is also sometimes used to lower the risk of blood clots in patients who have artificial heart valves or certain other heart conditions and to prevent certain complications of . What SPECIAL PRECAUTIONS should I follow? Before taking aspirin, tell your doctor and pharmacist if you are allergic to aspirin, other medications for pain or fever, tartrazine dye, or any other medications. tell your doctor and pharmacist what prescription and nonprescription medications, vitamins, nutritional supplements, and herbal products you are taking or plan to take. Be sure to mention any of the following: acetazolamide (Diamox); angiotensin-converting enzyme (LAURA) inhibitors such as benazepril (Lotensin), captopril (Capoten), enalapril (Vasotec), fosinopril (Monopril), lisinopril (Prinivil, Zestril), moexipril (Univasc), perindopril, (Aceon), quinapril (Accupril), ramipril (Altace), and trandolapril (Mavik); anticoagulants ('blood thinners') such as warfarin (Coumadin) and heparin; beta blockers such as atenolol (Tenormin), labetalol (Normodyne), metoprolol (Lopressor, Toprol XL), nadolol (Corgard), and propranolol (Inderal); diuretics ('water pills'); medications for diabetes orarthritis; medications for gout such as probenecid and sulfinpyrazone (Anturane); methotrexate (Trexall); other nonsteroidal anti-inflammatory drugs (NSAIDs) such as naproxen (Aleve, Naprosyn); phenytoin (Dilantin); and valproic acid (Depakene, Depakote). Your doctor may need to change the doses ofyour medications or monitor you more carefully for side effects. if you are taking aspirin on a regular basis to prevent heart attack or stroke, do not take ibuprofen (Advil, Motrin) to treat pain or fever without talking to your doctor. Your doctor will probably tell you to allow some time to pass between taking your daily dose of aspirin and taking a dose of ibuprofen. tell your doctor if you have or have ever had asthma, frequent stuffed or runny nose, or nasal polyps (growths on the linings of the nose). If you have these conditions, there is a risk that you will have an allergic reaction to aspirin. Your doctor may tell you that you should not take aspirin. tell your doctor if you often have heartburn, upset stomach, or stomach pain and if you have or have ever had ulcers, anemia, bleeding problems such as hemophilia, or kidney or liver disease. tell your doctor if you are , you plan to become , or if you are breast-feeding.Low dose aspirin 81-mg may be taken during , but aspirin doses greater that 81 mg may harmthe fetus and cause problems with delivery if it is taken around 20 weeks or later during . Do not take aspirin doses greater that 81 mg (e.g., 325 mg) around or after 20 weeks of ,unless told to do so by your doctor. If you become while taking aspirin or aspirin containing medications, call your doctor. if you are having surgery, including dental surgery, tell the doctor or dentist that you are taking aspirin. if you drink three or more alcoholic drinks every day, ask your doctor if you should take aspirin or other medications for pain and fever. What SPECIAL DIETARY instructions should I follow? Unless your doctor tells you otherwise, continue your normal diet. What should I do IF I FORGET to take a dose? If your doctor has told you to take aspirin on a regular basis and you miss a dose, take the misseddose as soon as you remember it. However, if it is almost time for the next dose, skip the missed dose and continue your regular dosing schedule. Do not take a double dose to make up for a missed one. What SIDE EFFECTS can this medicine cause? Aspirin may cause side effects. Tell your doctor if any of these symptoms are severe or do not go away: nausea vomiting stomach pain heartburn Some side effects can be serious. If you experience any of the following symptoms, call your doctor immediately: hives rash swelling of the eyes, face, lips, tongue, or throat wheezing or difficulty breathing hoarseness fast heartbeat fast breathing cold, clammy skin ringing in the ears loss of hearing bloody vomit vomit that looks like coffee grounds bright red blood in stools black or tarry stools Aspirin may cause other side effects. Call your doctor if you experience any unusual problems whileyou are taking this medication. If you experience a serious side effect, you or your doctor may send a report to the Food and Drug Administration's (FDA) MedWatch Adverse Event Reporting program online (http://www.fda.gov/Safety/MedWatch) or by phone ( ). What should I know about STORAGE and DISPOSAL of this medication? Keep this medication in the container it came in, tightly closed, and out of reach of children. Store it at room temperature and away from excess heat and moisture (not in the bathroom). Dispose of any tablets that have a strong vinegar smell. It is important to keep all medication out of sight and reach of children as many containers (such as weekly pill minders and those for eye drops, creams, patches, and inhalers) are not child-resistant and young children can open them easily. To protect young children from poisoning, always lock safety caps and immediately place the medication in a safe location - one that is up and away and out of their sight and reach. http://www.[employer].org Unneeded medications should be disposed of in special ways to ensure that pets, children, and otherpeople cannot consume them. However, you should not flush this medication down the toilet. Instead,the best way to dispose of your medication is through a medicine take-back program. Talk to your pharmacist or contact your local garbage/recycling department to learn about take-back programs in your community. See the FDA's Safe Disposal of Medicines website (http://goo.gl/c4Rm4p) for more information if you do not have access to a take- back program. What should I do in case of OVERDOSE? In case of overdose, call the poison control helpline at . Information is also available online at https://www.poisonhelp.org/help. If the victim has collapsed, had a seizure, has trouble breathing, or can't be awakened, immediately call emergency services at 911. Symptoms of overdose may include: burning pain in the throat or stomach vomiting decreased urination fever restlessness irritability talking a lot and saying things that do not make sense fear or nervousness dizziness double vision uncontrollable shaking of a part of the body confusion abnormally excited mood hallucination (seeing things or hearing voices that are not there) seizures drowsiness loss of consciousness for a period of time What OTHER INFORMATION should I know? Keep all appointments with your doctor. If you are taking prescription aspirin, do not let anyone else take your medication. Ask your pharmacist any questions you have about refilling your prescription. It is important for you to keep a written list of all of the prescription and nonprescription (abjr-ekl-txpsugu) medicines you are taking, as well as any products such as vitamins, minerals, or otherdietary supplements. You should bring this list with you each time you visit a doctor or if you areadmitted to a hospital. It is also important information to carry with you in case of emergencies. This report on medications is for your information only, and is not considered individual patient advice. Because of the changing nature of drug information, please consult your physician or pharmacist about specific clinical use. The [employer] represents that the information provided hereunder was formulated with a reasonable standard of care, and in conformity with professional standards in the field. The [employer] makes no representations or warranties, express or implied, including, but not limited to, any implied warranty of merchantability and/or fitness for a particular purpose, with respect to such information and specifically disclaims all such warranties. Users are advised that decisions regarding drug therapy are complex medical decisions requiring the independent, informed decision of an appropriate health hearing care practitioner, and the information is provided for informational purposes only. The entire monograph for a drug should be reviewed for a thorough understanding of the drug's actions, uses and side effects. The [employer] does not endorse or recommend the use of any drug.The information is not a substitute for medical care. [facility] Patient Medication Information?. Copyright, 2023. [employer], [facility], [address], [place], [place]. All Rights Reserved. Duplication for commercial use must be authorized by [facility]. Selected Revisions: December 06, 2020. [facility] Patient Medication Information?. Copyright, 2023 * Pt Handout (on AVS) - Drea Lora RN - 03/16/2024 2:57 PM EDT 68151 Discharge Instructions for Stroke You have a high risk for a stroke, or a TIA (transient ischemic attack). During a stroke, blood stops flowing to part of your brain. This can damage areas in the brain that control other parts of thebody. Symptoms from a stroke depend on which part of the brain has been affected. Stroke risk factors Once you?ve had a stroke, you?re at greater risk for another one. Listed below are some other factors that can raise your risk for a stroke: High blood pressure High cholesterol Cigarette or cigar smoking Diabetes Carotid or other artery disease Atrial fibrillation, atrial flutter, or other heart disease Not being physically active Obesity Certain blood disorders, such as sickle cell anemia Drinking too much alcohol Abusing street drugs Race Gender Family history of stroke Diet high in salty, fried, or greasy foods Changes in daily living Doing some everyday tasks may be hard after you?ve had a stroke. But you can learn new ways to manage. In fact, doing daily activities may help you to regain muscle strength. This can help your affected arm or leg work more normally. Be patient. Give yourself time to adjust. And appreciate the progress you make. Daily activities You may be at risk of falling. Make changes to your home to help you walk more easily. A therapist will decide if you need an assistive device, such as a cane or walker, to walk safely. You may need to see an occupational therapist (OT). Or you may see a physical therapist (PT). Thesehealthcare providers can help you to learn new ways of doing things. For example, you may need to make changes in how you bathe or dress. You may also need a speech therapist. This is someone who helps you speak normally again and be able to swallow. Tips for showering or bathing Test the water temperature with a hand or foot that was not affected by the stroke. Use grab bars, a shower seat, a handheld showerhead, and a long-handled brush. Use any other device as advised by your therapists. Tips for getting dressed Dress while sitting, starting with the affected side or limb. Wear shirts that pull easily over your head. Wear pants or skirts with elastic waistbands. Use zippers with loops attached to the pull tabs. Lifestyle changes Take your medicines exactly as directed. Don?t skip doses. Begin an exercise program. Ask your provider how to get started. Ask how much activity you should try to get every day or week. You can benefit from simple activities such as walking or gardening. Limit how much alcohol you drink. Control your cholesterol level. Follow your provider?s advice about how to do this. If you are a smoker, quit now. Join a stop-smoking program to improve your chances of success. Ask your provider about medicines or other methods to help you quit. Learn stress management methods. These can help you deal with stress in your home and work life. Diet Your healthcare provider will guide you on changes you may need to make to your diet. They may advise that you see a registered dietitian for help with changes. The changes can improve your cholesterol, blood pressure, and blood sugar. Changes may include: Reducing the amount of fat and cholesterol you eat Reducing the amount of salt (sodium) in your diet, especially if you have high blood pressure Eating more vegetables and fruits Eating more lean proteins, such as fish, poultry, and beans and peas (legumes) Eating less red meat and processed meats Using low-fat dairy products Limiting vegetable oils and nut oils Limiting sweets and processed foods such as chips, cookies, and baked goods Not eating trans fats. These are often found in processed foods. Don't eat any food that has hydrogenated oils listed in its ingredients. Follow-up care Keep your medical appointments. Close follow-up is important to stroke rehabilitation and recovery. Some medicines require blood tests to check for progress or problems. Keep follow-up appointments for any blood tests ordered by your providers. Call 911 Call 911 right away if you have any of the following symptoms of stroke: Weakness, tingling, or loss of feeling on one side of your face or body Sudden double vision or trouble seeing in one or both eyes Sudden trouble talking or slurred speech Trouble understanding others Sudden, severe headache Dizziness, loss of balance, or a sense of falling Blackouts or seizures B.E. F.A.S.T. is an easy way to remember the signs of stroke. When you see these signs, you know that you need to call 911 fast. Baljit Norris stands for: B is for balance. Sudden loss of balance or coordination. E is for eyes. Vision changes in one or both eyes. F is for face drooping. One side of the face is drooping or numb. When the person smiles, the smile is uneven. A is for arm weakness. One arm is weak or numb. When the person lifts both arms at the same time, one arm may drift downward. S is for speech difficulty. You may notice slurred speech or trouble speaking. The person can't repeat a simple sentence correctly when asked. T is for time to call 911. If someone shows any of these symptoms, even if they go away, call 911 right away. Make note of the time the symptoms first appeared. Last Reviewed Date: 12/23/202119999786-9488 [employer]. All rights reserved. This information is not intended as a substitute for professional medical care. Always follow your healthcare professional's instructions. * Pt Handout (on AVS) - Drea Lora RN - 03/16/2024 2:57 PM EDT Images from the original note were not included. [address]002 Symptoms of a Stroke During a stroke, blood stops flowing to part of the brain. This can damage areas in the brain that control the rest of the body. A stroke can happen to anyone at any age. Call 911 and get help right away if any of these symptoms come on suddenly, even if the symptoms don?t last. Know the symptoms of a stroke A sudden feeling of weakness on one side of your body may be a sign that you are having a stroke. Weakness. You may feel a sudden weakness, tingling, or a loss of feeling on one side of your face or body including your arm or leg. Vision problems. You may have sudden double vision or trouble seeing in one or both eyes. Speech problems. You may have sudden trouble talking, slurred speech, or problems understanding others. Headache. You may have a sudden, severe headache. Movement problems. You may have sudden trouble walking, dizziness, a feeling of spinning, a lossof balance, a feeling of falling, or blackouts. Seizure. You may also have a seizure as the first symptom of a stroke. When to call 911 Remember: If you have any of these symptoms, or if someone you are with has these symptoms, call 911 as soon as [address] Never drive yourself or the victim. The ambulance can alert the hospital and start treatment. B.E. F.A.S.T. is an easy way to remember the signs of a stroke. When you see these signs, you will know that you need to call 911 fast. B.E. F.A.S.T. stands for: B is for balance. Sudden loss of balance or coordination. E is for eyes. Vision changes in one or both eyes. F is for face drooping. One side of the face is drooping or numb. When the person smiles, the smile is uneven. A is for arm weakness. One arm is weak or numb. When the person lifts both arms at the same time, one arm may drift downward. S is for speech difficulty. You may notice slurred speech or difficulty speaking. The person can't repeat a simple sentence correctly when asked. T is for time to dial 911. If someone shows any of these symptoms, even if they go away, call 911 right away. Make note of the time the symptoms first appeared. Last Reviewed Date: 01/22/202219999874-5563 [employer]. All rights reserved. This information is not intended as a substitute for professional medical care. Always follow your healthcare professional's instructions. * Pt Handout (on AVS) - Drea Lora RN - 03/16/2024 2:56 PM EDT Images from the original note were not included. [address] Stroke: Taking Medicines Your healthcare provider has given you medicines to reduce the risk of a stroke. For them to be most effective, take them as prescribed. This sheet explains why and how to take your medicines. How your medicines help you They make you feel better so you can do more things you enjoy. They keep your blood from clotting, which helps to prevent stroke. Types of medicines Many types of medicines can help prevent stroke. You may be prescribed 1 or more of these: Blood-thinner (anticoagulant) medicines help prevent blood clots from forming. If you take a blood thinner, you may need regular blood tests. Antiplatelets such as aspirin or clopidogrel are prescribed for many people who have had a stroke. They make blood clots less likely to form. Aspirin is available over the counter. Blood pressure medicines help lower high blood pressure. You may need to take more than 1 blood pressure medicine. Cholesterol-lowering medicines make plaque less likely to build up in your artery lynn, which can decrease the risk for stroke. Heart medicines can treat certain heart problems that increase your risk for stroke. Diabetes medicines adjust blood sugar levels. This can prevent problems that lead to stroke. Know which medicines you take To help keep my blood from clotting, I take: To keep my blood pressure lower so it?s easier for my heart to pump, I take: Tips for taking medicines Below are tips for taking medicine. Keep in mind that most medicines need to be taken every day. This means even when you feel fine. Ask your provider if you need to stay away from certain foods or alcohol. Also tell your provider if you have problems affording medicine. Have a routine. Take medicine at the same time each day. Use reminders to help stay on track. Some people find using a pill box to organize medicines helpful for this. Take all your medicines. Some work best when used with others. Don?t take 1 type and skip another. Plan ahead. Refill prescriptions before they run out. Be sure to take medicines along if you travel. Never change your dosage or stop taking medicine on your own. And if you miss a pill, don?t take2 the next time. Tell your provider if any medicines cause side effects. Your provider may change your dose or prescribe a new medicine. Carry a list of your medicines. Bring the list to appointments with your providers. Be sure to refill prescriptions before they run out. For family and friends Medicines can play a ricardo role in preventing stroke. This is especially true for people who have already had a stroke or transient ischemic attack (TIA). To provide support: Make sure your loved one knows how the medicines work and when to take them. Check often to makesure they?re taken as directed. Know if any medicine reacts with certain foods or alcohol. Watch for side effects. Call the provider if any medicine causes excess bruising, nosebleeds, dizziness, or blurred vision. When to call your healthcare provider Contact your provider right away if you: Have side effects, such as dizziness, nausea, muscle cramps, headache, coughing, swelling, or a skin rash. Are gaining weight. Miss a dose of any of your medicines for a prolonged length of time. Last Reviewed Date: 10/24/202319992654-6800 [employer]. All rights reserved. This information is not intended as a substitute for professional medical care. Always follow your healthcare professional's instructions. 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 Echocardiogram was reviewed and shows EF of 60% moderate aortic valve regurgitation normal-sized atrium. The patient mentioned to Dr. Marshall that he was diagnosed with paroxysmal A- fib and he follows upwith a polisher sand for that. He has been compliant with his aspirin and Plavix. Recommended: Identifying paroxysmal atrial fibrillation. Consider a Zio patch upon discharge if this is not verified. If this is verified okay with Eliquis 5 mg twice daily in addition to aspirin 81 mg. Continue atorvastatin 80 mg. Aspirin verify now and Plavix verify now with ordered. He will need to follow-up with PCP and outpatient vascular neurology * Pt Handout (on AVS) - Sarai Godinez RN - 03/16/2024 11:07 AM EDT Images from the original note were not included. [id number] Symptoms of a Stroke During a stroke, blood stops flowing to part of the brain. This can damage areas in the brain that control the rest of the body. A stroke can happen to anyone at any age. Call 911 and get help right away if any of these symptoms come on suddenly, even if the symptoms don?t last. Know the symptoms of a stroke A sudden feeling of weakness on one side of your body may be a sign that you are having a stroke. Weakness. You may feel a sudden weakness, tingling, or a loss of feeling on one side of your face or body including your arm or leg. Vision problems. You may have sudden double vision or trouble seeing in one or both eyes. Speech problems. You may have sudden trouble talking, slurred speech, or problems understanding others. Headache. You may have a sudden, severe headache. Movement problems. You may have sudden trouble walking, dizziness, a feeling of spinning, a lossof balance, a feeling of falling, or blackouts. Seizure. You may also have a seizure as the first symptom of a stroke. When to call 911 Remember: If you have any of these symptoms, or if someone you are with has these symptoms, call 911 as soon as possible. Never drive yourself or the victim. The ambulance can alert the hospital and start treatment. B.E. F.A.S.T. is an easy way to remember the signs of a stroke. When you see these signs, you will know that you need to call 911 fast. B.E. F.A.S.T. stands for: B is for balance. Sudden loss of balance or coordination. E is for eyes. Vision changes in one or both eyes. F is for face drooping. One side of the face is drooping or numb. When the person smiles, the smile is uneven. A is for arm weakness. One arm is weak or numb. When the person lifts both arms at the same time, one arm may drift downward. S is for speech difficulty. You may notice slurred speech or difficulty speaking. The person can't repeat a simple sentence correctly when asked. T is for time to dial 911. If someone shows any of these symptoms, even if they go away, call 911 right away. Make note of the time the symptoms first appeared. Last Reviewed Date: 01/22/202219999018-6934 [employer]. All rights reserved. This information is not intended as a substitute for professional medical care. Always follow your healthcare professional's instructions. * Ancillary Progress Note - Sarahy Quintanilla RN - 03/16/2024 10:18 AM EDT CARE MANAGEMENT - ADULT INITIAL SCREENING [address] [address] Name: Christina Cuevas II Location: [address] Date: 03/16/2024 Time: 10:18 AM Discussed patient with the interdisciplinary care team. This Flame Cutting Supervisor performed a chart review and met with patient at bedside to complete admission screen and assessed needs for transition planning. The hearing care practitioner role and services were explained and emotional support was provided. Chief Complaint: Short of Breath and Weakness, Generalized Prior Living Arrangements What was your living situation prior to admission/observation?: With Spouse (03/16/24 1016) Living Quarters: House (03/16/24 1016) Number of steps to enter living quarters:: 2 - front, 0 - garage (03/16/24 1016) Do you have serious difficulty walking or climbing stairs? (5 years old or older): No (03/15/24 1837) History of falling: No (03/16/24 0852) Prior Level of Functioning Describe the patient's ability prior to admission/observation to perform ADLs: Performs independently (03/16/24 1016) Describe the patient's mobility status prior to admission: Patient ambulates independently (03/16/24 1016) Patient uses assistive device: No (03/16/24 1016) Caregiver Information Patient Contacts Name Relation Home Work Mobile Mayra Child Spouse [phone] CHRISTINA Cuevas Adult Child [phone] Risk Stratification/Psychosocial/Care Gaps Risk Stratification Psycho Social / Medical Concerns Identified: Adjustment to illness/injury;Multiple Comorbidities (03/16/24 1016) Accessed Neighborly to connect patients to social care resources: No (03/16/24 1016) Readmission Risk Score: 12.84 (03/16/24 0801) AM-PAC Score With Stairs : 24 (03/16/24 0852) Prior to Admission Services Services Prior to Admission BINDERY CHIEF Services (Services received within the last 30 days with exception, Psych within last two years): Durable Medical Equipment (03/16/24 1016) BINDERY CHIEF Durable Medical Equipment (DME) in home: Cane;Shower chair/bench (03/16/24 1016) BINDERY CHIEF Transportation (Services received within the last 30 days): Family/Friends Personal Vehicle;Patient drives self (03/16/24 1016) Outpatient Flame Cutting Supervisor: No care 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 Independent with ADL's and ambulation. Has a cane and shower seat at home if needed. Patient or family drives if needed. Discussed discharge planning. Patient declines needs/services/HH at discharge at this time. CM will follow. For further screening information, please refer to the Care Management flow document. * Pt Handout (on AVS) - Connie Greene RN - 03/16/2024 9:34 AM EDT [id number] Discharge Instructions for Stroke You have a high risk for a stroke, or a TIA (transient ischemic attack). During a stroke, blood stops flowing to part of your brain. This can damage areas in the brain that control other parts of thebody. Symptoms from a stroke depend on which part of the brain has been affected. Stroke risk factors Once you?ve had a stroke, you?re at greater risk for another one. Listed below are some other factors that can raise your risk for a stroke: High blood pressure High cholesterol Cigarette or cigar smoking Diabetes Carotid or other artery disease Atrial fibrillation, atrial flutter, or other heart disease Not being physically active Obesity Certain blood disorders, such as sickle cell anemia Drinking too much alcohol Abusing street drugs Race Gender Family history of stroke Diet high in salty, fried, or greasy foods Changes in daily living Doing some everyday tasks may be hard after you?ve had a stroke. But you can learn new ways to manage. In fact, doing daily activities may help you to regain muscle strength. This can help your affected arm or leg work more normally. Be patient. Give yourself time to adjust. And appreciate the progress you make. Daily activities You may be at risk of falling. Make changes to your home to help you walk more easily. A therapist will decide if you need an assistive device, such as a cane or walker, to walk safely. You may need to see an occupational therapist (OT). Or you may see a physical therapist (PT). Thesehealthcare providers can help you to learn new ways of doing things. For example, you may need to make changes in how you bathe or dress. You may also need a speech therapist. This is someone who helps you speak normally again and be able to swallow. Tips for showering or bathing Test the water temperature with a hand or foot that was not affected by the stroke. Use grab bars, a shower seat, a handheld showerhead, and a long-handled brush. Use any other device as advised by your therapists. Tips for getting dressed Dress while sitting, starting with the affected side or limb. Wear shirts that pull easily over your head. Wear pants or skirts with elastic waistbands. Use zippers with loops attached to the pull tabs. Lifestyle changes Take your medicines exactly as directed. Don?t skip doses. Begin an exercise program. Ask your provider how to get started. Ask how much activity you should try to get every day or week. You can benefit from simple activities such as walking or gardening. Limit how much alcohol you drink. Control your cholesterol level. Follow your provider?s advice about how to do this. If you are a smoker, quit now. Join a stop-smoking program to improve your chances of success. Ask your provider about medicines or other methods to help you quit. Learn stress management methods. These can help you deal with stress in your home and work life. Diet Your healthcare provider will guide you on changes you may need to make to your diet. They may advise that you see a registered dietitian for help with changes. The changes can improve your cholesterol, blood pressure, and blood sugar. Changes may include: Reducing the amount of fat and cholesterol you eat Reducing the amount of salt (sodium) in your diet, especially if you have high blood pressure Eating more vegetables and fruits Eating more lean proteins, such as fish, poultry, and beans and peas (legumes) Eating less red meat and processed meats Using low-fat dairy products Limiting vegetable oils and nut oils Limiting sweets and processed foods such as chips, cookies, and baked goods Not eating trans fats. These are often found in processed foods. Don't eat any food that has hydrogenated oils listed in its ingredients. Follow-up care Keep your medical appointments. Close follow-up is important to stroke rehabilitation and recovery. Some medicines require blood tests to check for progress or problems. Keep follow-up appointments for any blood tests ordered by your providers. Call 911 Call 911 right away if you have any of the following symptoms of stroke: Weakness, tingling, or loss of feeling on one side of your face or body Sudden double vision or trouble seeing in one or both eyes Sudden trouble talking or slurred speech Trouble understanding others Sudden, severe headache Dizziness, loss of balance, or a sense of falling Blackouts or seizures B.E. F.A.S.T. is an easy way to remember the signs of stroke. When you see these signs, you know that you need to call 911 fast. B.E. F.A.S.T. stands for: B is for balance. Sudden loss of balance or coordination. E is for eyes. Vision changes in one or both eyes. F is for face drooping. One side of the face is drooping or numb. When the person smiles, the smile is uneven. A is for arm weakness. One arm is weak or numb. When the person lifts both arms at the same time, one arm may drift downward. S is for speech difficulty. You may notice slurred speech or trouble speaking. The person can't repeat a simple sentence correctly when asked. T is for time to call 911. If someone shows any of these symptoms, even if they go away, call 911 right away. Make note of the time the symptoms first appeared. Last Reviewed Date: 12/23/202119998993-8567 [employer]. All rights reserved. This information is not intended as a substitute for professional medical care. Always follow your healthcare professional's instructions. * Care Plan - Liv Alejandra RN - 03/16/2024 5:10 AM EDT Clinical Goal(s): Pt will not have any falls during this shift (03/15/242005) Possible barriers to meeting goal(s)/advancing plan of care: Stress, pain, admitting diagnosis Stability of the patient: Moderately stable - low risk of patient condition declining or worsening Summary regarding today's goal(s): Met: Pt did not have any falls during this shift Recommendations: Continue to implement fall prevention protocols as well as stress reduction strategies. Monitor pain level and provide appropriate interventions as needed. Follow plan of care. * Medical Necessity - Camacho Torres, Utilization Review Staff - 03/15/2024 5:52 PM EDT AdmissionCare Guideline: Neurology, Inpatient Based on the indications selected for the patient, the bed status of Inpatient was determined to beMET The following indications were selected as present at the time of evaluation of the patient: - Clinical Indications for Admission to Inpatient Care - Hospital admission is needed for appropriate care of the patient because of 1 or more of the following: - Clinically significant neurologic finding, as indicated by ALL of the following: - Finding is acute (not a chronic condition) or acutely worsened - Finding requires inpatient care, as indicated by 1 or more of the following: - Finding is severe (eg, not appropriate for lower level of care due to safety concern) - Clinically significant finding, as indicated by 1 or more of the following: - Weakness Additional Information: weakness and dizziness Na 128 CVA AdmissionCare documentation entered by: Camacho Torres [facility] [employer], 28th edition, Copyright 2023 [facility] [employer] All Rights Reserved. [id number]:52:12-04:00 Solely for purpose of utilization review and payment; not a diagnostic tool * ED Extension Service Agent Note - Lilibeth Pena RN - 03/15/2024 4:59 PM EDT Patient presents to the ED with bilateral leg heaviness and shortness of breath. Per patient he wasusing the chain saw to cut wood when he developed sudden nausea and weakness. Patient statest that then numbness was across his eyes, arms and the back of his neck. Patient also short of breath during this episode. Patient still with mild shortness of breath. Denies chest pain and vomiting. Patientstates that he has a history of strokes and this feels similar to the strokes that he had in the past. documented in this encounter Plan of Treatment Upcoming Encounters Date Type Department Care Team (Late st Contact Info) Description 03/19/2024 12:00 PM EDT Office Visit [facility] [address] [place] [phone] Daly Morales MD [address] [place] [phone] 03/30/2024 10:00 AM EDT Office Visit [facility] [address] [place] [phone] Jatin Mejia CRNP [address] [place] [address] 05/03/2024 8:00 AM EDT Office Visit Neurology [address] [place] [phone] Augustine Rizvi MD [address] [facility] [place] [address] 06/12/2024 10:12 AM EST Hospital Encounter OR [facility], Operating Room, [facility] - 4th Floor [address] [place] [address] Juan Malcolm [facility] [place] [address] 06/12/2024 10:12 AM EST - 06/12/2024 10:59 AM EST Surgery OR [facility], Operating Room, [facility] - 4th Floor [address] [facility] [place] [address] Juan Malcolm, DO [address] [place] [phone] RIGHT EXTRACAPSULAR CATARACT REMOVAL WITH INTRAOCULAR LENS 06/13/2024 7:30 AM EST Office Visit Ophthalmology, [place] [address] [place] [address] Juan Malcolm, DO [address] [place] [address] 06/20/2024 9:00 AM EST Office Visit Ophthalmology, [place] [address] [place] [address] Juan Malcolm, DO [address] [place] [address] 07/10/2024 11:55 AM EST Hospital Encounter OR [facility], Operating Room, [facility] - [address] [place] [address] [address] [facility] [place] [address] Juan Malcolm, DO [address] [place] [address] 07/10/2024 11:55 AM EST - 07/10/2024 12:42 PM EST Surgery OR [facility], Operating Room, [facility] [place] [facility] Floor [address] [place] [address] Juan Malcolm, DO [address] [address] LEFT EXTRACAPSULAR CATARACT REMOVAL WITH INTRAOCULAR LENS 07/11/2024 7:30 AM EST Office Visit Ophthalmology, [place] [address] [place] [address] Juan Malcolm, [address] [address] 07/20/2024 2:30 PM EST Office Visit Ophthalmology, [place] [address] [place] [address] Juan Malcolm, DO [address] [place] [address] 08/10/2024 3:45 PM EST Office Visit [place] [facility] [address] [place] [address] Juan Malcolm, DO [address] [place] [address] Scheduled Orders Name Type Priority Associated Diagnoses Orde r Schedule EKG EKG Routine Chest pain One Time for 1 Occurrences starting 03/15/2024 until 03/15/2024 Scheduled Procedures Name Priority Associated Diagnoses Date/Ti me EXTRACAPSULAR CATARACT REMOVAL WITH INTRAOCULAR LENS Cataract 06/12/2024 10:12 AM EST EXTRACAPSULAR CATARACT REMOVAL WITH INTRAOCULAR LENS Cataract 07/10/2024 11:55 AM EST COLONOSCOPY FLEXIBLE PROXIMAL DIAGNOSTIC Recall History of colonic polyps Scheduled Referrals Name Type Priority Associated Diagnoses Orde r Schedule ADULT NEUROLOGY REFERRAL OP Referral Within 10 days (routine) Stroke with cerebral ischemia (HCC) Ordered: 03/16/2024 Health Maintenance Due Date Last Done Comments [...] Procedure Name Priority Date/Time Associated Diagnosis Comments P2Y12 INHIBITOR REACTIVITY (CLOPIDOGREL), VERIFYNOW Routine 03/16/2024 2:25 PM EDT ASPIRIN, VERIFYNOW Routine 03/16/2024 2: 24 PM EDT EXTRA LAVENDER TOP Routine 03/16/2024 2: 22 PM EDT EXTRA TUBES Routine 03/16/2024 2:22 PM EDT GLUCOSE METER, POINT OF CARE EVY 03/16/2024 11:30 AM EDT ECHO, COMPLETE (2D), TRANS-THORACIC Routine 03/16/2024 7:55 AM EDT Stroke (HCC) GLUCOSE METER, POINT OF CARE EVY 03/16/2024 7:20 AM EDT LIPID PANEL WITH DIRECT LDL IF TG IS HIGH Routine 03/16/2024 5:57 AM EDT HEMOGLOBIN A1C Routine 03/16/2024 5:57 AM EDT BASIC METABOLIC PANEL Routine 03/16/2024 5:57 AM EDT PHOSPHORUS Routine 03/16/2024 5:57 AM EDT CBC Routine 03/16/2024 5:57 AM EDT MAGNESIUM Routine 03/16/2024 5:57 AM EDT GLUCOSE METER, POINT OF CARE EVY 03/15/2024 10:28 PM EDT MRI BRAIN WITHOUT CONTRAST STAT 03/15/2024 5:02 PM EDT URINALYSIS, REFLEX TO CULTURE STAT 03/15/2024 3:47 PM EDT URINALYSIS, REFLEX TO CULTURE (CUP ONLY) STAT 03/15/2024 3:47 PM EDT URINALYSIS, REFLEX TO CULTURE (NOT FOR NEUTROPENIC PATIENTS) STAT 03/15/2024 3:47 PM EDT CTA HEAD/CTA NECK Routine 03/15/2024 3:3 2 PM EDT CTA CHEST NON-CORONARY W CONTRAST STAT 03/15/2024 3:[address] HEAD/BRAIN WO CONTRAST STAT 03/15/2024 3:32 PM EDT LACTATE WITH REFLEX IF ABNORMAL STAT 03/15/2024 3:00 PM EDT DIFFERENTIAL, AUTOMATED STAT 03/15/2024 3:00 PM EDT TROPONIN T, HIGH SENSITIVITY STAT 03/15/2024 3:00 PM EDT BNP (NT-PROBNP) STAT 03/15/2024 3:00 PM EDT HEPATIC FUNCTION PANEL STAT 03/15/2024 3:00 PM EDT BASIC METABOLIC PANEL STAT 03/15/2024 3:00 PM EDT CBC STAT 03/15/2024 3:00 PM EDT PT INR STAT 03/15/2024 3:00 PM EDT LIPASE STAT 03/15/2024 3:00 PM EDT CBC STAT 03/15/2024 3:00 PM EDT TSH STAT 03/15/2024 3:00 PM EDT GLUCOSE METER, POINT OF CARE EVY 03/15/2024 2:16 PM EDT HC ECG TRACING ONLY STAT 03/15/2024 2 :14 PM EDT SOB (shortness of breath) documented in this encounter Results * (ABNORMAL) P2Y12 INHIBITOR REACTIVITY (CLOPIDOGREL), VERIFYNOW (03/16/2024 2:25 PM EDT) [facility] VerifyNow P2Y12 102(L) 182 - 335 PRU 03/16/2024 3:51 PM EDT LABORATORY [facility] Blood Venous blood specimen / Unknown Venipuncture / Unknown 03/16/2024 2:25 PM EDT 03/16/2024 2:31 PM EDT Narrative LABORATORY [facility] - 03/16/2024 3:51 PM EDT Assay measures the level of platelet P2Y12 receptor blockade from clopidogrel and it should not be used to detect other platelet functional disorders. This test is not to be used for therapeutic monitoring. >=182 P2Y12 inhibitory drug (clopidogrel) NOT detected % clopidogrel inhibition = (Baseline PRU - Post-treatment PRU) / Baseline PRU x100 <10% inhibition indicated the patient is resistant to therapy and recommend different antiplatelet medication Interfering substances/Test limitations: Do not test patients if on the following medications until platelet function has recovered (timeframe), as they may result in low ARU values; dipyridamole - 12 hours, cilostazol - 12 hours, Aggrenox (aspirin/dipyridamole) - 10 days. Samples may also be affected by low hematocrit (<29%), high hematocrit (>56%), or low platelet counts (<92,000/cmm). Patients on ticlopidine, prasugrel, and ticagrelor or with inherited platelet disorders have not been studied using this assay and the ability of the assay to detect these drugs or clopidogrel usage in these patients is unknown. Booker Viveros MD LAB BLOOD ORDERABLES LABORATORY [address] [address] * (ABNORMAL) ASPIRIN, VERIFYNOW (03/16/2024 2:24 PM EDT) [facility] VerifyNow Aspirin 410(L) >=550 ARU 03/16/2024 3:51 PM EDT LABORATORY [facility] Blood Venous blood specimen / Unknown Venipuncture / Unknown 03/16/2024 2:24 PM EDT 03/16/2024 2:31 PM EDT [facility] LABORATORY [facility] - 03/16/2024 3:51 PM EDT Assay designed to measure the effect of aspirin and it should not [...] aspirin usage in these patients is unknown. Booker Viveros MD LAB BLOOD ORDERABLES Performing Organization Address [facility] Co de Phone Number LABORATORY [address] [phone] * EXTRA LAVENDER TOP (03/16/2024 2:22 PM EDT) Blood Venous blood specimen / Unknown 03/16/2024 2:22 PM EDT 03/16/2024 2:31 PM EDT Nathan Marshall DO LAB BLOOD ORDERABLES Performing Organization Address [facility] Phone Number LABORATORY [address] [phone] * (ABNORMAL) GLUCOSE METER, POINT OF CARE (03/16/2024 11:30 AM EDT) [facility] Glucose Meter 168(H) 70 - 120 mg/dL 03/16/2024 12:11 PM EDT [facility] Blood Whole blood specimen / Unknown 03/16/2024 11:30 AM EDT 03/16/2024 12:11 PM EDT Nathan Marshall DO LAB POINT OF CARE TE ST DOCKED DEVICE UNSOLICITED RESULTS Performing Organization Address [facility] de Phone Number [facility] [address] [place] [phone] * ECHO, COMPLETE (2D), TRANS-THORACIC (03/16/2024 7:55 AM EDT) [facility] LEFT VENTRICULAR EJECTION FRACTION 60 % [facility] CARDIOLOGY 03/16/2024 7:27 AM EDT Lencho Thapa MD ECHOCARDIOLOGY [facility] CARDIOLOGY * GLUCOSE METER, POINT OF CARE (03/16/2024 7:20 AM EDT) Glucose Meter 97 70 - 120 mg/dL 03/16/2024 7:51 AM EDT [facility] Blood Whole blood specimen / Unknown 03/16/2024 7:20 AM EDT 03/16/2024 7:51 AM EDT Nathan Marshall DO LAB POINT OF CARE TE ST DOCKED DEVICE UNSOLICITED RESULTS Performing Organization Address [facility] Co de Phone Number [facility] [address] [place] [address] * PHOSPHORUS (03/16/2024 5:57 AM EDT) Phosphorus 2.8 2.5 - 4.8 mg/dL 03/16/2024 6:54 AM EDT LABORATORY [facility] Blood Venous blood specimen / Unknown Venipuncture / Unknown 03/16/2024 5:57 AM EDT 03/16/2024 6:23 AM EDT Lencho Thapa MD LAB BLOOD ORDERABLE S Performing Organization Address [facility] Co de Phone Number LABORATORY [address] [phone] * MAGNESIUM (03/16/2024 5:57 AM EDT) Magnesium 2.0 1.5 - 2.6 mg/dL 03/16/2024 6:54 AM EDT LABORATORY [facility] Blood Venous blood specimen / Unknown Venipuncture / Unknown 03/16/2024 5:57 AM EDT 03/16/2024 6:23 AM EDT Lencho Thapa MD LAB BLOOD ORDERABLE S LABORATORY [facility] [address] [place] [address] * (ABNORMAL) CBC (03/16/2024 5:57 AM EDT) [facility] WBC 4.52 4.00 - 10.80 K/uL 03/16/2024 6:28 AM EDT LABORATORY [facility] RBC 4.08 4.50 - 5.25 M/uL 03/16/2024 6:28 AM EDT LABORATORY [facility] HGB 12.3(L) 14.0 - 16.8 g/dL 03/16/2024 6:28 AM EDT LABORATORY [facility] HCT 37.0(L) 40.0 - 48.4 % 03/16/2024 6:28 AM EDT LABORATORY [facility] MCV 90.7 82.0 - 99.5 fL 03/16/2024 6:28 AM EDT LABORATORY [facility] MCH 30.1 27.0 - 34.0 pg 03/16/2024 6:28 AM EDT LABORATORY [facility] MCHC 33.2 32.0 - 36.0 g/dL 03/16/2024 6:28 AM EDT LABORATORY [facility] RDW 14.3 11.5 - 15.5 % 03/16/2024 6:28 AM EDT LABORATORY [facility] PLT 200 140 - 400 K/uL 03/16/2024 6:28 AM EDT LABORATORY [facility] MPV 11.0 6.6 - 11.1 fL 03/16/2024 6:28 AM EDT LABORATORY [facility] nRBCs 0 <=0 /100 WBCs 03/16/2024 6:28 AM EDT LABORATORY [facility] Blood Venous blood specimen / Unknown Venipuncture / Unknown 03/16/2024 5:57 AM EDT 03/16/2024 6:23 AM EDT Lencho Thapa MD LAB BLOOD ORDERABLE S LABORATORY [facility] [address] [place] [address] * (ABNORMAL) BASIC METABOLIC PANEL (03/16/2024 5:57 AM EDT) [facility] BUN 17 6 - 20 mg/dL 03/16/2024 6:54 AM EDT LABORATORY [facility] Creatinine 1.1 0.6 - 1.2 mg/dL 03/16/2024 6:54 AM EDT LABORATORY GL Estimated Glomerular Filtration Rate 70 >=60 mL/min 03/16/2024 6:54 AM EDT LABORATORY GL Comment:eGFR is calculated b ased on the CKD-EPI 2020 equation. Sodium 135 135 - 146 mmol/L 03/16/2024 6:54 AM EDT LABORATORY GL Comment:Results rechecked Potassium 3.8 3.5 - 5.1 mmol/L 03/16/2024 6:54 AM EDT LABORATORY GL Comment:Results rechecked Chloride 99 98 - 107 mmol/L 03/16/2024 6:54 AM EDT LABORATORY GL CO2 27 22 - 32 mmol/L 03/16/2024 6:54 AM EDT LABORATORY GL Anion Gap 9 7 - 15 mmol/L 03/16/2024 6:54 AM EDT LABORATORY GL Glucose 139(H) 70 - 120 mg/dL 03/16/2024 6:54 AM EDT LABORATORY GL Calcium 8.3(L) 8.4 - 10.2 mg/dL 03/16/2024 6:54 AM EDT LABORATORY [facility] Blood Venous blood specimen / Unknown Venipuncture / Unknown 03/16/2024 5:57 AM EDT 03/16/2024 6:23 AM EDT Lencho Thapa MD LAB BLOOD ORDERABLE S LABORATORY [facility] [address] [place] [address] * LIPID PANEL WITH DIRECT LDL IF TG IS HIGH (03/16/2024 5:57 AM EDT) Pathologist [facility] Triglycerides 38 <=174 mg/dL 03/16/2024 1:33 PM EDT LAB[facility] Comment: Triglyceride Reference Ranges (mg/dL): <150 Acceptable 150-174 Borderline high 175-499 High >=500 Very high Cholesterol 85 <200 mg/dL 03/16/2024 1:33 PM EDT [facility] Comment: Total Cholesterol Reference Ranges (mg/dL): <200 Desirable 200-239 Borderline high >=240 High HDL Cholesterol 41 >39 mg/dL 1:33 PM EDT LAB[facility] Comment: HDL Cholesterol Reference Ranges (mg/dL): >=60 High (Desirable) <50 Low (Undesirable) For Females <40 Low (Undesirable) For Males Non-HDL Cholesterol 44 <=159 mg/dL 03/16/2024 1:33 PM EDT LAB[facility] Comment: Non-HDL Cholesterol Reference Range (mg/dL): <100 Target level for high risk ASCVD patient <130 Optimal for general population 130-159 Near optimal for general population 160-189 Borderline High 190-219 High >=220 Very High LDL Cholesterol 36 <=129 mg/dL 03/16/2024 1:33 PM EDT LAB[facility]ORY [facility] Comment: LDL Cholesterol Reference Ranges (mg/dL): <70 Target level for high risk ASCVD patient <100 Optimal for general population 100-129 Near optimal for general population 130-159 Borderline high 160-189 High >=190 Very high Blood Venous blood specimen / Unknown Venipuncture / Unknown 03/16/2024 5:57 AM EDT 03/16/2024 6:23 AM EDT Lencho Thapa MD LAB BLOOD ORDERABLE S LAB[facility]ATORY [facility] [address] [place] [address] * (ABNORMAL) HEMOGLOBIN A1C (03/16/2024 5:57 AM EDT) Hemoglobin A1C 8.5(H) 4.0 - 5.6 % 03/16/2024 1:42 PM EDT LAB[facility]ORY [facility] Comment:The use of HbA1c to monitor glycemic status is based on normal hemoglobin and HbA composition. This test should not be used in patients with abnormal hemoglobin that affects the half life of the red blood cell or the in vivo glycation rates. Estimated Average Glucose 197(H) <126 mg/dL 03/16/2024 1:42 PM EDT LAB[facility]ORY [facility] Blood Venous blood specimen / Unknown Venipuncture / Unknown 03/16/2024 5:57 AM EDT 03/16/2024 6:23 AM EDT Lencho Thapa MD LAB BLOOD ORDERABLE S Performing Organization Address City/[facility]/ZIP Co de Phone Number LABORATORY [facility] [address] [place] [address] * (ABNORMAL) GLUCOSE METER, POINT OF CARE (03/15/2024 10:28 PM EDT) [facility] Glucose Meter 217(H) 70 - 120 mg/dL 03/16/2024 7:17 AM EDT [facility] Blood Whole blood specimen / Unknown 03/15/2024 10:28 PM EDT 03/16/2024 7:17 AM EDT Nathan Marshall DO LAB POINT OF CARE TE ST DOCKED DEVICE UNSOLICITED RESULTS Performing Organization Address [facility] Co de Phone Number [facility] LABORATORY [address] [place] [phone] * MRI BRAIN WITHOUT CONTRAST (03/15/2024 5:02 PM EDT) Anatomical Region Laterality Modality Neuro, Head Magnetic Resonan ce 03/15/2024 5:29 PM EDT Impressions 03/15/2024 5:27 PM EDT IMPRESSION 1. Small acute infarct at the right centrum semiovale. No associated hemorrhage or mass effect. 2. Multiple chronic lacunar infarcts and findings suggesting chronic microvascular ischemic changes, as before. 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 Procedure Note Jacoby Fagan MD - 03/15/2024 EXAM MRI BRAIN WITHOUT CONTRAST-03/15/2024 5:02 pm HISTORY 74 y/o M, left leg heaviness; Headache; Neurologic deficit, non- traumatic;Altered mental status; Neurologic deficit onset <= 24 hours; Noknown/automatically detected potential contraindications to iodinatedcontrast COMPARISON MR brain 12/20/2023, CT head 03/15/2024. TECHNIQUE Multiplanar multisequence MR imaging of the brain performed withoutintravenous contrast. FINDINGS Focus of restricted diffusion at the right centrum semiovale, directlysubjacent to the central sulcus, compatible with acute infarct. Noassociated mass effect or midline shift. No evidence of acute intracranial hemorrhage or extra-axial fluidcollections. Multiple chronic lacunar infarcts, including in the bilateral centrumsemiovale, right baker radiata, and dorsal cem, as before. Foci ofsusceptibility artifact related to hemosiderin deposition, associated witha few chronic lacunar infarcts. Other patchy T2/FLAIR signalhyperintensity in the periventricular and subcortical white matter,nonspecific but most suggestive of chronic microvascular ischemic changes.Global cerebral volume loss. The ventricular system is normal in size and configuration for age. Basalcisterns are patent. Flow voids at the skull base are maintained. The orbits are unremarkable. Scattered mucosal thickening and fluid in theparanasal sinuses. Mastoid air cells are clear. The calvarium and scalpsoft tissues are unremarkable. 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 IMPRESSION IMPRESSION 1. Small acute infarct at the right centrum semiovale. No associatedhemorrhage or mass effect. 2. Multiple chronic lacunar infarcts and findings suggesting chronicmicrovascular ischemic changes, as before. Booker Viveros MD RAD MRI-[facility] * (ABNORMAL) URINALYSIS, REFLEX TO CULTURE (03/15/2024 3:47 PM EDT) Color, Urine Yellow Light Yellow, Yellow, Dark Yellow 03/15/2024 4:52 PM EDT LABORATORY [facility] Clarity, Urine Clear Clear 03/15/2024 4:52 PM EDT LABORATORY [facility] Glucose, Urine 500(A) Negative mg/dL 03/15/2024 4:52 PM EDT LAB[facility]ATORY [facility] Bilirubin, Urine Negative Negative 03/15/2024 4:52 PM EDT LAB[facility]ATORY [facility] Ketone, Urine 15(A) Negative mg/dL 03/15/2024 4:52 PM EDT LABORATORY [facility] Specific [place], Urine 1.014 1.003 - 1.030 03/15/2024 4:52 PM EDT LAB[facility]ATORY [facility] Blood, Urine Negative Negative 03/15/2024 4:52 PM EDT LAB[facility]ATORY [facility] pH, Urine 7.0 5.0 - 7.5 Units 03/15/2024 4:52 PM EDT LAB[facility]ATORY [facility] Protein, Urine Negative Negative mg/dL 03/15/2024 4:52 PM EDT LAB[facility]ATORY [facility] Urobilinogen, Urine 1.0 0.2, 1.0 mg/dL 03/15/2024 4:52 PM EDT LAB[facility]ATORY [facility] Nitrite, Urine Negative Negative 03/15/2024 4:52 PM EDT LAB[facility]ATORY [facility] Esterase, Urine Negative Negative 03/15/2024 4:52 PM EDT LAB[facility]ATORY [facility] RBC, Urine 0-2 0 - 2 /HPF 03/15/2024 4:52 PM EDT LAB[facility]ATORY [facility] WBC, Urine 0-2 0 - 2 /HPF 03/15/2024 4:52 PM EDT LAB[facility]ATORY [facility] Bacteria, Urine 0-25 0 - 25 /HPF 03/15/2024 4:52 PM EDT LABORATORY [facility] Culture, Urine 03/15/2024 4:52 PM EDT LABORATORY [facility] Comment:Culture not indicate d by urinalysis results Urine Urine specimen obtained by clean catch procedure / Unknown Non-blood Collection / Unknown 03/15/2024 3:47 PM EDT 03/15/2024 3:52 PM EDT Kristan Miller MD LAB URINE OR DERABLES Performing Organization Address City/[facility] Co de Phone Number LABORATORY [address] [phone] * URINALYSIS, REFLEX TO CULTURE (CUP ONLY) (03/15/2024 3:47 PM EDT) Urinalysis, Reflex to Culture Specimen Specimen collected and received 03/15/2024 5:01 PM EDT LABORATORY [facility] Urine Urine specimen obtained by clean catch procedure / Unknown Non-blood Collection / Unknown 03/15/2024 3:47 PM EDT 03/15/2024 3:52 PM EDT Kristan Miller MD LAB URINE OR DERABLES Performing Organization Address City/[facility] Co de Phone Number LABORATORY [address] [phone] * CTA CHEST NON-CORONARY W CONTRAST (03/15/2024 3:32 PM EDT) Anatomical Region Laterality Modality Chest, Cardio, Body Computed Dragan ography 03/15/2024 4:44 PM EDT Impressions 03/15/2024 4:41 PM EDT IMPRESSION 1. No aneurysmal dilation or dissection flap of the thoracic aorta. 2. Additional findings are described above. Narrative 03/15/2024 4:41 PM EDT EXAM EXAM: CTA CHEST NON-CORONARY W CONTRAST [...] celiac artery measuring up to 1.1 cm. Procedure Note George Rucker MD - 03/15/2024 EXAM EXAM: CTA CHEST NON-CORONARY W CONTRAST DATE and TIME: 03/15/2024 3:32 pm HISTORY chest pain + SOB + neuro sx; rule out dissection; Pulmonary embolism;Wells score < 2; D-Dimer not done; PERC positive (score >= 1) TECHNIQUE No oral contrast was administered. High resolution helical ct of the thorax, abdomen, and pelvis wasperformed before and during the intravenous administration of contrast. Advanced 3D reconstructions of the aorta and its branch vessels wereperformed for optimal vascular evaluation on a separate work station. COMPARISON 09/26/2023 x-ray. FINDINGS ANGIOGRAPHIC FINDINGS: Atherosclerotic vascular calcification. No aneurysmal dilation ordissection flap in the thoracic aorta. Atherosclerotic changes at the origin of the right brachiocephalic artery,left common carotid artery and left subclavian artery. Atherosclerotic changes at the origin of the celiac artery. 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 Significant atherosclerotic changes at the origin of the rightrenal artery. NON ANGIOGRAPHIC FINDINGS: LINES AND DEVICES: None CHEST: LUNGS: Emphysema. Bronchial wall thickening suggesting chronicinflammation. LARGE AIRWAYS: Within normal limits. PLEURA: No pleural effusions. VESSELS: Atherosclerotic changes. HEART: Normal in size. No pericardial effusion. MEDIASTINUM AND YURIDIA: Within normal limits. CHEST WALL/SOFT TISSUES: Fat attenuation density in the right posteriorchest wall on image 153 of series 16 is probably normal subcutaneous fatversus a discrete lipoma. BONES: Within normal limits. 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 IMPRESSION IMPRESSION 1. No aneurysmal dilation or dissection flap of the thoracic aorta. 2. Additional findings are described above. Kristan Miller MD RAD CT * CTA HEAD/CTA NECK (03/15/2024 3:32 PM EDT) Anatomical Region Laterality Modality Neck, Head, Cspine, Spine Comput ed Tomography 03/15/2024 3:49 PM EDT Impressions 03/15/2024 3:46 PM EDT IMPRESSION 1. No new or acute intracranial [...] 3. Chronic nonvascular findings as detailed above. Narrative 03/15/2024 3:46 PM EDT EXAM SCAN OF THE HEAD AND CTA [...] are suspected in the imaged upper lung pagan. Mild to moderate degenerative changes are present [...] cervical and intracranial venous structures appear normal. Procedure Note Daniel Murray MD - 03/15/2024 EXAM SCAN OF THE HEAD AND CTA OF THE CERVICAL AND INTRACRANIAL VESSELS WITHINTRAVENOUS CONTRAST - 03/15/2024. HISTORY 74 years old male complaining of headache. TECHNIQUE Multiple contiguous axial sections of the head were obtained from thevertex to the base of the skull without contrast; axial and reformattedsagittal and coronal images were reviewed in bone, soft tissue, and brainwindows. Following uneventful intravenous bolus administration ofnonionic contrast timed for optimal opacification of arterial vessels,spiral axial acquisition was performed from the aortic arch to the vertexas per standard CTA protocol. Axial and reformatted sagittal and coronalimages were reviewed in bone, soft tissue, and pulmonary windows. 3D,MIP, and planar curved reformatted were reconstructed in multiple planeson the dedicated workstation and were also reviewed. COMPARISON MRI scan of the brain dated 12/12/[address] scan of the head dated04/19/2018. FINDINGS NONCONTRAST CT SCAN OF THE HEAD: Accounting for differences in imaging modalities, no significant intervalchanges are identified compared to MRI scan from 3 months ago. 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 Mild to moderate generalized age-related cerebralparenchymal atrophy is appreciated with compensatory dilatation of theventricles, sulci, and basal cisterns. Chronic lacunar infarcts are seenin the right basal ganglia and central dorsal thalamus. Small patchyareas of hypodensity in the bilateral cerebral white matter likelyrepresent mild to moderate chronic small vessel ischemic changes. Thereis no evidence of intracranial space-occupying lesion, edema, hemorrhage,mass effect, midline shift, hydrocephalus, or extraaxial fluid collection.The wynne/white matter differentiation is maintained. No calvarialabnormalities are detected. The intraorbital contents are within normallimits. There is moderate fluid opacification of the left frontal sinusand bilateral ethmoid air cells. Mild mucosal thickening is seen in other paranasal sinuses. The mastoid air cells are clear and wellaerated. 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 Noadditional abnormalities are detected in the soft tissue structures of theneck. Emphysematous changes are suspected in the imaged upper lungfields. Mild to moderate degenerative changes are present in the cervicalspine. CTA: Conventional branching of the aortic arch is appreciated. Calcific andnoncalcific atherosclerotic changes are present in aortic arch andcervical vessels with mild stenosis in the right carotid bulb secondary toa large predominantly soft atherosclerotic plaque and mild stenosis in theleft carotid bulb secondary to a heavily calcified atherosclerotic plaque.Otherwise, all main cervical arterial vessels, including thebrachiocephalic trunk, bilateral subclavian, common carotid, internalcarotid, external carotid, and vertebral arteries demonstrate normalcourse, caliber, outline, and branching pattern without additionalstenosis, dilatation, or signs of dissection. Atherosclerotic calcifications are present in the intracranial ICAswithout evidence of stenosis. Otherwise, all intracranial arterialvessels in the carotid and vertebrobasilar circulation demonstrate normalcourse, caliber, outline, and branching pattern without significantatherosclerotic disease, stenosis, dilatation, aneurysm, or obviousarteriovenous shunting. The cervical and intracranial venous structures appear normal. IMPRESSION IMPRESSION 1. No new or acute intracranial abnormality identified to explainpatient's symptoms. Stable chronic predominantly age-related findings asdetailed above. Please note, that CT scan is not sensitive for detection of manypathologies causing headache. 2. Atherosclerotic disease as detailed above with mild stenosis in thebilateral carotid bulbs. No additional abnormalities identified in thecervical and intracranial vessels. 3. Chronic nonvascular findings as detailed above. Kristan Miller MD RAD CT * CT HEAD/BRAIN WO CONTRAST (03/15/2024 3:32 PM EDT) Anatomical Region Laterality Modality Head Computed Tomogra phy 03/15/2024 3:49 PM EDT Impressions 03/15/2024 3:46 PM EDT IMPRESSION 1. No new or acute intracranial [...] 3. Chronic nonvascular findings as detailed above. Narrative 03/15/2024 3:46 PM EDT EXAM SCAN OF THE HEAD AND CTA [...] are suspected in the imaged upper lung pagan. Mild to moderate degenerative changes are present [...] cervical and intracranial venous structures appear normal. Procedure Note Daniel Murray MD - 03/15/2024 EXAM SCAN OF THE HEAD AND CTA OF THE CERVICAL AND INTRACRANIAL VESSELS WITHINTRAVENOUS CONTRAST - 03/15/2024. HISTORY 74 years old male complaining of headache. TECHNIQUE Multiple contiguous axial sections of the head were obtained from thevertex to the base of the skull without contrast; axial and reformattedsagittal and coronal images were reviewed in bone, soft tissue, and brainwindows. Following uneventful intravenous bolus administration ofnonionic contrast timed for optimal opacification of arterial vessels,spiral axial acquisition was performed from the aortic arch to the vertexas per standard CTA protocol. Axial and reformatted sagittal and coronalimages were reviewed in bone, soft tissue, and pulmonary windows. 3D,MIP, and planar curved reformatted were reconstructed in multiple planeson the dedicated workstation and were also reviewed. COMPARISON MRI scan of the brain dated 12/12/[address] scan of the head dated04/19/2018. FINDINGS NONCONTRAST CT SCAN OF THE HEAD: Accounting for differences in imaging modalities, no significant intervalchanges are identified compared to MRI scan from 3 months ago. 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 Mild to moderate generalized age-related cerebralparenchymal atrophy is appreciated with compensatory dilatation of theventricles, sulci, and basal cisterns. Chronic lacunar infarcts are seenin the right basal ganglia and central dorsal thalamus. Small patchyareas of hypodensity in the bilateral cerebral white matter likelyrepresent mild to moderate chronic small vessel ischemic changes. Thereis no evidence of intracranial space-occupying lesion, edema, hemorrhage,mass effect, midline shift, hydrocephalus, or extraaxial fluid collection.The wynne/white matter differentiation is maintained. No calvarialabnormalities are detected. The intraorbital contents are within normallimits. There is moderate fluid opacification of the left frontal sinusand bilateral ethmoid air cells. Mild mucosal thickening is seen in other paranasal sinuses. The mastoid air cells are clear and wellaerated. 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 Noadditional abnormalities are detected in the soft tissue structures of theneck. Emphysematous changes are suspected in the imaged upper lungfields. Mild to moderate degenerative changes are present in the cervicalspine. CTA: Conventional branching of the aortic arch is appreciated. Calcific andnoncalcific atherosclerotic changes are present in aortic arch andcervical vessels with mild stenosis in the right carotid bulb secondary toa large predominantly soft atherosclerotic plaque and mild stenosis in theleft carotid bulb secondary to a heavily calcified atherosclerotic plaque.Otherwise, all main cervical arterial vessels, including thebrachiocephalic trunk, bilateral subclavian, common carotid, internalcarotid, external carotid, and vertebral arteries demonstrate normalcourse, caliber, outline, and branching pattern without additionalstenosis, dilatation, or signs of dissection. Atherosclerotic calcifications are present in the intracranial ICAswithout evidence of stenosis. Otherwise, all intracranial arterialvessels in the carotid and vertebrobasilar circulation demonstrate normalcourse, caliber, outline, and branching pattern without significantatherosclerotic disease, stenosis, dilatation, aneurysm, or obviousarteriovenous shunting. The cervical and intracranial venous structures appear normal. IMPRESSION IMPRESSION 1. No new or acute intracranial abnormality identified to explainpatient's symptoms. Stable chronic predominantly age-related findings asdetailed above. Please note, that CT scan is not sensitive for detection of manypathologies causing headache. 2. Atherosclerotic disease as detailed above with mild stenosis in thebilateral carotid bulbs. No additional abnormalities identified in thecervical and intracranial vessels. 3. Chronic nonvascular findings as detailed above. Kristan Miller MD RAD CT * (ABNORMAL) DIFFERENTIAL, AUTOMATED (03/15/2024 3:00 PM EDT) WBC 8.05 4.00 - 10.80 K/uL 03/15/2024 3:13 PM EDT LABORATORY [facility] Neutrophils % 81.9(H) 40.0 - 75.0 % 03/15/2024 3:13 PM EDT LABORATORY [facility] Lymphocytes % 9.2(L) 18.0 - 42.0 % 03/15/2024 3:13 PM EDT LABORATORY [facility] Monocytes % 5.6 1.0 - 11.0 % 03/15/2024 3:13 PM EDT LABORATORY GL Eosinophils % 1.2 0.0 - 6.0 % 03/15/2024 3:13 PM EDT LABORATORY [facility] Basophils % 0.9 0.0 - 2.0 % 03/15/2024 3:13 PM EDT LABORATORY [facility] Immature Granulocytes % 1.2 0.0 - 2.0 % 03/15/2024 3:13 PM EDT LABORATORY [facility] Absolute Neutrophils 6.59 1.80 - 7.70 K/uL 03/15/2024 3:13 PM EDT LABORATORY [facility] Absolute Lymphocytes 0.74(L) 1.00 - 4.80 K/ul 03/15/2024 3:13 PM EDT LABORATORY [facility] Absolute Monocytes 0.45 0.00 - 1.10 K/uL 03/15/2024 3:13 PM EDT LABORATORY [facility] Absolute Eosinophils 0.10 0.00 - 0.70 K/uL 03/15/2024 3:13 PM EDT LABORATORY [facility] Absolute Basophils 0.07 0.00 - 0.20 K/uL 03/15/2024 3:13 PM EDT LABORATORY [facility] Absolute Immature Granulocytes 0.10 0.00 - 0.20 K/uL 03/15/2024 3:13 PM EDT LABORATORY [facility] Blood Venous blood specimen / Unknown Venipuncture / Unknown 03/15/2024 3:00 PM EDT 03/15/2024 3:03 PM EDT Kristan Miller MD LAB BLOOD OR DERABLES LABORATORY [address] [address] * (ABNORMAL) CBC (03/15/2024 3:00 PM EDT) WBC 8.05 4.00 - 10.80 K/uL 03/15/2024 3:13 PM EDT LABORATORY [facility] RBC 4.23 4.50 - 5.25 M/uL 03/15/2024 3:13 PM EDT LABORATORY GL HGB 12.9(L) 14.0 - 16.8 g/dL 03/15/2024 3:13 PM EDT LABORATORY GL HCT 38.1(L) 40.0 - 48.4 % 03/15/2024 3:13 PM EDT LABORATORY [facility] MCV 90.1 82.0 - 99.5 fL 03/15/2024 3:13 PM EDT LABORATORY GL MCH 30.5 27.0 - 34.0 pg 03/15/2024 3:13 PM EDT LABORATORY [facility] MCHC 33.9 32.0 - 36.0 g/dL 03/15/2024 3:13 PM EDT LABORATORY [facility] RDW 14.1 11.5 - 15.5 % 03/15/2024 3:13 PM EDT LABORATORY [facility] PLT 199 140 - 400 K/uL 03/15/2024 3:13 PM EDT LABORATORY [facility] MPV 11.0 6.6 - 11.1 fL 03/15/2024 3:13 PM EDT LABORATORY [facility] nRBCs 0 <=0 /100 WBCs 03/15/2024 3:13 PM EDT LABORATORY [facility] Blood Venous blood specimen / Unknown Venipuncture / Unknown 03/15/2024 3:00 PM EDT 03/15/2024 3:03 PM EDT Kristan Miller MD LAB BLOOD OR DERABLES LABORATORY [address] [address] * PT INR (03/15/2024 3:00 PM EDT) Prothrombin Time 14.1 11.6 - 15.2 seconds 03/15/2024 3:24 PM EDT LABORATORY [facility] INR 1.1 0.8 - 1.2 03/15/2024 3:24 PM EDT LABORATORY [facility] Blood Venous blood specimen / Unknown Venipuncture / Unknown 03/15/2024 3:00 PM EDT 03/15/2024 3:03 PM EDT Narrative LABORATORY [facility] - 03/15/2024 3:24 PM EDT Warfarin Therapy INR: 2.0-3.0 conventional anticoagulation INR: 2.5-3.5 high intensity anticoagulation Kristan Miller MD LAB BLOOD OR DERABLES Performing Organization Address City/[facility] Co de Phone Number LABORATORY [address] [address] * TSH (03/15/2024 3:00 PM EDT) [facility] TSH 3.52 0.27 - 4.20 uIU/mL 03/15/2024 4:47 PM EDT LABORATORY [facility] Blood Venous blood specimen / Unknown Venipuncture / Unknown 03/15/2024 3:00 PM EDT 03/15/2024 3:03 PM EDT Kristan Miller MD LAB BLOOD OR DERABLES Performing Organization Address [facility] de Phone Number LABORATORY [address] [address] * (ABNORMAL) TROPONIN T, HIGH SENSITIVITY (03/15/2024 3:00 PM EDT) [facility] Troponin T, High Sensitivity 26(H) <=22 ng/L 03/15/2024 3:40 PM EDT LABORATORY [facility] Blood Venous blood specimen / Unknown Venipuncture / Unknown 03/15/2024 3:00 PM EDT 03/15/2024 3:03 PM EDT Kristan Miller MD LAB BLOOD OR DERABLES Performing Organization Address City/[facility] Co de Phone Number LABORATORY [address] [address] * LIPASE (03/15/2024 3:00 PM EDT) [facility] Lipase 16 13 - 60 U/L 03/15/2024 3:46 PM EDT LABORATORY [facility] Blood Venous blood specimen / Unknown Venipuncture / Unknown 03/15/2024 3:00 PM EDT 03/15/2024 3:03 PM EDT Kristan Miller MD LAB BLOOD OR DERABLES Performing Organization Address [facility]/ZIP Co de Phone Number LABORATORY [address] [phone] * LACTATE WITH REFLEX IF ABNORMAL (03/15/2024 3:00 PM EDT) Lactate 1.4 0.4 - 2.0 mmol/L 03/15/2024 3:42 PM EDT LABORATORY [facility] Blood Venous blood specimen / Unknown Venipuncture / Unknown 03/15/2024 3:00 PM EDT 03/15/2024 3:03 PM EDT Kristan Miller MD LAB BLOOD OR DERABLES Performing Organization Address [facility] Co de Phone Number LABORATORY [address] [phone] * HEPATIC FUNCTION PANEL (03/15/2024 3:00 PM EDT) Albumin 3.9 3.8 - 5.0 g/dL 03/15/2024 3:46 PM EDT LABORATORY [facility] AST 34 10 - 50 U/L 03/15/2024 3:46 PM EDT LABORATORY [facility] Comment:Results may be false ly elevated due to hemolysis. Alkaline Phosphatase 70 35 - 130 U/L 03/15/2024 3:46 PM EDT LABORATORY [facility] ALT 25 10 - 50 U/L 03/15/2024 3:46 PM EDT LABORATORY [facility] Bilirubin, Total 0.8 <=1.2 mg/dL 03/15/2024 3:46 PM EDT LABORATORY [facility] Bilirubin, Direct 0.3 0.0 - 0.3 mg/dL 03/15/2024 3:46 PM EDT LABORATORY [facility] Comment:Result may be falsel y decreased due to hemolysis. Protein 6.2 6.0 - 8.3 g/dL 03/15/2024 3:46 PM EDT LABORATORY [facility] Blood Venous blood specimen / Unknown Venipuncture / Unknown 03/15/2024 3:00 PM EDT 03/15/2024 3:03 PM EDT Kristan Miller MD LAB BLOOD OR DERABLES Performing Organization Address [facility] Co de Phone Number LABORATORY [address] [address] * (ABNORMAL) BNP, NT-PRO (03/15/2024 3:00 PM EDT) BNP, NT-Pro 314(H) <300 pg/mL 03/15/2024 4:47 PM EDT LABORATORY [facility] Blood Venous blood specimen / Unknown Venipuncture / Unknown 03/15/2024 3:00 PM EDT 03/15/2024 3:03 PM EDT Narrative LABORATORY [facility] - 03/15/2024 4:47 PM EDT Exclude Heart Failure: <300 pg/mL Diagnose Heart Failure: Age <50 yr: >450 pg/mL 50-75 yr: >900 pg/mL >75 yr: >1800 pg/mL GFR is 30-59 mL/min: >1200 pg/mL or Age-adjusted values GFR <30 mL/min: do not use, not reliable Prognostic threshold: 1000 pg/mL Kristan Milelr MD LAB BLOOD OR DERABLES Performing Organization Address [facility] de Phone Number LABORATORY [address] [phone] * (ABNORMAL) BASIC METABOLIC PANEL (03/15/2024 3:00 PM EDT) BUN 21(H) 6 - 20 mg/dL 03/15/2024 3:46 PM EDT LABORATORY [facility] Creatinine 1.2 0.6 - 1.2 mg/dL 03/15/2024 3:46 PM EDT LABORATORY [facility] Estimated Glomerular Filtration Rate 66 >=60 mL/min 03/15/2024 3:46 PM EDT LABORATORY [facility] Comment:eGFR is calculated b ased on the CKD-EPI 2020 equation. Sodium 128(L) 135 - 146 mmol/L 03/15/2024 3:46 PM EDT LABORATORY [facility] Potassium 5.0 3.5 - 5.1 mmol/L 03/15/2024 3:46 PM EDT LABORATORY [facility] Chloride 92(L) 98 - 107 mmol/L 03/15/2024 3:46 PM EDT LABORATORY [facility] CO2 21(L) 22 - 32 mmol/L 03/15/2024 3:46 PM EDT LABORATORY [facility] Anion Gap 15 7 - 15 mmol/L 03/15/2024 3:46 PM EDT LABORATORY [facility] Glucose 284(H) 70 - 120 mg/dL 03/15/2024 3:46 PM EDT LABORATORY [facility] Calcium 8.7 8.4 - 10.2 mg/dL 03/15/2024 3:46 PM EDT LABORATORY [facility] Blood Venous blood specimen / Unknown Venipuncture / Unknown 03/15/2024 3:00 PM EDT 03/15/2024 3:03 PM EDT Kristan Miller MD LAB BLOOD OR DERABLES Performing Organization Address City/[facility]/ZIP Co de Phone Number LABORATORY [address] [address] * (ABNORMAL) GLUCOSE METER, POINT OF CARE (03/15/2024 2:16 PM EDT) [facility] Signature Glucose Meter 288(H) 70 - 120 mg/dL 03/15/2024 2:19 PM EDT [facility] Device Comment Notified Provider 03/15/2024 2:19 PM EDT [facility] Blood Whole blood specimen / Unknown 03/15/2024 2:16 PM EDT 03/15/2024 2:19 PM EDT No Physician Data Unknown LAB POINT OF C ARE TEST DOCKED DEVICE UNSOLICITED RESULTS Performing Organization Address City/[facility]/ZIP Co de Phone Number [facility] LABORATORY [address] [place], [place] [address]e FELIX Whitney [address] * EKG (03/15/2024 2:14 PM EDT) 03/15/2024 2:14 PM EDT Narrative Procedure Note José Oneill - 03/15/2024 2:14 PM EDT REASON FOR STUDY: WEAKNESS CONCLUSIONS: Normal sinus rhythm Normal ECG When compared with ECG of 20-Apr-2018 07:02, Vent. rate has increased by 33 bpm Ventricular Rate: 84 Atrial Rate: 84 [place] Interval: 178 QRS Duration: 82 QT/QTc: 390/460 ms P-R-T [place]: 89 : 75 : 75 degrees Kristan Miller MD EKG [facility] C[facility] documented in this encounter Visit Diagnoses Diagnosis Combined forms of age-related cataract of both eyes- Primary Other and combined forms of senile cataract Cataract Unspecified cataract Stroke with cerebral ischemia (HCC)- Primary Unspecified cerebral artery occlusion with cerebral infarction SOB (shortness of breath) Shortness of breath Acute CVA (cerebrovascular accident) (HCC) Left leg weakness Other musculoskeletal symptoms referable to limbs Elevated brain natriuretic peptide (BNP) level Other nonspecific findings on examination of blood Elevated troponin Other abnormal blood chemistry Chest pain Chest pain, unspecified Stroke with cerebral ischemia (HCC) Unspecified cerebral artery occlusion with cerebral infarction Stroke-like symptoms Other symptoms involving nervous and musculoskeletal systems Type 2 diabetes mellitus with kidney complication, with long-term current use of insulin (HCC) Essential hypertension Unspecified essential hypertension Hyperlipidemia Other and unspecified hyperlipidemia Hypothyroidism Unspecified hypothyroidism Cataract Unspecified cataract Cataract Unspecified cataract documented in this encounter Administered Medications Inactive Administered Medications - up to 3 most recent administrations Medication Order MAR Action Action Date Dose Rate Site Acetaminophen (Tylenol) tab 650 mg 650 mg, Oral, Q6H PRN Pain, Mild, Fever >38C(100.5F), Starting on Olive 03/15/24 at 1805, Until Tue03/16/24 at 1944, Maximum of 4 grams (4000 mg) per day. aspirin enteric coated tab 81 mg 81 mg, Oral, Daily(AM), First dose on Tue03/16/24 at 0900, Until Discontinued, This med should NOT be Crushed or Chewed Given 03/16/2024 9:27 AM EDT 81 mg atorvaSTATin (Lipitor) tab 80 mg 80 mg, Oral, Daily(AM), First dose (after last modification) on Tue03/16/24 at 0900, Until Discontinued Given 03/16/2024 9:27 AM EDT 80 mg clopidogrel (pLAVix) tab 75 mg 75 mg, Oral, Daily(AM), First dose on Tue03/16/24 at 0900, Until Discontinued Given 03/16/2024 9:28 AM EDT 75 mg dextrose 50% inj 25 mL 25 mL, IV Push, PRN Hypoglycemia, Other, For blood glucose 54 - 69 mg/dL or 70 - 100 mg/dL with symptoms AND patient is unresponsive, NPO, OR unable to swallow, Starting on Tue03/15/24 at 1802, Until Tue03/16/24 at 1944, Administer IV. Recheck blood glucose after 15 minutes. Notify provider. dextrose 50% inj 50 mL 50 mL, IV Push, PRN Hypoglycemia, Other, For blood glucose below 54 mg/dL AND patient unresponsive, NPO, OR unable to swallow, Starting on Tue03/15/24 at 1802, Until Tue03/16/24 at 1944, Administer IV. Recheck blood glucose in 15 minutes. Notify provider. Enoxaparin (Lovenox) inj 40 mg 40 mg, Subcutaneous, Daily(AM), First dose on Tue03/16/24 at 0900, Until Discontinued, If patient is on warfarin, inform provider if daily INR value is 2 or greater! Given 03/16/2024 9:37 AM EDT 40 mg Abdomen Left Lower Ezetimibe (Zetia) tab 10 mg 10 mg, Oral, EVERY OTHER DAY, First dose on Tue03/16/24 at 0800, Until Discontinued Given 03/16/2024 9:28 AM EDT 10 mg glucagon (Glucagen) inj 1 mg 1 mg, Intramuscular, PRN Hypoglycemia, Other, If patient is unresponsive, or NPO and has no IV access, Starting on Olive 03/15/24 at 1802, Until Tue03/16/24 at 1944, NPO and no IV access with either 1) blood glucose less than 100 mg/dL and symptomatic OR 2) blood glucose less than 70 mg/dL and asymptomatic Glucose (Glutose 15) 40 % gel 15 g of glucose 15 g of glucose, Oral, PRN Hypoglycemia (low sugar), Other, For blood glucose 54 - 69 mg/dL or 70 - 100 mg/dL with symptoms AND patient alert WITH difficulty chewing/swallowing, Starting on Tue03/15/24 at 1802, Until Tue03/16/24 at 1944, Administer gel. Recheck blood glucose after 15 minutes. Notify provider. 37.5 gram tube = 15 grams glucose = 1 each Glucose (Glutose 15) 40 % gel 30 g of glucose 30 g of glucose, Oral, PRN Hypoglycemia (low sugar), Other, For blood glucose below 54 mg/dL AND patient alert WITH difficulty chewing/swallowing, Starting on Tue03/15/24 at 1802, Until Tue03/16/24 at 1944, Administer gel. Recheck blood glucose after 15 minutes. Notify provider. 37.5 gram tube = 15 grams glucose = 1 each glucose chew tab 16 g 16 g, Oral, PRN Hypoglycemia, Other, For blood glucose 54 - 69 mg/dL or 70 - 100 mg/dL with symptoms and patient alert without difficulty chewing/swallowing., Starting on Tue03/15/24 at 1802, Until Tue03/16/24 at 1944 insulin aspart (NovoLOG) inj Subcutaneous, W/MEALS AND HS, First dose on Tue03/15/24 at 2200, Until Discontinued, MEDIUM DOSE (Usual starting dose): Sliding Scale Correctional insulin may be given if the patient is NPO. Dose based on standard build from Insulin Calculator. Do not modify insulin doses in administration instructions!, Glucose less than 70 instructions: Obtain STAT lab blood glucose and call covering provider., Glucose 80-150 (units): 0, Glucose 151-200 (units): 2, Glucose 201-250 (units): 4, Glucose 251-300 (units): 6, Glucose greater than 300 (units): 8, Glucose greater than 300 instructions: Give suggested insulin dose and call covering provider. Given 03/16/2024 12:12 PM EDT 2 Units Arm Left Upper Given 03/15/2024 11:06 PM EDT 4 Units A rm Right Upper Insulin Glargine (Lantus) inj 10 Units 10 Units, Subcutaneous, HSINSULIN, First dose on Tue03/15/24 at 2200, Until Discontinued, "IF DOSE IS HELD- NOTIFY COVERING PROVIDER!" Given 03/15/2024 11:06 PM EDT 10 Units Arm Right Upper Iopamidol (Isovue 370) inj 80 mL 80 mL, Intravenous, ONCE, On Tue03/15/24 at 1615, For 1 dose, Radiology Medication Routing (Non-IR) Given 03/15/2024 3:33 PM EDT 80 mL levothyroxine (Levoxyl) tab 88 mcg 88 mcg, Oral, [id number], First dose on Tue03/16/24 at 0630, Until Discontinued Given 03/16/2024 5:39 AM EDT 88 mcg melatonin tab 3 mg 3 mg, Oral, HS PRN Sleep, Starting on Tue03/15/24 at 1929, Until Tue03/16/24 at 1944 ondansetron (Zofran) inj 4 mg 4 mg, IV Push, Q6H PRN Nausea, Vomiting, Starting on Tue03/15/24 at 1930, Until Tue03/16/24 at 1944 oxygen GAS Inhalation, OXYGEN, First dose on Tue03/15/24 at 1600, Until Discontinued, Device/Managed by: Low Flow Device, Goal SPO2 (%): 94 or greater, Starting Device: Nasal Cannula, Initial Flow Rate (LPM): 2, Lowest Support: Nasal Cannula: Flow 0-6 LPM. Titrate up/down by 1 LPM., Titration Interval: Q2 minutes and as needed., Notify Provider: For sudden DECREASE in resting SPO2 to less than 85% and when escalating delivery device., Wean patient off Oxygen when the oxygen saturation is greater than or equal to 93% oxygen GAS Inhalation, OXYGEN, First dose on Tue03/15/24 at 1845, Until Discontinued, Device/Managed by: Low Flow Device, Goal SPO2 (%): 94 or greater, Starting Device: Nasal Cannula, Initial Flow Rate (LPM): 2, Lowest Support: Nasal Cannula: Flow 0-6 LPM. Titrate up/down by 1 LPM., Titration Interval: Q2 minutes and as needed., Notify Provider: For sudden DECREASE in resting SPO2 to less than 85% and when escalating delivery device., Wean patient off Oxygen when the oxygen saturation is greater than or equal to 93% sodium chloride 0.9 % flush peripheral cam 3 mL 3 mL, IV Push, QSHIFT, First dose on Tue03/15/24 at 1600, Until Discontinued, Do not flush if lock, PICC, or central line not in place; IV infusing or unable to flush. Given 03/16/2024 8:00 AM EDT 3 mL Given 03/16/2024 12:00 AM EDT 3 mL Given 03/15/2024 4:00 PM EDT 3 mL sodium chloride 0.9 % flush/inj 3 mL 3 mL, IV Push, PRN Other, Line Patency, Starting on Olive 03/15/24 at 1804, Until Tue03/16/24 at 1944, Do not flush if lock, PICC, or central line not in place, IV infusing or unable to flush documented in this encounter Active and Recently Administered Medications Times are shown in EDT. Scheduled Medication Order 03/14/2024 03/15/2024 03/16/2024 aspirin enteric coated tab 81 mg 81 mg, Oral, Daily(AM), First dose on Tue03/16/24 at 0900, Until Discontinued, This med should NOT be Crushed or Chewed 926 (Given - Provid er: Johnny Cao, ) atorvaSTATin (Lipitor) tab 80 mg 80 mg, Oral, Daily(AM), First dose (after last modification) on Tue03/16/24 at 0900, Until Discontinued 926 (Given - Provid er: Johnny Cao, ) clopidogrel (pLAVix) tab 75 mg 75 mg, Oral, Daily(AM), First dose on Tue03/16/24 at 0900, Until Discontinued 927 (Given - Provid er: Johnny Cao, ) Enoxaparin (Lovenox) inj 40 mg 40 mg, Subcutaneous, Daily(AM), First dose on Tue03/16/24 at 0900, Until Discontinued, If patient is on warfarin, inform provider if daily INR value is 2 or greater! 936 (Given - Provid er: SN Kenneth) Ezetimibe (Zetia) tab 10 mg 10 mg, Oral, EVERY OTHER DAY, First dose on Tue03/16/24 at 0800, Until Discontinued 927 (Given - Provid er: SN Kenneth) insulin aspart (NovoLOG) inj Subcutaneous, W/MEALS AND HS, First dose on Tue03/15/24 at 2200, Until Discontinued, MEDIUM DOSE (Usual starting dose): Sliding Scale Correctional insulin may be given if the patient is NPO. Dose based on standard build from Insulin Calculator. Do not modify insulin doses in administration instructions!, Glucose less than 70 instructions: Obtain STAT lab blood glucose and call covering provider., Glucose 80-150 (units): 0, Glucose 151-200 (units): 2, Glucose 201-250 (units): 4, Glucose 251-300 (units): 6, Glucose greater than 300 (units): 8, Glucose greater than 300 instructions: Give suggested insulin dose and call covering provider. 2306 (Given - Provider: Liv Alejandra RN) 0800 (No Insulin - Provider: SN Kenneth - Reason: Parameter(s) Not Met)1212 (Given - Provider: SN Georgette) Insulin Glargine (Lantus) inj 10 Units 10 Units, Subcutaneous, HSINSULIN, First dose on Tue03/15/24 at 2200, Until Discontinued, "IF DOSE IS HELD- NOTIFY COVERING PROVIDER!" 2306 (Given - Provider: Liv Alejandra RN) Iopamidol (Isovue 370) inj 80 mL (COMPLETED) 80 mL, Intravenous, ONCE, On Tue03/15/24 at 1615, For 1 dose, Radiology Medication Routing (Non-IR) 1533 (Given - Provider: Irene Crump, RT) levothyroxine (Levoxyl) tab 88 mcg 88 mcg, Oral, [id number], First dose on Tue03/16/24 at 0630, Until Discontinued 0539 (Given - Provid er: Liv Alejandra RN) oxygen GAS Inhalation, OXYGEN, First dose on Tue03/15/24 at 1600, Until Discontinued, Device/Managed by: Low Flow Device, Goal SPO2 (%): 94 or greater, Starting Device: Nasal Cannula, Initial Flow Rate (LPM): 2, Lowest Support: Nasal Cannula: Flow 0-6 LPM. Titrate up/down by 1 LPM., Titration Interval: Q2 minutes and as needed., Notify Provider: For sudden DECREASE in resting SPO2 to less than 85% and when escalating delivery device., Wean patient off Oxygen when the oxygen saturation is greater than or equal to 93% 1600 (Oxygen Off - Provider: Lilibeth Pena RN) 0000 (Oxygen Off - Provider: Liv Alejandra RN)0800 (Oxygen Off - Provider: Gil Leon RN) oxygen GAS Inhalation, OXYGEN, First dose on Olive 03/15/24 at 1845, Until Discontinued, Device/Managed by: Low Flow Device, Goal SPO2 (%): 94 or greater, Starting Device: Nasal Cannula, Initial Flow Rate (LPM): 2, Lowest Support: Nasal Cannula: Flow 0-6 LPM. Titrate up/down by 1 LPM., Titration Interval: Q2 minutes and as needed., Notify Provider: For sudden DECREASE in resting SPO2 to less than 85% and when escalating delivery device., Wean patient off Oxygen when the oxygen saturation is greater than or equal to 93% 1845 (Oxygen Off - Provider: Shanda Hernandez RN) 0000 (Oxygen Off - Provider: Liv Alejandra RN)0800 (Oxygen Off - Provider: SN Kenneth) sodium chloride 0.9 % flush peripheral cam 3 mL 3 mL, IV Push, QSHIFT, First dose on Olive 03/15/24 at 1600, Until Discontinued, Do not flush if lock, PICC, or central line not in place; IV infusing or unable to flush. 1600 (Given - Provider: Lilibeth Pena RN) 0000 (Given - Provider: Liv Alejandra RN)0800 (Given - Provider: SN Kenneth) Continuous Medication Order 03/14/2024 03/15/2024 03/16/2024 NSS infusion 75 mL/hr, Intravenous, CONTINUOUS, Starting on Olive 03/15/24 at 1545, Until Tue03/16/24 at 1544 1545 (Not Given - Provider: Lilibeth Pena RN - Reason: Order Clarified - Comment: per Neurologist patient given fluid bolus.) PRN Medication Order 03/14/2024 03/15/2024 03/16/2024 Acetaminophen (Tylenol) tab 650 mg 650 mg, Oral, Q6H PRN Pain, Mild, Fever >38C(100.5F), Starting on Tue03/15/24 at 1805, Until Tue03/16/24 at 194, Maximum of 4 grams (4000 mg) per day. dextrose 50% inj 25 mL 25 mL, IV Push, PRN Hypoglycemia, Other, For blood glucose 54 - 69 mg/dL or 70 - 100 mg/dL with symptoms AND patient is unresponsive, NPO, OR unable to swallow, Starting on Tue03/15/24 at 1802, Until Tue03/16/24 at 1943, Administer IV. Recheck blood glucose after 15 minutes. Notify provider. dextrose 50% inj 50 mL 50 mL, IV Push, PRN Hypoglycemia, Other, For blood glucose below 54 mg/dL AND patient unresponsive, NPO, OR unable to swallow, Starting on Tue03/15/24 at 1802, Until Tue03/16/24 at 1943, Administer IV. Recheck blood glucose in 15 minutes. Notify provider. glucagon (Glucagen) inj 1 mg 1 mg, Intramuscular, PRN Hypoglycemia, Other, If patient is unresponsive, or NPO and has no IV access, Starting on Tue03/15/24 at 1802, Until Tue03/16/24 at 1943, NPO and no IV access with either 1) blood glucose less than 100 mg/dL and symptomatic OR 2) blood glucose less than 70 mg/dL and asymptomatic Glucose (Glutose 15) 40 % gel 15 g of glucose 15 g of glucose, Oral, PRN Hypoglycemia (low sugar), Other, For blood glucose 54 - 69 mg/dL or 70 - 100 mg/dL with symptoms AND patient alert WITH difficulty chewing/swallowing, Starting on Tue03/15/24 at 1802, Until Tue03/16/24 at 1943, Administer gel. Recheck blood glucose after 15 minutes. Notify provider. 37.5 gram tube = 15 grams glucose = 1 each Glucose (Glutose 15) 40 % gel 30 g of glucose 30 g of glucose, Oral, PRN Hypoglycemia (low sugar), Other, For blood glucose below 54 mg/dL AND patient alert WITH difficulty chewing/swallowing, Starting on Tue03/15/24 at 1802, Until Tue03/16/24 at 194, Administer gel. Recheck blood glucose after 15 minutes. Notify provider. 37.5 gram tube = 15 grams glucose = 1 each glucose chew tab 16 g 16 g, Oral, PRN Hypoglycemia, Other, For blood glucose 54 - 69 mg/dL or 70 - 100 mg/dL with symptoms and patient alert without difficulty chewing/swallowing., Starting on Olive 03/15/24 at 1802, Until Tue03/16/24 at 1944 melatonin tab 3 mg 3 mg, Oral, HS PRN Sleep, Starting on Olive 03/15/24 at 1929, Until Tue03/16/24 at 1944 ondansetron (Zofran) inj 4 mg 4 mg, IV Push, Q6H PRN Nausea, Vomiting, Starting on Olive 03/15/24 at 1930, Until Tue03/16/24 at 1944 sodium chloride 0.9 % flush/inj 3 mL 3 mL, IV Push, PRN Other, Line Patency, Starting on Olive 03/15/24 at 1804, Until Tue03/16/24 at 1944, Do not flush if lock, PICC, or central line not in place, IV infusing or unable to flush documented in this encounter Advance Directives * [...] Power of Attor vandana? 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
--- OUTSIDE RECORDS SUMMARY | 2024-08-29 20:33 | External Medical Summary ---
Author Name Unknown Address Unknown Organization [id number]:LABORATORY [facility] [address] [place] [address] Laboratory Report Ordering Provider Test Date Status BELTRAN MEYER 03/15/2024 15:47:37 Final Observation Date Value Abnormality Reference (Units ) Status Color of Urine by Auto 03/15/2024 15:47:37 Yellow Light Yellow, Yellow, Dark Yellow Final Clarity, Urine 03/15/2024 15:47:37 Clear Clear Final Glucose [Mass/volume] in Urine by Automated test strip 03/15/2024 15:47:37 500 Abnormal Negative (mg/dL) Final Bilirubin.total [Presence] in Urine by Automated test strip 03/15/2024 15:47:37 Negative Negative Final Ketones [Mass/volume] in Urine by Automated test strip 03/15/2024 15:47:37 15 Abnormal Negative (mg/dL) Final Specific gravity, Urine 03/15/2024 15:47:37 1.014 1.003-1.030 Final Hemoglobin [Presence] in Urine by Automated test strip 03/15/2024 15:47:37 Negative Negative Final pH, Urine 03/15/2024 15:47:37 7.0 5.0-7.5 (Units) Final Protein [Mass/volume] in Urine by Automated test strip 03/15/2024 15:47:37 Negative Negative (mg/dL) Final Urobilinogen [Mass/volume] in Urine by Automated test strip 03/15/2024 15:47:37 1.0 0.2, 1.0 (mg/dL) Final Nitrite [Presence] in Urine by Automated test strip 03/15/2024 15:47:37 Negative Negative Final Leukocyte esterase [Presence] in Urine by Automated test strip 03/15/2024 15:47:37 Negative Negative Final RBC, Urine 03/15/2024 15:47:37 0-2 0-2 (/HPF) Final WBC, Urine 03/15/2024 15:47:37 0-2 0-2 (/HPF) Final Bacteria [#/area] in Urine sediment by Microscopy high power field 03/15/2024 15:47:37 0-25 0-25 (/HPF) Final CULTURE, URINE - [facility] 03/15/2024 15:47:37 Final Culture not indicated by uri nalysis results\[id number]\ Performing Location LABORATORY [address] [place] [address]
--- OUTSIDE RECORDS SUMMARY | 2024-08-29 20:33 | External Medical Summary ---
Author Name Unknown Address Unknown Organization : Laboratory Report Ordering Provider Test Date Status TRISTAN GUTIÉRREZ 03/16/2024 11:30:14 Final Observation Date Value Abnormality Reference (Units ) Status Glucose Point of Care 03/16/2024 11:30:14 168 Above high normal 70-120 (mg/dL) Final Performing Location
--- OUTSIDE RECORDS SUMMARY | 2024-08-29 20:33 | External Medical Summary ---
Author Name Unknown Address Unknown Organization : Laboratory Report Ordering Provider Test Date Status TRISTAN GUTIÉRREZ 03/15/2024 22:28:30 Final Observation Date Value Abnormality Reference (Units ) Status Glucose Point of Care 03/15/2024 22:28:30 217 Above high normal 70-120 (mg/dL) Final Performing Location
--- OUTSIDE RECORDS SUMMARY | 2024-08-29 20:33 | External Medical Summary ---
Author Name Unknown Address Unknown Organization K1F:LABORATORY [facility] - [address] [place] [address] Laboratory Report Ordering Provider Test Date Status BELTRAN MEYER 03/15/2024 15:00:00 Final Observation Date Value Abnormality Reference (Units ) Status WBC, Total 03/15/2024 15:00:00 8.05 4.00-10.80 (K/uL) Final RBC 03/15/2024 15:00:00 4.23 4.50-5.25 (M/uL) Final Hemoglobin 03/15/2024 15:00:00 12.9 Below low normal 14.0-16.8 (g/dL) Final HCT 03/15/2024 15:00:00 38.1 Below low normal 40.0-48.4 (%) Final MCV 03/15/2024 15:00:00 90.1 82.0-99.5 (fL) Final MCH 03/15/2024 15:00:00 30.5 27.0-34.0 (pg) Final MCHC 03/15/2024 15:00:00 33.9 32.0-36.0 (g/dL) Final RDW 03/15/2024 15:00:00 14.1 11.5-15.5 (%) Final Platelets 03/15/2024 15:00:00 199 140-400 (K/uL) Final MPV 03/15/2024 15:00:00 11.0 6.6-11.1 (fL) Final Nucleated erythrocytes/100 leukocytes [Ratio] in Blood by Automated count 03/15/2024 15:00:00 0 <=0 (/100 WBCs) Final Performing Location LABORATORY [facility] - [address] [place] [address]
--- OUTSIDE RECORDS SUMMARY | 2024-08-29 20:33 | External Medical Summary ---
Author Name Unknown Address Unknown Organization K1F:LABORATORY [facility] - [address] [facility] [place] [address] Laboratory Report Ordering Provider Test Date Status BELTRAN MEYER 03/15/2024 15:00:00 Final Observation Date Value Abnormality Reference (Units ) Status SYNC LEUKOCYTES IN BLOOD BY AUTOMATED COUNT 03/15/2024 15:00:00 8.05 4.00-10.80 (K/uL) Final Segs 03/15/2024 15:00:00 81.9 Above high normal 40.0-75.0 (%) Final Lymphs % 03/15/2024 15:00:00 9.2 Below low normal 18.0-42.0 (%) Final Monos 03/15/2024 15:00:00 5.6 1.0-11.0 (%) Final Eosinophils 03/15/2024 15:00:00 1.2 0.0-6.0 (%) Final Basos 03/15/2024 15:00:00 0.9 0.0-2.0 (%) Final Immature Granulocyte, Percent 03/15/2024 15:00:00 1.2 0.0-2.0 (%) Final Absolute Segs 03/15/2024 15:00:00 6.59 1.80-7.70 (K/uL) Final Lymphs, absolute 03/15/2024 15:00:00 0.74 Below low normal 1.00-4.80 (K/ul) Final Monos, Abs 03/15/2024 15:00:00 0.45 0.00-1.10 (K/uL) Final Eos, Abs 03/15/2024 15:00:00 0.10 0.00-0.70 (K/uL) Final Basos, Abs 03/15/2024 15:00:00 0.07 0.00-0.20 (K/uL) Final Immature Granulocytes, Number 03/15/2024 15:00:00 0.10 0.00-0.20 (K/uL) Final Performing Location LABORATORY [facility] - [facility] [address] [place] [address]
--- OUTSIDE RECORDS SUMMARY | 2024-08-29 20:33 | External Medical Summary ---
Author Name Unknown Address Unknown Organization K1F:LABORATORY [facility] - [address] [place] [address] Laboratory Report Ordering Provider Test Date Status LENNY MELGAR 03/16/2024 14:25:00 Final Assay measures the level of platelet P2Y12 [...] clopidogrel usage in these patients is unknown. Observation Date Value Abnormality Reference (Units ) Status Platelet aggregation ADP induced [Units/volume] in Blood 03/16/2024 14:25:00 102 Below low normal 182-335 (PRU) Final Performing Location LABORATORY [facility] - [address] [place] [address]
--- OUTSIDE RECORDS SUMMARY | 2024-08-29 20:33 | External Medical Summary ---
Author Name Unknown Address Unknown Organization : Laboratory Report Ordering Provider Test Date Status NO,UNKNOWN 03/15/2024 14:16:16 Final Observation Date Value Abnormality Reference (Units) Status Glucose Point of Care 03/15/2024 14:16:16 288 Above high normal 70-120 (mg/dL) Final POCT DEVICE COMMENT 03/15/2024 14:16:16 Notified Provider Final Performing Location
[2024-08-29 20:43] LABS: Troponin I High Sensitivity 18.7 pg/ml (0-20)
[2024-08-29 20:52] LABS: Thyroid Stimulating Hormone 4.486 uIu/ml (0.300-4.500)
[2024-08-29] MEDS: LANTUS PER UNIT CHARGE SQ ONE (21:48)
[2024-08-30 01:21] LABS: ANTI-Xa, UFH(UnfractionatedHep 0.25 IU/ml (0.3-0.7)
[2024-08-30] MEDS: INSULIN ASPART PER UNIT CHARGE SC ONE (01:41)
[2024-08-30] MEDS: SODIUM CHLORIDE 0.9% 250 ML IV ONE (03:17)
--- NOTE | 2024-08-30 07:48 | Electrocardiogram Report ---
Test Reason : Blood Pressure : */* mmHG Vent. Rate : 66 BPM Atrial Rate : 66 BPM P-R Int : 182 ms QRS Dur : 86 ms QT Int : 448 ms P-R-T Axes : 88 80 91 degrees QTcB Int : 469 ms Normal sinus rhythm Normal ECG When compared with ECG of 29-Aug-2024 11:47, Sinus rhythm has replaced Atrial fibrillation Vent. rate has decreased by 71 bpm Confirmed by Galo Cameron ([id number]) on 08/30/2024 7:48:39 AM Referred By: REFERRED SELF Confirmed By: Galo Cameron
[2024-08-30 08:23] LABS: Hematocrit (blood only) 35.6 % (42.0-52.0); Hemoglobin 11.9 g/dl (14.0-18.0); Mean Corpuscular Hemoglobin 29.7 pg (25.0-34.0); Mean Corpuscular Hgb Conc 33.4 g/dL (32.0-36.0); Mean Corpuscular Volume 88.8 fL (80.0-100.0); Mean Platelet Volume 11.2 fL (9.4-12.4); Platelet Count 202 K/uL (130-400); RDW Coefficient of Variation 13.8 % (11.5-14.5); RDW Standard Deviation 45.3 fL (36.4-46.3); Red Blood Count 4.01 M/uL (4.70-6.10); White Blood Count 7.87 K/ul (4.8-10.8)
[2024-08-30] MEDS: CLOPIDOGREL BISULFATE 75 MG TAB PO SCH (08:36)
[2024-08-30] MEDS: CHOLECALCIFEROL 25 MCG (1000 UNITS) TAB PO SCH (08:36)
[2024-08-30] MEDS: ATORVASTATIN 40 MG TAB PO SCH (08:37)
[2024-08-30] MEDS: LOSARTAN POTASSIUM 50 MG TAB PO SCH (08:37)
[2024-08-30] MEDS: EZETIMIBE 10 MG TAB PO SCH (08:37)
[2024-08-30] MEDS: LEVOTHYROXINE SODIUM 88 MCG TABLET PO SCH (08:37)
[2024-08-30 08:40] LABS: ANTI-Xa, UFH(UnfractionatedHep 0.43 IU/ml (0.3-0.7)
[2024-08-30 08:44] LABS: BUN Creatinine Ratio 26.4 (10-20); Calcium 8.6 mg/dl (8.6-10.3); Chol HDL Ratio 1.9 (0-5); Creatinine Clr Calc Pharmacy 37.9 ml/min; Magnesium 2.2 mg/dl (1.7-2.4); Phosphorus 3.4 mg/dl (2.5-4.9); Potassium 4.1 mmol/L (3.5-5.1)
[2024-08-30] MEDS ORDERED: ASPIRIN 81 MG ECTAB PO SCH (09:00)
[2024-08-30] MEDS: LACTATED RINGER'S 1,000 ML IV SCH (10:15)
--- NOTE | 2024-08-30 10:29 | Pharmacy Report ---
Pharmacy Glycemic Short Note 2 - Date of Service August 30, 2024 - Glycemic Short BSG Results (Last 24 hours): 08/29/24 08/29/24 08/29/24 11:51 16:40 18:32 Glucose 375 H* POC Glucose 295 H 318 H* 08/29/24 08/29/24 08/30/24 21:38 21:41 01:37 Glucose POC Glucose 359 H* 380 H* 278 H 08/30/24 08/30/24 07:33 07:58 Glucose 145 H POC Glucose 134 H OUTPATIENT ANTIDIABETIC REGIMEN: * glargine 9 units hs, novolog CF 50 for BSG >180, CR 1:8 with breakfast, CR 1:9 rest of day. ASSESSMENT: * 74 year old admitted with afib with RVR. Pharmacy consulted for glycemic management. Patient received total of 31 units of insulin yesterday, of which 10 units were basal insulin. BSGs >300 on arrival. * BSGs trending down to 134 mg/dL this AM with additional novolog given overnigh t. Patient NPO this AM until seen by cardiology per notes. Reasonable to continue same parameters for now. PLAN FOR INPATIENT GLYCEMIC CONTROL: * Hold outpatient oral diabetes medications * Basal insulin * Lantus 10 units hs * Bolus insulin * NovoLog per scale ACHS or Q6hrs while NPO * Goal Range: Low 110 mg/dL - High 140 mg/dL * Correction Factor: 30 mg/dL/unit * Nutritional / Prandial insulin per carb ratio of 1 unit per 10 grams CHO consumed
[2024-08-30 11:17] LABS: Estimated Average Glucose 200 mg/dl; Hemoglobin A1C 8.6 % (4.5-5.6)
--- NOTE | 2024-08-30 11:30 | Cardiology Progress Note ---
Date of Service August 30, 2024 Assessment & Plan (1) Atrial fibrillation with RVR: Plan Patient is a 74-year-old male presents with newly observed atrial fibrillation with rapid response possible acute onset this afternoon. Initially associated with symptoms of chest pain and arm weakness. Symptoms now resolved with heart rate control With IV diltiazem Echocardiogram demonstrates normal to hyperdynamic LV function with only borderline left atrial enlargement. Mild sclerotic changes of the aortic and mitral valves. CT of the chest unremarkable revealing other than vascular and coronary calcification 1. Atrial fibrillation with rapid response. Has controlled with IV diltiazem. Will transition to oral metoprolol Tartrate 25 mg p.o. now and 3 times daily. Patient with significantly elevated [id number] 2 score, 6. CT scan head pending but would anticoagulate with IV heparin with transition ultimately to Eliquis at discharge. Would likely continue with Plavix discontinue aspirin at that time Prior history of borderline bradycardia, abnormal tilt table testing. Will need to watch closely for tachybradycardia syndrome. Discussed with patient and may ultimately require pacemaker for management. Would not initiate Eliquis until discharge 2. Cardiovascular risk factors continue Atorvastatin, ezetimibe, losartan 08/30/2024 1. Paroxysmal atrial fibrillation status post successful conversion to sinus rhythm. 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 Received oral metoprolol to tartrate this morning. Will transition to metoprolol succinate 12.5 mg twice per day. Patient leery of past beta-rosalee usage. Given clinical history suspect patient may ultimately warrant pacemaker insertion. Will plan on EP follow-up post hospital discharge Currently anticoagulated with IV heparin once renal function stable transition to Eliquis I spent a total of 40 minutes on the date of service in preparation, delivery, and documentation of the care provided to this patient, excluding any time spent in the performance of separately billed services. Admission and Anticipated Discharge Date Admission Date: August 29, 2024 Subjective Patient seen and examined, chart, medications, telemetry reviewed. Spontaneously converted to sinus rhythm after oral metoprolol yesterday. Mild bradycardia overnight. No acute complaints. Review of Systems Review of Systems: All systems reviewed & are unremarkable except as noted in Subjective Physical Exam Constitutional: WD/WN, vitals as above no acute distress ENMT: external ear and nose normal, oropharynx normal Neck: trachea midline, no thyromegaly Respiratory: normal respiratory effort, lungs clear to auscultation Cardiovascular: Rate/Rhythm: regular rhythm Heart Sounds: normal S1 and normal S2; no murmur Vessels: no JVD Extremities: no edema Gastrointestinal (Abdomen): normal bowel sounds, soft, nontender, no hepatosplenomegaly Musculoskeletal: no cyanosis or clubbing, extremities motor strength 5/5 Results & Data Vital Signs (Past 12 Hours) Vital Signs Temp Pulse Pulse Resp BP Pulse Ox O2 Del Method 08/30/24 07:22 36.6 C 65 16 130/62 94 Room Air 08/30/24 02:53 36.5 C 60 18 90/46 L 92 Room Air 08/29/24 23:41 54 L Laboratory Results Laboratory Results - last 24 hr 08/29/24 08/29/24 08/29/24 11:51 16:40 18:32 WBC 5.61 RBC 4.64 L Hgb 14.1 Hct 42.1 MCV 90.7 MCH 30.4 MCHC 33.5 RDW Std Deviation 44.1 RDW Coeff of Landy 13.2 Plt Count 213 MPV 12.1 Immature Gran % (Auto) 0.4 Neut % (Auto) 72.6 Lymph % (Auto) 16.0 [place] % (Auto) 6.1 Eos % (Auto) 3.7 Baso % (Auto) 1.2 Neut # (Auto) 4.07 Lymph # (Auto) 0.90 L [place] # (Auto) 0.34 Eos # (Auto) 0.21 Baso # (Auto) 0.07 Immature Gran # (Auto) 0.02 Heparin Anti-Xa, Unfract Sodium 132 L Potassium 5.0 Chloride 98 Carbon Dioxide 23 Anion Gap 11 BUN 25 H Creatinine 1.07 Est Cr Clr Drug Dosing 50.7 eGFR 72.37 BUN/Creatinine Ratio 23.4 H Glucose 375 H* POC Glucose 295 H 318 H* Estimat Average Glucose Hemoglobin A1c Calcium 9.1 Phosphorus Magnesium Total Bilirubin 1.1 H AST 25 ALT 39 Alkaline Phosphatase 79 Troponin I High Sens 6.8 Total Protein 6.9 Albumin 4.1 Globulin 2.8 Albumin/Globulin Ratio 1.5 Triglycerides Cholesterol LDL Cholesterol, Calc VLDL Cholesterol, Calc HDL Cholesterol Cholesterol/HDL Ratio Lipase 9 L TSH 08/29/24 08/29/24 08/29/24 20:04 21:38 21:41 WBC RBC Hgb Hct MCV MCH MCHC RDW Std Deviation RDW Coeff of Landy Plt Count MPV Immature Gran % (Auto) Neut % (Auto) Lymph % (Auto) [place] % (Auto) Eos % (Auto) Baso % (Auto) Neut # (Auto) Lymph # (Auto) [place] # (Auto) Eos # (Auto) Baso # (Auto) Immature Gran # (Auto) Heparin Anti-Xa, Unfract Sodium Potassium Chloride Carbon Dioxide Anion Gap BUN Creatinine Est Cr Clr Drug Dosing eGFR BUN/Creatinine Ratio Glucose POC Glucose 359 H* 380 H* Estimat Average Glucose Hemoglobin A1c Calcium Phosphorus Magnesium Total Bilirubin AST ALT Alkaline Phosphatase Troponin I High Sens 18.7 D Total Protein Albumin Globulin Albumin/Globulin Ratio Triglycerides Cholesterol LDL Cholesterol, Calc VLDL Cholesterol, Calc HDL Cholesterol Cholesterol/HDL Ratio Lipase TSH 4.486 08/30/24 08/30/24 08/30/24 00:37 01:37 07:33 WBC RBC Hgb Hct MCV MCH MCHC RDW Std Deviation RDW Coeff of Landy Plt Count MPV Immature Gran % (Auto) Neut % (Auto) Lymph % (Auto) [place] % (Auto) Eos % (Auto) Baso % (Auto) Neut # (Auto) Lymph # (Auto) [place] # (Auto) Eos # (Auto) Baso # (Auto) Immature Gran # (Auto) Heparin Anti-Xa, Unfract 0.25 L Sodium Potassium Chloride Carbon Dioxide Anion Gap BUN Creatinine Est Cr Clr Drug Dosing eGFR BUN/Creatinine Ratio Glucose POC Glucose 278 H 134 H Estimat Average Glucose Hemoglobin A1c Calcium Phosphorus Magnesium Total Bilirubin AST ALT Alkaline Phosphatase Troponin I High Sens 26.4 H Total Protein Albumin Globulin Albumin/Globulin Ratio Triglycerides Cholesterol LDL Cholesterol, Calc VLDL Cholesterol, Calc HDL Cholesterol Cholesterol/HDL Ratio Lipase TSH 08/30/24 08/30/24 07:58 11:16 WBC 7.87 RBC 4.01 L Hgb 11.9 L Hct 35.6 L MCV 88.8 MCH 29.7 MCHC 33.4 RDW Std Deviation 45.3 RDW Coeff of Landy 13.8 Plt Count 202 MPV 11.2 Immature Gran % (Auto) Neut % (Auto) Lymph % (Auto) [place] % (Auto) Eos % (Auto) Baso % (Auto) Neut # (Auto) Lymph # (Auto) [place] # (Auto) Eos # (Auto) Baso # (Auto) Immature Gran # (Auto) Heparin Anti-Xa, Unfract 0.43 Sodium 136 Potassium 4.1 Chloride 103 Carbon Dioxide 29 Anion Gap 4 BUN 38 H Creatinine 1.44 H D Est Cr Clr Drug Dosing 37.9 eGFR 50.67 BUN/Creatinine Ratio 26.4 H Glucose 145 H POC Glucose 114 H Estimat Average Glucose 200 Hemoglobin A1c 8.6 H Calcium 8.6 Phosphorus 3.4 Magnesium 2.2 Total Bilirubin AST ALT Alkaline Phosphatase Troponin I High Sens Total Protein Albumin Globulin Albumin/Globulin Ratio Triglycerides 39 Cholesterol 77 LDL Cholesterol, Calc 28 VLDL Cholesterol, Calc 8 HDL Cholesterol 41 Cholesterol/HDL Ratio 1.9 Lipase TSH
--- NOTE | 2024-08-30 14:55 | Hospitalist Progress Note ---
Date of Service August 30, 2024 Assessment & Plan (1) Atrial fibrillation with RVR: Plan Atrial fibrillation with RVR, New onset --Patient presented with tightness/pain of his both arms/upper back/shoulders associated with nausea/vomiting/pressure at the back of his head. - TSH: normal -ECHO: Mild concentric LVH. Left ventricle wall motion is normal. EF 65 to 70%. Left atrium is mildly dilated. Aortic valve sclerosis mild, without significant stenosis. Trace aortic regurgitation. Monitor and replete electrolytes as needed Cardizem drip discontinued Spontaneously converted to sinus Continue metoprolol and IV heparin Appreciate cardiology input Will need EP study as outpatient Acute kidney injury Likely secondary to contrast Cr 1.4 Avoid nephrotoxic agents as able Monitor renal function Continue IV fluids H/O Recurrent Strokes Likely due to above Rule out stroke: Patient reports that he has had 4 strokes in the past, last one in February 2024. He likens the presenting symptoms to the event of stroke in the past --CT Head: Cerebral atrophy. No acute changes. --MRI Brain pending --LDL: 28 -- Continue Lipitor, Plavix, anticoagulation as above Monitor DM II HbA1c 8.6 Continue insulin while hospitalized Monitor BGs Other chronic medical conditions: HTN, HLD, hypothyroidism--- continue/resume home meds as able. DVT Px: IV Heparin Code Status Full code Admission and Anticipated Discharge Date Admission Date: August 29, 2024 Subjective Patient is seen and examined at bedside Nausea, palpitations resolved Spontaneously converted to sinus Discussed with cardiology today States having chronic left leg weakness but otherwise no complaints Denies any chest pain, dyspnea, nausea, vomiting, abdominal pain Review of Systems Review of Systems: All systems reviewed & are unremarkable except as noted in Subjective Physical Exam Physical Exam: Physical Exam: Vitals signs as noted above General Appearance:Thin, no apparent distress Head: normocephalic, Atraumatic Eyes: normal inspection, EOMI Neck: supple, Trachea midline Respiratory/Chest: Normal breath sounds, CTA, No accessory muscle use Cardiovascular: S1, S2, No murmur Abdomen/GI:Soft, Non tender, Bowel sounds present Extremities/Musculoskeletal:normal inspection, no edema Neurologic/Psych:AAOX3, grossly no focal neurological deficits Skin: normal color, warm Results & Data Results & Data Vital Signs (Past 12 Hours) Vital Signs Temp Pulse Resp BP Pulse Ox O2 Del Method 08/30/24 11:44 36.6 C 87 17 124/68 94 Room Air 08/30/24 07:22 36.6 C 65 16 130/62 94 Room Air 08/30/24 02:53 36.5 C 60 18 90/46 L 92 Room Air Laboratory Results Short CBC 08/30/24 Range/Units 07:58 WBC 7.87 (4.8-10.8) K/ul Hgb 11.9 L (14.0-18.0) g/dl Hct 35.6 L (42.0-52.0) % Plt Count 202 (130-400) K/uL BMP 08/30/24 07:58 Sodium 136 Potassium 4.1 Chloride 103 Carbon Dioxide 29 BUN 38 H Creatinine 1.44 H D Glucose 145 H Calcium 8.6
[2024-08-30] MEDS: METOPROLOL SUCC 25MG EXT REL TAB PO SCH (20:48)
[2024-08-30] MEDS: LANTUS PER UNIT CHARGE SQ SCH (20:56)
[2024-08-30] MEDS: GADOBUTROL 65ML VIAL IV ONE (23:31)
--- NOTE | 2024-08-31 02:01 | Magnetic Resonance Report ---
Exam(s): MRI HEAD W/WO Contrast IV Amt: 6cc gadavist EXAM: MR Head Without and With Intravenous Contrast CLINICAL HISTORY: Reason for exam: R/O Stroke. TECHNIQUE: Magnetic resonance images of the head/brain without and with intravenous contrast in multiple planes. CONTRAST: Patient received 6cc gadavist of IV contrast COMPARISON: Prior head CT from August 29, 2024. FINDINGS: Brain: There is a single tiny focus of acute ischemic injury in the subcortical white matter of the medial left frontal lobe without evidence of hemorrhagic transformation. Remote ischemic injury of the right cem. Moderate nonspecific white matter changes. The flow voids at the base of the brain are intact. No evidence of abnormal enhancement. The dural venous sinuses are patent. Ventricles: Mild ventriculomegaly. Bones/joints: Unremarkable. No acute fracture. Sinuses: Chronic ethmoid and frontal sinusitis. No acute sinusitis. Mastoid air cells: Unremarkable as visualized. No mastoid effusion. Orbits: Bilateral lens replacements. IMPRESSION: There is a tiny acute ischemic injury within the medial left frontal lobe without evidence of hemorrhagic transformation. Communications: Verify Receipt Electronically signed by: Kathy Martinez MD 08/31/24 02:00 AM
[2024-08-31] MEDS: METOPROLOL SUCC 25MG EXT REL TAB PO STA (04:37)
[2024-08-31] MEDS: hydrALAZINE HCL 20 MG/ML VIAL IV STA (05:35)
--- NOTE | 2024-08-31 05:36 | Communication Note ---
Date of Service: August 31, 2024 Patient SBP 230s as per RN. Patient complaining of frontal headache symptoms. AP Hypertensive crisis IV hydralazine [address] head Hold IV heparin and antiplatelet Rx until CT head resulted.
[2024-08-31] MEDS: ACETAMINOPHEN 325 MG TAB PO STA (05:57)
[2024-08-31 06:44] LABS: Hematocrit (blood only) 40.3 % (42.0-52.0); Hemoglobin 13.1 g/dl (14.0-18.0); Mean Corpuscular Hemoglobin 29.3 pg (25.0-34.0); Mean Corpuscular Hgb Conc 32.5 g/dL (32.0-36.0); Mean Corpuscular Volume 90.2 fL (80.0-100.0); Mean Platelet Volume 11.2 fL (9.4-12.4); Platelet Count 225 K/uL (130-400); RDW Coefficient of Variation 14.1 % (11.5-14.5); RDW Standard Deviation 46.6 fL (36.4-46.3); Red Blood Count 4.47 M/uL (4.70-6.10); White Blood Count 6.58 K/ul (4.8-10.8)
[2024-08-31 07:13] LABS: BUN Creatinine Ratio 22.7 (10-20); Calcium 8.9 mg/dl (8.6-10.3); Creatinine Clr Calc Pharmacy 46.3 ml/min; Magnesium 2.1 mg/dl (1.7-2.4); Potassium 4.2 mmol/L (3.5-5.1)
[2024-08-31 07:14] LABS: ANTI-Xa, UFH(UnfractionatedHep 0.25 IU/ml (0.3-0.7)
--- NOTE | 2024-08-31 07:21 | CT Scan Report ---
EXAM: CT head/brain wo con CLINICAL HISTORY: Headache, heparin. TECHNIQUE: An axial non-contrast CT scan of the brain was performed from the skull base to the high parietal region with multiplanar reconstructions. One of the following dose reduction techniques was utilized for this exam: Automated exposure control, adjustment of the mA and/or kV according to patient size, and use of iterative reconstruction. CTDI: 38 mGy, DLP: 625 mGy*cm. COMPARISON: CT dated 08/29/2024. FINDINGS: Brain Parenchyma: There are a few tiny ill-defined [id number] areas noted in the deep white matter bilaterally, suggestive of microvascular ischemic changes. Normal attenuation of the rest of the cerebral hemispheres, cerebellum, and brainstem. No evidence of acute infarct, hemorrhage, or mass effect. Stable hypodensity in the cem on the right side. Ventricular System: The ventricular system, cortical sulci, and basal cisterns are prominent and consistent with senile changes. No evidence of subarachnoid hemorrhage or extra-axial fluid collections. Cerebellum and Brainstem: Normal size and signal. No masses, lesions, or areas of abnormal signal. Orbits: Normal appearance of the globes, optic nerves, and extraocular muscles. No evidence of orbital masses. Sinuses: Mucosal thickening in the frontal and ethmoid sinuses. The rest of the paranasal sinuses are clear. Mastoid Air Cells: Clear mastoid air cells. No evidence of mastoiditis. Skull: Normal skull morphology. IMPRESSION: 1. No evidence of any acute intracranial event. 2. Stable age-related involutional and microvascular ischemic changes. 3. Stable hypodensity in the cem on the right side. 4. Stable mucosal sinus disease. Electronically signed by Javier Urias 08-31-2024 07:20 AM
--- NOTE | 2024-08-31 08:41 | Cardiology Progress Note ---
Date of Service August 31, 2024 Assessment & Plan (1) Atrial fibrillation with RVR: (2) HTN (hypertension): Plan 74-year-old male who initially presented with upper chest, arm, and back tightness with associated nausea, vomiting and head pressure. Found to be in AFIB with RVR upon admission. No prior history of atrial fibrillation with Holter monitor (03/19/24) showing brief runs of supraventricular tachycardia. Started on IV diltiazem drip in ED. Symptoms resolved and heart rates improved from 140s to 100s. Started on IV heparin drip for anticoagulation. Transitioned to oral metoprolol tartrate and spontaneously converted back to sinus rhythm. ECHO revealed LVEF 65-70%, mildly enlarged left atrium, mild aortic sclerosis without significant stenosis, and trace aortic regurgitation. CTA Chest unremarkable other than vascular and coronary calcifications. 1. Atrial fibrillation with RVR, [id number] score 6 (age, HTN, stroke history, and DM) -Doing well with no recurrent episodes of atrial fibrillation -Sinus bradycardia in 50s to 60s with no significant pauses/events overnight -Continue metoprolol tartrate 12.5 mg twice daily for rate control -Transition from IV heparin to Eliquis 5 mg twice daily upon discharge home -History of borderline bradycardia and poor tolerance of beta-rosalee therapy in past. Recommend outpatient EP follow-up to monitor for tachy-isa syndrome and may ultimately require pacemaker in the future. 2. History of recurrent strokes -CT Head (08/31/24) with no evidence of acute intracranial event -Continue Plavix 75 mg daily -Discontinue aspirin 2. Hypertension -Blood pressures remains elevated this morning -FAMILY SUPPORT SPECIALIST losartan held upon admission due to SYDNI (Cr 1.4) -Kidney function stable (Cr 1.19) on AM labs -Recommend restarting losartan 50 mg upon discharge home 3. Hyperlipidemia -Continue FAMILY SUPPORT SPECIALIST atorvastatin 80 mg daily and Zetia 5 mg daily Case discussed and coordinated with Dr. Weinberg. Please see Dr. Weinberg notes for further recommendations. I spent a total of 40 minutes coordinating, documenting, and providing care for this patient excluding time spent in the performance of separately billed services or time spent by another provider/QHP. PETER Azevedo Department of Cardiology Admission and Anticipated Discharge Date Admission Date: August 29, 2024 Supervising Physician Co-Signing Physician Notes Patient seen and examined, chart, medications, telemetry reviewed. Full assessment and plan as outlined by advanced provider above. Care and management personally discussed and endorsed. Remains in sinus rhythm/sinus bradycardia on current medical therapies. Plan and treatment as outlined. Recent issues with elevated blood pressure likely secondary to holding losartan. Would resume now renal function has improved, underlying diabetes mellitus. Will require close clinical follow-up with cardiology as well as [facility] Subjective 74-year-old male with PMHx significant for T2DM insulin dependent since age 39, HLD, HTN, hypothyroidism, recurrent strokes with most recent in February 2024, o rthostatic hypotension (prior positive tilt table testing), and colon polyps who presented for evaluation of sudden upper chest, arm, and back tightness with associated nausea, vomiting and head pressure. Found to be in newly observed atrial fibrillation with rapid response upon admission. Seen for examination and follow up today. He reports episode of head and sinus pressure yesterday evening. Blood pressure elevated with SBP in 230s and DBP in 100-110s per chart review. Given one time dose of IV hydralazine. Feeling better this morning and resting comfortably in bed on room air. Denies chest discomfort, palpitations, shortness of breath, orthopnea, lightheadedness, dizziness, syncope, visual changes, or worsening edema. Chart, medications, and telemetry over the past 24 hours reviewed. Review of Systems Review of Systems: See HPI for pertinent positives. All others negative other than those noted in the HPI. CONSTITUTIONAL: No change in weight, No weakness, No fatigue, No fevers, No sweats or chills. HEENT: No visual changes, No epistaxis, No bleeding gums, No dysphagia, PULMONARY: No cough, sputum, or hemoptysis, No wheezing, No shortness of breath, and No recent change in breathing. CARDIOVASCULAR: No chest pain, No dyspnea on exertion, No edema, No palpitations, No syncope, No claudication, No calf pain. GASTROINTESTINAL: No change in appetite, No abdominal pain, No change in bowel habits, No significant heartburn, No nausea, No vomiting, No diarrhea, No constipation, No blood in stools or black tarry stools, No dysphagia. HEMATOLOGIC: No abnormal bleeding and No bruising. NEUROLOGICAL: +headache. No falls, No dizziness, No lightheadedness, Normal balance, and No weakness. PSYCH: No sleep disturbances, No mood changes. Physical Exam Physical Exam: Vital signs within normal limits as above. General: Well developed and nourished. No acute distress. A+Ox3. HEENT: Normocephalic. Atraumatic. EOMI. Conjunctiva and sclera clear. NECK: Trachea midline. No thyromegaly. No carotid bruits. No JVD. Carotid upstrokes are brisk. Heart: Bradycardic. Regular rhythm. S1 and S2 noted. No murmur. No rubs or gallops. PMI non displaced. Lungs: No acute respiratory distress. Clear to auscultation. No wheezes.No rhonchi. No rales. Abdomen: Normal bowel sounds. Soft. Nontender. No abdominal bruits. Extremities: Normal capillary refill. No edema. No clubbing or cyanosis. Skin: Warm and dry. NEURO: No focal deficits. PSYCH: Appropriate affect and insight. Results & Data Vital Signs (Past 12 Hours) Vital Signs Temp Pulse Pulse Resp BP BP Pulse Ox 08/31/24 07:44 36.4 C L 60 22 167/75 H 96 08/31/24 07: 36.6 C 64 16 165/73 H 97 08/31/24 07:20 73 08/31/24 06:01 77 16 176/80 H 95 08/31/24 05:27 230/111 H 230/104 H 08/31/24 04:34 60 160/90 H 08/31/24 03:16 36.3 C L 52 L 20 150/77 H 98 08/31/24 01:46 56 L 08/30/24 22:52 54 L 08/30/24 22:47 36.7 C 52 L 18 149/73 H 95 08/30/24 20:48 50 L O2 Del Method 08/31/24 07:44 Room Air 08/31/24 07:25 Room Air 08/31/24 07:20 08/31/24 06:01 Room Air 08/31/24 05:27 08/31/24 04:34 08/31/24 03:16 Room Air 08/31/24 01:46 08/30/24 22:52 08/30/24 22:47 Room Air 08/30/24 20:48 Laboratory Results Lipids 08/30/24 Range/Units 07:58 Triglycerides 39 (0-150) mg/dl Cholesterol 77 (0-200) mg/dl HDL Cholesterol 41 mg/dl Cholesterol/HDL Ratio 1.9 (0-5) CBC 08/31/24 Range/Units 06:15 WBC 6.58 (4.8-10.8) K/ul RBC 4.47 L (4.70-6.10) M/uL Hgb 13.1 L (14.0-18.0) g/dl Hct 40.3 L (42.0-52.0) % Plt Count 225 (130-400) K/uL Comprehensive Metabolic Panel 08/30/24 08/31/24 Range/Units 07:58 06:15 Sodium 136 141 (136-145) mmol/L Potassium 4.1 4.2 (3.5-5.1) mmol/L Chloride 103 104 (98-107) mmol/L Carbon Dioxide 29 32 (21-32) mmol/L BUN 38 H 27 H (6-23) mg/dl Creatinine 1.44 H D 1.19 (0.6-1.4) mg/dl Glucose 145 H 79 (70-99(Fasting)) mg/dl Calcium 8.6 8.9 (8.6-10.3) mg/dl Intake and Output 08/30/24 08/31/24 08/31/24 22:59 06:59 14:59 Intake Total 1774.583 / 2696.750 922.167 / 2696.750 0 / 0 Output Total 300 / 976 400 / 976 Balance 1474.583 / 1720.750 522.167 / 1720.750 0 / 0 Intake: IV 1174.583 / 1896.750 722.167 / 1896.750 0 / 0 Heparin 09933 Unit/500 ml 25, 177.25 / 340.75 163.5 / 340.75 0 / 0 000 units In 500 ml @ 750 UNITS /HR 15 mls/hr IV .Q24H MIN Rx#: [id number] Lactated Ringer's 1,000 ml @ 80 997.333 / 1556.000 558.667 / 1556.000 mls/hr IV .[id number] MIN Rx#: [id number] Oral 600 / 800 200 / 800 Output: Urine 300 / 975 400 / 975 Other: # Unmeasured Voids 1 Weight 61 kg Weight Measurement Method Built in [facility] Diagnostic Findings EKG 08/31/24 at 05:31:22 NSR 64 bpm QTc 433 EKG 08/30/24 at 05:14:00 NSR 66 bpm QTc 469 ECHO 08/29/24 Left ventricle is normal in size Mild concentric left ventricular hypertrophy Left ventricular wall motion is normal LVEF = 65-70% Left atrium is mildly dilated Aortic valve sclerosis mild without significant aortic valvular stenosis Trace aortic regurgitation EKG 08/29/24 at 11:47:01 AFIB with RVR 137 bpm QTc 465
--- NOTE | 2024-08-31 08:56 | Electrocardiogram Report ---
Test Reason : Blood Pressure : */* mmHG Vent. Rate : 64 BPM Atrial Rate : 64 BPM P-R Int : 178 ms QRS Dur : 82 ms QT Int : 420 ms P-R-T Axes : 88 76 80 degrees QTcB Int : 433 ms Normal sinus rhythm Normal ECG When compared with ECG of 30-Aug-2024 05:14, No significant change was found Confirmed by Galo Cameron ([id number]) on 08/31/2024 8:56:22 AM Referred By: REFERRED SELF Confirmed By: Galo Cameron
--- NOTE | 2024-08-31 11:39 | Pharmacy Report ---
Pharmacy Glycemic Short Note 2 - Date of Service August 31, 2024 - Glycemic Short BSG Results (Last 24 hours): 08/30/24 08/30/24 08/31/24 16:15 19:53 06:15 Glucose 79 POC Glucose 154 H 137 H 08/31/24 08/31/24 07:42 11:22 Glucose POC Glucose 73 176 H OUTPATIENT ANTIDIABETIC REGIMEN: * glargine 9 units hs, novolog CF 50 for BSG >180, CR 1:8 with breakfast, CR 1:9 rest of day. ASSESSMENT: 08/31 * Patient received total of 30 units of insulin yesterday, of which 10 units were basal insulin * Fasting BSG trending down 73 mg/dL this AM - will scale back basal to 8 units tonight * Loosened CF/CR slightly today since lower blood sugar this AM 08/30 * 74 year old admitted with afib with RVR. Pharmacy consulted for glycemic management. Patient received total of 31 units of insulin yesterday, of which 10 units were basal insulin. BSGs >300 on arrival. * BSGs trending down to 134 mg/dL this AM with additional novolog given overnight. Patient NPO this AM until seen by cardiology per notes. Reasonable to continue same parameters for now. PLAN FOR INPATIENT GLYCEMIC CONTROL: * Hold outpatient oral diabetes medications * Basal insulin * Lantus 8 units hs * Bolus insulin * NovoLog per scale ACHS or Q6hrs while NPO * Goal Range: Low 110 mg/dL - High 140 mg/dL * Correction Factor: 30 mg/dL/unit * Nutritional / Prandial insulin per carb ratio of 1 unit per 12 grams CHO consumed
--- NOTE | 2024-08-31 12:28 | Neurology Consultation ---
Date of Consultation August 31, 2024 Assessment & Plan (1) Acute ischemic stroke: Recommend continued stroke work up to include the following: CTA head & neck Echocardiogram as part of complete stroke workup Continue frequent neurological assessments Obtain stat CT brain without contrast for any acute neurological decline Continue to monitor/control blood pressure & blood glucose Continue to monitor telemetry closely Continue to monitor renal and hepatic function, keep euvolemic Metabolic workup should include hgbA1c, fasting lipids Recommend continue full anticoagulation as secondary prevention due to AFIB diagnosis Continue to monitor for s/s of hemorrhage Await CTA head & neck for further antiplatelet recommendations, agree with continued antiplatelet monotherapy at this time Recommend high dose statin therapy indefinitely if tolerated Ok from neurology perspective for VTE prophylaxis PT/OT/SLT to eval and treat Telehealth Consultation Telehealth Information Telehealth Information: I performed this visit using a real-time telehealth connection between my location and the patients location ([facility]). After connecting through interactive tele-video, patient was identified by name and date of and/or wristband check.Patient (or authorized healthcare outreach representative) was informed that this was a telemedicine visit and it was being conducted confidentially over secure lines. My office door was closed and no one else was present in the room with me.Patient (or authorized healthcare outreach representative) provided consent to proceed with the visit, expressed an understanding of privacy and security of the telemedicine visit, and gave permission to have a hospital outreach representative in the room in order to assist with the visit and to conduct portions of the visit, as needed. I informed the patient (or authorized healthcare outreach representative) that I reviewed their record and presented the opportunity for them to ask any questions regarding the visit today. The patient agreed to participate. History of Present Illness Reason for Consultation: Stroke Requesting Physician: Dr. Macias Attending Physician: George Macias MD History of Present Illness 74yo male with hx of stroke reports very mild LLE weakness as residual, he tells me he still uses a cane and notices LLE weakness when he is tired or walks a lot. He has a hx of HTN, DM, hyperlipidemia, hypothyroidism presented with tightness in arms shoulder and back and the back of his head underwent CTA chest. Was found to be in AFIB with RVR. No reports chest pain or SOB. Has undergone CT brain without overt evidence of hemorrhage. He has undergone MRI brain revealing tiny/punctate area of restricted diffusion in left frontal lobe. he has not undergone CTA head & neck. I have performed televideo consultation. He is alert & oriented; able to answer all questions appropriately, name objects on televideo monitor, repeat phrases and perform complex/embedded commands without deficit. Neurological exam is non lateralizing/nonfocal in terms of motor strength and coordination. Allergies Allergy/AdvReac Type Severity Reaction Status Date / Time oyster extract Allergy Severe ANAPHYLAXIS Verified 08/29/24 14:11 Penicillins Allergy Mild Hives Verified 08/29/24 14:11 Home Medications Medication Instructions Recorded Confirmed Type aspirin 81 mg tablet,delayed 81 mg PO DAILY ##0 12/23/14 08/29/24 History release levothyroxine 88 mcg tablet 88 mcg PO DAILY #0 tabs 12/23/14 08/29/24 History atorvastatin 80 mg tablet 80 mg PO DAILY 08/29/24 08/29/24 History cholecalciferol (vitamin D3) 25 25 mcg PO DAILY 08/29/24 08/29/24 History mcg (1,000 unit) tablet (Vitamin D3) clopidogrel 75 mg tablet 75 mg PO DAILY 08/29/24 08/29/24 History ezetimibe 10 mg tablet 5 mg PO DAILY 08/29/24 08/29/24 History insulin aspart U-100 100 unit/mL 1 sliding scale dose subcut 08/29/24 08/29/24 History (3 mL) subcutaneous pen (Novolog USEASDIRECTD FlexPen U-100 Insulin aspart) insulin glargine U-300 conc 300 9 unit subcut QPM 08/29/24 08/29/24 History unit/mL (1.5 mL) subcutaneous pen (Toujeo SoloStar U-300 Insulin) losartan 50 mg tablet 50 mg PO DAILY 08/29/24 08/29/24 History vit C 250 mg-vit E 90 mg-zinc 40 1 tab PO BID 08/29/24 08/29/24 History mg-copper 1 [id number]-wdexvm capsule (PreserVision AREDS-2) vitamin B complex 1 tab PO DAILY 08/29/24 08/29/24 History Patient History Social History Smoking Status: Never smoker Second Hand Exposure: No; Do You Dip or Chew Tobacco: No; Tobacco Cessation Education Requested by Patient: No Hx Alcohol Use: No Hx Substance Use: No Preferred Language: Mongolian Communication Ability: Effective Women Specialist Required: No Beliefs That Will Affect Care: None Current Living Situation: Spouse Other Information That Helps Us Care for You: No Feels Safe at Home: Yes Safety Concerns: Feels Safe At This Time Assistive Devices: Cane Physical Exam Neurological Examination: Mental Status: Awake and alert. Oriented to person, place, and time. Fluency naming repetition and comprehension appear grossly intact. Affect remains appropriate. CN testing: I: Deferred II:Reports no changes in visual acuity III/IV/: No evidence of gaze preference, hippus, nystagmus or roving eye movements V: Facial sensation reportedly grossly intact to light touch bilaterally VII: Facial movements appear without evidence of asymmetry VIII: Hearing appears grossly intact to loud voice bilaterally IX/X: Palate is unable to be accurately visualized via telemedicine XI: Shoulder shrug appears symmetric/ grossly intact bilaterally XII: Tongue protrudes midline without evidence of biting Motor exam: Strength appears grossly intact/symmetric in all extremities Sensory: Sensation is reportedly grossly intact throughout Coordination: No apparent evidence of dysmetria or dysdiadochokinesia Reflexes: Deferred Gait: Deferred Results & Data Vital Signs (Past 12 Hours) Vital Signs Temp Pulse Pulse Resp BP BP Pulse Ox 08/31/24 11:54 36.6 C 93 H 20 93 08/31/24 09:04 08/31/24 07:44 36.4 C L 60 22 167/75 H 96 08/31/24 07:25 36.6 C 64 16 165/73 H 97 08/31/24 07:20 73 08/31/24 06:01 77 16 176/80 H 95 08/31/24 05:27 230/111 H 230/104 H 08/31/24 04:34 60 160/90 H 08/31/24 03:16 36.3 C L 52 L 20 150/77 H 98 08/31/24 01:46 56 L O2 Del Method 08/31/24 11:54 Room Air 08/31/24 09:04 Room Air 08/31/24 07:44 Room Air 08/31/24 07:25 Room Air 08/31/24 07:20 08/31/24 06:01 Room Air 08/31/24 05:27 08/31/24 04:34 08/31/24 03:16 Room Air 08/31/24 01:46 Laboratory Results Abnormal lab results 08/30/24 08/30/24 08/31/24 Range/Units 16:15 19:53 06:15 RBC 4.47 L (4.70-6.10) M/uL Hgb 13.1 L (14.0-18.0) g/dl Hct 40.3 L (42.0-52.0) % RDW Std Deviation 46.6 H (36.4-46.3) fL Heparin Anti-Xa, Unfract 0.25 L (0.3-0.7) IU/ml BUN 27 H (6-23) mg/dl BUN/Creatinine Ratio 22.7 H (10-20) POC Glucose 154 H 137 H (70-99) mg/dl 08/31/24 Range/Units 11:22 RBC (4.70-6.10) M/uL Hgb (14.0-18.0) g/dl Hct (42.0-52.0) % RDW Std Deviation (36.4-46.3) fL Heparin Anti-Xa, Unfract (0.3-0.7) IU/ml BUN (6-23) mg/dl BUN/Creatinine Ratio (10-20) POC Glucose 176 H (70-99) mg/dl Diagnostic Findings Brain MRI 08/30/24 07:42 CR Exam(s): MRI HEAD W/WO Contrast IV Amt: 6cc gadavist EXAM: MR Head Without and With Intravenous Contrast CLINICAL HISTORY: Reason for exam: R/O Stroke. TECHNIQUE: Magnetic resonance images of the head/brain without and with intravenous contrast in multiple planes. CONTRAST: Patient received 6cc gadavist of IV contrast COMPARISON: Prior head CT from August 29, 2024. FINDINGS: Brain: There is a single tiny focus of acute ischemic injury in the subcortical white matter of the medial left frontal lobe without evidence of hemorrhagic transformation. Remote ischemic injury of the right cem. Moderate nonspecific white matter changes. The flow voids at the base of the brain are intact. No evidence of abnormal enhancement. The dural venous sinuses are patent. Ventricles: Mild ventriculomegaly. Bones/joints: Unremarkable. No acute fracture. Sinuses: Chronic ethmoid and frontal sinusitis. No acute sinusitis. Mastoid air cells: Unremarkable as visualized. No mastoid effusion. Orbits: Bilateral lens replacements. IMPRESSION: There is a tiny acute ischemic injury within the medial left frontal lobe without evidence of hemorrhagic transformation. Communications: Verify Receipt Electronically signed by: Kathy Martinez MD 08/31/24 02:[address] 08/31/24 05:29 EXAM: CT head/brain wo con CLINICAL HISTORY: Headache, heparin. TECHNIQUE: An axial non-contrast CT scan of the brain was performed from the skull base to the high parietal region with multiplanar reconstructions. One of the following dose reduction techniques was utilized for this exam: Automated exposure control, adjustment of the mA and/or kV according to patient size, and use of iterative reconstruction. CTDI: 38 mGy, DLP: 625 mGy*cm. COMPARISON: CT dated 08/29/2024. FINDINGS: Brain Parenchyma: There are a few tiny ill-defined [id number] areas noted in the deep white matter bilaterally, suggestive of microvascular ischemic changes. Normal attenuation of the rest of the cerebral hemispheres, cerebellum, and brainstem. No evidence of acute infarct, hemorrhage, or mass effect. Stable hypodensity in the cem on the right side. Ventricular System: The ventricular system, cortical sulci, and basal cisterns are prominent and consistent with senile changes. No evidence of subarachnoid hemorrhage or extra-axial fluid collections. Cerebellum and Brainstem: Normal size and signal. No masses, lesions, or areas of abnormal signal. Orbits: Normal appearance of the globes, optic nerves, and extraocular muscles. No evidence of orbital masses. Sinuses: Mucosal thickening in the frontal and ethmoid sinuses. The rest of the paranasal sinuses are clear. Mastoid Air Cells: Clear mastoid air cells. No evidence of mastoiditis. Skull: Normal skull morphology. IMPRESSION: 1. No evidence of any acute intracranial event. 2. Stable age-related involutional and microvascular ischemic changes. 3. Stable hypodensity in the cem on the right side. 4. Stable mucosal sinus disease. Electronically signed by Javier Urias 08-31-2024 07:20 AM Medications Administered Home Medications Medication Instructions Recorded Confirmed Last Taken aspirin 81 mg tablet,delayed 81 mg PO DAILY ##0 12/23/14 08/29/24 Unknown release levothyroxine 88 mcg tablet 88 mcg PO DAILY #0 tabs 12/23/14 08/29/24 Unknown atorvastatin 80 mg tablet 80 mg PO DAILY 08/29/24 08/29/24 Unknown cholecalciferol (vitamin D3) 25 25 mcg PO DAILY 08/29/24 08/29/24 Unknown mcg (1,000 unit) tablet (Vitamin D3) clopidogrel 75 mg tablet 75 mg PO DAILY 08/29/24 08/29/24 Unknown ezetimibe 10 mg tablet 5 mg PO DAILY 08/29/24 08/29/24 Unknown insulin aspart U-100 100 unit/mL 1 sliding scale dose subcut 08/29/24 08/29/24 Unknown (3 mL) subcutaneous pen (Novolog USEASDIRECTD FlexPen U-100 Insulin aspart) insulin glargine U-300 conc 300 9 unit subcut QPM 08/29/24 08/29/24 Unknown unit/mL (1.5 mL) subcutaneous pen (Toujeo SoloStar U-300 Insulin) losartan 50 mg tablet 50 mg PO DAILY 08/29/24 08/29/24 Unknown vit C 250 mg-vit E 90 mg-zinc 40 1 tab PO BID 08/29/24 08/29/24 Unknown mg-copper 1 qw-vxllrq-fpuayp capsule (PreserVision AREDS-2) vitamin B complex 1 tab PO DAILY 08/29/24 08/29/24 Unknown Active Medications Generic Name Dose Route Start Last Admin Trade Name Eduardq PRN Reason Stop Dose Admin Atorvastatin Calcium 80 mg 08/30/24 09:00 08/31/24 08:15 Atorvastatin 40 Mg Tab PO 09/29/24 08:59 80 mg DAILY MIN Administration Clopidogrel Bisulfate 75 mg 08/30/24 09:00 08/31/24 08:16 Clopidogrel Bisulfate 75 Mg Tab PO 09/29/24 08:59 75 mg DAILY MIN Administration Ezetimibe 5 mg 08/30/24 09:00 08/31/24 08:16 Ezetimibe 10 Mg Tab PO 09/29/24 08:59 5 mg DAILY MIN Administration Heparin Sodium/Dextrose 25,000 units in 500 mls @ 15 mls/hr 08/29/24 17:45 08/31/24 07:58 Heparin 36190 Unit/500 Ml IV 09/28/24 17:44 750 units/hr .Q24H MIN 15 mls/hr Titration Protocol 750 UNITS/HR Insulin Aspart 0 units 08/29/24 16:30 08/31/24 11:57 Insulin Aspart Per Unit Charge SC 09/28/24 16:29 8 units ACHS MIN Administration Levothyroxine Sodium 88 mcg 08/30/24 09:00 08/31/24 08:17 Levothyroxine Sodium 88 Mcg Tablet PO 09/29/24 08:59 88 mcg DAILY MIN Administration Losartan Potassium 50 mg 08/30/24 09:00 08/31/24 08:17 Losartan Potassium 50 Mg Tab PO 09/29/24 08:59 50 mg DAILY MIN Administration Ondansetron HCl 4 mg 08/29/24 14:55 08/29/24 18:29 Ondansetron Inj 2 Mg/Ml 2 Ml Vial IV 09/28/24 14:54 4 mg Q6H PRN Administration Nausea Vitamin D 25 mcg 08/30/24 09:00 08/31/24 08:16 Cholecalciferol 25 Mcg (1000 Units) Tab PO 09/29/24 08:59 25 mcg DAILY MIN Administration
[2024-08-31] MEDS: LACTATED RINGER'S 1,000 ML IV SCH (15:11)
[2024-08-31] MEDS: OPTIRAY 320 125ml IV ONE (16:10)
--- NOTE | 2024-08-31 16:48 | CT Scan Report ---
EXAM: CTA head with CLINICAL HISTORY: CVA TECHNIQUE: Contiguous CTA axial images were obtained through the head after the administration of intravenous contrast. Sagittal and coronal reformations are supplied. PRIORS: Head CT today FINDINGS: The vertebral arteries form the basilar artery at the skull base. [place] is patent. No thrombus or hemodynamically significant stenosis. Moderate to high-grade atherosclerotic disease of the bilateral cavernous internal carotid arteries with moderate stenosis noted. The vessels are opacified without total occlusion. No aneurysmal dilatation or buchanan aneurysm. No enhancing mass in the brain. IMPRESSION: 1. 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 ACT 112: Positive. There are findings on this examination that require communication between the performing entity and the patient following Patient Test Result Information Act ([place] ACT 112) guidelines. Electronically signed by Christina Quintana 08-31-2024 4:47 PM
--- NOTE | 2024-08-31 16:48 | CT Scan Report ---
EXAM: CT angio neck with con CLINICAL HISTORY: CVA TECHNIQUE: Contiguous CTA axial images were obtained through the neck with the administration of intravenous contrast. Sagittal and coronal reformations are supplied. MIPS are supplied. COMPARISON: Head CT 08/31/2024 FINDINGS: A left-sided aortic arch is noted with appropriate takeoff of the 3 great vessels. Moderate atherosclerotic disease present at the origin of the great vessels with no hemodynamically significant stenosis. Right: High-grade atherosclerotic disease present in the carotid bulb with thrombus in the wall and high-grade stenosis of greater than 75%. Moderate atherosclerotic disease of the proximal internal carotid artery, involving a short segment, with stenosis of approximately 50%. Left: High-grade atherosclerotic disease present in the carotid bulb with 50 to 75% stenosis. Mild atherosclerotic disease in the proximal internal carotid artery with less than 25% stenosis. The remainder of the internal carotid arteries are unremarkable and normal in size and appearance. Both entered the petrous portion of the skull base normally. The vertebral arteries are bilaterally symmetric and codominant. Both contribute to the basilar artery at the skull base. IMPRESSION: Bilateral calcific atherosclerotic disease of the carotid bulbs and internal carotid arteries. Electronically signed by Christina Quintana 08-31-2024 4:47 PM
--- NOTE | 2024-08-31 17:24 | Hospitalist Progress Note ---
Date of Service August 31, 2024 Assessment & Plan (1) Atrial fibrillation with RVR: Plan Atrial fibrillation with RVR, New onset --Patient presented with tightness/pain of his both arms/upper back/shoulders associated with nausea/vomiting/pressure at the back of his head. - TSH: normal -ECHO: Mild concentric LVH. Left ventricle wall motion is normal. EF 65 to 70%. Left atrium is mildly dilated. Aortic valve sclerosis mild, without significant stenosis. Trace aortic regurgitation. Monitor and replete electrolytes as needed Cardizem drip discontinued Spontaneously converted to sinus Continue metoprolol tartrate 12.5 mg twice a day Currently on IV heparin for anticoagulation. Plan to transition to Eliquis on discharge Appreciate cardiology input Will need EP study as outpatient and possible need for pacemaker Acute kidney injury Likely secondary to contrast Cr 1.4>1.1 Avoid nephrotoxic agents as able Monitor renal function Continue IV fluids Acute CVA--POA H/O Recurrent Strokes Likely due to above Rule out stroke: Patient reports that he has had 4 strokes in the past, last one in February 2024. He likens the presenting symptoms to the event of stroke in the past --CT Head: Cerebral atrophy. No acute changes. --MRI Brain:There is a tiny acute ischemic injury within the medial left frontal lobe without evidence of hemorrhagic transformation. --Head CTA:Moderate to high-grade atherosclerotic disease of the cavernous portion of the bilateral internal carotid arteries --Neck CTA:Bilateral calcific atherosclerotic disease of the carotid bulbs and internal carotid arteries. --LDL: 28 --ECHO with bubble study:pending -- Continue Lipitor, Plavix, anticoagulation as above Needs follow-up with neurology, vascular surgery on discharge PT, OT, speech eval DM II HbA1c 8.6 Continue insulin while hospitalized Monitor BGs Other chronic medical conditions: HTN, HLD, hypothyroidism--- continue/resume home meds as able. DVT Px: IV Heparin for now Code Status Full code Disposition likely discharge home tomorrow if stable Admission and Anticipated Discharge Date Admission Date: August 29, 2024 Subjective Patient is seen and examined at bedside States feeling well today No new complaints Discussed with neurology today MRIs showed acute CVA Patient denies any focal weakness, dysphagia, dysarthria Also denies any chest pain, dyspnea, nausea, vomiting, abdominal pain Review of Systems Review of Systems: All systems reviewed & are unremarkable except as noted in Subjective Physical Exam Physical Exam: Physical Exam: Vitals signs as noted above General Appearance:Thin, no apparent distress Head: normocephalic, Atraumatic Eyes: normal inspection, EOMI Neck: supple, Trachea midline Respiratory/Chest: Normal breath sounds, CTA, No accessory muscle use Cardiovascular: S1, S2, No murmur Abdomen/GI:Soft, Non tender, Bowel sounds present Extremities/Musculoskeletal:normal inspection, no edema Neurologic/Psych:AAOX3, grossly no focal neurological deficits Skin: normal color, warm Results & Data Results & Data Vital Signs (Past 12 Hours) Vital Signs Temp Pulse Pulse Resp BP BP Pulse Ox 08/31/24 15:30 36.5 C 59 L 20 149/70 H 96 08/31/24 15:18 72 08/31/24 11:54 36.6 C 93 H 20 93 08/31/24 09:04 08/31/24 07:44 36.4 C L 60 22 167/75 H 96 08/31/24 07:25 36.6 C 64 16 165/73 H 97 08/31/24 07:20 73 08/31/24 06:01 77 16 176/80 H 95 08/31/24 05:27 230/111 H 230/104 H O2 Del Method 08/31/24 15:30 Room Air 08/31/24 15:18 08/31/24 11:54 Room Air 08/31/24 09:04 Room Air 08/31/24 07:44 Room Air 08/31/24 07:25 Room Air 08/31/24 07:20 08/31/24 06:01 Room Air 08/31/24 05:27 Laboratory Results Short CBC 08/31/24 Range/Units 06:15 WBC 6.58 (4.8-10.8) K/ul Hgb 13.1 L (14.0-18.0) g/dl Hct 40.3 L (42.0-52.0) % Plt Count 225 (130-400) K/uL BMP 08/31/24 06:15 Sodium 141 Potassium 4.2 Chloride 104 Carbon Dioxide 32 BUN 27 H Creatinine 1.19 Glucose 79 Calcium 8.9
[2024-08-31] MEDS: METOPROLOL SUCC 25MG EXT REL TAB PO SCH (20:10)
[2024-08-31] MEDS: LANTUS PER UNIT CHARGE SQ SCH (21:01)
[2024-08-31 22:07] LABS: ANTI-Xa, UFH(UnfractionatedHep 0.21 IU/ml (0.3-0.7)
[2024-08-31 23:24] VITALS: RESP 18
[2024-09-01 04:36] LABS: Hematocrit (blood only) 34.2 % (42.0-52.0); Hemoglobin 11.5 g/dl (14.0-18.0); Mean Corpuscular Hemoglobin 30.3 pg (25.0-34.0); Mean Corpuscular Hgb Conc 33.6 g/dL (32.0-36.0); Mean Corpuscular Volume 90.2 fL (80.0-100.0); Mean Platelet Volume 11.3 fL (9.4-12.4); Platelet Count 186 K/uL (130-400); RDW Coefficient of Variation 13.9 % (11.5-14.5); RDW Standard Deviation 46.3 fL (36.4-46.3); Red Blood Count 3.79 M/uL (4.70-6.10); White Blood Count 5.57 K/ul (4.8-10.8)
[2024-09-01 04:53] LABS: BUN Creatinine Ratio 19.4 (10-20); Calcium 7.7 mg/dl (8.6-10.3); Magnesium 2.1 mg/dl (1.7-2.4); Potassium 4.1 mmol/L (3.5-5.1)
[2024-09-01 04:59] LABS: ANTI-Xa, UFH(UnfractionatedHep 0.26 IU/ml (0.3-0.7)
[2024-09-01] MEDS: CARBOHYDRATES FOR HYPOGLYCEMIA PO PRN (07:15)
[2024-09-01] MEDS: STOP HEPARIN DRIP ORDER SCH (09:05)
[2024-09-01] MEDS: APIXABAN 5 MG TABLET PO SCH (09:07)
--- NOTE | 2024-09-01 09:34 | Cardiology Progress Note ---
Date of Service September 01, 2024 Assessment & Plan (1) Atrial fibrillation with RVR: (2) HTN (hypertension): (3) Atherosclerosis of both carotid arteries: Plan 74-year-old male who initially presented with upper chest, arm, and back tightness with associated nausea, vomiting and head pressure. Found to be in AFIB with RVR upon admission. No prior history of atrial fibrillation with Holter monitor (03/19/24) showing brief runs of supraventricular tachycardia. Started on IV diltiazem drip in ED. Symptoms resolved and heart rates improved from 140s to 100s. Started on IV heparin drip for anticoagulation. Transitioned to oral metoprolol tartrate and spontaneously converted back to sinus rhythm. ECHO revealed LVEF 65-70%, mildly enlarged left atrium, mild aortic sclerosis without significant stenosis, and trace aortic regurgitation. CTA Chest unremarkable other than vascular and coronary calcifications. 1. Atrial fibrillation with RVR, [id number] score 6 (age, HTN, stroke history, and DM) -Doing well with no recurrent episodes of atrial fibrillation -Sinus bradycardia in 50s to 60s with no significant pauses/events overnight -Continue metoprolol succinate 12.5 mg twice daily for rate control -Transition from IV heparin to Eliquis 5 mg twice daily upon discharge home -History of borderline bradycardia and poor tolerance of beta-rosalee therapy in past. Recommend outpatient EP follow-up to monitor for tachy-isa syndrome and may ultimately require pacemaker in the future. 2. History of recurrent strokes -CT Head (08/31/24) with no evidence of acute intracranial event -Continue Plavix 75 mg daily -Discontinue aspirin 2. Hypertension -Blood pressures remains elevated this morning -ORE TESTER losartan held upon admission due to SYDNI (Cr 1.4) -Kidney function stable (Cr 1.19) on AM labs -Recommend restarting losartan 50 mg upon discharge home 3. Hyperlipidemia -Continue ORE TESTER atorvastatin 80 mg daily and Zetia 5 mg daily 09/01/2024 No cardiac complaints overnight remains in sinus rhythm/sinus bradycardia. Tolerating metoprolol succinate 12.5 mg twice per day. Remains on anticoagulation with IV heparin. 1. Paroxysmal atrial fibrillation with embolic stroke. Would transition IV heparin to Eliquis at discharge. Continue metoprolol succinate 12.5 mg twice per day 2. Recurrent strokes likely secondary to cardioembolic I given atrial fibrillation history. MRI with small punctate infarct. 3. Hypertension: Consider increase in losartan to 50 mg twice per day once neurologic stability assured 4. Bilateral carotid artery disease moderate to severe will require vascular surgery follow-up post discharge. Patient to be on appropriate therapies with Eliquis, clopidogrel, high dose lipid-lowering therapy Will sign off contact with question I spent a total of 40 minutes coordinating, documenting, and providing care for this patient excluding time spent in the performance of separately billed services or time spent by another provider/QHP. Admission and Anticipated Discharge Date Admission Date: August 29, 2024 Review of Systems Review of Systems: All systems reviewed & are unremarkable except as noted in Subjective Physical Exam Constitutional: WD/WN, vitals as above no acute distress ENMT: external ear and nose normal, oropharynx normal Neck: trachea midline, no thyromegaly Respiratory: normal respiratory effort, lungs clear to auscultation Cardiovascular: Rate/Rhythm: regular rate and regular rhythm Heart Sounds: normal S1 and normal S2; no murmur Vessels: no JVD Extremities: no edema Gastrointestinal (Abdomen): normal bowel sounds, soft, nontender, no hepatosplenomegaly Musculoskeletal: no cyanosis or clubbing, extremities motor strength 5/5 Results & Data Vital Signs (Past 12 Hours) Vital Signs Temp Pulse Pulse Resp BP Pulse Ox O2 Del Method 09/01/24 07:45 51 L 09/01/24 07:45 Room Air 09/01/24 07:21 78 18 173/78 H 96 Room Air 09/01/24 06:58 51 L 09/01/24 03:35 36.7 C 53 L 18 147/71 H 95 Room Air 08/31/24 22:46 36.5 C 58 L 18 130/55 L 94 Room Air 08/31/24 21:55 81 Laboratory Results Laboratory Results - last 24 hr 08/31/24 08/31/24 08/31/24 11:22 14:40 16:20 WBC RBC Hgb Hct MCV MCH MCHC RDW Std Deviation RDW Coeff of Landy Plt Count MPV Heparin Anti-Xa, Unfract 0.20 L Sodium Potassium Chloride Carbon Dioxide Anion Gap BUN Creatinine Est Cr Clr Drug Dosing eGFR BUN/Creatinine Ratio Glucose POC Glucose 176 H 85 Calcium Magnesium 08/31/24 08/31/24 09/01/24 20:29 21:35 04:18 WBC 5.57 RBC 3.79 L Hgb 11.5 L Hct 34.2 L MCV 90.2 MCH 30.3 MCHC 33.6 RDW Std Deviation 46.3 RDW Coeff of Landy 13.9 Plt Count 186 MPV 11.3 Heparin Anti-Xa, Unfract 0.21 L 0.26 L Sodium 138 Potassium 4.1 Chloride 105 Carbon Dioxide 30 Anion Gap 3 BUN 21 Creatinine 1.08 Est Cr Clr Drug Dosing 51.0 eGFR 71.56 BUN/Creatinine Ratio 19.4 Glucose 95 POC Glucose 163 H Calcium 7.7 L Magnesium 2.1 09/01/24 09/01/24 09/01/24 07:11 07:13 07:27 WBC RBC Hgb Hct MCV MCH MCHC RDW Std Deviation RDW Coeff of Landy Plt Count MPV Heparin Anti-Xa, Unfract Sodium Potassium Chloride Carbon Dioxide Anion Gap BUN Creatinine Est Cr Clr Drug Dosing eGFR BUN/Creatinine Ratio Glucose POC Glucose 64 L* 63 L* 104 H Calcium Magnesium
[2024-09-01 11:35] VITALS: BP 175/79; PULSE 54; TEMP 97.9; O2SAT 96
--- NOTE | 2024-09-01 11:38 | Hospitalist Progress Note ---
Date of Service September 01, 2024 Assessment & Plan (1) Atrial fibrillation with RVR: Plan Atrial fibrillation with RVR, New onset --Patient presented with tightness/pain of his both arms/upper back/shoulders associated with nausea/vomiting/pressure at the back of his head. - TSH: normal -ECHO: Mild concentric LVH. Left ventricle wall motion is normal. EF 65 to 70%. Left atrium is mildly dilated. Aortic valve sclerosis mild, without significant stenosis. Trace aortic regurgitation. Monitor and replete electrolytes as needed Cardizem drip discontinued Spontaneously converted to sinus Continue metoprolol tartrate 12.5 mg twice a day Transition IV heparin to Eliquis for anticoagulation. Appreciate cardiology input Will need EP study as outpatient and possible need for pacemaker Needs follow-up with cardiology on discharge Acute kidney injury Likely secondary to contrast Cr 1.4>1.1>1.0 Avoid nephrotoxic agents as able Monitor renal function Received IV fluids Renal function improved Acute CVA--POA H/O Recurrent Strokes Likely due to above Rule out stroke: Patient reports that he has had 4 strokes in the past, last one in February 2024. He likens the presenting symptoms to the event of stroke in the past --CT Head: Cerebral atrophy. No acute changes. --MRI Brain:There is a tiny acute ischemic injury within the medial left frontal lobe without evidence of hemorrhagic transformation. --Head CTA:Moderate to high-grade atherosclerotic disease of the cavernous portion of the bilateral internal carotid arteries --Neck CTA:Bilateral calcific atherosclerotic disease of the carotid bulbs and internal carotid arteries. --LDL: 28 --ECHO with bubble study: No ASD, no interatrial shunt -- Continue Lipitor, Plavix, anticoagulation as above Needs follow-up with neurology, vascular surgery on discharge PT, OT, speech eval DM II HbA1c 8.6 Continue insulin while hospitalized Monitor BGs Hypertension Blood pressure elevated Will increase losartan to 50 mg twice a day Continue metoprolol Monitor blood pressure Other chronic medical conditions: HLD, hypothyroidism--- continue/resume home meds as able. DVT Px: Eliquis Code Status Full code Disposition Home Admission and Anticipated Discharge Date Admission Date: August 29, 2024 Subjective Patient is seen and examined at bedside States feeling well today. Offers no new complaints Denies any chest pain, dyspnea, nausea, vomiting, abdominal pain, focal weakness No bleeding issues while on IV heparin Plan to be discharged home today Review of Systems Review of Systems: All systems reviewed & are unremarkable except as noted in Subjective Physical Exam Physical Exam: Physical Exam: Vitals signs as noted above General Appearance:Thin, no apparent distress Head: normocephalic, Atraumatic Eyes: normal inspection, EOMI Neck: supple, Trachea midline Respiratory/Chest: Normal breath sounds, CTA, No accessory muscle use Cardiovascular: S1, S2, No murmur Abdomen/GI:Soft, Non tender, Bowel sounds present Extremities/Musculoskeletal:normal inspection, no edema Neurologic/Psych:AAOX3, grossly no focal neurological deficits Skin: normal color, warm Results & Data Results & Data Vital Signs (Past 12 Hours) Vital Signs Temp Pulse Pulse Resp BP Pulse Ox O2 Del Method 09/01/24 11:31 36.6 C 54 L 18 175/79 H 96 Room Air 09/01/24 11:11 36.3 C L 56 L 18 97 Room Air 09/01/24 07:45 51 L 09/01/24 07:45 Room Air 09/01/24 07:21 78 18 173/78 H 96 Room Air 09/01/24 06:58 51 L 09/01/24 03:35 36.7 C 53 L 18 147/71 H 95 Room Air Laboratory Results Short CBC 09/01/24 Range/Units 04:18 WBC 5.57 (4.8-10.8) K/ul Hgb 11.5 L (14.0-18.0) g/dl Hct 34.2 L (42.0-52.0) % Plt Count 186 (130-400) K/uL BMP 09/01/24 04:18 Sodium 138 Potassium 4.1 Chloride 105 Carbon Dioxide 30 BUN 21 Creatinine 1.08 Glucose 95 Calcium 7.7 L
[2024-09-01 11:42] LABS: ANTI-Xa, UFH(UnfractionatedHep 0.48 IU/ml (0.3-0.7)
--- NOTE | 2024-09-01 11:59 | Discharge Summary ---
Date of Service September 01, 2024 Admission HPI Per Admitting Provider 74-year-old male with PMH of T2DM, HLD, hypothyroidism, stroke [4 times per patient, last one February 2024], HTN, colon polyps presented to the ED after he started feeling tightness/pain of both arms and shoulders and upper back followed by nausea, sweating, vomiting. The symptoms worsened and hence he presented to the ED. Patient was at his PCP office when the symptoms started. Patient denied chest pain or chest tightness. Patient reported pressure at the back of his head. Patient reports he has had 4 strokes, last one in February 2024. He feels like he had similar symptoms during prior strokes with pain/tightness of both arms/upper back along with pressure at the back of the head. Patient noted to be in A-fib RVR at presentation in the ED. Patient denies any fever/sore throat/cough/chest pain/chest tightness/belly pain/pain or burning while passing urine/diarrhea/constipation/weakness. Patient reports quitting smoking 8 to 9 years ago, denies alcohol/recreational drug use. Full code Medications reviewed with the patient at bedside in detail. Plan of care discussed with the patient in detail, he was understanding and was agreeable. Admission Exam Per Admitting Provider GENERAL: Alert and oriented x3. NAD, on RA. HEENT: No pallor, no icterus. Pupils equal, round and reactive to light. Oral mucosa moist. NECK: No JVD, no neck masses. HEART: S1 and S2 heard. irregular rate and rhythm. HR in 100s. No murmur, no gallop. RESPIRATORY SYSTEM: Normal AP diameter. No accessory muscle use. No wheezing, no crackles. ABDOMEN: Soft, bowel sounds present, nontender, no distention. CENTRAL NERVOUS SYSTEM: No facial droop. Speech is clear. Obeys simple commands. Moves extremities. power 5/5 all extremities. EXTREMITIES: No edema, no erythema seen. Principal Diagnosis Atrial fibrillation with rapid ventricular response Acute stroke Acute kidney injury Hypertension Discharge Data Allergies Allergy/AdvReac Type Severity Reaction Status Date / Time oyster extract Allergy Severe ANAPHYLAXIS Verified 08/29/24 14:11 Penicillins Allergy Mild Hives Verified 08/29/24 14:11 Consultations 08/29/24 14:03 ED Decision to Admit Stat 08/29/24 14:38 Consult Cardiology Routine 08/31/24 07:32 Consult Neurology Routine Procedures Performed Laboratory Results WBC 5.57 K/ul (4.8-10.8) 09/01/24 04:18 RBC 3.79 M/uL (4.70-6.10) L 09/01/24 04:18 Hgb 11.5 g/dl (14.0-18.0) L 09/01/24 04:18 Hct 34.2 % (42.0-52.0) L 09/01/24 04:18 MCV 90.2 fL (80.0-100.0) 09/01/24 04:18 MCH 30.3 pg (25.0-34.0) 09/01/24 04:18 MCHC 33.6 g/dL (32.0-36.0) 09/01/24 04:18 RDW Std Deviation 46.3 fL (36.4-46.3) 09/01/24 04:18 RDW Coeff of Landy 13.9 % (11.5-14.5) 09/01/24 04:18 Plt Count 186 K/uL (130-400) 09/01/24 04:18 MPV 11.3 fL (9.4-12.4) 09/01/24 04:18 Immature Gran % (Auto) 0.4 % 08/29/24 11:51 Neut % (Auto) 72.6 % 08/29/24 11:51 Lymph % (Auto) 16.0 % 08/29/24 11:51 [place] % (Auto) 6.1 % 08/29/24 11:51 Eos % (Auto) 3.7 % 08/29/24 11:51 Baso % (Auto) 1.2 % 08/29/24 11:51 Neut # (Auto) 4.07 K/uL (1.40-6.50) 08/29/24 11:51 Lymph # (Auto) 0.90 K/uL (1.20-3.40) L 08/29/24 11:51 [place] # (Auto) 0.34 K/uL (0.11-0.59) 08/29/24 11:51 Eos # (Auto) 0.21 K/uL (0.00-0.50) 08/29/24 11:51 Baso # (Auto) 0.07 K/uL (0.00-0.20) 08/29/24 11:51 Immature Gran # (Auto) 0.02 K/uL (0.01-0.20) 08/29/24 11:51 Heparin Anti-Xa, Unfract 0.48 IU/ml (0.3-0.7) 09/01/24 11:01 Sodium 138 mmol/L (136-145) 09/01/24 04:18 Potassium 4.1 mmol/L (3.5-5.1) 09/01/24 04:18 Chloride 105 mmol/L (98-107) 09/01/24 04:18 Carbon Dioxide 30 mmol/L (21-32) 09/01/24 04:18 Anion Gap 3 (3-11) 09/01/24 04:18 BUN 21 mg/dl (6-23) 09/01/24 04:18 Creatinine 1.08 mg/dl (0.6-1.4) 09/01/24 04:18 Est Cr Clr Drug Dosing 51.0 ml/min 09/01/24 04:18 eGFR 71.56 09/01/24 04:18 BUN/Creatinine Ratio 19.4 (10-20) 09/01/24 04:18 Glucose 95 mg/dl (70-99(Fasting)) 09/01/24 04:18 POC Glucose 168 mg/dl (70-99) H 09/01/24 10:59 Estimat Average Glucose 200 mg/dl 08/30/24 07:58 Hemoglobin A1c 8.6 % (4.5-5.6) H 08/30/24 07:58 Calcium 7.7 mg/dl (8.6-10.3) L 09/01/24 04:18 Phosphorus 3.4 mg/dl (2.5-4.9) 08/30/24 07:58 Magnesium 2.1 mg/dl (1.7-2.4) 09/01/24 04:18 Total Bilirubin 1.1 mg/dl (0.2-1.0) H 08/29/24 11:51 AST 25 U/L (13-39) 08/29/24 11:51 ALT 39 U/L (7-52) 08/29/24 11:51 Alkaline Phosphatase 79 U/L (34-104) 08/29/24 11:51 Troponin I High Sens 26.4 pg/ml (0-20) H 08/30/24 00:37 Total Protein 6.9 gm/dl (6.0-8.3) 08/29/24 11:51 Albumin 4.1 gm/dl (3.4-5.0) 08/29/24 11:51 Globulin 2.8 gm/dl (2.5-4.0) 08/29/24 11:51 Albumin/Globulin Ratio 1.5 (0.9-2) 08/29/24 11:51 Triglycerides 39 mg/dl (0-150) 08/30/24 07:58 Cholesterol 77 mg/dl (0-200) 08/30/24 07:58 LDL Cholesterol, Calc 28 mg/dl 08/30/24 07:58 VLDL Cholesterol, Calc 8 mg/dl (0-30) 08/30/24 07:58 HDL Cholesterol 41 mg/dl 08/30/24 07:58 Cholesterol/HDL Ratio 1.9 (0-5) 08/30/24 07:58 Lipase 9 U/L (11-82) L 08/29/24 11:51 TSH 4.486 uIu/ml (0.300-4.500) 08/29/24 20:04 Impressions Chest X-Ray 08/29/24 11:51 XR chest 1V portable CLINICAL HISTORY: Chest pain, nonspecific COMPARISON STUDY: None FINDINGS: Heart size and pulmonary vasculature are normal. Lungs are hyperexpanded. No effusion, consolidation, or pneumothorax. IMPRESSION: No acute findings. ACT 112: Negative or not required by law. Electronically signed by: Salomón Leonard M.D. 08/29/2024 12:17 PM Chest CTA 08/29/24 12:22 CT angio chest dissec wo/w con CT DOSE: 837.6 mGy.cm HISTORY: 74 years-old Male with cp/back pain. Acute chest and mid back pain TECHNIQUE: Multiple CTA images of the chest were obtained with and without the intravenous administration of 120 ml Optiray. Coronal and sagittal MIPS were obtained from the axial data set and were submitted for review. All measurements were obtained according to NASCET criteria. A dose lowering technique was utilized adhering to the principles of ALARA. COMPARISON: Chest radiograph of same day FINDINGS: CTA: Heart is upper limits of normal in size. No pericardial effusion. Extensive coronary artery calcifications. Atherosclerosis of the aorta without aneurysm or dissection. Ascending thoracic aorta measures 3.7 cm transversely. Noncontrast study demonstrates no intramural or mediastinal hematoma. Unremarkable pulmonary artery. CT CHEST: No thyroid nodule or lymphadenopathy. Trace pleural effusions. No pneumothorax. Moderate emphysema with bronchial wall thickening suggestive of bronchitis. No suspicious pulmonary nodules or masses. Central airways are generally patent. Prominent atherosclerotic plaque of the upper abdominal aorta and branch vessels. Mild generalized body wall edema. Paraspinal tissues are within normal limits. Mild diffuse wall thickening of the esophagus. 6 mm right tracheoesophageal recess lymph node on image 48 series 7 is within normal limits in size. No acute fracture. IMPRESSION: 1. Atherosclerosis of the thoracic aorta without aneurysm or dissection. 2. No pulmonary emboli. 3. Emphysema without acute process of the chest. 4. Mild nonspecific diffuse esophageal wall thickening should be correlated clinically to exclude a nonspecific esophagitis. ACT 112: Negative or not required by law. The above report was generated using voice recognition software. It may contain grammatical, syntax or spelling errors. Electronically signed by: Dez Christian M.D. 08/29/2024 2:03 PM Brain MRI 08/30/24 07:42 CR Exam(s): MRI HEAD W/WO Contrast IV Amt: 6cc gadavist EXAM: MR Head Without and With Intravenous Contrast CLINICAL HISTORY: Reason for exam: R/O Stroke. TECHNIQUE: Magnetic resonance images of the head/brain without and with intravenous contrast in multiple planes. CONTRAST: Patient received 6cc gadavist of IV contrast COMPARISON: Prior head CT from August 29, 2024. FINDINGS: Brain: There is a single tiny focus of acute ischemic injury in the subcortical white matter of the medial left frontal lobe without evidence of hemorrhagic transformation. Remote ischemic injury of the right cem. Moderate nonspecific white matter changes. The flow voids at the base of the brain are intact. No evidence of abnormal enhancement. The dural venous sinuses are patent. Ventricles: Mild ventriculomegaly. Bones/joints: Unremarkable. No acute fracture. Sinuses: Chronic ethmoid and frontal sinusitis. No acute sinusitis. Mastoid air cells: Unremarkable as visualized. No mastoid effusion. Orbits: Bilateral lens replacements. IMPRESSION: There is a tiny acute ischemic injury within the medial left frontal lobe without evidence of hemorrhagic transformation. Communications: Verify Receipt Electronically signed by: Kathy Martinez MD 08/31/24 02:[address] 08/31/24 05:29 EXAM: CT head/brain wo con CLINICAL HISTORY: Headache, heparin. TECHNIQUE: An axial non-contrast CT scan of the brain was performed from the skull base to the high parietal region with multiplanar reconstructions. One of the following dose reduction techniques was utilized for this exam: Automated exposure control, adjustment of the mA and/or kV according to patient size, and use of iterative reconstruction. CTDI: 38 mGy, DLP: 625 mGy*cm. COMPARISON: CT dated 08/29/2024. FINDINGS: Brain Parenchyma: There are a few tiny ill-defined [id number] areas noted in the deep white matter bilaterally, suggestive of microvascular ischemic changes. Normal attenuation of the rest of the cerebral hemispheres, cerebellum, and brainstem. No evidence of acute infarct, hemorrhage, or mass effect. Stable hypodensity in the cem on the right side. Ventricular System: The ventricular system, cortical sulci, and basal cisterns are prominent and consistent with senile changes. No evidence of subarachnoid hemorrhage or extra-axial fluid collections. Cerebellum and Brainstem: Normal size and signal. No masses, lesions, or areas of abnormal signal. Orbits: Normal appearance of the globes, optic nerves, and extraocular muscles. No evidence of orbital masses. Sinuses: Mucosal thickening in the frontal and ethmoid sinuses. The rest of the paranasal sinuses are clear. Mastoid Air Cells: Clear mastoid air cells. No evidence of mastoiditis. Skull: Normal skull morphology. IMPRESSION: 1. No evidence of any acute intracranial event. 2. Stable age-related involutional and microvascular ischemic changes. 3. Stable hypodensity in the cem on the right side. 4. Stable mucosal sinus disease. Electronically signed by Javier Urias 08-31-2024 07:20 AM Head CTA 08/31/24 14:52 EXAM: CTA head with CLINICAL HISTORY: CVA TECHNIQUE: Contiguous CTA axial images were obtained through the head after the administration of intravenous contrast. Sagittal and coronal reformations are supplied. PRIORS: Head CT today FINDINGS: The vertebral arteries form the basilar artery at the skull base. [place] of [place] is patent. No thrombus or hemodynamically significant stenosis. Moderate to high-grade atherosclerotic disease of the bilateral cavernous internal carotid arteries with moderate stenosis noted. The vessels are opacified without total occlusion. No aneurysmal dilatation or buchanan aneurysm. No enhancing mass in the brain. IMPRESSION: 1. 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 ACT 112: Positive. There are findings on this examination that require communication between the performing entity and the patient following Patient Test Result Information Act ([place] ACT 112) guidelines. Electronically signed by Christina Quintana 08-31-2024 4:47 PM Neck CTA 08/31/24 14:52 EXAM: CT angio neck with con CLINICAL HISTORY: CVA TECHNIQUE: Contiguous CTA axial images were obtained through the neck with the administration of intravenous contrast. Sagittal and coronal reformations are supplied. MIPS are supplied. COMPARISON: Head CT 08/31/2024 FINDINGS: A left-sided aortic arch is noted with appropriate takeoff of the 3 great vessels. Moderate atherosclerotic disease present at the origin of the great vessels with no hemodynamically significant stenosis. Right: High-grade atherosclerotic disease present in the carotid bulb with thrombus in the wall and high-grade stenosis of greater than 75%. Moderate atherosclerotic disease of the proximal internal carotid artery, involving a short segment, with stenosis of approximately 50%. Left: High-grade atherosclerotic disease present in the carotid bulb with 50 to 75% stenosis. Mild atherosclerotic disease in the proximal internal carotid artery with less than 25% stenosis. The remainder of the internal carotid arteries are unremarkable and normal in size and appearance. Both entered the petrous portion of the skull base normally. The vertebral arteries are bilaterally symmetric and codominant. Both contribute to the basilar artery at the skull base. IMPRESSION: Bilateral calcific atherosclerotic disease of the carotid bulbs and internal carotid arteries. Electronically signed by Christina Quintana 08-31-2024 4:47 PM Ordered Studies 08/29/24 12:22 CT angio chest dissec wo/w con Stat 08/29/24 14:39 CT head/brain wo con Stat 08/30/24 07:42 MRI Brain [MR brain wo/w con] Routine 08/31/24 05:29 CT head/brain wo con Stat 08/31/24 14:52 CTA head w con [CT angio head w con] Routine CTA neck with con [CT angio neck with con] Routine Hospital Course (1) Atrial fibrillation with RVR: Plan Atrial fibrillation with RVR, New onset --Patient presented with tightness/pain of his both arms/upper back/shoulders associated with nausea/vomiting/pressure at the back of his head. - TSH: normal -ECHO: Mild concentric LVH. Left ventricle wall motion is normal. EF 65 to 70%. Left atrium is mildly dilated. Aortic valve sclerosis mild, without significant stenosis. Trace aortic regurgitation. Monitor and replete electrolytes as needed Cardizem drip discontinued Spontaneously converted to sinus Continue metoprolol tartrate 12.5 mg twice a day Transition IV heparin to Eliquis for anticoagulation. Appreciate cardiology input Will need EP study as outpatient and possible need for pacemaker Needs follow-up with cardiology on discharge Acute kidney injury Likely secondary to contrast Cr 1.4>1.1>1.0 Avoid nephrotoxic agents as able Monitor renal function Received IV fluids Renal function improved Acute CVA--POA H/O Recurrent Strokes Likely due to above Rule out stroke: Patient reports that he has had 4 strokes in the past, last one in February 2024. He likens the presenting symptoms to the event of stroke in the past --CT Head: Cerebral atrophy. No acute changes. --MRI Brain:There is a tiny acute ischemic injury within the medial left frontal lobe without evidence of hemorrhagic transformation. --Head CTA:Moderate to high-grade atherosclerotic disease of the cavernous por tion of the bilateral internal carotid arteries --Neck CTA:Bilateral calcific atherosclerotic disease of the carotid bulbs and internal carotid arteries. --LDL: 28 --ECHO with bubble study: No ASD, no interatrial shunt -- Continue Lipitor, Plavix, anticoagulation as above Needs follow-up with neurology, vascular surgery on discharge PT, OT, speech eval DM II HbA1c 8.6 Continue insulin while hospitalized Monitor BGs Hypertension Blood pressure elevated Will increase losartan to 50 mg twice a day Continue metoprolol Monitor blood pressure Other chronic medical conditions: HLD, hypothyroidism--- continue/resume home meds as able. DVT Px: Eliquis Code Status Full code Disposition Home Total Time Total Time Spent Total Time Spent (In Minutes): 49 minutes Discharge Plan Discharge Items Patient Disposition: Home - Self-Care Reason For Visit: TIGHTNESS IN ARM/SHOULDER Discharge Diagnosis: Atrial fibrillation with rapid ventricular response Acute stroke Acute kidney injury Hypertension Activity: Per Instructions section Exercise/Sports: Wait until after follow-up appointment Non-emergency contact: Primary Care Provider, Surgeon, [employer] Sawyer and Neurologist Call non-emergency contact if: you have any medication questions, your symptoms worsen, your pain is concerning for you and you have a fever Follow-up/Referrals: Apollo Gutiérrez, DAMAGED FREIGHT INSPECTOR-C [Primary Care Provider] - (The office will call you with a follow up appointment.) Diet: Carb Count or DM1 and Heart Healthy Addtl Attending Provider Instructions: Follow-up with your primary care physician Apollo Gutiérrez in 1 week Follow-up with your oil well service operator helper Dr. Weinberg/internet security specialist Dr. Hernandez as recommended Follow-up with your neurologist in 2 to 3 weeks. Please call [facility] neurology for appointment. Follow-up with your vascular surgery for evaluation of internal carotid artery stenosis as recommended by your neurologist. Seek immediate medical attention if your symptoms reoccur or worsen Please take all medications as instructed on discharge list below. Please call if you have any questions or problems. You can reach a [facility] hospitalist on duty at [facility] 24 hours a day by calling [phone] Risk Factors for Stroke: You can reduce your chances of stroke by working with your medical provider to adopt a healthy lifestyle. Some specific ways to lower your chance of stroke are: * If you are a smoker, now is the time to stop smoking cigarettes * If you are diabetic, improve the control of your blood sugars * Avoid excessive amounts of alcohol * Control high blood pressure * Lose weight if you are overweight * Be sure to lead an active lifestyle * Eat a healthy diet low in salt, cholesterol and fat You should know about other risk factors for stroke that you are unable to control. These include: * Age 55 years or older * Male gender * Certain racial groups: , or / * Family History of Stroke, Mini stroke or Heart Attack * Sickle Cell Disease Follow Up: It is important for you to keep your follow up appointments with your medical provider. Who to Call and When: Medical Emergencies: Call 911 immediately if you experience any of the following warning signs and symptoms of Stroke: * Sudden numbness or weakness of the face, arm or leg, especially on one side of the body * Sudden confusion, trouble speaking or understanding * Sudden trouble seeing in one or both eyes * Sudden trouble walking, dizziness, loss of balance or coordination * Sudden severe headache with no cause Do not delay calling 911 if you experience any warning signs or symptoms of a stroke. Delay in seeking medical attention may affect what treatments can be given to you. . Pending Studies at Discharge: No Stand-Alone Forms: My [facility], Smoking Cessation Medications and DC Order Prescriptions: New Eliquis 5 mg Tablet 5 mg PO BID Qty: 60 1RF metoprolol succinate 25 mg Tablet Extended Release 24 Hr 12.5 mg PO BID Qty: 30 1RF Continued levothyroxine 88 mcg Tablet 88 mcg PO DAILY Qty: 0 atorvastatin 80 mg Tablet 80 mg PO DAILY clopidogrel 75 mg Tablet 75 mg PO DAILY vitamin B complex Tablet 1 tab PO DAILY ezetimibe 10 mg Tablet 5 mg PO DAILY insulin aspart U-100 [Novolog FlexPen U-100 Insulin] 100 unit/mL (3 mL) Insulin Pen 1 sliding scale dose SUBCUT USEASDIRECTD Rx Instructions: Inject 1 unit per 8 gram of carb at breakfast and 1 unit per 9 gram of carb for all other meals + 1 additional unit for every 50 above 180. cholecalciferol (vitamin D3) [Vitamin D3] 25 mcg (1,000 unit) Tablet 25 mcg PO DAILY PreserVision AREDS-2 250-90-40-1 mg Capsule 1 tab PO BID insulin glargine U-300 conc [Toujeo SoloStar U-300 Insulin] 300 unit/mL (1.5 mL) Insulin Pen 9 unit subcut QPM Rx Instructions: With supper Changed losartan 50 mg Tablet 50 mg PO BID Qty: 60 1RF Discontinued aspirin 81 mg Tablet,Delayed Release (Dr/Ec) 81 mg PO DAILY Qty: 0 Discharge Orders: Discharge Order (Routine); Ordered 09/01/24 Ordered By: George Macias Admission Data Admit Date/Time: 08/29/24 14:55 Attending Provider: George Macias Admit Provider: Kari Stiles Primary Care Provider: Apollo Gutiérrez Other Providers: Kari Stiles; Uriel Weinberg; [facility]; Narcisa Wheeler; Nathan Sabillon; Narcisa Napier; Salomón Ye; Augustine Rizvi; Long Akhtar; Galo Bradley; Rhiannon Frazier; Roger Taedo; Georges Morris; Booker Schuler; Javier Damian; Janet Turner; Daja Booth; Galo Barron; Meche Rodriguez
[2024-09-01] MEDS ORDERED: LOSARTAN POTASSIUM 50 MG TAB PO SCH (21:00)
== END 2024-09-01 12:59 | disposition home or self-care (01) | DRG 308 ==
LOC: ED 11:37 → SUATTDRO 14:55 → EDINP 14:55 → 2S 17:48